=== PATIENT | male | born 1950 | race Caucasian/White ===

== ENCOUNTER 2019-12-03 07:32 | Day surgery (SDC) | payer MEDICARE ==
[2019-09-25 10:51] LABS: Absolute Lymphocytes (CBC) 1.4 K/uL (0.7-4.9); Hematocrit 42.4 % (39.6-49.0); Lymphocytes % 34.1 % (15.3-44.8); MPV 8.4 fL (7.6-11.3); RBC Red Blood Cell Count 4.54 M/uL (4.33-5.43)
--- NOTE | 2019-11-29 06:19 | EKG ---
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
--- OUTSIDE RECORDS SUMMARY | 2019-12-03 07:41 | XMS REPORT | Continuity of Care Document ---
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 [place] (disorder) Sleep apnea Active Problem 03/07/2017 [facility] (finding) [place] Medications No Data Provided for This Section Allergies, Adverse Reactions, Alerts No Known Medication Allergies Immunizations No Data Provided for This Section Results No Data Provided for This Section Pathology Reports No Data Provided for This Section Diagnostic Reports Report Value Date Source Brain wo contrast EXAM: MRI BRAIN WITHOUT CONTRAST 03/04/2017 [facility] [place] MRI DATE: 03/04/2017 12:41 PM CDT INDICATION: 66 years old Mal e patient with history of - F03.90 Unspecified dementia without behavioral disturbance. COMPARISON: None. TECHNIQUE: Multiplanar, multisequence MRI of the brain without contrast. FINDINGS: No focal brain parenchymal d iffusion restriction is identified. No evidence of intracranial hemorrhage. The hippocampal/amygdala complexes are normal in size and symmetric. No abnormal FLAIR hyperintens ity of the temporal lobes. M ild global brain volume loss with corresponding dilatation of the ventricles. No parenchymal mass, mass effect or midline shift is present. No pathologic extra axial fluid is identified. Major intracran ial vascular flow voids are preserved. No pathologic extra axial fluid is identified. The paranasal sinuses are clear. No mastoid effusion is identified. Orbits are unremarkable bilaterally. IMPRESSION: 1. No acute intracranial abnormality. Chest 2 views Chest 2 views: 04/26/2014 [facility] COMPARISON: No priors FINDINGS: The lungs are belgica r and well inflated. There are no effusions or other pleural abnormalities. The cardiomediastinal silhouette and the pulmonary vasculature are within normal limits. No significant bony abnormality is noted. IMPRESSION: Normal two-view chest. SL:13 Consultation Notes No Data Provided for This Section Discharge Summaries No Data Provided for This Section History and Physicals No Data Provided for This Section Vital Signs No Data Provided for This Section Encounters Location Location Encounter Encounter Reason Attending ADM MO Stat us Source Details Type Number For Provider Date Date Visit [facility] Outpt Diag [id number] [facility] 04/26 04/27 [facility] Outpatient Services Roque /2013 [facility] [place] [facility] [id number] VANITA 09/[address] [facility] Joe Outpatient [id number] KHADRA NELSON 10/21 [facility] Joe [facility] Outpt Diag [id number] [facility] 03/04 03/05 [facility] [place] [id number] KHADRA NELSON 04/22 Acti [facility] [place] Procedures Procedure Code Date Perfomer Comments Source Appendectomy [id number] [facility] [place] Carpal tunnel release [id number] [facility] Cholecystectomy [id number] [facility] Fusion of [id number] [facility] cervicothoracic joint Her clement by anterior approach Fusion of lumbar [id number] OP[facility] spine Joe Hernia repair [id number] [facility] [place] Vasectomy [id number] [facility] Assessment and Plan No Data Provided for This Section Plan of Care No Data Provided for This Section Social History Social History Date Source Social History TypeResponse 10/21/2016 [facility] Alcohol Past Smoking Status Former smoker; Ready to change: No; Conc erns about tobacco use in household: No; Exposure to Tobacco Smoke Smoke occasionally during HS; Cigarette Smoking Last 365 Days No; Reg Smoking Cessation Counseling No Family History No Data Provided for This Section Advance Directives No Data Provided for This Section Functional Status No Data Provided for This Section
--- OUTSIDE RECORDS SUMMARY | 2019-12-03 07:41 | XMS REPORT | Clinical Summary ---
:1950 Author Organization [facility] Address [address] [place] [address] Care Team Providers Name Role Phone MD Trina Primary Care Provider Allergies Active Allergy Reactions Severity Noted Date Comments Adhesive Tape-Silicones Rash Medium 01/09/2018 "BLI STER ASTUDILLO', paper tape and tegaderm ok as per pt Medications Medication Sig Dispensed Refills Start End Date Status Date DULoxetine Take 60 mg by 0 Activ e (CYMBALTA) 60 MG mouth nightly. capsule SUMAtriptan Take 50 mg by 0 Acti ve (IMITREX) 50 MG mouth once as tablet needed for migraine. May repeat in 2 hours if unresolved. Do not exceed 200 mg in 24 hours. HYDROcodone-acetami Take 1 tablet 0 Active nophen (NORCO) by mouth 3 10-325 mg per (three) times a tablet day as needed (pain). pantoprazole Take 40 mg by 0 Act ilana (PROTONIX) 40 MG EC mouth daily. tablet atorvastatin Take 20 mg by 0 Act ilana (LIPITOR) 20 MG mouth nightly. tablet Default OP ins sodium Apply 1 0 Active fluoride/potassium application to nit (PREVIDENT 5000 teeth 2 (two) SENSITIVE DENT) times a day. leflunomide (ARAVA) Take 20 mg by 0 Active 20 MG tablet mouth nightly. testosterone by implant 0 Active (TESTOPEL IMPL) route every 4 (four) months. lidocaine HCl 4 % Apply 1 0 Ac tive lotion application topically 2 (two) times a day as needed (pain). Apply small amount affected area of pain sildenafil, Take 20 mg by 0 Acti ve antihypertensive, mouth daily. (REVATIO) 20 mg tablet celecoxib Take 200 mg by 0 Activ e (CeleBREX) 200 MG mouth daily. capsule cycloSPORINE Administer 1 0 Acti ve (RESTASIS drop to both MULTIDOSE) 0.05 % eyes 2 (two) drops times a day. pilocarpine Take 5 mg by 0 Activ e (SALAGEN) 5 MG mouth 3 (three) tablet times a day. calcium Take 1 tablet 0 Active carbonate-vitamin by mouth daily. D3 (CALCIUM 500 WITH D) 500 mg(1,250mg) -400 unit tablet potassium 99 mg Take 1 tablet 0 Active tablet by mouth daily. cholecalciferol, Take 1 tablet 0 Active vitamin D3, by mouth daily. (VITAMIN D3) 5,000 unit tablet ascorbic acid, Take 500 mg by 0 Active vitamin C, (VITAMIN mouth daily. C) 500 MG tablet glucosamine/msm/cho Take 1 tablet 0 Active ndroit sulf by mouth 2 (GLUCOSAMINE (two) times a [id number] day. ORAL) saw palmetto fruit Take 1 tablet 0 Active 450 mg capsule by mouth 2 (two) times a day. CINNAMON BARK ORAL Take 100 mg by 0 Active mouth daily. vitamin E 400 UNIT Take 400 Units 0 Active capsule by mouth daily. MAGNESIUM ORAL Take 400 mg by 0 Active mouth daily. SIMETHICONE ORAL Take 1 tablet 0 Active by mouth daily. Gas X folic acid/vit B Take 1 tablet 0 Active complex and C (B by mouth daily. COMPLEX-VITAMIN C-FOLIC ACID ORAL) UNABLE TO FIND Take 4 capsules 0 Active by mouth daily. Sulfurzyme Supplement oil capsule metoprolol tartrate Take 25 mg by 0 Active (LOPRESSOR) 25 mg mouth 2 (two) 8 tablet times a day. losartan (COZAAR) Take 100 mg by 0 Active 100 MG tablet mouth daily. 8 predniSONE Take 5 mg by 0 Active (DELTASONE) 5 mg mouth every 8 tablet morning. docosahexanoic Take 1 tablet 0 A ctive acid/epa (FISH OIL by mouth 3 ORAL) (three) times a day. nortriptyline Take 50 mg by 0 Ac tive (PAMELOR) 25 MG mouth nightly. capsule Takes 25 mg 2 cap. (50 mg) choline fenofibrate Take 45 mg by 0 Active (TRILIPIX) 45 mg mouth daily. capsule oxyCODone-acetamino Take 1 tablet 0 Active phen (PERCOCET) by mouth every 5-325 mg per 8 (eight) hours tabletIndications: .Acute Pain. acute pain methocarbamol Take 750 mg by 0 A ctive (ROBAXIN) 750 MG mouth 4 (four) tablet times a day as needed for muscle spasms. metFORMIN XR Take 1,000 mg 0 Act ilana (GLUCOPHAGE-XR) 500 by mouth daily. mg 24 hr tablet Takes 500 mg 2 tab. (1,000 mg) at supper exenatide Inject 2 mg 0 Active microspheres under the skin (BYDUREON SUBQ) once a week. 2 mg/0.85 ml injects on Tuesday cyanocobalamin, Take 1 tablet 0 Active vitamin B-12, 5,000 by mouth daily. mcg capsule UNABLE TO FIND Take 1 capsule 0 Active by mouth daily. Med Name: Dirurex Max TURMERIC ORAL Take 1 tablet 0 Ac tive by mouth daily. zinc 50 mg tablet Take 1 tablet 0 Active by mouth daily. naloxone 4 1 spray into 0 Active mg/actuation each nostril as spray,non-aerosol needed (overdose). Magnolia in left nostril as needed traMADol (ULTRAM) Take 100 mg by 0 0 Discontinued 50 mg tablet mouth 3 (three) 19 ( Stop Taking at times a day as Disch arge) needed (pain). Takes 50 mg 2 tab. (100 mg) tiZANidine Take 4 mg by 0 04/20/20 Discon tinued (ZANAFLEX) 4 MG mouth 3 (three) 19 tablet times a day. nortriptyline Take 50 mg by 0 04/20/20 Di scontinued (PAMELOR) 10 MG mouth daily. 19 capsule multivit-min/FA/lyc Take 1 tablet 0 Discontinued open/lutein by mouth daily. 19 (CENTRUM SILVER MEN ORAL) semaglutide Inject 1 mg 0 04/20/20 Discon tinued (OZEMPIC) 1 mg/0.75 under the skin 19 mL (2 mg/1.5 mL) once a week. pen injector ergocalciferol Take 50,000 0 04/29/20 Dis continued (VITAMIN D2) 50,000 Units by mouth 19 (Med List unit capsule once a week. Edwige nup) Tuesday ondansetron Take 8 mg by 0 05/02/20 Disco ntinued (ZOFRAN) 8 MG mouth every 8 19 (S top Taking at tablet (eight) hours Discha rge) as needed for nausea or vomiting. cholecalciferol, Take 50,000 0 05/02/20 D iscontinued vitamin D3, Units by mouth. 19 (S top Taking at (VITAMIN D3 ORAL) Every Tuesday Discharge) Active Problems Problem Noted Date Lumbosacral spondylosis with radiculopathy 04/27/2019 Degenerative disc disease, lumbar 04/26/2018 Degenerative disc disease, cervical 01/16/2018 Encounters Date Type Specialty Care Team Description 07/02/2019 Hospital Encounter Radiology Yo Meraz Lumbosa cral MD radiculopathy d ue to degenerative valentin int disease of spin e 06/06/2019 Transcribe Orders Access Yo Meraz Lumbosac marylin HEATH radiculopathy d ue to degenerative valentin int disease of spin e (Primary Dx) 05/25/2019 Hospital Encounter Radiology Yo Meraz, Spinal stenosis, MD lumbar region, with neurogenic claudication 05/22/2019 Hospital Encounter Radiology Yo Meraz Lumbosa cral MD spondylosis wit h radiculopathy 05/22/2019 Transcribe Orders Radiology Yo Meraz Lumbosac ral spondylosis with radiculopathy (Primary Dx); Spinal stenosis , lumbar region, with neurogenic claudication 04/27/2019 Anesthesia Event General Surgery Sara Champion MD 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, 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, 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 04/27/2019 Surgery General Surgery Yo Meraz, POSTERIOR LUMBAR MD RE-EXPLORATION, REMOVAL OF L4-L 5 NAGI, L5-S1 LAMINECOT MY AND TRANSFORAMINAL LUMBAR INTERBODY FUSIO N, EXTENSION OF FU RADHA TO S1 WITH MEDT RONIC & [facility] 04/27/2019 - Hospital Encounter General Internal Yo Meraz, Lum bosacral 05/02/2019 Medicine MD spondylosis with Spencer Veras radiculopath cami Wen MD 04/20/2019 Pre-Admit Testing Pre-Admission Yo Meraz, Preop t esting Appointment Testing (Primary Dx) 04/12/2019 Hospital Encounter Radiology Yo Meraz Lumbosa cral MD spondylolysis 04/12/2019 Transcribe Orders Radiology Yo Meraz, Lumbosac ral spondylolysis (Primary Dx) 01/16/2019 Hospital Encounter Yo Shea, Lumbar stenosis with MD neurogenic claudication 01/11/2019 Transcribe Orders Access Yo Meraz, Lumbar s tenosis with MD neurogenic claudication (P rimary Dx) 12/26/2018 Hospital Encounter Yo Shea, Spinal stenosis in cervical region; Spinal stenosis , lumbar region, without neurogenic claudication 12/26/2018 Hospital Encounter Yo Shea, Spinal stenosis in cervical region; Spinal stenosis , lumbar region, without neurogenic claudication 12/26/2018 Transcribe Orders Yo Shea, Spinal s tenosis in cervical region (Primary Dx); Spinal stenosis , lumbar region, without neurogenic claudication after 12/02/2018 Immunizations Name Administration Dates Next Due FLUCELVAX QUAD PF 05/02/2019, 05/01/2018 Influenza, Unspecified 05/04/2017 Family History Medical History Relation Name Comments Autoimmune disease Brother Heart disease Brother Parkinsonism Brother Cancer Father colon Heart disease Mother Heart failure Mother Hypertension Mother Relation Name Status Comments Brother Father Mother Social History Tobacco Use Types Packs/Day Years Used Date Former Smoker Cigarettes 0.5 1 Quit: 1969 Smokeless Tobacco: Never Used Alcohol Use Drinks/Week oz/Week Comments No NOT SINCE 2013. Sex Assigned at Date Recorded Not on file Job Start Date Occupation Industry Not on file Not on file Not on file Travel History Travel Start Travel End No recent travel history available. Last Filed Vital Signs Vital Sign Reading Time Taken Comments Blood Pressure 139/82 05/02/2019 11:23 AM CDT Pulse 101 05/02/2019 11:23 AM CDT Temperature 36.9 C (98.4 F) 05/02/2019 11:23 AM CDT Respiratory Rate 17 05/02/2019 11:23 AM CDT Oxygen Saturation 95% 05/02/2019 11:23 AM CDT Inhaled Oxygen Concentration - - Weight 122 kg (270 lb) 04/20/2019 9:52 AM CDT Height 175.3 cm (5' 9") 04/20/2019 9:52 AM CDT Body Mass Index 39.87 04/20/2019 9:52 AM CDT Plan of Treatment Health Maintenance Due Date Last Done Comments COLONOSCOPY SCREENING 09/21/2001 SHINGLES VACCINES (#1) 09/21/2001 65+ PNEUMOCOCCAL VACCINE (1 of 2 - 09/21/2016 PCV13) INFLUENZA VACCINE 02/02/2020 05/02/2019, 05/01/2018, 06/13/2017, Additional history exists Implants Implanted Type Area Casework Supervisor Device Shelf Model / Serial Identifier Expiration / Lot Date Spacer Spinal Acf Lordtc [id number] - [id number] - [id number] Human Tissue Anterior: MUSCULOSKELETAL 10/07/2020 [id number] / Implanted: Qty: 1 on 01/16/2018 by Yo Meraz MD at [facility] Implants Spine TRANSPLANT [id number] / Cervical FOUNDATION [id number] Spacer Spinal Acf Lordtc [id number] - [id number] - [id number] Human Tissue Anterior: MUSCULOSKELETAL 10/15/2020 [id number] / Implanted: Qty: 1 on 01/16/2018 by Yo Meraz MD at [facility] Implants Spine TRANSPLANT [id number] / Cervical FOUNDATION [id number] Chip Canc Allograft Leader Crs 15cc 0.1-4mm - [id number] H uman Tissue Anterior: MUSCULOSKELETAL 03/14/2021 [id number] / Implanted: Qty: 1 on 04/26/2018 by Yo Meraz MD at [facility] Implants Spine TRANSPLANT / Lumbar FOUNDATION [id number] Kit Bone Grft Lmbr Tprd 8ml Xxl Infuse - [id number] Human Tissue Anterior: MEDTRONIC SPINAL 11/01/2019 [id number] / Implanted: Qty: 1 on 04/26/2018 by Yo Meraz MD at [facility] Implants Spine AND BIOLOGICS / Lumbar Kit Bone Grft Lmbr Tprd 2.8ml Sm Infuse - [id number] Human Tissu e Left: MEDTRONIC SPINAL 05/03/2020 [id number] / Implanted: Qty: 1 on 04/28/2018 by Yo Meraz MD at [facility] Implants Spine AND BIOLOGICS / Lumbar Chip Canc Allograft Leader Crshd 15cc 0.1-4mm - [id number] Human Tissue Left: MUSCULOSKELETAL 03/13/2021 [id number] / Implanted: Qty: 1 on 04/28/2018 by Yo Meraz MD at [facility] Implants Spine TRANSPLANT / Lumbar FOUNDATION [id number] Kit Bone Graft Lumbar Tapered 2.8mm Small Infuse - [id number] Human Tissue Posterior MEDTRONIC SPINAL 03/03/2021 [id number] / Implanted: Qty: 1 on 04/27/2019 by Yo Meraz MD at [facility] Implants : Spine AND BIOLOGICS / Lumbar [id number] Tissue Pericrdm Std Algrft Ldr - [id number] Human Tissue Post erior MUSCULOSKELETAL 09/20/2021 [id number] / Implanted: Qty: 1 on 04/27/2019 by Yo Meraz MD at [facility] Implants : Spine, TRANSPLANT / Multi-Lev FOUNDATION [id number] el Interbody [id number] Large - 18 Deg 16mm - [id number] - [id number] I PM IMPLANT Anterior: MEDTRONIC 11/20/2022 [id number] / Implanted: Qty: 1 on 04/26/2018 by Yo Meraz MD at [facility] DEVICES Spine SOFAMOR DANEK 08AC / Lumbar 08AC Cdh Legacy 5.5 Nilesh Mas 5.5x30 - [id number] IPM IMPLANT Anterior: MEDT RONIC [id number] / Implanted: Qty: 1 on 04/26/2018 by Yo Meraz MD at [facility] DEVICES Spine SOFAMOR DANEK / Lumbar VENDOR LOT NA Set Screw [id number] 5.5 Ti Ns Brk Off - [id number] IPM IMPLANT N/A: N/A MEDTRONIC [id number] / Implanted: 04/28/2018 at [facility] (Quantity not on file) DE VICES SOFAMOR DANEK / Screw [id number] 5.5 Mas 6.5x50 Cc - [id number] IPM IMPLANT Posterior MEDTRONIC [id number] / Implanted: 04/28/2018 at [facility] (Quantity not on file) DE VICES : Spine SOFAMOR DANEK / Lumbar VENDOR LOT NA Screw [id number] 5.5 Mas 6.5x55 Cc - [id number] IPM IMPLANT N/A: N/A MEDTRONIC [id number] / Implanted: 04/28/2018 at [facility] (Quantity not on file) DE VICES SOFAMOR DANEK / Screw [id number] 5.5 Mas 6.5x60 Cc - [id number] IPM IMPLANT Posterior MEDTRONIC [id number] / Implanted: 04/28/2018 at [facility] (Quantity not on file) DE VICES : Spine SOFAMOR DANEK 03/9999 / Lumbar VENDOR LOT NA Nagi [id number] 5.5 Ccm Ns Curv 30mm - [id number] IPM IMPLANT Posterior MEDTRONIC [id number] / Implanted: 04/28/2018 at [facility] (Quantity not on file) DE VICES : Spine SOFAMOR DANEK / Lumbar VENDOR LOT NA Nagi [id number] 5.5 Ccm Ns Curv 35mm - [id number] IPM IMPLANT Posterior MEDTRONIC [id number] / Implanted: 04/28/2018 at [facility] (Quantity not on file) DE VICES : Spine SOFAMOR DANEK / Lumbar VENDOR LOT NA Nagi [id number] 5.5 Ccm Ns Curv 50mm - [id number] IPM IMPLANT Posterior MEDTRONIC [id number] / Implanted: 04/28/2018 at [facility] (Quantity not on file) DE VICES : Spine SOFAMOR DANEK 03/9999 / Lumbar VENDOR LOT NA Screw [id number] 5.5 Mas 6.5x50 Cc - [id number] IPM IMPLANT Posterior MEDTRONIC [id number] / Implanted: Qty: 2 on 04/27/2019 by Yo Meraz MD at [facility] DEVICES : Spine, SOFAMOR DANEK / Sacral VENDOR LOT NA Set Screw [id number] 5.5 Ti Ns Brk Off - [id number] IPM IMPLANT N/A: N/A MEDTRONIC [id number] / Implanted: Qty: 6 on 04/27/2019 by Yo Meraz MD at [facility] DEVICES SOFAMOR DANEK / Nagi [id number] 5.5 Ccm Ns Curv 50mm - [id number] IPM IMPLANT Posterior MEDTRONIC [id number] / Implanted: Qty: 1 on 04/27/2019 by Yo Meraz MD at [facility] DEVICES : Spine, SOFAMOR DANEK / Multi-Lev VENDOR LOT NA el Nagi [id number] 5.5 Ccm Ns Curv 55mm - [id number] IPM IMPLANT Posterior MEDTRONIC [id number] / Implanted: Qty: 1 on 04/27/2019 by Yo Meraz MD at [facility] DEVICES : Spine, SOFAMOR DANEK / Multi-Lev VENDOR LOT NA el Graft Dural Regnrtn Mtrx Duragen Plus 1x1in - [id number] Neurosu rgica Posterior INTEGRA 10/01/2021 [id number] / Implanted: Qty: 1 on 04/27/2019 by Yo Meraz MD a t [facility] l Implants : Spine, LIFESCIENCE / Multi-Lev NEURO [id number] el Washer Bone Grft Ti 17mm - [id number] Orthopedic Anterior: MEDTRONIC S JUAN [id number] / Implanted: Qty: 1 on 04/26/2018 by Yo Meraz MD at [facility] Trauma Spine AND BIOLOGICS / Implants Lumbar VENDOR LOT NA Screw Cerv Fxdangld Slf-Retng Slf-Tap Ti 4x16mm - [id number] Spi nal Anterior: SYNTHES SPINE [id number] / Implanted: 01/16/2018 at [facility] (Quantity not on file) Implants Spine / Cervical VENDOR LOT NA Plate Spinal 2lvl Ti Vectra 40mm - [id number] Spinal Anterior: SYNT HES SPINE [id number] / Implanted: 01/16/2018 at [facility] (Quantity not on file) Implants Spine / Cervical VENDOR LOT NA Cage Intrbdy [place] Imp Peek 6deg [id number] - [id number] Spina l Left: MEDTRONIC SPINAL 02/15/2026 [id number] / Implanted: Qty: 1 on 04/28/2018 by Yo Meraz MD at [facility] Implants Spine AND BIOLOGICS / Lumbar [id number] Kit Selnt Fibrin [facility] Surgy 5ml Evicel - [id number] Surgic al Posterior ETHICON US- 11/01/2020 [id number] / Implanted: Qty: 1 on 04/27/2019 by Yo Meraz MD at [facility] Implants; : Spine / Expanders; Lumbar [id number] Extenders; Surgical Wires Kit Selnt Fibrin [facility] Surgy 5ml Evicel - [id number] Surgic al Posterior ETHICON US-EH [id number] / Implanted: Qty: 1 on 04/27/2019 by Yo Meraz MD at [facility] Implants; : Spine, / Expanders; Multi-Lev Extenders; el Surgical Wires Kit Selnt Fibrin [facility] Surgy 5ml Evicel - [id number] Surgic al Posterior ETHICON US-EH [id number] / Implanted: 04/27/2019 at 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 CT LUMBAR SPINE WO Routine 05/25/2019 2:00 Spinal stenosis, R esults for this CONTRAST PM ELECTRIC MOTOR CONTROL ASSEMBLER lumbar region, with procedur e are in neurogenic the results claudication section. XR LUMBAR SPINE AP Routine 05/22/2019 12:40 Lumbosacral Resul ts for this LATERAL FLEXION AND PM ELECTRIC MOTOR CONTROL ASSEMBLER spondylosis with pro cedure are in EXTENSION radiculopathy the results section. POC GLUCOSE Routine 05/02/2019 11:25 Results for this AM CDT procedure are i n the results section. POC GLUCOSE Routine 05/02/2019 6:20 Results for this AM CDT procedure are i n the results section. POC GLUCOSE Routine 05/01/2019 9:51 Results for this PM CDT procedure are i n the results section. POC GLUCOSE Routine 05/01/2019 5:34 Results for this PM CDT procedure are i n the results section. CT LUMBAR SPINE WO Routine 05/01/2019 12:16 Resul ts for this CONTRAST PM CDT procedure are i n the results section. POC GLUCOSE Routine 05/01/2019 12:11 Results for this PM CDT procedure are i n the results section. POC GLUCOSE Routine 05/01/2019 6:08 Results for this AM CDT procedure are i n the results section. ESTIMATED GFR Routine 05/01/2019 5:50 Results fo r this AM CDT procedure are i n the results section. BASIC METABOLIC PANEL Routine 05/01/2019 5:50 Re sults for this AM CDT procedure are i n the results section. HC COMPLETE BLD COUNT Routine 05/01/2019 5:50 Re sults for this W/AUTO DIFF AM CDT procedure are i n the results section. POC GLUCOSE Routine 04/30/2019 10:01 Results for this PM CDT procedure are i n the results section. POC GLUCOSE Routine 04/30/2019 5:51 Results for this PM CDT procedure are i n the results section. POC GLUCOSE Routine 04/30/2019 11:45 Results for this AM CDT procedure are i n the results section. XR LUMBAR SPINE 2 OR 3 Routine 04/30/2019 10:11 R esults for this VW AM CDT procedure are i n the results section. ESTIMATED GFR Routine 04/30/2019 6:15 Results fo r this AM CDT procedure are i n the results section. BASIC METABOLIC PANEL Routine 04/30/2019 6:15 Re sults for this AM CDT procedure are i n the results section. HC COMPLETE BLD COUNT Routine 04/30/2019 6:15 Re sults for this W/AUTO DIFF AM CDT procedure are i n the results section. POC GLUCOSE Routine 04/30/2019 5:25 Results for this AM CDT procedure are i n the results section. POC GLUCOSE Routine 04/29/2019 8:42 Results for this PM CDT procedure are i n the results section. POC GLUCOSE Routine 04/29/2019 5:04 Results for this PM CDT procedure are i n the results section. POC GLUCOSE Routine 04/29/2019 11:45 Results for this AM CDT procedure are i n the results section. US DUPLEX VENOUS LOWER Routine 04/29/2019 11:21 R esults for this EXTREMITY BILATERAL AM CDT procedur e are in the results section. POC GLUCOSE Routine 04/29/2019 5:51 Results for this AM CDT procedure are i n the results section. ESTIMATED GFR Routine 04/29/2019 4:40 Results fo r this AM CDT procedure are i n the results section. BASIC METABOLIC PANEL Routine 04/29/2019 4:40 Re sults for this AM CDT procedure are i n the results section. HC COMPLETE BLD COUNT Routine 04/29/2019 4:40 Re sults for this W/AUTO DIFF AM CDT procedure are i n the results section. POC GLUCOSE Routine 04/28/2019 9:18 Results for this PM CDT procedure are i n the results section. POC GLUCOSE Routine 04/28/2019 6:25 Results for this PM CDT procedure are i n the results section. POC GLUCOSE Routine 04/28/2019 6:33 Results for this AM CDT procedure are i n the results section. ESTIMATED GFR Routine 04/28/2019 5:30 Results fo r this AM CDT procedure are i n the results section. BASIC METABOLIC PANEL Routine 04/28/2019 5:30 Re sults for this AM CDT procedure are i n the results section. HC COMPLETE BLD COUNT Routine 04/28/2019 5:30 Re sults for this W/AUTO DIFF AM CDT procedure are i n the results section. POC GLUCOSE Routine 04/27/2019 11:02 Results for this PM CDT procedure are i n the results section. POC GLUCOSE Routine 04/27/2019 4:27 Results for this PM CDT procedure are i n the results section. OR FL < 1 HOUR Routine 04/27/2019 3:43 Results f or this PM CDT procedure are i n the results section. ARTERIAL LINE Routine 04/27/2019 10:10 Results fo r this AM CDT procedure are i n the results section. AL AN ELECTIVE Routine 04/27/2019 9:33 Results f or this ENDOTRACHEAL AIRWAY AM CDT procedur e are in the results section. URINE CULTURE Timed 04/27/2019 8:49 Results fo r this AM CDT procedure are i n the results section. URINALYSIS SCREEN AND Timed 04/27/2019 8:44 Lumbosacral Re sults for this MICROSCOPY, WITH AM CDT spondylosis with procedu re are in REFLEX TO CULTURE radiculopathy the resul ts section. POC GLUCOSE Routine 04/27/2019 7:31 Results for this AM CDT procedure are i n the results section. ESTIMATED GFR Routine 04/20/2019 10:50 Results fo r this AM CDT procedure are i n the results section. PROTHROMBIN TIME WITH Routine 04/20/2019 10:50 Preop testing R esults for this INR AM CDT procedure are i n the results section. PARTIAL THROMBOPLASTIN Routine 04/20/2019 10:50 Preop testing Results for this TIME (PTT) AM CDT procedure are i n the results section. HEMOGLOBIN A1C Routine 04/20/2019 10:50 Preop testing Results for this AM CDT procedure are i n the results section. TYPE AND SCREEN Routine 04/20/2019 10:50 Preop testing Results for this AM CDT procedure are i n the results section. BASIC METABOLIC PANEL Routine 04/20/2019 10:50 Preop testing R esults for this AM CDT procedure are i n the results section. HC COMPLETE BLD COUNT Routine 04/20/2019 10:50 Preop testing R esults for this W/AUTO DIFF AM CDT procedure are i n the results section. XR LUMBAR SPINE AP Routine 04/12/2019 10:46 Lumbosacral Resul ts for this LATERAL FLEXION AND AM CDT spondylolysis proced ure are in EXTENSION the results section. MRI LUMBAR SPINE W WO Routine 01/16/2019 2:34 Lumbar stenosis with Results for this CONTRAST PM CDT neurogenic procedure are i n claudication the results section. ESTIMATED GFR STAT 01/16/2019 1:16 Results fo r this PM CDT procedure are i n the results section. CREATININE, WHOLE STAT 01/16/2019 1:16 Result s for this BLOOD PM CDT procedure are i n the results section. XR CERVICAL SPINE Routine 12/26/2018 9:53 Spinal stenosis in Results for this COMPLETE W FLEX EXT AM CDT cervical reg ion procedure are in Spinal stenosis, the results lumbar region, section. without neurogenic claudication XR LUMBAR SPINE AP Routine 12/26/2018 9:53 Spinal stenosis in Results for this LATERAL FLEXION AND AM CDT cervical re gion procedure are in EXTENSION Spinal stenosis, the results lumbar region, section. without neurogenic claudication after 12/02/[address] Lumbar Spine Wo Contrast (07/02/2019 1:32 PM ELECTRIC MOTOR CONTROL ASSEMBLER)Only the most recent of3 resultswithin the time period is included. Specimen Narrative Performed At EXAMINATION: CT LUMBAR SPINE WO CONTRAST RADIANT CLINICAL HISTORY: M47.27 Other spondylosis with radicu lopathy lumbosacral region, M47.27 COMPARISON: The 2018 TECHNIQUE: Axial noncontrast enhanced images of lumbar spine was performed with coronal sagittal [place] [facility] [place] was performed with iterative reconstruction technique and/or automated exposure control to reduce radiation dos e. FINDINGS: L1-L2 and L4-S1 posterior spinal fusion is seen. Inter body prosthesis present from L1-L2 to L5-S1. Anterior fusion screw is seen at L4-L5 level. There is evidence of lucency surrounding the ri ght-sided S1 screw, measuring 7.5 mm and less than 4 mm lucency is also seen associated with the left S1 screw . No other perihardware lucency. Spinal laminectomy seen at L1-L2, partial laminectomy at L2-L3 and L3-L4. Total laminectomy at L4-L5 and L5 -S1. There is a T11 vertebral body hemangioma. Vertebral mei dy heights are maintained. Alignment is maintained. Soft tissue fullness, low-attenuation and air along th e left aspect at L4-L5 is again noted, has progressed since the prior s tudy. But is similar to the study performed on r 2018. At L1-L2, postoperative changes. No recurrent narrowin g of the bony spinal canal or neural foramina. At L2-L3, postoperative changes, no recurrent narrowin g of the bony spinal canal or neural foramina. At L3-L4, postoperative changes beam hardening degradi ng evaluation, no recurrent high-grade spinal canal or neural foraminal narrowing is appreciated. At L4-L5 postoperative changes no high-grade bony spin al canal or neural foraminal narrowing. At L5-S1, postoperative changes. No high-grade bony sp inal canal or neural foraminal narrowing. Please note soft tissue detail is limited on CT and po stoperative fibrosis or granulation tissue related neural foramina l or spinal canal narrowing at L4-L5 and L5-S1 cannot be e xcluded. IMPRESSION: Postoperative changes with lucency surroun ding right S1 screw, cannot exclude screw loosening at this level. P ersistent fluid, fibrosis and air in the laminectomy bed. No recurrent high-grade bony spinal canal or neural foraminal narrowi ng. 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 CT imaging was performed with iterative reconstruction technique and/or automated exposure control to reduce radiation dose. FINDINGS: L1-L2 and L4-S1 posterior spinal fusion is seen. Interbody prosthesis present from L1-L2 to L5-S1. Anterior fusion screw is seen at L4-L5 level. There is evidence of lucency surrounding the right-sided S1 screw, measuring 7.5 mm and less than 4 mm lucency is also seen associated with the left S1 screw. No other perihardware lucency. Spinal laminectomy seen at L1-L2, partia l laminectomy at L2-L3 and L3-L4. Total laminectomy at L4-L5 and L5-S1. There is a T11 vertebral body hemangioma . Vertebral body heights are maintained. Alignment is maintained. Soft tissue fullness, low-attenuation an d air along the left aspect at L4-L5 is again noted, has progressed since the prior study. But is similar to the study performed on May 01, 2019. At L1-L2, postoperative changes. No recu rrent narrowing of the bony spinal canal or neural foramina. At L2-L3, postoperative changes, no recu rrent narrowing of the bony spinal canal or neural foramina. At L3-L4, postoperative changes beam wendy dening degrading evaluation, no recurrent high-grade spinal canal or neural foraminal narrowing is appreciated. At L4-L5 postoperative changes no high-g rade bony spinal canal or neural foraminal narrowing. At L5-S1, postoperative changes. No high -grade bony spinal canal or neural foraminal narrowing. Please note soft tissue detail is limite d on CT and postoperative fibrosis or granulation tissue related neural foraminal or spinal canal narrowing at L4-L5 and L5-S1 cannot be excluded. IMPRESSION: Postoperative changes with l ucency surrounding right S1 screw, cannot exclude screw loosening at this level. Persistent fluid, fibrosis and air in the laminectomy bed. No recurrent high-grade bony spinal canal or neural foraminal narrowing. [id number] Performing Organization Address City/State/Zipcode Phone Number [facility] [address] [place] [address] XR Lumbar Spine Ap Lateral Flexion And Extension (05/22/2019 12:40 PM [employer])Only the most recent of3 resultswithin the time period is included. Specimen Narrative Performed At EXAMINATION: XR LUMBAR SPINE AP LATERAL FLEXION AND EXTENSION [facility] CLINICAL HISTORY: M47.27 Other spondylosis with radicu lopathy lumbosacral region, lumbosacral spondy with radiculopathy COMPARISON: 04/30/2019. IMPRESSION: 6 views of lumbar spine are interpreted. Dynamic later al grafts are included. Mild convex right curvature of the thora columbar region is again noted. Vertebral heights are preserved. No fracture or aggres sive bone lesion is seen. Again noted is posterior fusion of L1-2. Bilateral ped icle screws are connected with vertical rods. No hardware failure or l oosening is seen. Facetectomy and L1 partial laminectomy a re again noted. Again noted is posterior fusion of L4-S1. Bilateral pe dicle screws are present at L4 and S1 are connected with vertical rods. No hardware failure loosening is seen. Facetectomies of L4-5 and L 5-S1 are again noted. Again noted are interbody fusions of L1- 2 through L5-S1. Mild grade 1 anterolisthesis of L5 relat ilana S1 is again seen. There is no significant change in alignment on dynamic lateral radiographs. There is limited range of m otion. No significant interval change is apprec iated. 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 IMPRESSION: 6 views of lumbar spine are interpreted. Dynamic lateral grafts are included. Mild convex right curvature of the thora columbar region is again noted. Vertebral heights are preserved. No frac ture or aggressive bone lesion is seen. Again noted is posterior fusion of L1-2. Bilateral pedicle screws are connected with vertical rods. No hardware failure or loosening is seen. Facetectomy and L1 partial laminectomy are again noted. Again noted is posterior fusion of L4-S1 . Bilateral pedicle screws are present at L4 and S1 are connected with vertical rods. No hardware failure loosening is seen. Facetectomies of L4-5 and L5-S1 are again noted. Again noted are interbody fusions of L1- 2 through L5-S1. Mild grade 1 anterolisthesis of L5 relat ilana S1 is again seen. There is no significant change in alignm ent on dynamic lateral radiographs. There is limited range of motion. No significant interval change is apprec iated. [id number] Performing Organization Address City/State/Zipcode Phone Number [facility] [address] [place] [address] POC glucose (05/02/2019 11:25 AM CDT)Only the most recent of20 resultswithin the time period is included. POC glucose 201 (H) 65 - 99 mg/dL [facility] Comment: AFUA GRAY RN Notified HOSPITAL Meter ID: [id number] Collection Manager: Halley Jennifer Specimen Performing Organization Address City/[facility]/Zipcode Phone Number [facility] DEPARTMENT OF PATHOLOGY [address] [place] [phone] [facility] [id number] [place] [id number] [place] [address] Estimated GFR (05/01/2019 5:50 AM CDT)Only the most recent of6 resultswithin the time period is included. Estimated GFR 80 mL/min/1.73 [facility] Comment: m2 [facility] Catergory Units Interpretation HOS PITAL G1 >=90 Normal or high G2 60-89 Mildly decreased G3a 45-59 Mildly to moderately decreas ed G3b 30-44 Moderately to severely decre ased G4 15-29 Severely decreased G5 <15 Kidney failure The eGFR was calculated using the Chronic Kidney Disea se Epidemiology Collaboration (CKD-EPI) equation. Interpretation is based on recommendations of the National Kidney Foundation-Kidney Disease Outcomes Eran lity Initiative (NKF-KDOQI) published in 2014. Specimen Plasma specimen Performing Organization Address City/[facility]/Zipcode Phone Number [facility] DEPARTMENT OF PATHOLOGY [address] [place] [address] CBC with platelet and differential (05/01/2019 5:50 AM CDT)Only the most recent of5 resultswithin the time period is included. WBC 6.4 4.5 - 11.0 k/uL [facility] RBC 3.84 (L) 4.40 - 6.00 [facility] m/uL [facility] HGB 11.6 (L) 14.0 - 18.0 [facility] g/dL [facility] HCT 36.3 (L) 41.0 - 51.0 % [facility] MCV 94.5 82.0 - 100.0 fL [facility] MCH 30.2 27.0 - 34.0 pg [facility] MCHC 32.0 31.0 - 37.0 [facility] g/dL [facility] RDW - SD 45.0 37.0 - 55.0 fL [facility] MPV 10.6 6.9 - 11.0 fL [facility] Platelet count 197 150 - 400 K/uL [facility] Nucleated RBC 0.00 /100 WBC [facility] Neutrophils 56.3 39.0 - 69.0 % [facility] Lymphocytes 20.6 (L) 25.0 - 45.0 % [facility] Monocytes 16.7 (H) 0.0 - 10.0 % [facility] Eosinophils 2.8 0.0 - 5.0 % [facility] Basophils 1.7 (H) 0.0 - 1.0 % [facility] Immature granulocytes 1.9 (H) 0.0 - 1.0 % [facility] Specimen Blood Performing Organization Address City/[facility] Phone Number [facility] DEPARTMENT OF PATHOLOGY [address] [place] [address] AND [facility] [address] Basic metabolic panel (05/01/2019 5:50 AM CDT)Only the most recent of5 results within the time period is included. Pathologist Sig nature Sodium 138 135 - 148 mEq/L [facility] Potassium 3.4 (L) 3.5 - 5.0 mEq/L [facility] Chloride 99 98 - 112 mEq/L [facility] CO2 29 24 - 31 mEq/L [facility] Anion gap 10@ANIO 7 - 15 mEq/L [facility] BUN 17 8 - 23 mg/dL [facility] Creatinine 0.97 0.70 - 1.20 mg/dL [facility] Glucose 168 (H) 65 - 99 mg/dL [facility] Calcium 9.7 8.8 - 10.2 mg/dL [facility] Specimen Plasma specimen Performing Organization Address City/[facility]/Zipcode Phone Number [facility] DEPARTMENT OF PATHOLOGY [address] [place] [address] [facility] [address] XR Lumbar Spine 2 Or 3 Vw (04/30/2019 10:11 AM CDT) Specimen Narrative Performed At EXAMINATION: XR LUMBAR SPINE 2 OR 3 VW [facility] CLINICAL HISTORY: L S-spine fusion fol low up COMPARISON: Lumbar x-ray dated April 12, 2019 IMPRESSION: Frontal lateral views of the lumbar spine were obtaine d. There is anterior interbody grafts noted from L1 through S1. Posterior fusion hardware is noted at L1-2 as well as pedicle screws at L4 and S1. L5 screws on prior exam were removed and ne w screws with new rods were placed at S1 with new interbody graft at L5- S1 compared with prior exam. No acute fracture identified. No evidence of hardware malalignment. Ther e are still some broad-based leftward curvature at L4. No acute osseous abnormality identified. [id number] Procedure Note Interface, Radiology Results Incoming - 04/30/2019 10:25 AM CDT EXAMINATION: XR LUMBAR SPINE 2 OR 3 VW CLINICAL HISTORY: L S-spine fusion foll ow up COMPARISON: Lumbar x-ray dated April 12, 2019 IMPRESSION: Frontal lateral views of the lumbar spin e were obtained. There is anterior interbody grafts noted from L1 through S1. Posterior fusion hardware is noted at L1 -2 as well as pedicle screws at L4 and S1. L5 screws on prior exam were removed and new screws with new rods were placed at S1 with new interbody graft at L5-S1 compared with prior exam. No acute fracture identified. No evidence of hardware jammie lignment. There are still some broad- based leftward curvature at L4. No acute osseous abnormality identified. [id number] Performing Organization Address City/State/Zipcode Phone Number [facility] [address] [place] [address] Us duplex venous lower extremity (04/29/2019 11:21 AM CDT) Specimen Narrative Performed At EXAMINATION: US DUPLEX VENOUS LOWER EX TREMITY BILATERAL [facility] CLINICAL HISTORY: Leg swelling or pain DVT suspected COMPARISON: None. TECHNIQUE: Grayscale, color Doppler, and spectral wa veform analysis of the bilateral lower extremity deep venous systems was performed. The bilateral common femoral, superficial femoral, proxima l deep femoral, greater saphenous, and popliteal veins w ere evaluated. The calf vessels were also e valuated. FINDINGS: The bilateral common femoral, superficial femoral, and popliteal veins are compressible. They demonstrate normal venous wavef orms and response to augmentation. There is flow in the vi sualized calf veins. There is no evidence of a popliteal or B selma's cyst. IMPRESSION: No evidence of DVT within the bilateral lower extremit y named vessels as described above. [facility]-[id number] Procedure Note Interface, Radiology Results Incoming - 04/29/2019 11:49 AM CDT EXAMINATION: US DUPLEX VENOUS LOWER EXTREMITY BILATERAL CLINICAL HISTORY: Leg swelling or pain DVT suspected COMPARISON: None. TECHNIQUE: Grayscale, color Doppler, an d spectral waveform analysis of the bilateral lower extremity deep venous systems was performed. The bilateral common femoral, superficial femoral, proximal deep femoral, greater saphenous, and popliteal veins w ere evaluated. The calf vessels were also e valuated. FINDINGS: The bilateral common femoral, superficia l femoral, and popliteal veins are compressible. They demonstrate normal venous waveforms and response to augmentation. There is flow in the visualized calf veins. There is no evidence of a popliteal or B selma's cyst. IMPRESSION: No evidence of DVT within the bilateral lower extremity named vessels as described above. [facility]-[id number] Performing Organization Address [facility]c Phone Number [facility] [address] [place] [address] [place] < 1 Hour (04/27/2019 3:43 PM CDT) Specimen Narrative Performed At EXAMINATION: [place] 1 HOUR HM [facility] CLINICAL HISTORY: Fluoroscopic guidance. IMPRESSION: Fluoroscopy was provided. No radiologist present. Pl ease see procedure report for discussion of procedure, find ings. [facility]-[id number] Procedure Note Interface, Radiology Results Incoming - 04/27/2019 3:47 PM CDT EXAMINATION: [place] 1 HOUR CLINICAL HISTORY: Fluoroscopic guidance. IMPRESSION: Fluoroscopy was provided. No radiologist present. Please see procedure report for discussion of procedure, findings. [facility]-[id number] Performing Organization Address [facility] Phone Number [email or web address] [phone] [place] [address] Arterial line (04/27/2019 10:10 AM CDT) Narrative Performed At Sara Champion MD 04/27/2019 10:11 AM Arterial line Performed by: Sara Champion MD Authorized by: Sara Champion MD Start Time: 04/27/2019 8:28 AM End Time: 04/27/2019 8:40 AM Staff: Anesthesiologist: Sara Champion MD Performed by: Anesthesiologist Pre-procedure: patient identified, IV ch ecked, site and side verified, risks and benefits discussed, procedure verified, surgical consent complete, patient position confirmed, monitors and equ ipment checked and pre-op evaluation complete MSBT: antiseptic used, all elements of maximal sterile barrier technique followed, hand hygiene performed and radha utions labeled Indications: Indications: multiple ABGs and hemody namic monitoring Anesthesia: Anesthesia: General Procedure Details: Arterial Line placement: Placed pos t induction Line placement site: Radial Line placement side: Left Arterial line gauge: 20 G Number of attempts: 2 Ultrasound guidance used: Yes Post-procedure: Post-procedure: Sterile dressing ap plied Post procedure circulation, sensation , movement: Normal Patient tolerance: Patient tolerate d the procedure well with no immediate complications Airway (04/27/2019 9:33 AM CDT) Narrative Performed At Duran Peña Jr., CRNA 9:35 AM Airway Date/Time: 04/27/2019 8:30 AM Performed by: Duran Peña Jr., CRNA Authorized by: Sara Champion MD Location: [place] Urgency: Elective Difficult Airway: No Anesthesiologist: Sara Champion MD Resident/MERRILL/AA: Duran Peña Jr., CRNA Performed by: resident/MERRILL/AA Preoxygenated with 100% O2: Yes C-spine Precautions Maintained Throughou t: Yes Mask Ventilation: Easy mask Final Airway Type: Endotracheal airway Final Endotracheal Airway: ETT Cuffed: Yes Technique Used: Direct laryngoscopy Devices/Methods Used in Placement: Int ubating stylet Insertion Site: Oral Blade Type: Manning Laryngoscope Blade/Videolaryngoscope Flako de Size: 2 ETT Size (mm): 8.0 Cuff at minimum occlusion pressure: Yes Measured from: Lips ETT to Lips (cm): 24 Placement Verified by: CO2 detection, di rect visualization and equal breath sounds Laryngoscopic view: Grade I - full vie w of glottis Rapid Sequence Induction (RSI): No Modified RSI: No Number of Attempts at Approach: 1 Smooth IV induction; DL X1; Suctioned; +ETCO2 Urine culture (04/27/2019 8:49 AM CDT) Pathologist Sig nature Urine culture SEE COMMENTComment: [facility] Bacteriuria screen [facility] negative. Specimen Performing Organization Address City/[facility]ode Phone Number [facility] DEPARTMENT OF PATHOLOGY [id number] [place] [address] [phone] Urinalysis screen and microscopy, with reflex to culture (04/27/2019 8:44 AM CDT) Specimen site Catheterized [facility] Color, UA Yellow [facility] Appearance, UA Clear [facility] Specific gravity, 1.025 1.001 - 1.030 [facility] pH, UA 5.0 5.0 - 9.0 [facility] Protein, UA Negative Negative [facility] Glucose, UA 2+ (A) Negative [facility] Ketones, UA Negative Negative [facility] Bilirubin, UA Negative Negative [facility] Blood, UA Negative Negative [facility] Nitrite, UA Negative Negative [facility] Urobilinogen, UA 2.0 (A) <2.0 E.U./dL [facility] Leukocyte esterase, Negative Negative [facility] WBC, UA 1 0 - 1 /HPF [facility] RBC, UA 1 0 - 5 /HPF [facility] Bacteria, UA None seen None seen [facility] Yeast, UA None seen [facility] Yeast with None seen [facility] pseudohyphae, UA [facility] Specimen Urine - Urine, catheter Performing Organization Address City/[facility]/Zipcode Phone Number [facility] DEPARTMENT OF PATHOLOGY [id number] [place] [address] [phone] Partial thromboplastin time, activated (04/20/2019 10:50 AM CDT) PTT 22.6 (L) 23.0 - 36.0 MAR[facility] FROST Comment: sec [facility] PTT therapeutic range for unfractionated heparin is HOSPITAL 61.0-112.0 seconds which corresponds to Anti-Xa 0.3-0.7 U/ml. Specimen Blood Performing Organization Address City/[facility]/Zipcode Phone Number [facility] DEPARTMENT OF PATHOLOGY [address] [place] [address] X [phone] [place] [phone] [facility] Prothrombin time with INR (04/20/2019 10:50 AM CDT) Prothrombin time 12.2 11.5 - 14.5 [facility] INR 0.9 [place] Comment: [facility] International Normalized Ratio (INR) is a [facility] monitoring tool for patients who are stable on oral anticoagulant therapy. An INR of 2.0-3.0 is suggested for deep vein thrombosis/pulmonary embolism. Specimen Blood Performing Organization Address [facility] Cent[facility]ode Phone Number [facility] DEPARTMENT OF PATHOLOGY [address] [place] [address] X [phone] [place] [phone] HOSPITAL Type and screen (04/20/2019 10:50 AM CDT) Pathologist Sig nature ABO grouping B [facility] Rh type NEG [facility] Antibody screen (gel) NEG [facility] Specimen Blood Performing Organization Address [facility]ode Phone Number [facility] DEPARTMENT OF PATHOLOGY [address] [place] [address] [phone] [place] [address] [facility] Hemoglobin A1c (04/20/2019 10:50 AM CDT) Hemoglobin A1C 6.7 (H) 4.0 - 5.6 % [facility] Comment: [facility] HbA1c cutoffs for diagnosing diabetes: [facility]ITAL 4.0% - 5.6% = normal 5.7% - 6.4% = increased risk for diabetes (prediabetes )9 >=6.5% = diabetes9 Goals for glycemic control (ADA 2016) < 7.0% Target for non adults with diabetes. More or less stringent targets may be appropriate for individual patients. <7.5% Target for Children and adolescents with type 1 diabetes. Specimen Blood Performing Organization Address City/[facility]/Zipcode Phone Number [facility] DEPARTMENT OF PATHOLOGY [address] [facility] [place] [phone] [facility] AFUA GRAY [address] [facility] [place] [address] [facility] MRI Lumbar Spine W Wo Contrast (01/16/2019 2:34 PM CDT) Specimen Narrative Performed At This result has an attachment that is no t available. 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 FINDINGS: Vertebral body heights are maintained w ithout acute fracture. No focal significant marrow signal abnormality is appreciated. No significant enhancing abnormality is noted on the postcontrast images. So ft tissues shows no mass, adenopathy or aneurysm. The partially visualized spinal cord and the conus are unremarkable. There is solid anterior interbody fusion from L1 to L5. This is similar to prior x-ray new from prior CT. Posterior pedicle screws are noted at L1-2 and L4-5. There is some fat stranding around the kidneys. This is nonspecific. Axial images through the disc spaces demonstrate the f ollowing: L1-L2: Laminectomy changes are noted. Th ere is no significant thecal sac narrowing. The foramina are patent. There is posterior and anterior fusion at this level. L2-L3: No significant posterior disc dis ease, spinal canal or neural foraminal stenosis. Laminectomy changes are noted with solid fusion. L3-L4: No significant posterior disc dis ease, spinal canal or neural foraminal stenosis. Laminectomy changes are noted with solid fusion L4-L5: No significant posterior disc dis ease, spinal canal or neural foraminal stenosis. Laminectomy changes are noted with no canal narrowing. There is some metallic artifact slightly obscuring the rig ht foramen which appears to be mildly stenotic from this osteophyte changes. Left foramen is widely patent . L5-S1: There is some prominent epidural fat at this level with no significant osseous canal narrowing. There is mild bilateral foraminal narrowing from facet spurring and disc osteophyte changes, left greater than right. Visualized upper sacrum is intact. IMPRESSION: There are some postop changes noted with solid appearing fusion from L1 to L5. There is mild bilateral foraminal narrowing at L5-S1. There is also suggestion of mild foraminal narrowing on the right at L4-5. No moderate or severe stenosis identified. 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 FINDINGS: Vertebral body heights are maintained w ithout acute fracture. No focal significant marrow signal abnormality is appreciated. No significant enhancing abnormality is noted on the postcontrast images. Soft tissues shows no mass, adenopathy or aneurysm. The partially visualized spinal cord and the conus are unremarkable. There is solid anterior interbody fusion from L1 to L5. This is similar to prior x-ray new from prior CT. Posterior pedicle screws are noted at L1-2 and L4-5. There is some fat stranding around the kidneys. This is nonspecific. Axial images through the disc spaces dem onstrate the following: L1-L2: Laminectomy changes are noted. Th ere is no significant thecal sac narrowing. The foramina are patent. There is posterior and anterior fusion at this level. L2-L3: No significant posterior disc dis ease, spinal canal or neural foraminal stenosis. Laminectomy changes are noted with solid fusion. L3-L4: No significant posterior disc dis ease, spinal canal or neural foraminal stenosis. Laminectomy changes are noted with solid fusion L4-L5: No significant posterior disc dis ease, spinal canal or neural foraminal stenosis. Laminectomy changes are noted with no canal narrowing. There is some metallic artifact slightly obscuring the right foramen which appears to be mildly stenotic from this osteophyte changes. Left foramen is widely patent. L5-S1: There is some prominent epidural fat at this level with no significant osseous canal narrowing. There is mild bilateral foraminal narrowing from facet spurring and disc osteophyte changes, left greater than right. Visualized upper sacrum is intact. IMPRESSION: There are some postop changes noted with solid appearing fusion from L1 to L5. There is mild bilateral foraminal narrowing at L5-S1. There is also suggestion of mild foraminal narrowing on the right at L4-5. No moderate or severe stenosis identified. [facility]-[id number] Performing Organization Address City/State/Zipcode Phone Number [facility] [address] [place] [address] Creatinine, whole blood (01/16/2019 1:16 PM CDT) Pathologist Sig nature Creatinine, whole 1.09 0.70 - 1.20 [facility] blood mg/dL [facility] Specimen Plasma specimen Performing Organization Address City/[facility]/Zipcode Phone Number 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 IMPRESSION: 4 views of the cervical spine including dynamic latera l grafts are interpreted. Again noted is ACDF of C3-C5 with anterior plate and s crews. Again noted is solid bony fusion of C5-6 and C6-7. Minimal lucency involving the anterior aspect of the C5 screws is unchanged. Cerclag e wires are again noted at C6-7. Multilevel facet hypertrophy is again no rodger. Alignment is unchanged. There is mild grade 1 anteroli sthesis of C4 relative to C5. There is no change in alignment on [facility] lateral radiographs. 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 IMPRESSION: 4 views of the cervical spine including dynamic lateral grafts are interpreted. Again noted is ACDF of C3-C5 with anteri or plate and screws. Again noted is solid bony fusion of C5-6 and C6-7. Minimal lucency involving the anterior aspect of the C5 screws is unchanged. Cerclage wires are again noted at C6-7. Multilevel facet hypertrophy is again no rodgre. Alignment is unchanged. There is mild gr jan 1 anterolisthesis of C4 relative to C5. There is no change in alignment on dynamic lateral radiographs. 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
--- OUTSIDE RECORDS SUMMARY | 2019-12-03 07:46 | XMS REPORT ---
:1950 Author Organization [facility] t Address [address] [place] [address] Care Team Providers Name Role Phone Trina HEATH Primary Care Physician RAMÓN Attending Clinician Unavailable Guanako Meraz MD Attending Clinician Behzad Veras MD Attending Clinician Katarina Champion MD Attending Clinician Gavino MARTINEZ Attending Clinician MARCELA Attending Clinician Unavailable Marcela Attending Clinician Maureen Melgar Attending Clinician Payers Payer Name Policy Type Policy Number Effective Date Expiration Date S cha [employer] xxxxxxxxx 2017 [place] MEDICARE COMPLETE 00:00:[address] [id number] Problems Condition Condition Condition Status Onset Resolution Last Treating Co mments Source Name Details Category Date Date Treatment Clinician Date Lumbosacra Lumbosacra Disease Active 2018-07 [place] l 0-25 Methodi spondylosi spondylosi 00:00: st s with s with 00 radiculopa radiculopa thy thy Degenerati Degenerati Disease Active 2017-07 [place] ve disc ve disc 0-24 Methodi disease, disease, 00:00: st lumbar lumbar 00 Degenerati Degenerati Disease Active [place] ve disc ve disc 7-16 Methodi disease, disease, 00:00: st cervical cervical 00 F03.90 - Diagnosis Active 2017-03-04 M H OPID UNSPECIFIE 02-24 12:28:00 Herm anders D DEMENTIA F03.90 - 00:01: WITHOUT B UNSPECIFIE 00 D DEMENTIA WITHOUT B Active 02/24/2017 OPID Joe Myalgia Myalgia Problem Active Univers and and ity of myositis myositis [place] Physici ans Shortness Shortness Problem Active Uni vers of breath of breath ity of [place] [facility] ans Spinal Spinal Problem Active Univers stenosis, stenosis, [place] of multilevel [place]ilevel [place] [facility] Osteoarthr Osteoarthr Problem Active U nivers itis itis ity of [place] [facility]ici ans Dementia Dementia Problem Active Unive rs ity of [place] Physici ans Trochanter Trochanter Problem Active U nivers ic ic ity of bursitis bursitis [place] of both of both Physici hips hips ans Sjogrens Sjogrens Problem Active Unive rs syndrome syndrome ity of [place] Physici ans Fibromyalg Problem Active 2017-03-07 M H OPID ia 00:59:12 Joe (disorder) Fibromyalg ia (disorder) Active Problem 03/07/2017 OPID Joe Morbid Problem Active 2017-03-07 OP ID obesity 00:59:12 Joe (disorder) Morbid obesity (disorder) Active Problem 03/07/2017 OPID Joe Osteoarthr Problem Active 2017-03-07 M H OPID itis 00:59:12 Joe (disorder) Osteoarthr itis (disorder) Active Problem 03/07/2017 OPID [place] Sj Problem Active 2017-03-07 OP ID gren's 00:59:12 [place] 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 03/07/2017 OPID [place] Sleep Problem Active 2017-03-07 OP ID apnea 00:59:12 Joe (finding) Sleep apnea (finding) Active Problem 03/07/2017 OPID Joe Allergies, Adverse Reactions, Alerts Allergy Allergy Status Severity Reaction(s) Onset Inactive Treating Comm ents Source Name Type Date Date Clinician Adhesive Propensi Active Rash 2017- "BLISTER [place] Tape-Mary ty to 01-09 ASTUDILLO', Methodi icones adverse 00:00: paper st reaction 00 tape and s to tegaderm drug ok as per pt Floxin Allergy Active Univers TABS to drug ity of (finding [place] ) Physici ans Tape Allergy Active Univers 1"X5YD to drug ity of TAPE (finding [place] Physici ans Family History Family Member Diagnosis Comments Start Date Stop Date Source Natural brother Autoimmune disease H ouriaz Renae Natural brother Heart disease [place] n [facility] Natural brother Parkinsonism Marcial Renae Natural father Cancer [facility] thodist Natural mother Heart disease Marcial Renae Natural mother Heart failure Marcial Renae Natural mother Hypertension Ceja Evangelical Social History Social Habit Start Date Stop Date Quantity Comments Source History of tobacco Current smoker Ho arik Renae use Sex Assigned At [facility] ethodist Cigarettes smoked 2019-04-30 2019-04-30 Marcial Omerist current (pack per 00:00:00 00:00:00 day) - Reported Cigarette 2019-04-30 2019-04-30 Marcial Omer ist pack-years 00:00:00 00:00:00 Alcohol intake 2019-04-30 2019-04-30 Current [facility] thodist 00:00:00 00:00:00 non-drinker of alcohol (finding) Alcohol Comment 2018-01-09 2018-01-09 NOT SINCE 2013. Cinthia Omerist 00:00:00 00:00:00 Social History 2016-10-21 2016-10-21 [facility] hobbs 14:30:16 14:30:16 [facility] Smoking Status Start Date Stop Date Source Former smoker 2019-04-30 00:00:00 2019-04-30 00:00:00 Marcial Renae Medications Ordered Filled Start Stop Current Ordering Indication Dosage Frequency Signature Comments Components Source Medication Medication Date Date Medication? Clinician (SIG) Name Name traMADol 2018-07- No 100mg Q.[id number] Take 100 Ceja (ULTRAM) 50 0-30 10-30 [id number] mg by Methodi mg tablet 15:32: 00:[address] 07 :00 (three) times a day as needed (pain). Takes 50 mg 2 tab. (100 mg) ondansetron 2018-07- No 8mg Q8H Take 8 mg Ceja (ZOFRAN) 8 0-30 10-30 by mouth Meth alfonzo MG tablet 15:32: 00:[address] 07 :00 (eight) hours as needed for nausea or vomiting. cholecalcif 2018-07- No [id number] Take [place] precious, 0-30 10-30 50,000 Methodi vitamin D3, 15:32: 00:00 Units by s t (VITAMIN D3 07 :00 mouth. ORAL) Every Tuesday DULoxetine 2018-07 Yes 60mg QD Take 60 mg [place] (CYMBALTA) 0-30 by mouth Metho di 60 MG 15:32: nightly. st capsule 03 SUMAtriptan 2018-07 Yes 50mg Take 50 mg Ceja (IMITREX) 0-30 by mouth Method i 50 MG 15:32: once as st tablet 03 needed for migraine. May repeat in 2 hours if unresolved . Do not exceed 200 mg in 24 hours. HYDROcodone 2018-07 Yes 1{tbl} Q.[id number] Take 1 Ceja -acetaminop 0-30 [id number] tablet by Methodi hen (NORCO) 15:32: 3D mouth 3 st 10-325 mg 03 (three) per tablet times a day as needed (pain). pantoprazol 2018-07 Yes 40mg QD Take 40 mg Ceja e 0-30 by mouth Methodi (PROTONIX) 15:32: daily. st 40 MG EC 03 tablet atorvastati 2018-07 Yes 20mg QD Take 20 mg Ceja n (LIPITOR) 0-30 by mouth Meth alfonzo 20 MG 15:32: nightly. st tablet 03 Default OP ins sodium 2018-07 Yes 1{appli Q.5D Apply 1 [place] fluoride/po 0-30 cation} applicatio Methodi tassium nit 15:32: n to teeth st (PREVIDENT 03 2 (two) 5000 times a SENSITIVE day. DENT) leflunomide 2018-07 Yes 20mg QD Take 20 mg [place] (ARAVA) 20 0-30 by mouth Metho di MG tablet 15:32: nightly. st 03 testosteron 2018-07 Yes Q120D by implant Ceja e (TESTOPEL 0-30 route Methodi IMPL) 15:32: every 4 st 03 (four) months. lidocaine 2018-07 Yes 1{appli Q.5D Apply 1 [place] HCl 4 % 0-30 cation} applicatio Met hodi lotion 15:32: n st 03 topically 2 (two) times a day as needed (pain). Apply small amount affected area of pain sildenafil, 2018-07 Yes 20mg QD Take 20 mg Ceja antihyperte 0-30 by mouth Meth alfonzo nsive, 15:32: daily. st (REVATIO) 03 20 mg tablet celecoxib 2018-07 Yes 200mg QD Take [address] (CeleBREX) 0-30 mg by Methodi 200 MG 15:32: mouth st capsule 03 daily. cycloSPORIN 2018-07 Yes 1[drp] Q.5D Administer Ceja E (RESTASIS 0-30 1 drop to Met hodi MULTIDOSE) 15:32: both eyes st 0.05 % 03 2 (two) drops times a day. pilocarpine 2018-07 Yes 5mg Q.[id number] Take 5 mg [place]ja (SALAGEN) 5 0-30 [id number] by mouth 3 Methodi MG tablet 15:32: 3D (three) st 03 times a day. calcium 2018-07 Yes 1{tbl} QD Take 1 [place] carbonate-v 0-30 tablet [facility] D[facility]: mouth st (CALCIUM 03 daily. 500 WITH D) 500 mg(1,250mg) -400 unit tablet potassium 2018-07 Yes 1{tbl} QD Take 1 [place] 99 mg 0-30 tablet by Methodi tablet 15:32: mouth st 03 daily. cholecalcif 2018-07 Yes 1{tbl} QD Take 1 [place] precious, 0-30 tablet by Methodi vitamin D3, 15:32: mouth st (VITAMIN 03 daily. D3) 5,000 unit tablet ascorbic 2018-07 Yes 500mg QD Take 500 [place] acid, 0-30 mg by Methodi vitamin C, 15:32: mouth st (VITAMIN C) 03 daily. 500 MG tablet glucosamine 2018-07 Yes 1{tbl} Q.5D Take 1 [place] /msm/chondr 0-30 tablet by Met [facility] oit sulf 15:32: mouth 2 st (GLUCOSAMIN 03 (two) E times a 2KCL-MSM-CH day. ONDROIT ORAL) saw 2018-07 Yes 1{tbl} Q.5D Take 1 [place] palmetto 0-30 tablet by Method i fruit 450 15:32: mouth 2 st mg capsule 03 (two) times a day. CINNAMON 2018-07 Yes 100mg QD Take 100 [place] BARK ORAL 0-30 mg by Methodi 15:32: mouth st 03 daily. vitamin E 2018-07 Yes 400U QD Take 400 [place] 400 UNIT 0-30 Units by Methodi capsule 15:32: mouth st 03 daily. MAGNESIUM 2018-07 Yes 400mg QD Take [address] ORAL 0-30 mg by Methodi 15:32: mouth st 03 daily. SIMETHICONE 2018-07 Yes 1{tbl} QD Take 1 [place] ORAL 0-30 tablet by Methodi 15:32: mouth st 03 daily. Gas X folic 2018-07 Yes 1{tbl} QD Take 1 Ceja acid/vit B 0-30 tablet by Meth alfonzo complex and 15:32: mouth st C (B 03 daily. COMPLEX-VIT RAMÍREZ C-FOLIC ACID ORAL) UNABLE TO 2018-07 Yes 4{capsu QD Take 4 [place] [address] FIND 0-30 le} capsules Methodi 15:32: by mouth st 03 daily. Sulfurzyme Supplement oil capsule docosahexan 2018-07 Yes 1{tbl} Q.[id number] Take 1 Ceja oic 0-30 [id number] tablet by Meth alfonzo acid/epa 15:32: 3D mouth 3 st (FISH OIL 03 (three) ORAL) times a day. nortriptyli 2018-07 Yes 50mg QD Take 50 mg Ceja ne 0-30 by mouth Methodi (PAMELOR) 15:32: nightly. st 25 MG 03 Takes 25 capsule mg 2 cap. (50 mg) choline 2018-07 Yes 45mg QD Take 45 mg [place] fenofibrate 0-30 by mouth Meth alfonzo (TRILIPIX) 15:32: daily. st 45 mg 03 capsule oxyCODone-a 2018-07 Yes acute pain 1{tbl} Q8H Take 1 [place] cetaminophe 0-30 tablet by Met hodi n 15:32: mouth st (PERCOCET) 03 every 8 5-325 mg (eight) per tablet hours .Acute Pain. methocarbam 2018-07 Yes 750mg Q.25D Take 750 [place] ol 0-30 mg by Methodi (ROBAXIN) 15:32: mouth 4 st 750 MG 03 (four) tablet times a day as needed for muscle spasms. metFORMIN 2018-07 Yes 1000mg QD Take 1,000 [place]ja XR 0-30 mg by Methodi (GLUCOPHAGE 15:32: mouth st -XR) 500 mg 03 daily. 24 hr Takes 500 tablet mg 2 tab. (1,000 mg) at supper exenatide 2018-07 Yes 2mg Q7D Inject 2 [place] microsphere 0-30 mg under Meth alfonzo s (BYDUREON 15:32: the skin st SUBQ) 03 once a week. 2 mg/0.85 ml injects on Tuesday cyanocobala 2018-07 Yes 1{tbl} QD Take 1 [place] min, 0-30 tablet by Methodi vitamin 15:32: mouth st B-12, 5,000 03 daily. mcg capsule UNABLE TO 2018-07 Yes 1{capsu QD Take 1 [place] FIND 0-30 le} capsule by Methodi 15:32: mouth st 03 daily. Med Name: Dirurex Max TURMERIC 2018-07 Yes 1{tbl} QD Take 1 [place] ORAL 0-30 tablet by Methodi 15:32: mouth st 03 daily. zinc 50 mg 2018-07 Yes 1{tbl} QD Take 1 [place] [address] tablet 0-30 tablet by Methodi 15:32: mouth st 03 daily. naloxone 4 2018-07 Yes 1{spray 1 spray [place] mg/actuatio 0-30 } into each Met hodi n 15:32: nostril as st spray,non-a 03 needed erosol (overdose) . [place] in left nostril as needed ergocalcife 2018-07 2019- No [id number] Q7D Take [place] rol 0-27 10-27 50,000 Methodi (VITAMIN 07:38: 00:[address] D2) 50,000 53 :00 mouth once unit a week. capsule Tuesday nortriptyli 2018-07 2019- No 50mg QD Take 50 mg [place]ja ne 0-18 10-18 by mouth Methodi (PAMELOR) 10:24: 00:[address] 10 MG 32 :00 capsule tiZANidine 2018-07 2019- No 4mg Q.[id number] Take 4 mg [place] (ZANAFLEX) 0-18 10-18 [id number] by mouth 3 Methodi 4 MG tablet 10:14: 00:00 3D (three) st 33 :00 times a day. semaglutide 2018-07 2019- No 1mg Q7D Inject 1 [place] (OZEMPIC) 1 0-18 10-18 mg under Met hodi mg/0.75 mL 10:11: 00:[address] (2 mg/1.5 34 :00 once a mL) pen week. injector multivit-mi 2018- 2019- No 1{tbl} QD Take 1 [place] n/FA/lycope 0-18 10-18 tablet by Me thodi n/lutein 10:07: 00:[address] (CENTRUM 02 :00 daily. SILVER MEN ORAL) metoprolol 2018-0 Yes 25mg Q.5D Take 25 mg [place] tartrate 9-17 by mouth 2 Metho di (LOPRESSOR) 00:00: (two) st 25 mg 00 times a tablet day. Celecoxib Celecoxib 2017-0 Yes Q0.5D TAKE 1 Univers 200 MG Oral 200 MG Oral 8-13 CAPSULE ity of Capsule Capsule 00:00: TWICE [place] 00 DAILY WITH Physici FOOD. ans Diovan 80 Diovan 80 2017-0 Yes QD TAKE 1 U nivers MG Oral MG Oral 8-13 TABLET ity of Tablet Tablet 00:00: [place]ILY [place] 00 BLOOD Physici PRESSURE. ans Meloxicam Meloxicam 2017-0 Yes ARLEN 1 QD TAKE 1 U nivers 15 MG Oral 15 MG Oral 8-13 MELGAR TABLET ity of Tablet Tablet 00:00: M.D. DAILY [place] 00 AFTER Physici MEALS ans Leflunomide Leflunomide 2017-0 Yes ARLEN 1 QD TAKE 1 Univers 20 MG Oral 20 MG Oral 8-13 MELGAR TABLET BY ity of Tablet Tablet 00:00: M.D. MOUTH [place] 00 EVERY DAY Physici ans predniSONE 2018-0 Yes 5mg QD Take 5 mg [place] (DELTASONE) 8-05 by mouth Meth alfonzo 5 mg tablet 00:00: every st 00 morning. losartan 2018-0 Yes 100mg QD Take 100 [place] (COZAAR) 8-02 mg by Methodi 100 MG 00:00: mouth st tablet 00 daily. Pilocarpine Pilocarpine 2017-0 Yes ARLEN Q0.3333D TAKE ONE Univers HCl - 5 MG HCl - 5 MG 4-09 MELGAR TABLET BY ity of Oral Tablet Oral Tablet 00:00: M.D. MOUTH [place] 00 THREE Physici TIMES A ans DAY Lidocaine 5 Lidocaine 5 2014-0 Yes ARLEN Q12H APPLY 1 Univers % External % External 6-09 MELGAR INCH EVERY ity of Patch Patch 00:00: M.D. 12 HOURS [place] 00 12 hours Physici off ans Cymbalta 20 Cymbalta 20 Yes Univers MG Oral MG Oral 2-09 ity of Capsule Capsule 00:00: [place] Delayed Delayed 00 Physici Release Release ans Particles Particles Handicap Handicap 2013-07 Yes ARLEN HANDICAP U nivers Parking Parking 0-24 MELGAR PLACARDDX: i ty of 00:00: M.D. Osteoarthr [place] 00 itis Physici ans tiZANidine tiZANidine 2012-07 Yes ARLEN Q0.3333D TAKE 1 Univers HCl - 4 MG HCl - 4 MG 1-08 MELGAR TABLET 3 ity of Oral Tablet Oral Tablet 00:00: M.D. TIMES [place] 00 DAILY. Physici ans predniSONE predniSONE Yes ARLEN Take 1 Univers 5 MG Oral 5 MG Oral 6-07 MELGAR tablet by ity of Tablet Tablet 00:00: M.D. mouth [place] 00 every day Physici ans traMADol traMADol Yes ARLEN Q8H TAKE 1 Unive rs HCl - 50 MG HCl - 50 MG MELGAR TABLET ity of Oral Tablet Oral Tablet M.D. EVERY 8 [place] HOURS PRN Physici pain ans BEFORE MEALS HYDROcodone HYDROcodone Yes 1 QD TAKE 1 Univers -Acetaminop -Acetaminop TABLET ity of hen 5-325 hen 5-325 Daily PRN [place] MG Oral MG Oral Every Physici Tablet Tablet 12HRS ans Fish Oil Fish Oil Yes 1 QD TAKE 1 Unive rs 1000 MG 1000 MG CAPSULE ity of Oral Oral DAILY. [place] Capsule Capsule Physici ans Butalbital- Butalbital- Yes 1 QD TAKE 1 Univers APAP-Caffei APAP-Caffei TABLET ity of ne ne DAILY PRN [place] 50-325-40 50-325-40 Physi ci MG Oral MG Oral ans Tablet Tablet Diovan 320 Diovan 320 Yes QD TAKE 1 U nivers MG Oral MG Oral TABLET ity of Tablet Tablet ONCE [place] DAILY. Physici ans Imitrex 50 Imitrex 50 Yes TAKE 1 U nivers MG Oral MG Oral TABLET FOR ity of Tablet Tablet MIGRAINE [place] RELIEF. Physici MAY REPEAT ans EVERY 2 HOURS. MAX 200MG/DAY. Meloxicam Meloxicam Yes ARLEN 1 Q0.5D TAKE 1 Un racquel 7.5 MG Oral 7.5 MG Oral MELGAR TABLET ity of Tablet Tablet M.D. TWICE [place] DAILY Physici AFTER ans MEALS Gas Free Gas Free Yes 1 QD TAKE 1 Unive rs Extra Extra CAPSULE ity of Strength Strength DAILY [place] 125 MG CAPS 125 MG CAPS P hysici ans Vitamin D3 Vitamin D3 Yes 1 QD TAKE 1 U nivers 50 MCG 50 MCG CAPSULE ity of (1999 [place]) (1999) DAILY [place] Oral Oral Physici Capsule Capsule ans Melatonin 3 Melatonin 3 Yes 1 TAKE 1 Univers MG Oral MG Oral TABLET ity of Tablet Tablet BEDTIME [place] Physici ans Vitamin C Vitamin C Yes 1 QD TAKE 1 Uni vers 1000 MG 1000 MG TABLET ity of Oral Tablet Oral Tablet DAILY. [place] Physici ans Vitamin E Vitamin E Yes 1 QD TAKE 1 Uni vers 400 UNIT 400 UNIT TABLET ity o f Oral Oral DAILY. [place] Capsule Capsule Physici ans Nortriptyli Nortriptyli Yes U nivers ne HCl - 10 ne HCl - 10 i ty of MG Oral MG Oral [place] Capsule Capsule Physici ans Symbicort Symbicort Yes Q0.5D INHALE 2 Univers 80-4.5 80-4.5 PUFFS ity of MCG/ACT MCG/ACT TWICE [place] Inhalation Inhalation DAILY. P hysici Aerosol Aerosol RINSE ans MOUTH AFTER USE. Magnesium Magnesium Yes WITH ZINC Univers CAPS CAPS / 1 TAB ity of DAILY [place] Physici ans Pennsaid Pennsaid Yes Univers SOLN SOLN ity of [place] Physici ans DULoxetine DULoxetine Yes Uni vers HCl - 60 MG HCl - 60 MG i ty of Oral Oral [place] Capsule Capsule Physici Delayed Delayed ans Release Release Particles Particles Pantoprazol Pantoprazol Yes U nivers e Sodium 40 e Sodium 40 i ty of MG Oral MG Oral [place] Tablet Tablet Physici Delayed Delayed ans Release Release Atorvastati Atorvastati Yes U nivers n Calcium n Calcium ity o f 20 MG Oral 20 MG Oral Simón as Tablet Tablet Physici ans Sildenafil Sildenafil Yes Uni vers Citrate 20 Citrate 20 ity of MG Oral MG Oral [place] Tablet Tablet Physici ans Pilocarpine Pilocarpine Yes U nivers HCl - 5 MG HCl - 5 MG ity of Oral Tablet Oral Tablet [place] Physici ans Simethicone Simethicone Yes U nivers CAPS CAPS ity of [place] Physici ans Glucosamine Glucosamine Yes U nivers Chondr 1500 Chondr 1500 i ty of Complx CAPS Complx CAPS [place] Physici ans Centrum Centrum Yes Univers Silver Silver ity of 50+Men Oral 50+Men Oral [place] Tablet Tablet Physici ans B B Yes Univers Complex-C-F Complex-C-F i ty of olic Acid olic Acid [place] Oral Tablet Oral Tablet P hysici ans Calcium & Calcium & Yes Unive rs Vit D3 Bone Vit D3 Bone i ty of Health Oral Health Oral [place] Liquid Liquid Physici ans Calcium & Calcium & Yes Unive rs Vit D3 Bone Vit D3 Bone i ty of Health LIQD Health LIQD [place] Physici ans Calcium 500 Calcium 500 Yes U nivers 500 MG TABS 500 MG TABS i ty of [place] Physici ans Saw Saw Yes 1 QD TAKE 1 Univers [place] CAPSULE ity of 450 MG Oral 450 MG Oral DAILY [place] Capsule Capsule Physici ans Cinnamon Cinnamon Yes 1 Q0.25D TAKE 1 Uni vers 500 MG Oral 500 MG Oral TABLET 4 ity of Tablet Tablet TIMES [place] DAILY Physici ans Restasis Restasis Yes Univers MultiDose MultiDose ity o f 0.05 % 0.05 % [place] Ophthalmic Ophthalmic Phy sici Emulsion Emulsion ans Potassium Potassium Yes Unive rs 99 MG Oral 99 MG Oral ity of Tablet Tablet [place] Physici ans Immunizations Ordered Immunization Filled Immunization Date Status Commen ts Source Name Name FLUCELVAX QUAD PF 2019-05-02 Completed [place] 00:00:00 [facility] FLUCELVAX QUAD PF 2018-05-01 [facility] 00:00:00 Evangelical Fluzone High-Dose 2017-06-13 Completed Univers ity of 0.5 ML Intramuscular 15:04:00 [place] Suspension Prefilled Syringe Influenza, 2017-05-04 Completed [place] Unspecified 00:00:00 [facility] Vital Signs Vital Name Observation Time Observation Value Comments Source Systolic blood 2019-09-25 148 mm[Hg] Location: [facility] of pressure 12:05:00 Position: [place] Physician s Sitting Diastolic blood 2019-09-25 93 mm[Hg] [facility] 12:05:00 Position: [place] Physician s Sitting Body height 2019-09-25 70 [in_us] University 12:05:00 [place] Physician s Weight 2019-09-25 273.5 [lb_av] [facility] 12:05:00 [place] Physician s Body mass index 2019-09-25 39.24 kg/m2 University o f (BMI) [Ratio] 12:05:00 [place] Physicia ns Body temperature 2019-09-25 98.1 [degF] Method: Oral University 12:05:00 [place] Physician s Heart Rate 2019-09-25 91 /min Location: L [facility] 12:05:00 Brachial [place] Physician s Artery; Respiratory rate 2019-09-25 22 /min [facility] 12:05:00 [place] Physician s BP Systolic 2019-05-21 123 mm[Hg] Location: [facility]; [facility] 13:04:00 Position: [place] Physician s Sitting BP Diastolic 2019-05-21 80 mm[Hg] Location: [facility]; [facility] 13:04:00 Position: [place] Physician s Sitting BP Systolic 2019-05-21 147 mm[Hg] Location: [facility]; [facility] 10:03:00 Position: [place] Physician s Sitting BP Diastolic 2019-05-21 97 mm[Hg] Location: [facility] 10:03:00 Position: [place] Physician s Sitting Height 2019-05-21 70 [in_us] [facility] 10:03:00 [place] Physician s Weight 2019-05-21 270 [lb_av] [facility] 10:03:00 [place] Physician s Body Mass Index 2019-05-21 38.74 kg/m2 University o f Calculated 10:03:00 [place] Physician s Temperature 2019-05-21 98.3 [degF] Method: [facility] 10:03:00 Tympanic [place] Physician s Heart Rate 2019-05-21 94 /min [facility] 10:03:00 [place] Physician s Systolic blood 2019-05-02 139 mm[Hg] [place] pressure 11:23:32 Evangelical Diastolic blood 2019-05-02 82 mm[Hg] [place] pressure 11:23:32 [facility] Heart rate 2019-05-02 101 /min [place] 11:23:32 [facility] Body temperature 2019-05-02 36.89 Veronica [place] 11:23:32 [facility] Respiratory rate 2019-05-02 17 /min [place] 11:23:32 [facility] Oxygen saturation 2019-05-02 95 /min [place] in Arterial blood 11:23:32 [facility] by Pulse oximetry Body height 2019-04-20 175.3 cm [place] 09:52:00 Evangel[facility] Body weight 2019-04-20 122.471 kg [place] 09:52:00 Evangelical BMI 2019-04-20 39.87 kg/m2 [place] 09:52:00 Evangel[facility] BP Systolic 2019-01-22 132 mm[Hg] [facility] 10:01:[facility] Position: [place] Physician s Sitting BP Diastolic 2019-01-22 79 mm[Hg] Location: [facility]; [facility] 10:01:00 Position: [place] Physician s Sitting Height 2019-01-22 70 [in_us] [facility] 10:01:00 [place] Physician s Weight 2019-01-22 268.25 [lb_av] [facility] 10:01:00 [place] Physician s Body Mass Index 2019-01-22 38.49 kg/m2 University o f Calculated 10:01:00 [place] Physician s Heart Rate 2019-01-22 71 /min Location: [facility] 10:01:00 Brachial [place] Physician s Artery; BP Systolic 2018-09-18 114 mm[Hg] [facility] 09:49:00 Position: [place] Physician s Sitting BP Diastolic 2018-09-18 74 mm[Hg] [facility] 09:49:00 Position: [place] Physician s Sitting Height 2018-09-18 70 [in_us] [facility] 09:49:00 [place] Physician s Weight 2018-09-18 271 [lb_av] [facility] 09:49:00 [place] Physician s Body Mass Index 2018-09-18 38.88 kg/m2 University o f Calculated 09:49:00 [place] Physician s Temperature 2018-09-18 98.3 [degF] Method: Oral University of 09:49:00 [place] Physician s Heart Rate 2018-09-18 67 /min Location: [facility] 09:49:00 Brachial [place] Physician s Artery; BP Systolic 2018-05-22 126 mm[Hg] [facility] 13:04:00 Position: [place] Physician s Sitting BP Diastolic 2018-05-22 79 mm[Hg] Location: [facility] 13:04:00 Position: [place] Physician s Sitting Height 2018-05-22 70 [in_us] [place] of 13:04:00 [place] Physician s Weight 2018-05-22 257.375 [lb_av] University o f 13:04:00 [place] Physician s Body Mass Index 2018-05-22 36.93 kg/m2 University o f Calculated 13:04:00 [place] Physician s Temperature 2018-05-22 98.1 [degF] Method: Oral University of 13:04:00 [place] Physician s Heart Rate 2018-05-22 68 /min Location: L [place] of 13:04:00 Brachial [place] Physician s Artery; BP Systolic 2018-02-13 144 mm[Hg] Location: [facility]; [place] of 13:53:00 Position: [place] Physician s Sitting BP Diastolic 2018-02-13 83 mm[Hg] Location: [facility]; [place] of 13:53:00 Position: [place] Physician s Sitting Height 2018-02-13 70 [in_us] University of 13:53:00 [place] Physician s Weight 2018-02-13 272.5 [lb_av] University of 13:53:00 [place] Physician s Body Mass Index 2018-02-13 39.1 kg/m2 University o f Calculated 13:53:00 [place] Physician s Temperature 2018-02-13 98.2 [degF] Method: Oral [place] of 13:53:00 [place] Physician s Heart Rate 2018-02-13 93 /min Location: [facility] 13:53:00 Brachial [place] Physician s Artery; BP Systolic 2017-10-10 130 mm[Hg] University of 13:48:00 [place] Physician s BP Diastolic 2017-10-10 84 mm[Hg] University of 13:48:00 [place] Physician s Height 2017-10-10 70 [in_us] University of 13:48:00 [place] Physician s Weight 2017-10-10 265.5 [lb_av] University of 13:48:00 [place] Physician s Body Mass Index 2017-10-10 38.1 kg/m2 University o f Calculated 13:48:00 [place] Physician s Temperature 2017-10-10 98 [degF] Method: Oral University of 13:48:00 [place] Physician s Heart Rate 2017-10-10 81 /min University of 13:48:00 [place] Physician s BP Systolic 2017-06-13 145 mm[Hg] Location: [place]; [facility] 14:31:00 Position: [place] [facility] BP Diastolic 2017-06-13 82 mm[Hg] Location: [facility]; [facility] 14:31:00 Position: [place] [facility] Height 2017-06-13 69 [in_us] [facility] 14:31:00 [place] [facility] Weight 2017-06-13 257.375 [lb_av] [facility] 14:31:00 [place] [facility] Body Mass Index 2017-06-13 38.01 kg/m2 [place] [facility] Calculated 14:31:00 [place] [facility] Heart Rate 2017-06-13 89 /min [facility] 14:31:00 [place] [facility] Procedures Procedure Date / Time Performing Clinician Source Performed [QL] COMPLEMENT COMP C3 + 2019-09-25 00:00:00 Un [facility] C4 Physicians [QLH] CBC (INCLUDES 2019-09-25 00:00:00 [facility] DIFF/PLT) Physicians [QLH] CMP W/EGFR 2019-09-25 00:00:00 [facility] Physicians [QLH] URINALYSIS, COMPLETE 2019-09-25 00:00:00 [facility] [QH] PROTEIN, TOTAL 2019-09-25 00:00:00 [facility] W/CREAT, RANDOM URINE Physicians [QL] CBC (INCLUDES 2019-09-25 00:00:00 [facility] DIFF/PLT) Physicians [QL] CMP W/EGFR 2019-09-25 00:00:00 [facility] Physicians [QL] URINALYSIS, COMPLETE 2019-09-25 00:00:00 Un [facility] Physicians [Q] PROTEIN, TOTAL 2019-09-25 00:00:00 [facility] W/CREAT, RANDOM URINE Physicians CT LUMBAR SPINE WO 2019-07-02 13:32:01 Yo Meraz ethodist CONTRAST CT LUMBAR SPINE WO 2019-05-25 14:00:32 Yo Meraz ethodist CONTRAST XR LUMBAR SPINE AP LATERAL 2019-05-22 12:40:46 Yo Meraz [facility] FLEXION AND EXTENSION [QL] COMPLEMENT COMP C3 + 2019-05-21 00:00:00 Un [facility] C4 Physicians POC GLUCOSE 2019-05-02 11:25:00 Spencer Veras ethodist POC GLUCOSE 2019-05-02 06:20:00 Spencer Veras ethodist POC GLUCOSE 2019-05-01 21:51:00 Spencer Veras ethodist POC GLUCOSE 2019-05-01 17:34:[address] LUMBAR SPINE WO 2019-05-01 12:16:13 Jose Francisco Crockett ethodist CONTRAST POC GLUCOSE 2019-05-01 12:11:00 Spencer Veras ethodist POC GLUCOSE 2019-05-01 06:08:00 Spencer Veras ethodist HC COMPLETE BLD COUNT 2019-05-01 05:50:00 GinaEsdras barragan [facility] W/AUTO DIFF BASIC METABOLIC PANEL 2019-05-01 05:50:00 GinaEsdras barragan [facility] ESTIMATED GFR 2019-05-01 05:50:00 GinaHubertarben Ceja Meth odist POC GLUCOSE 2019-04-30 22:01:00 Spencer Veras ethodist POC GLUCOSE 2019-04-30 17:51:00 Spencer Veras ethodist POC GLUCOSE 2019-04-30 11:45:00 Spencer Veras ethodist XR LUMBAR SPINE 2 OR 3 VW 2019-04-30 10:11:33 Jose Francisco Crockett [facility] HC COMPLETE BLD COUNT 2019-04-30 06:15:00 GinaEsdras barragan [facility] W/AUTO DIFF BASIC METABOLIC PANEL 2019-04-30 06:15:00 Esdras Fuentesist ESTIMATED GFR 2019-04-30 06:15:00 Gina Esdras Ceja Meth odist POC GLUCOSE 2019-04-30 05:25:00 Spencer Veras ethodist POC GLUCOSE 2019-04-29 20:42:00 Spencer Veras ethodist POC GLUCOSE 2019-04-29 17:04:00 Spencer Veras ethodist POC GLUCOSE 2019-04-29 11:45:00 Spencer Veras ethodist US DUPLEX VENOUS LOWER 2019-04-29 11:21:00 Jose Francisco Crockett on [facility] EXTREMITY BILATERAL POC GLUCOSE 2019-04-29 05:51:00 Spencer Veras ethodist HC COMPLETE BLD COUNT 2019-04-29 04:40:00 GinaEsdras barragan [facility] W/AUTO DIFF BASIC METABOLIC PANEL 2019-04-29 04:40:00 Esdras Fuentes [facility] ESTIMATED GFR 2019-04-29 04:40:00 Esdras Fuentes Marcial Meth odist POC GLUCOSE 2019-04-28 21:18:00 Spencer Veras ethodist POC GLUCOSE 2019-04-28 18:25:00 Spencer Veras ethodist POC GLUCOSE 2019-04-28 06:33:00 Spencer Veras ethodist HC COMPLETE BLD COUNT 2019-04-28 05:30:00 Esdras Fuentes [facility] W/AUTO DIFF BASIC METABOLIC PANEL 2019-04-28 05:30:00 Esdras Fuentes n [facility] ESTIMATED GFR 2019-04-28 05:30:00 GinaHubertarben Ceja Meth odist POC GLUCOSE 2019-04-27 23:02:00 Spencer Veras ethodist POC GLUCOSE 2019-04-27 16:27:00 Yo Meraz odist OR [place] < 1 HOUR 2019-04-27 15:43:35 Yo Meraz odist ARTERIAL LINE 2019-04-27 10:10:01 Sara Champion ethodist LA AN ELECTIVE 2019-04-27 09:33:59 Duran Peña ENDOTRACHEAL AIRWAY URINE CULTURE 2019-04-27 08:49:00 Yo Meraz odluz URINALYSIS SCREEN AND 2019-04-27 08:44:00 Yo Meraz [employer] MICROSCOPY, WITH REFLEX TO CULTURE POC GLUCOSE 2019-04-27 07:31:00 Yo Meraz odist HC COMPLETE BLD COUNT 2019-04-20 10:50:00 Radha Nuñez on [facility] W/AUTO DIFF BASIC METABOLIC PANEL 2019-04-20 10:50:00 SavannahRadha dias on [facility] TYPE AND SCREEN 2019-04-20 10:50:00 Radha Nuñez hodluz HEMOGLOBIN A1C 2019-04-20 10:50:00 Radha Nuñez Met hodist PARTIAL THROMBOPLASTIN 2019-04-20 10:50:00 Radha Nuñez [facility] TIME (PTT) PROTHROMBIN TIME WITH INR 2019-04-20 10:50:00 Radha Nuñez ESTIMATED GFR 2019-04-20 10:50:00 Radha Nuñez hodist XR LUMBAR SPINE AP LATERAL 2019-04-12 10:46:36 Yo Meraz FLEXION AND EXTENSION [QLH] CBC (INCLUDES 2019-01-26 00:00:00 [facility] DIFF/PLT) Physicians MRI LUMBAR SPINE W WO 2019-01-16 14:34:47 Yo Meraz CONTRAST CREATININE, WHOLE BLOOD 2019-01-16 13:16:00 Yo Meraz ESTIMATED GFR 2019-01-16 13:16:00 Yo Meraz Meth odist XR CERVICAL SPINE COMPLETE 2018-12-26 09:53:58 Yo Meraz W FLEX EXT XR LUMBAR SPINE AP LATERAL 2018-12-26 09:53:40 Yo Meraz FLEXION AND EXTENSION [QLH] SED RATE BY MODIFIED 2018-09-18 [facility]:00[facility] SED RATE BY MODIFIED 2018-05-22 00:00:00 [facility] Phys[facility] [QLH] CBC (INCLUDES 2018-05-22 00:00:00 [facility] DIFF/PLT) Physicians [QLH] CMP W/EGFR 2018-05-22 00:00:00 [facility] Physicians [QL] C-REACTIVE PROTEIN 2018-05-22 00:00:00 Uni [facility] Physicians [QLH] CBC (INCLUDES 2017-06-13 00:00:00 [facility] DIFF/PLT) Physicians [QLH] CMP W/EGFR 2017-06-13 00:00:00 [facility] Physicians [QL] C-REACTIVE PROTEIN 2017-06-13 00:00:00 Uni [facility] Physicians Appendectomy MH OPID Joe Carpal tunnel release MH OPID He rmann Cholecystectomy MH OPID Rueter Fusion of cervicothoracic MH OPI D Joe joint by anterior approach Fusion of lumbar spine MH OPID H ermann Hernia repair MH OPID Joe Vasectomy MH OPID Rueter Plan of Care Planned Activity Planned Date Details Comments Source Future Scheduled 2020-02-02 INFLUENZA VACCINE [place] [facility] Test 00:00:00 [code = INFLUENZA VACCINE] Diagnostic Test 2019-02-23 [[facility]] CBC (INCLUDES [facility] Pending 00:00:00 DIFF/PLT) [code = Physicians [[facility]] CBC (INCLUDES DIFF/PLT)] Future Scheduled 2016-09-21 65+ PNEUMOCOCCAL Ceja [facility] Test 00:00:00 VACCINE (1 of 2 - PCV13) [code = 65+ PNEUMOCOCCAL VACCINE (1 of 2 - PCV13)] Future Scheduled 2001-09-21 COLONOSCOPY SCREENING [facility] Evangel[facility] Test 00:00:00 [code = COLONOSCOPY SCREENING] Future Scheduled 2001-09-21 SHINGLES VACCINES [place] [facility] Test 00:00:00 (#1) [code = SHINGLES VACCINES (#1)] Future App[facility]ment 2020-01-[facility] Physicians Encounters Start End Encounter Admission Attending Care Care Encounter Source Date/Time Date/Time Type Type Clinicians Facility Department ID 2019-09-25 2019-09-25 MARIUM Millard Multispecia [id number] Univers 15:30:00 15:30:00 t; ARLEN MELGAR M.D. lty - Tete M.D. [facility] ans 2019-05-21 2019-05-21 AppointMARIUM Mao Multispecia [id number] Univers 10:00:00 10:00:00 t; ARLEN MELGAR M.D. lty - Tete M.D. [facility] ans 2019-01-22 2019-01-22 AppointMARIUM Mao Multispecia [id number] Univers 10:00:00 10:00:00 t; ARLEN MELGAR M.D. lty - neily ellen MCKINLEY M.D. [facility] ans 2018-09-18 2018-09-18 MARIUM Millard [facility] [id number] Univers 10:00:00 10:00:00 t; ARLEN MELGAR M.D. [facility] ity ellen MCKINLEY M.D. [facility] ans 2018-05-22 2018-05-22 Appointmen MARIUM MELGARa [id number] Univers 15:00:00 15:00:00 t; ARLEN MELGAR M.D. [place] M.[place]. [place] [facility] ans 2018-02-13 2018-02-13 Appointmen MELGARMARIUM [id number] Univers 14:00:00 14:00:00 t; ARLEN MELGAR M.D. [place], M.[facility]. [place] [facility] ans 2017-10-10 2017-10-10 AppointMARIUM Mao Rosalina [id number] Univers 14:00:00 14:00:00 t; ARLEN MELGAR M.D. [place], M.D. [place] [facility] ans 2017-06-21 2017-06-21 AppointMARIUM Gray UTP [id number] Univers 13:00:00 13:00:00 t; [facility] M[facility]ORY M.[facility]. [facility] ans 2017-06-13 2017-06-13 AppointMARIUM Mao Rosalina [id number] Univers 14:30:00 14:30:00 t; ARLEN MELGAR M.D. [place], M.D. [facility] ans 2017-04-22 2017-04-22 Outpatient MHIEALT IEAL [id number] Memoria 10:15:00 10:15:00 02 amber Diaz 2017-03-04 2017-03-05 Outpt Diag MHIEALT [facility] [id number] MH OPID 17:19:00 04:59:00 Services Outpatient 02 He ann Imaging Rueter 2017-03-04 2017-03-04 [id number] 12:19:00 23:59:00 Komal 02 2017-02-14 2017-02-14 AppointMARIUM Mao UTP [id number] Univers 15:00:00 15:00:00 t; ARLEN MELGAR M.D. ity of [place], M.D. [facility] 2016-12-14 2016-12-14 [facility] [id number] Univers 13:00:00 13:00:00 t; Josefina MALLORY [place], M.D. [facility] ans 2016-10-21 2016-10-21 Outpatient MHIEALT MHIEALT [id number] Memoria 09:30:00 09:30:00 01 l Rueter 2016-09-07 2016-09-07 Outpatient MHIEALT MHIEALT [id number] Memoria 10:20:00 10:20:00 00 l Rueter 2016-08-16 2016-08-16 Appointmen MELGAR [facility] UTP [id number] Univers 11:30:00 11:30:00 t; ARLEN MELGAR M.D. ity [place], M.D. [place] [facility] 2014-04-26 2014-04-27 Outpt Diag MHIEALT [facility] [id number] MH OPID 17:52:00 04:59:00 Services Outpatient 01 Pe mike [facility] d [place] 2014-04-26 2014-04-26 Outpatient Melgar, IEALT MHIEALT [id number] 12:52:00 23:59:00 Arlen Yen 01 Results Test Description Test Time Test Comments Results Result Sour e Comments CT Lumbar Spine 2019-06-05 Hattie Ramirez Wo Contrast 0 Radiology Results Method ist 17:08:43 - 07/02/2019 5:11 PM CSTEXAMINATION: CT LUMBAR SPINE WO CONTRASTCLINICAL HISTORY: M47.27 Other spondylosis with radiculopathy lumbosacral region, M47.27COMPARISON: The 2018TECHNIQUE: Axial noncontrast enhanced images of lumbar spine was performed with coronal sagittal reconstruction algorithms. CT imaging was performed with iterative reconstruction technique and/or automated exposure control to reduce radiation dose.FINDINGS:L1-L2 and L4-S1 posterior spinal fusion is seen. [...] and L3-L4. Total laminectomy at L4-L5 and L5-S1.There is a T11 vertebral body hemangioma. Vertebral body heights are maintained. Alignment is maintained.Soft tissue fullness, low-attenuation and air along the left aspect at L4-L5 is again noted, has progressed since the prior study. But is similar to the study performed on May 01, 2019.At L1-L2, postoperative changes. No recurrent narrowing of the bony spinal canal or neural foramina.At L2-L3, postoperative changes, no recurrent narrowing of the bony spinal canal or neural foramina.At L3-L4, postoperative changes beam hardening degrading evaluation, no recurrent high-grade spinal canal or neural foraminal narrowing is appreciated. At L4-L5 postoperative changes no high-grade bony spinal canal or neural foraminal narrowing.At L5-S1, postoperative changes. No high-grade bony spinal canal or neural foraminal narrowing.Please note soft tissue detail is limited on CT and postoperative fibrosis or granulation tissue related neural foraminal or spinal canal narrowing at L4-L5 and L5-S1 cannot be excluded.IMPRESSION: Postoperative changes with lucency surrounding right S1 screw, cannot exclude screw loosening at this level. Persistent fluid, fibrosis and air in the laminectomy bed. No recurrent high-grade bony spinal canal or neural foraminal narrowing. [id number] XR Lumbar Spine 2019-05- Hm Interface, Hattie n Ap Lateral [address] Flexion And 12:56:12 Incoming - 05/22/2019 Extension 12:59 PM CSTEXAMINATION: XR LUMBAR SPINE AP LATERAL FLEXION AND EXTENSIONCLINICAL HISTORY: M47.27 Other spondylosis with radiculopathy lumbosacral region, lumbosacral spondy with radiculopathyCOMPARISO N: 04/30/2019.IMPRESSION: 6 views of lumbar spine are interpreted. Dynamic lateral grafts are included.Mild convex right curvature of the thoracolumbar region is again noted.Vertebral heights are preserved. No fracture or aggressive bone lesion is seen.Again noted is posterior fusion of L1-2. Bilateral pedicle screws are connected with vertical rods. No hardware failure or loosening is seen. Facetectomy and L1 partial laminectomy are again noted.Again noted is posterior fusion of L4-S1. Bilateral pedicle screws are present at L4 and S1 are connected with vertical rods. No hardware failure loosening is seen. Facetectomies of L4-5 and L5-S1 are again noted.Again noted are interbody fusions of L1-2 through L5-S1.Mild grade 1 anterolisthesis of L5 relative S1 is again seen.There is no significant change in alignment on dynamic lateral radiographs. There is limited range of motion.No significant interval change is appreciated.[id number] [QL] CBC (INCLUDES DIFF/PLT) 2019-05-21 11:08:01 Test Item Value Reference Range Interpretation Comme nts WBC (test code = 6690-2) 5.5 {K/CMM} 3.7-10.4 RBC; Below Low Threshold (test code = 789-8) 4.42 {M/CMM} 4.70-6.10 Hgb; Below Low Threshold (test code = 718-7) 13.7 g/dl 14.0-18.0 Hct; Below Low Threshold (test code = 07735-0) 41.8 % 42.0-54 .0 MCV; Above High Threshold (test code = 787-2) 94.5 fL 80.0-94. 0 MCH (test code = 785-6) 30.9 pg 27.0-31.0 MCHC (test code = 786-4) 32.7 g/dl 32.0-36.0 RDW; Above High Threshold (test code = 788-0) 14.9 % 11.5-14. 5 Platelet (test code = 31779-2) 270 {K/CMM} 133-450 Mean Platelet Volume (test code = 22149-5) 8.3 fL 7.4-10.4 [facility]] [id number] 11:08:01 Test Item Value Reference Range Interpretation Comments Segmented Neutrophils (test code 58.8 % 45.0-75.0 = 07729-2) Monocytes; Above High Threshold 16.9 % 2.0-12.0 (test code = 91763-2) Lymphocytes (test code = 00940-7) 21.7 % 20.0-40.0 Eosinophils (test code = 20964-8) 1.4 % 0.0-4.0 Basophils; Above High Threshold 1.2 % 0.0-1.0 (test code = 706-2) Segs-Bands # (test code = 3.2 {K/CMM} 1.5-8.1 51474-8) Lymphocytes # (test code = 1.2 {K/CMM} 1.0-5.5 22143-1) Monocytes #; Above High Threshold 0.9 {K/CMM} 0.0-0.8 (test code = 68236-4) Eosinophils # (test code = 0.1 {K/CMM} 0.0-0.5 81173-4) Basophils # (test code = 44348-4) 0.1 {K/CMM} 0.0-0.2 [facility]] COMPLEMENT COMPONENT [id number] 11:08:01 Test Item Value Reference Range Interpretation Comments C3 Complement (test code = 4485-9) 181 mg/dl 88-201 [facility]] COMPLEMENT COMPONENT [id number] 11:08:01 Test Item Value Reference Range Interpretation Comments C4 Complement (test code = 4498-2) 31 mg/dl 16-47 [facility]] CMP [id number] 11:08:01 Test Item Value Reference Range Interpretation Comments Sodium Level 141 {mEq/l} 135-145 (test code = 2951-2) Potassium Level 4.3 {mEq/l} 3.5-5.1 (test code = 2823-3) Chloride Level 108 {mEq/l} 95-109 (test code = 5-0) Carbon Dioxide 25 {mEq/l} 24-32 (test code = 8-9) AGAP (test code = 12.3 {mEq/l} 10.0-20.0 68275-5) Glucose Lvl; 108 mg/dl 70-99 Adult reference range Above High values reflect the Threshold (test clinical ernestine delinesof the code = 2345-7) [place] [employer]. Creatinine Lvl 1.10 mg/dl 0.50-1.40 (test code = 2160-0) Blood Urea 22 mg/dl 7-22 Nitrogen (test code = 3094-0) BUN/Creatinine 20 6-25 Ratio (test code = 3097-3) Total Protein 6.7 g/dl 6.4-8.4 (test code = 2885-2) Albumin Lvl (test 3.8 g/dl 3.5-5.0 code = 1751-7) Globulin (test 2.9 g/dl 2.7-4.2 code = 65311-9) A/G Ratio (test 1.3 0.7-1.6 code = 1759-0) Calcium Level 8.8 mg/dl 8.5-10.5 Total (test code = 03050-6) ALT (test code = 23 u/l 0-65 1743-4) AST (test code = 30 u/l 0-37 20303-7) Bili Total (test 0.5 mg/dl 0.2-1.3 code = 1975-2) Alk Phos (test 116 u/l 39-136 The pediatric reference code = 1783-0) ranges for th is test represent a CLSI-basedtrans ference of the CALIPER erik abase of pediatric refer ence intervals to eSiemens Felt analyzer (Clinical Biochemistry 46 (2013): 1487-7287). [facility] has not internally validated these reference ranges and therefore they should be used only in th e context of a thoroughcl inical assessment. eGFR (test code = 69 The eGFR i s calculated 47805-1) {ML/MIN/1.7} using the CKD-E PI formula. In mos t young, healthyindividu als the eGFR will be >9 0 mL/min/1.73m2. The eGFR declines with a ge. AneGFR of 60-89 may be normal in some population s, particularly th e elderly, forwhom the CKD -EPI formula has not been extensively kait idated. Use of the eGFR isnot recommended in the following populations:Ind ividuals with unstable c reatinine concentrations, including patient s and those with seri ous co-morbid conditions.Jennifer ents with extremes in mus chaparrita mass or diet.The erik a above are obtained fr om the National Kidney Disease Education Progr am(NKDEP) which alicia carcamo recommends that when the eGFR is used in patientswith ex tremes of body mass index for purposes of abi g dosing, the eGFR should be multiplied by t he estimated BMI. [facility]] URINALYSIS, [id number] 11:08:01 Test Item Value Reference Range Interpretation Comments UA Turbidity; Abnormal (test code = Slight Clear A 35247-5) UA Spec Grav (test code = 5810-7) 1.025 <=1.030 UA pH (test code = 5803-2) 6.0 5.0-8.0 UA Protein; Abnormal (test code = 30 mg/dl Negative A 90134-4) UA Glucose (test code = 09128-6) Negative Negative UA Ketones (test code = 07332-1) Negative Negative UA Bili (test code = 5770-3) Negative Negative UA Blood (test code = 5794-3) Negative Negative UA Nitrite (test code = 5802-4) Negative Negative UA Leuk Est (test code = 5799-2) Negative Negative UA WBC (test code = 75216-6) 3 {/HPF} 0-5 UA Mucus (test code = 8247-9) Few None Seen Urine Calcium Oxalate Crystal (test Few None Seen code = 5774-5) UA Sq Epi (test code = 13723-7) None Seen UA Color (test code = 5778-6) Yellow UROBILINOGEN (test code = 18289-8) <=1.0 0.1-1.0 [facility] [id number] 11:32:10 Test Item Value Reference Range Interpretation Comments POC glucose (test code 201 mg/dL 65-99 H RN No tifiedMeter ID: = [id number]) [id number] tor: Halley Garcia mine Lab Interpretation Abnormal (test code = 36945-5) [facility] metabolic [id number] 07:51:24 Test Item Value Reference Range Interpretation Comments Sodium (test code = 2951-2) 138 135- 148 mEq/L Potassium (test code = 2823-3) 3.4 3.5- 5.0 mEq/L L Chloride (test code = 2075-0) 99 98- 112 mEq/L CO2 (test code = 2027-9) 29 24- 31 mEq/L Anion gap (test code = 51214-5) 10@ANIO 7- 15 mEq/L BUN (test code = 3094-0) 17 mg/dL 8-23 Creatinine (test code = 2160-0) 0.97 mg/dL 0.7-1.2 Glucose (test code = 2345-7) 168 mg/dL 65-99 H Calcium (test code = 19686-7) 9.7 mg/dL 8.8-10.2 Lab Interpretation (test code = Abnormal 10364-7) Marcial MethodistEstimated [id number] 07:51:24 Test Item Value Reference Range Interpretation Comments Estimated GFR (test 80 mL/min/1.73 m2 [facility] = 5488) InterpretationG 1 >=90 Normal or highG2 60-89 Mildly bumoucvlcD6y 45-59 Mildly to mode rately rrijvlfwpU7p 30-44 Moderately to severely decreasedG4 15-29 Severely decre asedG5 <15 Kidn ey failureThe eGFR was calculated mohsen adhikari the Chronic Kidney Disease Epidemiology Co llaboration (CKD-EPI) equat ion. Interpretation is based on recommendations of the National Kidney Foundation-Kidn ey Disease Outcomes Qualit y Initiative (NKF-KDOQI) pub lished in 2014. Ceja MethodistCBC with platelet and [id number] 07:11:33 Test Item Value Reference Range Interpretation Comments WBC (test code = 42993-1) 6.4 4.5- 11.0 k/uL RBC (test code = 58657-3) 3.84 m/uL 4.4-6 L HGB (test code = 718-7) 11.6 g/dL 14-18 L HCT (test code = 4544-3) 36.3 % 41-51 L MCV (test code = 787-2) 94.5 fL 82-100 MCH (test code = 785-6) 30.2 pg 27-34 MCHC (test code = 786-4) 32.0 g/dL 31-37 RDW - SD (test code = 20730-0) 45.0 fL 37-55 MPV (test code = 47585-0) 10.6 fL 6.9-11 Platelet count (test code = 197 K/uL 150-400 80960-8) Nucleated RBC (test code = 74802-8) 0.00 /100 WBC Neutrophils (test code = 37912-1) 56.3 % 39-69 Lymphocytes (test code = 87976-5) 20.6 % 25-45 L Monocytes (test code = 61113-2) 16.7 % 0-10 H Eosinophils (test code = 08878-1) 2.8 % 0-5 Basophils (test code = 57152-6) 1.7 % 0-1 H Immature granulocytes (test code = 1.9 % 0-1 H 66942-1) Lab Interpretation (test code = Abnormal 52059-9) [place] EvangelicalXR Lumbar Spine 2 Or 3 [id number] 10:21:51Hm Interface, Radiology Results Incoming 04/30/2019 10:25 AM CDTEXAMINATION: XR LUMBAR SPINE 2 OR 3 VWCLINICAL HISTORY: L S-spine fusion follow upCOMPARISON: Lumbar x-ray dated April 12, 2019IMPRESSION:Frontal lateral views of the lumbar spine were obtained. There is anterior interbody grafts noted from L1 through S1.Posterior fusion hardware is noted at L1-2 as well as pedicle screws at L4 andS1. L5 screws on prior exam were removed and new screws with new rods were placed at S1 with new interbody graft at L5-S1 compared with prior exam. No acute fracture identified. No evidence of hardwaremalalignment. There are still some broad- based leftward curvature at L4. No acute osseous abnormality identified.[id number] EvangelicalUs duplex venous lower extremity 2019-04-29 11:46:29Hm Interface, Radiology Results 04/29/2019 11:49 AM CDTEXAMINATION: US DUPLEX VENOUS LOWER EXTREMITY BILATERALCLINICAL HISTORY: Leg swelling or pain DVT suspectedCOMPARISON: None.TECHNIQUE: Grayscale, color Doppler, and spectral waveform analysis of the bilateral lower extremity deep venous systems was performed. The bilateral common femoral, superficial femoral, proximal deep femoral, greater saphenous, and popliteal veins were evaluated. The calf vessels were also evaluated.FINDINGS:The bilateral common femoral, superficial femoral, and popliteal veins are compressible. They demons trate normal venous waveforms and response to augmentation. There is flow in the visualized calf veins.There is no evidence of a popliteal or Ramos's cyst.IMPRESSION:No evidence of DVT within the bilateral lower extremity named vessels as described above.[facility]-[id number] MethodistOR [place] < 1 Hour 2019-04-27 15:44:15Hm Interface, Radiology Results 04/27/2019 3:47 PM CDTEXAMINATION: [place] 1 HOURCLINICAL HISTORY: Fluoroscopic guidance.IMPRESSION:Fluoroscopy was provided. No radiologist present. Please see procedure report for discussion of procedure, findings.[id number] Marcial MethodistUrine [id number] 10:28:53 Test Item Value Reference Range Interpretation Comments Urine culture (test SEE COMMENT Bacteriu michael screen code = 9561754) negative. Ceja MethodistUrinalysis screen and microscopy, with reflex to culture 2019-04-27 10:28:52 Test Item Value Reference Range Interpretation Comments Specimen site (test code = Catheterized 0119669) Color, UA (test code = 5778-6) Yellow Appearance, UA (test code = Clear 5767-9) Specific gravity, UA (test code 1.025 1.001-1.030 = 5811-5) pH, UA (test code = 5803-2) 5.0 5.0-9.0 Protein, UA (test code = Negative Negative 55148-1) Glucose, UA (test code = 2+ Negative A 33576-6) Ketones, UA (test code = 2514-8) Negative Negative Bilirubin, UA (test code = Negative Negative 5770-3) Blood, UA (test code = 5794-3) Negative Negative Nitrite, UA (test code = 5802-4) Negative Negative Urobilinogen, UA (test code = 2.0 <2.0 E.U./dL A 93259-5) Leukocyte esterase, UA (test Negative Negative code = 5799-2) WBC, UA (test code = 5821-4) 1 0- 1 /HPF RBC, UA (test code = 12689-5) 1 0- 5 /HPF Bacteria, UA (test code = None seen None seen 32922-8) Yeast, UA (test code = 07670-3) None seen Yeast with pseudohyphae, UA None seen (test code = 57664-3) Lab Interpretation (test code = Abnormal 30339-5) Marcial MethodistArterial [id number] 10:10:01Sara Champion MD 04/27/2019 10:11 AMArterial linePerformed by: Sara Champion MDAuthorized by: Sara Champion MD Start Time: 04/27/2019 8:28 AMEnd Time: 04/27/2019 8:40 AMStaff: Anesthesiologist: Sara Champion MD Performed by: AnesthesiologistPre-procedure: patient identified, IV checked, site and side verified, risks and benefits discussed, procedure verified, surgical consent complete, patient position confirmed, monitors and equipment checked and pre-op evaluation complete MSBT: antiseptic used, all elements of maximal sterile barrier technique followed, hand hygiene performed and solutions labeled Indications: Indications: multiple ABGs and hemodynamic monitoring Anesthesia: Anesthesia: GeneralProcedure Details: Arterial Line placement: Placed postinduction Line placement site: RadialLine placement side: Left Arterial line gauge: 20 GNumber of attempts: 2 Ultrasound guidance used: Yes Post-procedure: Post-procedure: Sterile dressing applied Post procedure circulation, sensation, movement: Normal Patient tolerance: Patient tolerated the procedure well with no immediate complicationsB[facility] 2019-[facility]-27 09:33:59Duran Peña Jr., CRNA 04/27/2019 9:35 AMAirwayDate/Time: 04/27/2019 8:30 AMPerformed by: Duran Peña Jr. CRNAAuthorized by: Sara Champion MD Location: ORUrgency: ElectiveDifficult Airway: No Anesthesiologist: Sara Champion MDResident/INVESTMENT FUND MANAGER/AA: Duran Peña Jr. CRNAPerformed by: resident/INVESTMENT FUND MANAGER/AAPreoxygenated with 100% O2: Yes C-spine Precautions Maintained Throughout: Yes Mask Ventilation: Easy maskFinal Airway Type: Endotracheal airwayFinal Endotracheal Airway: ETTCuffed: Yes Technique Used: Direct laryngoscopyDevices/Methods Used in Placement: Intubating styletInsertion Site: OralBlade Type: MillerLaryngoscope Blade/Videolaryngoscope Blade Size:2ETT Size (mm): 8.0Cuff at minimum occlusion pressure: Yes Measured from: LipsETT to Lips (cm): 24Placement Verified by: CO2 detection, direct visualization and equal breath sounds Laryngoscopic view: Grade I - full view of glottisRapid Sequence Induction (RSI): No Modified RSI: No Number of Attempts at Approach: 1 Smooth IV induction; DL X1; Suctioned; +VDLG1Msunrba MethodistHemoglobin A1c 2019-04-20 13:34:33 Test Item Value Reference Range Interpretation Comments Hemoglobin A1C (test 6.7 % 4-5.6 H HbA1c c utoffs for code = 54589-4) diagnosing diabetes:4.0% - 5.6% = normal5.7% - 6.4% = increased risk for diabetes (prediabetes)9> =6.5% = ymjyxwrg8Hzvj s for glycemic contro l (ADA 2016)< 7.0% Ta rget for non adults with randy betes. More or less stringent targe ts may be appropriate for individual jennifer ents. <7.5% Target for Children and adolescents wit h type 1 diabetes. Lab Interpretation (test Abnormal code = 32229-2) Marcial OmeristType and zzidgl1189-83-48 11:49:00 Test Item Value Reference Range Interpretation Comments ABO grouping (test code = 883-9) B Rh type (test code = 15209-3) NEG Antibody screen (gel) (test code = NEG 890-4) Marcial RenaePartial thromboplastin time, sdoqpqfim0409-78-28 11:47:57 Test Item Value Reference Range Interpretation Comments PTT (test code = 22.6 23.0- 36.0 sec L PTT thera peutic range 3173-2) for unfractiona rodger heparin is61.0- 112.0 seconds which corresponds to Anti-Xa0.3-0.7 U/ml. Lab Interpretation Abnormal (test code = 48766-1) Marcial RenaeProthrombin time with [id number] 11:07:16 Test Item Value Reference Range Interpretation Comments Prothrombin time (test 12.2 11.5- 14.5 sec code = 5902-2) INR (test code = 0.9 The Interna tional 76808-1) Normalized Rati o (INR) is a therapeutic m onitoring tool for patien ts who are stable on oral anticoagulant t herapy. An INR of 2.0-3.0 is suggested for d eep vein thrombosis/pulm onary embolism. Marcial Renae[[facility]] CBC (INCLUDES DIFF/PLT)2019-01-22 10:40:01 Test Item Value Reference Range Interpretation Comments WBC; Below Low Threshold (test 3.4 {K/CMM} 3.7-10.4 code = 6690-2) RBC; Below Low Threshold (test 4.41 {M/CMM} 4.70-6.10 code = 789-8) Hgb; Below Low Threshold (test 13.1 g/dl 14.0-18.0 code = 718-7) Hct; Below Low Threshold (test 40.0 % 42.0-54.0 code = 86574-7) MCV (test code = 787-2) 90.8 fL 80.0-94.0 MCH (test code = 785-6) 29.8 pg 27.0-31.0 MCHC (test code = 786-4) 32.8 g/dl 32.0-36.0 RDW; Above High Threshold (test 14.6 % 11.5-14.5 code = 788-0) Platelet (test code = 08217-4) 181 {K/CMM} 133-450 Mean Platelet Volume (test code 8.9 fL 7.4-10.4 = 39928-6) [facility]] Kiqjuctbhumo0811-72-02 10:40:01 Test Item Value Reference Range Interpretation Comments Segmented Neutrophils (test code 49.3 % 45.0-75.0 = 78508-2) Monocytes; Above High Threshold 18.3 % 2.0-12.0 (test code = 16596-6) Lymphocytes (test code = 87286-3) 27.4 % 20.0-40.0 Eosinophils (test code = 76700-3) 2.6 % 0.0-4.0 Basophils; Above High Threshold 2.4 % 0.0-1.0 (test code = 706-2) Segs-Bands # (test code = 1.7 {K/CMM} 1.5-8.1 50718-7) Lymphocytes #; Below Low 0.9 {K/CMM} 1.0-5.5 Threshold (test code = 75779-8) Monocytes # (test code = 24091-0) 0.6 {K/CMM} 0.0-0.8 Eosinophils # (test code = 0.1 {K/CMM} 0.0-0.5 04544-2) Basophils # (test code = 29127-6) 0.1 {K/CMM} 0.0-0.2 [facility]] CMP [id number] 10:40:01 Test Item Value Reference Range Interpretation Comments Sodium Level 142 {mEq/l} 135-145 (test code = 2951-2) Potassium Level 5.1 {mEq/l} 3.5-5.1 (test code = 2823-3) Chloride Level 107 {mEq/l} 95-109 (test code = 5-0) Carbon Dioxide; 33 {mEq/l} 24-32 Above High Threshold (test code = 2027-9) AGAP; Below Low 7.1 {mEq/l} 10.0-20.0 Threshold (test code = 47983-9) Glucose Lvl; 153 mg/dl 70-99 Adult reference range Above High values reflect the Threshold (test clinical ernestine delinesof the code = 2345-7) [place] [employer]. Creatinine Lvl 1.10 mg/dl 0.50-1.40 (test code = 2160-0) Blood Urea 23 mg/dl 7-22 Nitrogen; Above High Threshold (test code = 3094-0) BUN/Creatinine 21 6-25 Ratio (test code = 3097-3) Total Protein; 6.3 g/dl 6.4-8.4 Below Low Threshold (test code = 2885-2) Albumin Lvl (test 3.7 g/dl 3.5-5.0 code = 1751-7) Globulin; Below 2.6 g/dl 2.7-4.2 Low Threshold (test code = 71327-8) A/G Ratio (test 1.4 0.7-1.6 code = 1759-0) Calcium Level 9.3 mg/dl 8.5-10.5 Total (test code = 49170-5) ALT (test code = 25 u/l 0-65 1742-4) AST (test code = 28 u/l 0-37 59825-0) Bili Total (test 0.6 mg/dl 0.2-1.3 code = 1974-2) Alk Phos (test 64 u/l 39-136 code = 1783-0) eGFR (test code = 69 The eGFR i s calculated 48001-2) {ML/MIN/1.7} using the CKD-E PI formula. In mos t young, healthyindividu als the eGFR will be >9 0 mL/min/1.73m2. The eGFR declines with a ge. AneGFR of 60-89 may be normal in some population s, particularly th e elderly, forwhom the CKD -EPI formula has not been extensively kait idated. Use of the eGFR isnot recommended in the following populations:Ind ividuals with unstable c reatinine concentrations, including patient s and those with seri ous co-morbid conditions.Jennifer ents with extremes in mus chaparrita mass or diet.The erik a above are obtained fr om the National Kidney Disease Education Progr am(NKDEP) which alicia carcamo recommends that when the eGFR is used in patientswith ex tremes of body mass index for purposes of abi g dosing, the eGFR should be multiplied by t he estimated BMI. [facility][QL] C-REACTIVE [id number] 10:40:01 Test Item Value Reference Range Interpretation Comments CRP (test code = CRP) <2.9 <=2.9 [facility][QL] SED RATE BY MODIFIED [id number] 10:40:01 Test Item Value Reference Range Interpretation Comments Sedimentation Rate (test code = 4 {mm/hr} 0-15 01273-6) [facility][H] Protein Cnchndtqqmcktpf5835-08-22 10:40:01 Test Item Value Reference Range Interpretation Comments Albumin % (test 66.7 {REL %} 55.8-66.1 code = Albumin %) Alpha 1 % (test 4.1 {REL %} 2.8-4.9 code = Alpha 1 %) Alpha 2 % (test 10.6 {REL %} 7.0-11.9 code = Alpha 2 %) Beta % (test code 11.2 {REL %} 7.8-13.7 = Beta %) Gamma % (test code 7.4 {REL %} 11.1-18.7 = Gamma %) Albumin (SPE) 4.20 g/dl 3.57-5.55 (test code = Albumin (SPE)) Alpha 1 Glob (test 0.26 g/dl 0.18-0.41 code = Alpha 1 Glob) Alpha 2 Glob (test 0.67 g/dl 0.45-1.00 code = 44336-6) Beta Glob (test 0.71 g/dl 0.50-1.15 code = Beta Glob) Gamma Glob (test 0.47 g/dl 0.71-1.57 code = Gamma Glob) Tot Prot (SPE); 6.3 g/dl 6.4-8.4 Below Low Threshold (test code = 2885-2) SPE Interp (test SEE NOTES Total prote in is code = SPE Interp) decreased . Serum albumin is with in reference range . Allglobulin fra ctions are present in a normal distribution wi th a decrease inpoly clonal gamma globulins . No monoclonal prot eins are identified. Serumcapillary electrophoresis is without signifi cant abnormalities.I nterpret ationperformed at [facility].Electr onic Signature Osvaldo Lake MD 17:19 PM [facility][H] Immunofixation Bglrekhchiupbh6947-33-16 10:40:01 Test Item Value Reference Interpretation Comments Range Immunofixation SEE NOTES Diffusely imm unoreactive Electrophoresis bands are no rodger in the IgG, Pattern (test code = IgA, Ig M, kappa and Immunofixation lambdalanes. No monoclonal Electrophoresis bands are id entified. Pattern) [facility]. Immunofixation SEE NOTES Serum immunof ixation Electrophoresis electrophore sis reveals a Interpretation (test polyclo nal pattern code = ofimmunoglobuli ns. No Immunofixation monoclonal pr oteins are Electrophoresis identified. Interpretation) Interpretati onperformed at [facility].Electr onic Signature Osvaldo Lake MD 17:37 PM [facility]iciansMRI Lumbar Spine W Wo Yetjswwr7324-44-97 15:57:44 Interface, Radiology Results 01/16/2019 4:00 PM CDTEXAMINATION: MRI LUMBAR SPINE W WOCONTRASTCLINICAL HISTORY: M48.062 Spinal stenosis lumbar region with neurogenic claudication, M48.062COMPARISON: CT lumbar spine dated March 05, 2014 and lumbar x-ray dated December 26, 2018TECHNIQUE:Multiplanar multisequence pre and post contrast enhanced examination was performed of the Lumbar spine.FINDINGS: Vertebral body heights are maintained without acute fracture. No focal significant marrow signal abnormality is appreciated. No significant enhancing abnormality is noted on the postcontrast images. Soft tissues shows no mass, adenopathy or aneurysm. The partially visualized spinal cord and the conus are unremarkable.There is solid anterior interbody fusion from L1 to L5. This is similar to prior x-ray new from prior CT. Posterior pedicle screws are noted at L1-2 and L4-5. There is some fat stranding around the kidneys. This is nonspecific.Axial images through the disc spaces demonstrate the following:L1-L2: Laminectomy changes are noted. There is no significant thecal sac narrowing. The foramina are patent. There is posterior and anterior fusion at this level.L2-L3: No significant posterior disc disease, spinal canal or neural foraminal stenosis. Laminectomy changes are noted with so lid fusion.L3-L4: No significant posterior disc disease, spinal canal or neural foraminal stenosis. Laminectomy changes are noted with solid fusionL4-L5: No significant posterior disc disease, spinal canal or neural foraminal stenosis. Laminectomy changes are noted with no canal narrowing. There is some metallic artifact slightly obscuring the right foramen which appears to be mildly stenotic from this osteophyte changes. Left foramen is widely patent.L5-S1: There is some prominent epidural fat at this level with no significant osseous canal narrowing. There is mild bilateral foraminal narrowing from facet spurring and disc osteophyte changes, left greater than right.Visualized upper sacrum is intact.IMPRESSION: There are some postop changes noted with solid appearing fusion from L1 to L5. There is mild bilateral foraminal narrowing at L5-S1. There is also suggestion of mild foraminal narrowing on the right at L4-5. No moderate or severe stenosis identified.[facility]-[id number] Evangelical Creatinine, whole bxxwh4564-20-20 13:36:56 Test Item Value Reference Range Interpretation Comments Creatinine, whole blood (test code 1.09 mg/dL 0.7-1.2 = 269) Ceja EvangelicalXR Cervical Spine Complete w flex/tnj0318-07-16 10:02:47 Interface, Radiology Results 12/26/2018 10:05 AM CDTEXAMINATION: XR CERVICAL SPINE COMPLETE W FLEX EXTCLINICAL HISTORY: M48.02 Spinal stenosis cervical region, M48.061 Spinal stenosis lumbar region without neurogenic claudication, M48.061 M48.02COMPARISON: 07/25/2018.IMPRESSION:4 viewsof the cervical spine including dynamic lateral grafts are interpreted.Again noted is ACDF of C3-C5 with anterior plate and screws. Again noted is solid bony fusion of C5-6 and C6-7. Minimal lucency involving the anterior aspect of the C5 screws is unchanged. Cerclage wires are again noted at C6-7.Multilevel facet hypertrophy is again noted.Alignment is unchanged. There is mild grade 1 anterolisthesis of C4 relative to C5. There is no change in alignment on dynamic lateral radiographs.[facility]-[id number] Evangelical[[facility]] SED RATE BY MODIFIED [id number] 10:54:01 Test Item Value Reference Range Interpretation Comments Sedimentation Rate (test code = 3 {mm/hr} 0-15 86228-3) [facility]] CBC (INCLUDES DIFF/PLT)2018-09-18 10:54:01 Test Item Value Reference Range Interpretation Comments WBC (test code = 6690-2) 4.9 {K/CMM} 3.7-10.4 RBC (test code = 789-8) 5.17 {M/CMM} 4.70-6.10 Hgb (test code = 718-7) 14.3 g/dl 14.0-18.0 Hct (test code = 05142-1) 43.9 % 42.0-54.0 MCV (test code = 787-2) 84.9 fL 80.0-94.0 MCH (test code = 785-6) 27.7 pg 27.0-31.0 MCHC (test code = 786-4) 32.6 g/dl 32.0-36.0 RDW; Above High Threshold (test 16.7 % 11.5-14.5 code = 788-0) Platelet (test code = 58179-5) 194 {K/CMM} 133-450 Mean Platelet Volume (test code 9.1 fL 7.4-10.4 = 39066-6) [facility]] Zyecozczsnlv7079-30-05 10:54:01 Test Item Value Reference Range Interpretation Comments Segmented Neutrophils (test code 52.8 % 45.0-75.0 = 06238-0) Monocytes; Above High Threshold 17.3 % 2.0-12.0 (test code = 59267-4) Lymphocytes (test code = 09532-6) 25.6 % 20.0-40.0 Eosinophils (test code = 90996-2) 2.8 % 0.0-4.0 Basophils; Above High Threshold 1.5 % 0.0-1.0 (test code = 706-2) Segs-Bands # (test code = 2.6 {K/CMM} 1.5-8.1 79177-8) Lymphocytes # (test code = 1.2 {K/CMM} 1.0-5.5 14717-5) Monocytes # (test code = 54267-8) 0.8 {K/CMM} 0.0-0.8 Eosinophils # (test code = 0.1 {K/CMM} 0.0-0.5 08598-2) Basophils # (test code = 63104-2) 0.1 {K/CMM} 0.0-0.2 [facility]] CMP [id number] 10:54:01 Test Item Value Reference Range Interpretation Comments Sodium Level 143 {mEq/l} 135-145 (test code = 2951-2) Potassium Level 4.6 {mEq/l} 3.5-5.1 (test code = 2823-3) Chloride Level 107 {mEq/l} 95-109 (test code = 5-0) Carbon Dioxide 29 {mEq/l} 24-32 (test code = 2027-9) AGAP (test code = 11.6 {mEq/l} 10.0-20.0 76247-5) Glucose Lvl; 123 mg/dl 70-99 Adult reference range Above High values reflect the Threshold (test clinical ernestine delinesof the code = 2345-7) [place] [employer] et[employer]. Creatinine Lvl 0.90 mg/dl 0.50-1.40 (test code = 2160-0) Blood Urea 22 mg/dl 7-22 Nitrogen (test code = 3094-0) BUN/Creatinine 24 6-25 Ratio (test code = 3097-3) Total Protein 6.4 g/dl 6.4-8.4 (test code = 2885-2) Albumin Lvl (test 3.9 g/dl 3.5-5.0 code = 1751-7) Globulin; Below 2.5 g/dl 2.7-4.2 Low Threshold (test code = 88286-3) A/G Ratio (test 1.6 0.7-1.6 code = 1759-0) Calcium Level 8.7 mg/dl 8.5-10.5 Total (test code = 59123-2) ALT (test code = 24 u/l 0-65 1743-4) AST (test code = 33 u/l 0-37 24802-0) Alk Phos (test 97 u/l 39-136 code = 1783-0) Bili Total (test 0.8 mg/dl 0.2-1.3 code = 1974-) eGFR (test code = 89 The eGFR i s calculated 91252-6) {ML/MIN/1.7} using the CKD-E PI formula. In mos t young, healthyindividu als the eGFR will be >9 0 mL/min/1.73m2. The eGFR declines with a ge. AneGFR of 60-89 may be normal in some population s, particularly th e elderly, forwhom the CKD -EPI formula has not been extensively kait idated. Use of the eGFR isnot recommended in the following populations:Ind ividuals with unstable c reatinine concentrations, including patient s and those with seri ous co-morbid conditions.Jennifer ents with extremes in mus chaparrita mass or diet.The erik a above are obtained fr om the National Kidney Disease Education Progr am(NKDEP) which additiona lly recommends that when the eGFR is used in patientswith ex tremes of body mass index for purposes of abi g dosing, the eGFR should be multiplied by t he estimated BMI. [facility]] C-REACTIVE [id number] 10:54:01 Test Item Value Reference Range Interpretation Comments CRP (test code = CRP) <2.9 <=2.9 [facility]] SED RATE BY MODIFIED [id number] 13:44:01 Test Item Value Reference Range Interpretation Comments Sedimentation Rate; Above High 31 {mm/hr} 0-15 Threshold (test code = 72220-4) [facility]] CMP W/[id number] 13:44:01 Test Item Value Reference Range Interpretation Comments Sodium Level 141 {mEq/l} 135-145 (test code = 2951-2) Potassium Level 4.7 {mEq/l} 3.5-5.1 (test code = 2823-3) Chloride Level 105 {mEq/l} 95-109 (test code = 2075-0) Carbon Dioxide; 34 {mEq/l} 24-32 Above High Threshold (test code = 2027-9) AGAP; Below Low 6.7 {mEq/l} 10.0-20.0 Threshold (test code = 59435-2) Glucose Lvl (test 91 mg/dl 70-99 Adult refe rence range code = 2345-7) values reflec t the clinical guidel inesof the [place] [employer]et es Association. Creatinine Lvl 0.90 mg/dl 0.50-1.40 (test code = 2160-0) Blood Urea 13 mg/dl 7-22 Nitrogen (test code = 3094-0) BUN/Creatinine 14 6-25 Ratio (test code = 3097-3) Total Protein; 6.1 g/dl 6.4-8.4 Below Low Threshold (test code = 2885-2) Albumin Lvl; 3.4 g/dl 3.5-5.0 Below Low Threshold (test code = 1751-7) Globulin (test 2.7 g/dl 2.7-4.2 code = 12931-2) A/G Ratio (test 1.3 0.7-1.6 code = 1759-0) Calcium Level 8.7 mg/dl 8.5-10.5 Total (test code = 66454-7) ALT (test code = 16 u/l 0-65 3-4) AST (test code = 21 u/l 0-37 73425-0) Alk Phos; Above 179 u/l 39-136 High Threshold (test code = 1783-0) Bili Total (test 0.7 mg/dl 0.2-1.3 code = 1974-2) eGFR (test code = 89 The eGFR i s calculated 74496-9) {ML/MIN/1.7} using the CKD-E PI formula. In mos t young, healthyindividu als the eGFR will be >9 0 mL/min/1.73m2. The eGFR declines with a ge. AneGFR of 60-89 may be normal in some population s, particularly th e elderly, forwhom the CKD -EPI formula has not been extensively kait idated. Use of the eGFR isnot recommended in the following populations:Ind ividuals with unstable c reatinine concentrations, including patient s and those with seri ous co-morbid conditions.Jennifer ents with extremes in mus chaparrita mass or diet.The erik a above are obtained fr om the National Kidney Disease Education Progr am(NKDEP) which alicia carcamo recommends that when the eGFR is used in patientswith ex tremes of body mass index for purposes of abi g dosing, the eGFR should be multiplied by t he estimated BMI. [facility]] C-REACTIVE [id number] 13:44:01 Test Item Value Reference Range Interpretation Comments CRP (test code = CRP) 7.0 mg/L <=2.9 [facility]] CBC (INCLUDES DIFF/PLT)2018-05-22 13:44:01 Test Item Value Reference Range Interpretation Comments WBC (test code = 6690-2) 4.5 {K/CMM} 3.7-10.4 RBC (test code = 789-8) 4.82 {M/CMM} 4.70-6.10 Hgb; Below Low Threshold (test 13.6 g/dl 14.0-18.0 code = 718-7) Hct; Below Low Threshold (test 41.6 % 42.0-54.0 code = 44344-5) MCV (test code = 787-2) 86.3 fL 80.0-94.0 MCH (test code = 785-6) 28.1 pg 27.0-31.0 MCHC (test code = 786-4) 32.6 g/dl 32.0-36.0 RDW; Above High Threshold (test 16.4 % 11.5-14.5 code = 788-0) Platelet (test code = 35692-4) 217 {K/CMM} 133-450 Mean Platelet Volume (test code 8.4 fL 7.4-10.4 = 47491-3) [facility]] [id number] 13:44:01 Test Item Value Reference Range Interpretation Comments Segmented Neutrophils (test code 46.0 % 45.0-75.0 = 01288-6) Monocytes; Above High Threshold 18.0 % 2.0-12.0 (test code = 66782-7) Lymphocytes (test code = 66051-0) 31.2 % 20.0-40.0 Eosinophils (test code = 20430-6) 3.4 % 0.0-4.0 Basophils; Above High Threshold 1.4 % 0.0-1.0 (test code = 706-2) Segs-Bands # (test code = 2.1 {K/CMM} 1.5-8.1 25440-0) Lymphocytes # (test code = 1.4 {K/CMM} 1.0-5.5 50114-4) Monocytes # (test code = 93376-9) 0.8 {K/CMM} 0.0-0.8 Eosinophils # (test code = 0.2 {K/CMM} 0.0-0.5 66430-5) Basophils # (test code = 60691-1) 0.1 {K/CMM} 0.0-0.2 [facility]] CBC (INCLUDES DIFF/PLT)2018-02-13 14:44:01 Test Item Value Reference Range Interpretation Comments WBC (test code = 6690-2) 6.2 {K/CMM} 3.7-10.4 RBC (test code = 789-8) 5.64 {M/CMM} 4.70-6.10 Hgb (test code = 718-7) 16.2 g/dl 14.0-18.0 Hct (test code = 79116-5) 48.9 % 42.0-54.0 MCV (test code = 787-2) 86.6 fL 80.0-94.0 MCH (test code = 785-6) 28.7 pg 27.0-31.0 MCHC (test code = 786-4) 33.1 g/dl 32.0-36.0 RDW; Above High Threshold (test 15.3 % 11.5-14.5 code = 788-0) Platelet (test code = 97807-6) 205 {K/CMM} 133-450 Mean Platelet Volume (test code 9.3 fL 7.4-10.4 = 08357-5) [facility]] [id number] 14:44:01 Test Item Value Reference Range Interpretation Comments Segmented Neutrophils (test code 67.2 % 45.0-75.0 = 76152-8) Monocytes; Above High Threshold 12.2 % 2.0-12.0 (test code = 64749-6) Lymphocytes; Below Low Threshold 18.2 % 20.0-40.0 (test code = 30947-8) Eosinophils (test code = 31683-6) 1.2 % 0.0-4.0 Basophils; Above High Threshold 1.2 % 0.0-1.0 (test code = 706-2) Segs-Bands # (test code = 4.2 {K/CMM} 1.5-8.1 80295-9) Lymphocytes # (test code = 1.1 {K/CMM} 1.0-5.5 72532-8) Monocytes # (test code = 47564-9) 0.8 {K/CMM} 0.0-0.8 Eosinophils # (test code = 0.1 {K/CMM} 0.0-0.5 54065-5) Basophils # (test code = 86303-2) 0.1 {K/CMM} 0.0-0.2 [facility]] CMP [id number] 14:44:01 Test Item Value Reference Range Interpretation Comments Sodium Level 140 {mEq/l} 135-145 (test code = 2951-2) Potassium Level 4.7 {mEq/l} 3.5-5.1 (test code = 2823-3) Chloride Level 100 {mEq/l} 95-109 (test code = 2075-0) Carbon Dioxide; 34 {mEq/l} 24-32 Above High Threshold (test code = 8-9) AGAP (test code = 10.7 {mEq/l} 10.0-20.0 37609-7) Glucose Lvl; 128 mg/dl 70-99 Adult reference range Above High values reflect the Threshold (test clinical ernestine delinesof the code = 2345-7) [place] [employer] et[employer]. Creatinine Lvl 1.00 mg/dl 0.50-1.40 (test code = 2160-0) Blood Urea 19 mg/dl 7-22 Nitrogen (test code = 3094-0) BUN/Creatinine 19 6-25 Ratio (test code = 3097-3) Total Protein 7.1 g/dl 6.4-8.4 (test code = 2885-2) Albumin Lvl (test 4.3 g/dl 3.5-5.0 code = 1751-7) Globulin (test 2.8 g/dl 2.7-4.2 code = 20170-1) A/G Ratio (test 1.5 0.7-1.6 code = 1759-0) Calcium Level 9.7 mg/dl 8.5-10.5 Total (test code = 33306-1) ALT (test code = 26 u/l 0-65 1743-4) AST (test code = 31 u/l 0-37 96951-6) Bili Total (test 1.2 mg/dl 0.2-1.3 code = 1974-2) Alk Phos (test 94 u/l 39-136 code = 1783-0) eGFR (test code = 78 The eGFR i s calculated 20181-8) {ML/MIN/1.7} using the CKD-E PI formula. In mos t young, healthyindividu als the eGFR will be >9 0 mL/min/1.73m2. The eGFR declines with a ge. AneGFR of 60-89 may be normal in some population s, particularly th e elderly, forwhom the CKD -EPI formula has not been extensively kait idated. Use of the eGFR isnot recommended in the following populations:Ind ividuals with unstable c reatinine concentrations, including patient s and those with seri ous co-morbid conditions.Jennifer ents with extremes in mus chaparrita mass or diet.The erik a above are obtained fr om the National Kidney Disease Education Progr am(NKDEP) which alicia carcamo recommends that when the eGFR is used in patientswith ex tremes of body mass index for purposes of abi g dosing, the eGFR should be multiplied by t he estimated BMI. [facility]] C-REACTIVE [id number] 14:44:01 Test Item Value Reference Range Interpretation Comments CRP (test code = CRP) <2.9 <=2.9 [facility]] SED RATE BY MODIFIED [id number] 14:44:01 Test Item Value Reference Range Interpretation Comments Sedimentation Rate (test code = 1 {mm/hr} 0-15 60830-9) [facility]] CBC (INCLUDES DIFF/PLT)2017-10-10 14:43:01 Test Item Value Reference Range Interpretation Comments WBC (test code = 6690-2) 4.9 {K/CMM} 3.7-10.4 RBC (test code = 789-8) 5.55 {M/CMM} 4.70-6.10 Hgb (test code = 718-7) 16.1 g/dl 14.0-18.0 Hct (test code = 23630-6) 48.5 % 42.0-54.0 MCV (test code = 787-2) 87.4 fL 80.0-94.0 MCH (test code = 785-6) 29.0 pg 27.0-31.0 MCHC (test code = 786-4) 33.2 g/dl 32.0-36.0 RDW; Above High Threshold (test 15.5 % 11.5-14.5 code = 788-0) Platelet (test code = 24292-8) 190 {K/CMM} 133-450 Mean Platelet Volume (test code 9.2 fL 7.4-10.4 = 48901-2) [facility]] [id number] 14:43:01 Test Item Value Reference Range Interpretation Comments Segmented Neutrophils (test code 63.1 % 45.0-75.0 = 02488-9) Monocytes; Above High Threshold 12.2 % 2.0-12.0 (test code = 94373-1) Lymphocytes (test code = 15677-7) 22.9 % 20.0-40.0 Eosinophils (test code = 65324-3) 1.1 % 0.0-4.0 Basophils (test code = 706-2) 0.7 % 0.0-1.0 Segs-Bands # (test code = 3.1 {K/CMM} 1.5-8.1 52534-8) Lymphocytes # (test code = 1.1 {K/CMM} 1.0-5.5 71247-0) Monocytes # (test code = 13454-5) 0.6 {K/CMM} 0.0-0.8 Eosinophils # (test code = 0.1 {K/CMM} 0.0-0.5 32538-8) [facility]] CMP [id number] 14:43:01 Test Item Value Reference Range Interpretation Comments Sodium Level 140 {mEq/l} 135-145 (test code = 2951-2) Potassium Level 4.3 {mEq/l} 3.5-5.1 (test code = 2823-3) Chloride Level 105 {mEq/l} 95-109 (test code = 2075-0) Carbon Dioxide 25 {mEq/l} 24-32 (test code = 8-9) AGAP (test code = 14.3 {mEq/l} 10.0-20.0 19776-7) Glucose Lvl; 105 mg/dl 70-99 Adult reference range Above High values reflect the Threshold (test clinical ernestine delinesof the code = 2345-7) [place] [employer]. Creatinine Lvl 1.00 mg/dl 0.50-1.40 (test code = 2160-0) Blood Urea 17 mg/dl 7-22 Nitrogen (test code = 3094-0) BUN/Creatinine 17 6-25 Ratio (test code = 3097-3) Total Protein 7.0 g/dl 6.4-8.4 (test code = 2885-2) Albumin Lvl (test 4.3 g/dl 3.5-5.0 code = 1751-7) Globulin (test 2.7 g/dl 2.7-4.2 code = 68161-3) A/G Ratio (test 1.6 0.7-1.6 code = 1759-0) Calcium Level 9.4 mg/dl 8.5-10.5 Total (test code = 17706-1) ALT (test code = 21 u/l 0-65 5083-4) AST (test code = 30 u/l 0-37 60482-7) Bili Total (test 1.3 mg/dl 0.2-1.3 code = 1975-2) Alk Phos (test 71 u/l 39-136 code = 1783-0) eGFR (test code = 78 The eGFR i s calculated 90441-1) {ML/MIN/1.7} using the CKD-E PI formula. In mos t young, healthyindividu als the eGFR will be >9 0 mL/min/1.73m2. The eGFR declines with a ge. AneGFR of 60-89 may be normal in some population s, particularly th e elderly, forwhom the CKD -EPI formula has not been extensively kait idated. Use of the eGFR isnot recommended in the following populations:Ind ividuals with unstable c reatinine concentrations, including patient s and those with seri ous co-morbid conditions.Jennifer ents with extremes in mus chaparrita mass or diet.The erik a above are obtained fr om the National Kidney Disease Education Progr am(NKDEP) which alicia carcamo recommends that when the eGFR is used in patientswith ex tremes of body mass index for purposes of abi g dosing, the eGFR should be multiplied by t he estimated BMI. [facility]] URINALYSIS, [id number] 14:43:01 Test Item Value Reference Range Interpretation Comments UA Turbidity; Abnormal (test code = Slight Clear A 73601-4) UA Spec Grav (test code = 5810-7) 1.019 <=1.030 UA pH (test code = 5803-2) 8.0 5.0-8.0 UA Protein (test code = 76648-5) Negative Negative UA Glucose (test code = 58431-2) Negative Negative UA Ketones (test code = 72724-0) Negative Negative UA Bili (test code = 5770-3) Negative Negative UA Blood (test code = 5794-3) Negative Negative UA Nitrite (test code = 5802-4) Negative Negative UA Leuk Est (test code = 5799-2) Negative Negative UA WBC (test code = 91465-3) <1 0-5 UA Mucus (test code = 8247-9) Few None Seen UA Sq Epi (test code = 15521-5) None Seen UA Color (test code = 5778-6) Yellow UROBILINOGEN (test code = 33589-7) <=1.0 0.1-1.0 [facility]] C-REACTIVE [id number] 14:43:01 Test Item Value Reference Range Interpretation Comments CRP (test code = CRP) <2.9 <=2.9 [facility][H] Immunofixation [id number] 14:43:01 Test Item Value Reference Interpretation Comments Range Immunofixation See Electrophoresis interpreta Pattern (test code = tion. Immunofixation Electrophoresis Pattern) Immunofixation SEE NOTES Serum immunof ixation Electrophoresis electrophore sis reveals a Interpretation (test polyclo nal pattern code = ofimmunoglobuli ns. No Immunofixation monoclonal pr oteins are Electrophoresis identified. Interpretation) [facility].Electr onic Signature Antonio Dobbs MD 10/12/17 7:5 8 AM [facility][H] Protein [id number] 14:43:01 Test Item Value Reference Interpretation Comments Range Albumin Percent 64.8 {REL 55.8-66.1 (test code = Albumin %} Percent) Alpha 1 Percent 4.1 {REL %} 2.8-4.9 (test code = Alpha 1 Percent) Alpha 2 Percent 11.3 {REL 7.0-11.9 (test code = Alpha 2 %} Percent) Beta Percent (test 11.1 {REL 7.8-13.7 code = Beta Percent) %} Gamma % (test code = 8.7 {REL %} 11.1-18.7 Gamma %) Albumin (SPE) (test 4.54 g/dl 3.57-5.55 code = Albumin (SPE)) Alpha 1 Globulin 0.29 g/dl 0.18-0.41 (test code = Alpha 1 Globulin) Alpha 2 Globulin 0.79 g/dl 0.45-1.00 (test code = 24236-4) Beta Globulin (test 0.78 g/dl 0.50-1.15 code = Beta Globulin) Gamma Globulin (test 0.61 g/dl 0.71-1.57 code = Gamma Globulin) Total Protein (SPE) 7.0 g/dl 6.4-8.4 (test code = 2885-2) SPE Interpretation SEE NOTES Total pro tein is within (test code = SPE normal limi ts.. All Interpretation) globulin fra ctions are present in anor mal distribution, w ith a mild decrease in rodrick ma globulins. No diagnosticmonoc lonal proteins are id entified. Interpretation performed at [facility].Electr onic Signature Antonio Dobbs MD 10/12/17 4:3 2 PM [facility]] CBC (INCLUDES DIFF/PLT)2017-06-13 15:05:01 Test Item Value Reference Range Interpretation Comments WBC (test code = WBC) 4.6 {K/CMM} 3.7-10.4 RBC (test code = RBC) 5.45 {M/CMM} 4.70-6.10 Hgb (test code = 34555-2) 15.6 g/dl 14.0-18.0 Hct (test code = 4544-3) 48.2 % 42.0-54.0 MCV (test code = MCV) 88.4 fL 80.0-94.0 MCH (test code = MCH) 28.5 pg 27.0-31.0 MCHC (test code = MCHC) 32.3 g/dl 32.0-36.0 RDW (test code = RDW) 13.9 % 11.5-14.5 Platelet (test code = 777-3) 222 {K/CMM} 133-450 Mean Platelet Volume (test code 8.6 fL 7.4-10.4 = Mean Platelet Volume) [facility]] [id number] 15:05:01 Test Item Value Reference Range Interpretation Comments Segmented Neutrophils (test code 65.3 % 45.0-75.0 = 60260-0) Monocytes # (test code = 59374-6) 0.6 {K/CMM} 0.0-0.8 Lymphocytes (test code = 19.5 % 20.0-40.0 Lymphocytes) Eosinophils (test code = 65483-6) 0.9 % 0.0-4.0 Basophils (test code = 96037-1) 0.9 % 0.0-1.0 Segs-Bands # (test code = 3.0 {K/CMM} 1.5-8.1 03843-7) Lymphocytes #; Below Low 0.9 {K/CMM} 1.0-5.5 Threshold (test code = 38430-9) [facility]] CMP [id number] 15:05:01 Test Item Value Reference Range Interpretation Comments Sodium Level 138 {mEq/l} 135-145 (test code = Sodium Level) Potassium Level 4.3 {mEq/l} 3.5-5.1 (test code = Potassium Level) Chloride Level 102 {mEq/l} 95-109 (test code = Chloride Level) Carbon Dioxide 30 {mEq/l} 24-32 (test code = Carbon Dioxide) AGAP (test code = 10.3 {mEq/l} 10.0-20.0 AGAP) Glucose Lvl (test 131 mg/dl 70-99 Adult refe rence range code = Glucose values reflec t the Lvl) clinical guidel inesof the [place] [employer]abet es Association. Creatinine Lvl 1.00 mg/dl 0.50-1.40 (test code = Creatinine Lvl) Blood Urea 15 mg/dl 7-22 Nitrogen (test code = Blood Urea Nitrogen) BUN/Creatinine 15 6-25 Ratio (test code = BUN/Creatinine Ratio) Total Protein 7.3 g/dl 6.4-8.4 (test code = 89024-4) Albumin Lvl (test 3.8 g/dl 3.5-5.0 code = 1751-7) Globulin (test 3.5 g/dl 2.7-4.2 code = Globulin) A/G Ratio (test 1.1 0.7-1.6 code = A/G Ratio) Calcium Level 9.3 mg/dl 8.5-10.5 Total (test code = Calcium Level Total) ALT (test code = 24 u/l 0-65 1742-6) AST (test code = 36 u/l 0-37 1916-6) Bili Total (test 0.9 mg/dl 0.2-1.3 code = 42526-7) Alk Phos (test 77 u/l 39-136 code = 1783-0) eGFR (test code = 79 The eGFR i s calculated eGFR) {ML/MIN/1.7} using the CKD-E PI formula. In mos t young, healthyindividu als the eGFR will be >9 0 mL/min/1.73m2. The eGFR declines with a ge. AneGFR of 60-89 may be normal in some population s, particularly th e elderly, forwhom the CKD -EPI formula has not been extensively kait idated. Use of the eGFR isnot recommended in the following populations:Ind ividuals with unstable c reatinine concentrations, including patient s and those with seri ous co-morbid conditions.Jennifer ents with extremes in mus chaparrita mass or diet.The erik a above are obtained fr om the National Kidney Disease Education Progr am(NKDEP) which alicia carcamo recommends that when the eGFR is used in patientswith ex tremes of body mass index for purposes of abi g dosing, the eGFR should be multiplied by t he estimated BMI. [facility]] C-REACTIVE [id number] 15:05:01 Test Item Value Reference Range Interpretation Comments CRP (test code = CRP) 4.9 mg/L <=2.9 [facility]
[2019-12-03] MEDS ORDERED: NA CHLORIDE 0.9% 1,000 ML ONE (08:00)
[2019-12-03] MEDS ORDERED: CEFAZOLIN/SWI 1gm 1 GM/10 ML SYR ONE (08:00)
[2019-12-03] MEDS ORDERED: propofoL 200 MG/20 ML VIAL IV ONE ×2 (08:21→09:06)
[2019-12-03] MEDS ORDERED: LIDOCAINE 2% MPF 5 ML VIAL ONE (08:22)
[2019-12-03] MEDS ORDERED: FENTANYL CITR 100 MCG/2 ML ONE (08:22)
[2019-12-03] MEDS ORDERED: MIDAZOLAM HCL 2 MG/2 ML INJ ONE (08:22)
[2019-12-03] MEDS ORDERED: INSULIN -REGULAR HUMAN 50 UNIT/0.5 ML ML ONE (08:47)
[2019-12-03] MEDS ORDERED: HYDROCORTISONE SUC 100 MG INJ ONE (08:54)
--- NOTE | 2019-12-03 09:32 | P.BOP ---
Preoperative diagnosis: bilateral palpable tender breast masses, diabetes, morbid obesity Postoperative diagnosis: same Primary procedure: 1. Excisional biopsy of left lateral tender breast mass 3.5 x 4 cm Secondary procedure: 2. Excisional biopsy of left medialtender breast mass 3x3c m Other procedure(s): 3. Excisional biopsy of right tender breast mass 5x5 cm Accelerator Technician: Shira Charles) Estimated blood loss: <10cc Specimen: palpable masses Findings: palpable masses Anesthesia: General Complications: None Transferred to: Recovery Room Condition: Good
[2019-12-03 11:38] VITALS: BP 108/65; TEMP 97.5; O2SAT 96
--- NOTE | 2019-12-06 07:59 | OP ---
Date of Procedure: 12/03/2019 Surgeon: Jagjit Herring MD Programmer Developer: Shira Kevin. Preoperative Diagnoses: Bilateral palpable tender breast masses, diabetes, morbid obesity. Postoperative Diagnoses: Bilateral palpable tender breast masses, diabetes, morbid obesity. Procedures: 1.Excisional biopsy of left lateral tender breast mass, 3.5 x 4 cm. 2.Excisional biopsy of left medial tender breast mass, 3 x 3 cm. 3.Excisional biopsy of right tender breast mass, 5 x 5 cm. Anesthesia: General plus local. Indications For Procedure: This is the case of a female who comes to us with above diagnosis. Fully explained the benefits, alternatives, risks of excisional biopsy of the breast masses, which include , but not limited to, infection, bleeding, damage to adjacent structures, anesthesia complication, CA , even . She also understands this may not relieve the symptoms. She might need more than one surgical intervention. She understood, signed a consent. The area of concern was marked by me and t he patient in the holding room. Description Of Procedure: Patient was brought to the operating room, placed in supine position. Ane sthesia was done without complication. Bilateral breast area were prepped and draped in the usual st erile fashion. Marcaine 0.5% was injected for local anesthetic, followed by sharp incision of the sk in on the areas of concern. Each mass was done individually with different incisions but all of them using the same technique, which consisted of sharp incision of the skin. Incision was carried down to breast tissue. Mass was identified since previously palpable. Mass in breast tissue was removed, and then the specimen sent to the pathologist. Then, the area was irrigated. Hemostasis was obtain ed and closed with 3-0 chromic and Steri-Strip. Once again, each mass was done individually. All fo llowed the same technique. Patient tolerated the procedure well. Patient was sent to Recovery in st able condition. Diagnosis: Three tender breast masses, right and left. Disposition: Home. Activity: As tolerated. No heavy lifting. Discharge Instructions: Followup in my office in 1 week. Call for appointment [phone]. Keep area dry for 48 hours, then may shower. Medications: See orders. HM/MODL Voice ID: [id number] Report ID: [id number]
== END 2019-12-03 11:15 | disposition home or self-care (01) ==
LOC: OR 07:32
PROVIDERS: ATTEND Surgery
PROC: 0HBV0ZX Excision of Bilateral Breast, Open Approach, Diagnostic (ICD-10-PCS; principal; 2019-12-03 08:30)
DX: N60.22 Fibroadenosis of left breast (principal); N60.21 Fibroadenosis of right breast; E11.9 Type 2 diabetes mellitus without complications; E66.01 Morbid (severe) obesity due to excess calories; Z11.59 Encounter for screening for other viral diseases; M35.00 Sjogren syndrome, unspecified; M79.7 Fibromyalgia; G47.30 Sleep apnea, unspecified; M19.90 Unspecified osteoarthritis, unspecified site
CPT/HCPCS: 93005; 85025; 36415; 82947 ×2; 88305; 19120 ×2; J2704 ×2; J2250; J3010; J0690; J7030; J1720

== ENCOUNTER 2021-06-14 18:02 | Emergency (ER) | payer MEDICARE, OTHER ==
--- OUTSIDE RECORDS SUMMARY | 2021-06-14 18:18 | XMS REPORT | Continuity of Care Document ---
:1950 Author Organization [facility] t Address [address] [place] [address] Care Team Providers Name Role Phone Trina Trent MD Primary Care Physician SARA MANCIA Attending Clinician Unavailable RAMÓN Attending Clinician Unavailable Alex STEWART Attending Clinician Unavailable Polina Plummer MD Attending Clinician Sara Mancia MD Attending Clinician RAMÓN Attending Clinician Unavailable Sara Mancia MD Attending Clinician Yadira Babcock MD Attending Clinician German Arrington MD Attending Clinician Angel Johnson CRNA Attending Clinician SHELTON Attending Clinician Unavailable Ngozi Jordan MD Attending Clinician TASHI Attending Clinician Unavailable SARA MANCIA Admitting Clinician Unavailable YADIRA BABCOCK Admitting Clinician Unavailable SHELTON Admitting Clinician Unavailable Payers Payer Name Policy Type Policy Number Effective Date Expiration Date S sandra AARP/MEDICARE [id number] 2019 COMPLETE 00:00:00 CDC REVIEW [id number] 2020 2020 00:00:00 00:00:00 [facility] [id number] 2020 00:00:00 Problems Condition Condition Condition Status Onset Resolution Last Treating Co mments Source Name Details Category Date Date Treatment Clinician Date Lumbar Lumbar Disease Active 2021-[address] [facility] stenosis stenosis 2-10 [facility] Osteoarthr Osteoarthr Disease Active 2019-07 U T itis itis 1-06 Health 00:00: 00 Trochanter Trochanter Disease Active 2019-07 U T ic ic 07-09 [facility] bursitis bursitis 00:00: of both of both 00 hips hips Sjogrens Sjogrens Disease Active 2019-07 [facility] syndrome syndrome 1-02 Health 00:00: 00 Cervical Cervical Disease Active [facility] stenosis stenosis 8-19 [facility] - of spine of spine 00:00: Medica l 00 Center Lumbosacra Lumbosacra Disease Active 2018-07 M ethodi l l 0-25 st spondylosi spondylosi 00:00: Ho spita s with s with 00 l radiculopa radiculopa thy thy Degenerati Degenerati Disease Active 2017-07 M ethodi ve disc ve disc 0-24 st disease, disease, 00:00: Hospit a lumbar lumbar 00 l Degenerati Degenerati Disease Active M ethodi ve disc ve disc 7-16 st disease, disease, 00:00: Hospit a cervical cervical 00 l Dementia Dementia Disease Active [facility] 8-23 Health 00:00: 00 Spinal Spinal Disease Active UT stenosis, stenosis, 2-13 Heal th multilevel multilevel 00:00: 00 Myositis, Myositis, Disease Active 2013-07 UT unspecifie unspecifie 0-24 He alth d d 00:00: 00 Hypertensi Hypertensi Disease Active C [facility] on on [facility] Sleep Sleep Disease Active Overview: [facility] apnea apnea uses CPAP [facility] - with O2 @ Medical HS. 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 Diabetes Diabetes Disease Active [facility] t mellitus mellitus [facility] Disease Active [facility] trochanter trochanter Alessandra kes - ic Medical bursitis bursitis Center of left of left hip hip Morbid Morbid Disease Active [facility] obesity obesity [facility] - with body with body Medi corine mass index mass index Ce nter of of 40.0-49.9 40.0-49.9 Myalgia Myalgia Problem Active Univers and and ity of myositis myositis [place] [facility] Shortness Shortness Problem Active Uni vers of breath of breath ity of [place] [facility] Spinal Spinal Problem Active Univers stenosis, stenosis, ity of multilevel [place]ilevel [place] [facility] Osteoarthr Osteoarthr Problem Active U nivers itis itis ity of [place] [facility] Dementia Dementia Problem Active Unive rs ity of [place] [facility] Trochanter Trochanter Problem Active U nivers ic ic ity of bursitis bursitis [place] of both of both Physici hips hips ans Sjogrens Sjogrens Problem Active Unive rs syndrome syndrome ity of [place] [facility] Chronic Chronic Problem Active Univers pain of pain of ity of right right [place] ankle ankle Physici ans Allergies, Adverse Reactions, Alerts Allergy Allergy Status Severity Reaction(s) Onset Inactive Treating Comm ents Source Name Type Date Date Clinician Ofloxaci Allergy Active UT n to 02-16 Health substanc 00:00: e 00 Tapentad Allergy Active UT ol to 02-16 Health substanc 00:00: e 00 ADHESIVE Allergy Active Med [facility] BANDAGE 02-14 [facility] Center Adhesive Propensi Active Moderate [facility] Bandage ty to 02-14 [facility] - adverse 00:00: Medical reaction 00 Center s Methotre Propensi Active UT xate ty to 03-01 Health Derivati adverse 00:00: ves reaction 00 s Adhesive Drug Active Rash "BLISTER UT Tape Allergy 01-09', Health 00:00: paper 00 tape and tegaderm ok as per pt"BLISTE R ASTUDILLO', paper tape and tegaderm ok as per pt"BLISTE R ASTUDILLO', paper tape and tegaderm ok as per pt"BLISTE R ASTUDILLO', paper tape and tegaderm ok as per pt"BLISTE R ASTUDILLO', paper tape and tegaderm ok as per pt"BLISTE R ASTUDILLO', paper tape and tegaderm ok as per pt Adhesive Propensi Active Rash "BLISTER Meth alfonzo Tape-Mary ty to 01-09 ASTUDILLO', st icones adverse 00:00: paper Hospita reaction 00 tape and l s to tegaderm drug ok as per pt ADHESIVE Allergy Active Med Rash [facility] TAPE-MARY 01-09 [facility] - ICONES 00:00: Medical 00 Center Adhesive Propensi Active Rash 0 "BLISTER [facility] Tape-Mary ty to 01-09 ASTUDILLO', [facility] - icones adverse 00:00: paper Medical reaction 00 tape and Center s tegaderm ok as per pt OFLOXACI Allergy Active High Sob [facility] N 01-03 [facility] Medical 00 Center Floxin Allergy Active Univers TABS to drug ity of (finding [place] ) Physici ans Tape Allergy Active Univers 1"X5YD to drug ity of TAPE (finding [place] ) Physici ans NO KNOWN Allergy Active [facility] Family History Family Member Diagnosis Comments Start Date Stop Date Source Natural brother Autoimmune disease [facility] Natural brother Heart disease [facility] Natural brother Parkinsonism [facility] father Cancer [facility] mother Heart disease [facility] mother Heart failure [facility] mother Hypertension [facility] Social History Social Habit Start Date Stop Date Quantity Comments Source Exposure to Not sure [facility] SARS-CoV-2 (event) History SDOH [facility] - Alcohol Std Drinks Medica Center History SDOH [facility] - Alcohol Binge Medical [facility] History of tobacco Cigarette Smoker [facility] use Hospital History SDOH 2020-02-13 2020-02-[address] [facility] - Alcohol Frequency 00:00:00 00:00:00 Medical Center Cigarettes smoked 2019-04-30 2019-04-[address] current (pack per 00:00:00 00:00:00 Hospita l day) - Reported Cigarette 2019-04-30 2019-04-30 [facility] pack-years 00:00:00 00:00:00 Hospital Tobacco use and 2019-04-30 2019-04-30 Never used [facility] exposure 00:00:00 00:00:00 Hospital Alcohol intake 2019-04-30 2019-04-30 Current [facility] 00:00:00 00:00:00 non-drinker of Hospital alcohol (finding) Alcohol Comment 2018-01-09 2018-01-09 NOT SINCE 2013. Meth odist 00:00:00 00:00:00 Hospital Sex Ass[birth year] At [birth year] [facility] 00:00:00 00:00:00 Smoking Status Start Date Stop Date Source Tobacco smoking [facility] consumption unknown Former smoker 2021-03-04 00:00:00 2021-03-04 [facility] 00:00:[address] [facility] Medications Ordered Filled Start Stop Current Ordering Indication Dosage Frequency Signature Comments Components Source Medication Medication Date Date Medication? Clinician (SIG) Name Name methylPREDN 2020- No 20mg UT ISolone 03-04 Health acetate 18:29: 18:30 (DEPO-Medro 00 :00 l) injection 20 mg methylPREDN 2020- No 20mg 20 mg, UT ISolone 03-04 Intra-donna Healt h acetate 18:29: 18:30 cular, (DEPO-Medro 00 :00 Once, On l) Tue03/04/21 injection at 1330, 20 mg For 1 dose
In dications: ankle pain methylPREDN 2020- No 20mg UT ISolone 03-04 Health acetate 18:29: 18:30 (DEPO-Medro 00 :00 l) injection 20 mg methylPREDN 2020- No 20mg 20 mg, UT ISolone 03-04 [facility]-d[facility] Healt h acetate 18:29: 18:30 cular, (DEPO-Medro 00 :00 Once, On l) Tue03/04/21 injection at 1330, 20 mg For 1 dose
In dications: ankle pain predniSONE Yes [id number] 4mg QD Take 4 UT (Deltasone) 8-18 tablets (4 He alth 1 MG tablet 00:00: mg total) 00 by mouth 1 (one) time each day. predniSONE Yes [id number] 4mg QD Take 4 UT (Deltasone) 8-18 tablets (4 He alth 1 MG tablet 00:00: mg total) 00 by mouth 1 (one) time each day. predniSONE Yes [id number] 4mg QD Take 4 UT (Deltasone) 8-18 tablets (4 He alth 1 MG tablet 00:00: mg total) 00 by mouth 1 (one) time each day. predniSONE Yes [id number] 4mg QD Take 4 UT (Deltasone) 8-18 tablets (4 He alth 1 MG tablet 00:00: mg total) 00 by mouth 1 (one) time each day. predniSONE Yes [id number] 4mg QD Take 4 UT (Deltasone) 8-18 tablets (4 He alth 1 MG tablet 00:00: mg total) 00 by mouth 1 (one) time each day. predniSONE Yes [id number] 4mg QD Take 4 UT (Deltasone) 8-18 tablets (4 He alth 1 MG tablet 00:00: mg total) 00 by mouth 1 (one) time each day. Ascorbic Yes 1000mg 1,000 mg. UT Acid 816 Health (vitamin C) 14:02: 1000 MG 51 tablet atorvastati Yes 20mg 20 mg. UT n (Lipitor) 816 Health 20 MG 14:02: tablet 51 B Yes UT Complex-C-F 02-16 Health olic Acid 14:02: tablet 51 budesonide- Yes INHALE 2 UT formoterol 8-16 PUFFS Health (Symbicort) 14:02: TWICE 80-4.5 51 DAILY. MCG/ACT RINSE inhaler MOUTH AFTER USE. butalbital- Yes TAKE 1 UT acetaminoph 8-16 TABLET Health en-caffeine 14:02: DAILY PRN 50-325-40 51 MG tablet cholecalcif Yes TAKE 1 UT precious 8-16 CAPSULE Health (Vitamin 14:02: DAILY D-3) 50 MCG 51 (1999 UT) capsule Cinnamon Yes 500mg 500 mg. UT 500 MG 8-16 Health tablet 14:02: 51 cycloSPORIN Yes .05% 0.05 %. UT E (Restasis 8-16 Health MultiDose) 14:02: 0.05 % 51 ophthalmic emulsion Diclofenac Yes UT Sodium 8-16 Health (Pennsaid) 14:02: 2 % 51 solution DULoxetine Yes 60mg 60 mg. UT (Cymbalta) 8-[address] 14:02: capsule 51 glipiZIDE Yes 5mg 5 mg. UT (Glucotrol) 8-16 Health 5 MG tablet 14:02: 51 Glucosamine Yes UT -[place]ondroit- 02-16 Health Vit C-Mn 14:02: (Glucosamin 51 e Chondr 1500 Complx) capsule HYDROcodone Yes UT -acetaminop 02-16 Health hen ([place]) 14:02: 10-325 MG 51 tablet Magnesium Yes WITH ZINC UT 300 MG 02-16 TAB Health capsule 14:02: DAILY 51 melatonin 3 Yes 3mg 3 mg. UT MG tablet 02-16 Health 14:02: 51 meloxicam Yes 7.5mg 7.5 mg. UT (Mobic) 7.5 02-16 Health MG tablet 14:02: 51 methocarbam Yes 750mg 750 mg. UT ol 02-16 Health (Robaxin) 14:02: 750 MG 51 tablet Multiple Yes UT Minerals-Vi 02-16 Health tamins 14:02: (Calcium & 51 Vit D3 Bone Health) liquid nortriptyli Yes 10mg 10 mg. UT ne 02-16 Health (Pamelor) 14:02: 10 MG 51 capsule omega-3 Yes 1000mg 1,000 mg. UT (Fish Oil) 02-16 Health 1000 MG 14:02: capsule 51 pantoprazol Yes 40mg 40 mg. UT e 02-16 Health (ProtoNix) 14:02: 40 MG EC 51 tablet alpha Yes 400U 400 Units. UT tocopherol 02-16 Health (Vitamin E) 14:02: 400 units 51 capsule valsartan Yes 320mg 320 mg. UT (Diovan) 02-16 Health 320 MG 14:02: tablet 51 SUMAtriptan Yes 50mg 50 mg. UT (Imitrex) 02-16 Health 50 MG 14:02: tablet 51 simethicone Yes UT (Mylicon,[place] 02-16 Health s-X) 180 MG 14:02: capsule 51 sildenafil Yes 20mg 20 mg. UT (Revatio) 02-16 Health 20 MG 14:02: tablet 51 Saw Yes 450mg 450 mg. UT Immaculata 02-16 Health 450 MG 14:02: capsule 51 Potassium Yes 99mg 99 mg. UT 99 MG 02-16 Health tablet 14:02: 51 Multiple Yes UT Vitamins-Mi 02-16 Health nerals 14:02: (Centrum 51 Silver 50+Men) tablet Ascorbic Yes 1000mg 1,000 mg. UT Acid 02-16 Health (vitamin C) 14:02: 1000 MG 51 tablet atorvastati Yes 20mg 20 mg. UT n (Lipitor) 02-16 Health 20 MG 14:02: tablet 51 B Yes UT Complex-C-F 02-16 Health olic Acid 14:02: tablet 51 budesonide- Yes INHALE 2 UT formoterol 02-16 PUFFS Health (Symbicort) 14:02: TWICE 80-4.5 51 DAILY. MCG/ACT RINSE inhaler MOUTH AFTER USE. butalbital- Yes TAKE 1 UT acetaminoph - TABLET Health en-caffeine 14:02: DAILY PRN 50-325-40 51 MG tablet cholecalcif Yes TAKE 1 UT precious 02-16 CAPSULE Health (Vitamin 14:02: DAILY D-3) 50 MCG 51 (1999 UT) capsule Cinnamon Yes 500mg 500 mg. UT 500 MG 02-16 Health tablet 14:02: 51 cycloSPORIN Yes .05% 0.05 %. UT E (Restasis 02-16 Health MultiDose) 14:02: 0.05 % 51 ophthalmic emulsion Diclofenac Yes UT Sodium 02-16 Health (Pennsaid) 14:02: 2 % 51 solution DULoxetine Yes 60mg 60 mg. UT (Cymbalta) 02-[address] 14:02: capsule 51 glipiZIDE Yes 5mg 5 mg. UT (Glucotrol) 02-16 Health 5 MG tablet 14:02: 51 Glucosamine Yes UT -[place]ondroit- 02-16 Health Vit C-Mn 14:02: (Glucosamin 51 e Chondr 1500 Complx) capsule HYDROcodone Yes UT -acetaminop 02-16 Health hen ([place]) 14:02: 10-325 MG 51 tablet Ascorbic Yes 1000mg 1,000 mg. UT Acid 02-16 Health (vitamin C) 14:02: 1000 MG 51 tablet Magnesium Yes WITH ZINC UT 300 MG 02-16 TAB Health capsule 14:02: DAILY 51 melatonin 3 Yes 3mg 3 mg. UT MG tablet 02-16 Health 14:02: 51 meloxicam Yes 7.5mg 7.5 mg. UT (Mobic) 7.5 02-16 Health MG tablet 14:02: 51 methocarbam Yes 750mg 750 mg. UT ol 02-16 Health (Robaxin) 14:02: 750 MG 51 tablet atorvastati Yes 20mg 20 mg. UT n (Lipitor) 02-16 Health 20 MG 14:02: tablet 51 Multiple Yes UT Minerals-Vi 02-16 Health tamins 14:02: (Calcium & 51 Vit D3 Bone Health) liquid nortriptyli Yes 10mg 10 mg. UT ne 02-16 Health (Pamelor) 14:02: 10 MG 51 capsule omega-3 Yes 1000mg 1,000 mg. UT (Fish Oil) 02-16 Health 1000 MG 14:02: capsule 51 pantoprazol Yes 40mg 40 mg. UT e 02-16 Health (ProtoNix) 14:02: 40 MG EC 51 tablet alpha Yes 400U 400 Units. UT tocopherol 02-16 Health (Vitamin E) 14:02: 400 units 51 capsule valsartan Yes 320mg 320 mg. UT (Diovan) 02-16 Health 320 MG 14:02: tablet 51 SUMAtriptan Yes 50mg 50 mg. UT (Imitrex) 02-16 Health 50 MG 14:02: tablet 51 simethicone Yes UT (Mylicon,[place] 02-16 Health s-X) 180 MG 14:02: capsule 51 sildenafil Yes 20mg 20 mg. UT (Revatio) 02-16 Health 20 MG 14:02: tablet 51 Saw Yes 450mg 450 mg. UT Immaculata 02-16 Health 450 MG 14:02: capsule 51 Potassium Yes 99mg 99 mg. UT 99 MG 02-16 Health tablet 14:02: 51 B Yes UT Complex-C-F 02-16 Health olic Acid 14:02: tablet 51 Multiple Yes UT Vitamins-Mi 8- Health nerals 14:02: (Centrum 51 Silver 50+Men) tablet budesonide- Yes INHALE 2 UT formoterol 8-16 PUFFS Health (Symbicort) 14:02: TWICE 80-4.5 51 DAILY. MCG/ACT RINSE inhaler MOUTH AFTER USE. Ascorbic Yes 1000mg 1,000 mg. UT Acid 02-16 Health (vitamin C) 14:02: 1000 MG 51 tablet atorvastati Yes 20mg 20 mg. UT n (Lipitor) 8 Health 20 MG 14:02: tablet 51 B Yes UT Complex-C-F 02-16 Health olic Acid 14:02: tablet 51 budesonide- Yes INHALE 2 UT formoterol 8-16 PUFFS Health (Symbicort) 14:02: TWICE 80-4.5 51 DAILY. MCG/ACT RINSE inhaler MOUTH AFTER USE. butalbital- Yes TAKE 1 UT acetaminoph 8-16 TABLET Health en-caffeine 14:02: DAILY PRN 50-325-40 51 MG tablet cholecalcif Yes TAKE 1 UT precious 8-16 CAPSULE Health (Vitamin 14:02: DAILY D-3) 50 MCG 51 (1999 UT) capsule butalbital- Yes TAKE 1 UT acetaminoph 8-16 TABLET Health en-caffeine 14:02: DAILY PRN 50-325-40 51 MG tablet Cinnamon Yes 500mg 500 mg. UT 500 MG 8 Health tablet 14:02: 51 cycloSPORIN Yes .05% 0.05 %. UT E (Restasis - Health MultiDose) 14:02: 0.05 % 51 ophthalmic emulsion Diclofenac Yes UT Sodium 8-16 Health (Pennsaid) 14:02: 2 % 51 solution DULoxetine Yes 60mg 60 mg. UT (Cymbalta) [address] 14:02: capsule 51 glipiZIDE Yes 5mg 5 mg. UT (Glucotrol) 02-16 Health 5 MG tablet 14:02: 51 Glucosamine 2021-0 Yes UT -Chondroit- 8-16 Health Vit C-Mn 14:02: (Glucosamin 51 e Chondr 1500 Complx) capsule HYDROcodone Yes UT -acetaminop 02-16 Health hen ([place]) 14:02: 10-325 MG 51 tablet cholecalcif Yes TAKE 1 UT precious 02-16 CAPSULE Health (Vitamin 14:02: DAILY D-3) 50 MCG 51 (1999) capsule Magnesium Yes WITH ZINC UT 300 MG 02-16 TAB Health capsule 14:02: DAILY 51 melatonin 3 Yes 3mg 3 mg. UT MG tablet 02-16 Health 14:02: 51 meloxicam Yes 7.5mg 7.5 mg. UT (Mobic) 7.5 02-16 Health MG tablet 14:02: 51 methocarbam Yes 750mg 750 mg. UT ol 02-16 Health (Robaxin) 14:02: 750 MG 51 tablet Multiple Yes UT Minerals-Vi 02-16 Health tamins 14:02: (Calcium & 51 Vit D3 Bone Health) liquid nortriptyli Yes 10mg 10 mg. UT ne 02-16 Health (Pamelor) 14:02: 10 MG 51 capsule omega-3 Yes 1000mg 1,000 mg. UT (Fish Oil) 02-16 Health 1000 MG 14:02: capsule 51 pantoprazol Yes 40mg 40 mg. UT e 02-16 Health (ProtoNix) 14:02: 40 MG EC 51 tablet alpha Yes 400U 400 Units. UT tocopherol 02-16 Health (Vitamin E) 14:02: 400 units 51 capsule valsartan Yes 320mg 320 mg. UT (Diovan) 02-16 Health 320 MG 14:02: tablet 51 Cinnamon Yes 500mg 500 mg. UT 500 MG 02-16 Health tablet 14:02: 51 SUMAtriptan Yes 50mg 50 mg. UT (Imitrex) 02-16 Health 50 MG 14:02: tablet 51 simethicone Yes UT (Mylicon,[place] 02-16 Health s-X) 180 MG 14:02: capsule 51 sildenafil Yes 20mg 20 mg. UT (Revatio) 8-16 Health 20 MG 14:02: tablet 51 Saw 0 Yes 450mg 450 mg. UT Immaculata 8-16 Health 450 MG 14:02: capsule 51 Potassium Yes 99mg 99 mg. UT 99 MG 8-16 Health tablet 14:02: 51 cycloSPORIN Yes .05% 0.05 %. UT E (Restasis 02-16 Health MultiDose) 14:02: 0.05 % 51 ophthalmic emulsion Multiple Yes UT Vitamins-Mi 02-16 Health nerals 14:02: (Centrum 51 Silver 50+Men) tablet Diclofenac Yes UT Sodium -16 Health (Pennsaid) 14:02: 2 % 51 solution Ascorbic Yes 1000mg 1,000 mg. UT Acid 02-16 Health (vitamin C) 14:02: 1000 MG 51 tablet atorvastati Yes 20mg 20 mg. UT n (Lipitor) 02-16 Health 20 MG 14:02: tablet 51 B Yes UT Complex-C-F 02-16 Health olic Acid 14:02: tablet 51 budesonide- Yes INHALE 2 UT formoterol 8-16 PUFFS Health (Symbicort) 14:02: TWICE 80-4.5 51 DAILY. MCG/ACT RINSE inhaler MOUTH AFTER USE. butalbital- Yes TAKE 1 UT acetaminoph 8-16 TABLET Health en-caffeine 14:02: DAILY PRN 50-325-40 51 MG tablet cholecalcif Yes TAKE 1 UT precious 8-16 CAPSULE Health (Vitamin 14:02: DAILY D-3) 50 MCG 51 (1999 UT) capsule Cinnamon 0 Yes 500mg 500 mg. UT 500 MG 8-16 Health tablet 14:02: 51 cycloSPORIN Yes .05% 0.05 %. UT E (Restasis 02-16 Health MultiDose) 14:02: 0.05 % 51 ophthalmic emulsion DULoxetine Yes 60mg 60 mg. UT (Cymbalta) 8-[address] 14:02: capsule 51 Diclofenac Yes UT Sodium -16 Health (Pennsaid) 14:02: 2 % 51 solution DULoxetine Yes 60mg 60 mg. UT (Cymbalta) 02-[address] 14:02: capsule 51 glipiZIDE Yes 5mg 5 mg. UT (Glucotrol) 02-16 Health 5 MG tablet 14:02: 51 Glucosamine Yes UT -[place]ondroit- 02-16 Health Vit C-Mn 14:02: (Glucosamin 51 e Chondr 1500 Complx) capsule HYDROcodone Yes UT -acetaminop 02-16 Health hen ([place]) 14:02: 10-325 MG 51 tablet Magnesium Yes WITH ZINC UT 300 MG 02-16 TAB Health capsule 14:02: DAILY 51 melatonin 3 Yes 3mg 3 mg. UT MG tablet 02-16 Health 14:02: 51 meloxicam Yes 7.5mg 7.5 mg. UT (Mobic) 7.5 02-16 Health MG tablet 14:02: 51 methocarbam Yes 750mg 750 mg. UT ol 02-16 Health (Robaxin) 14:02: 750 MG 51 tablet Multiple Yes UT Minerals-Vi 02-16 Health tamins 14:02: (Calcium & 51 Vit D3 Bone Health) liquid glipiZIDE Yes 5mg 5 mg. UT (Glucotrol) 02-16 Health 5 MG tablet 14:02: 51 nortriptyli Yes 10mg 10 mg. UT ne 02-16 Health (Pamelor) 14:02: 10 MG 51 capsule omega-3 Yes 1000mg 1,000 mg. UT (Fish Oil) 02-16 Health 1000 MG 14:02: capsule 51 pantoprazol Yes 40mg 40 mg. UT e 02-16 Health (ProtoNix) 14:02: 40 MG EC 51 tablet alpha Yes 400U 400 Units. UT tocopherol 02-16 Health (Vitamin E) 14:02: 400 units 51 capsule valsartan Yes 320mg 320 mg. UT (Diovan) 02-16 Health 320 MG 14:02: tablet 51 SUMAtriptan Yes 50mg 50 mg. UT (Imitrex) 02-16 Health 50 MG 14:02: tablet 51 simethicone Yes UT (Mylicon,Ga 02-16 Health s-X) 180 MG 14:02: capsule 51 sildenafil Yes 20mg 20 mg. UT (Revatio) 02-16 Health 20 MG 14:02: tablet 51 Saw Yes 450mg 450 mg. UT Immaculata 02-16 Health 450 MG 14:02: capsule 51 Potassium Yes 99mg 99 mg. UT 99 MG 02-16 Health tablet 14:02: 51 Multiple Yes UT Vitamins-Mi 02-16 Health nerals 14:02: (Centrum 51 Silver 50+Men) tablet Glucosamine Yes UT -[place]ondroit- 02-16 Health Vit C-Mn 14:02: (Glucosamin 51 e Chondr 1500 Complx) capsule HYDROcodone Yes UT -acetaminop 02-16 Health hen ([place]) 14:02: 10-325 MG 51 tablet Magnesium Yes WITH ZINC UT 300 MG 02-16 TAB Health capsule 14:02: DAILY 51 melatonin 3 Yes 3mg 3 mg. UT MG tablet 02-16 Health 14:02: 51 meloxicam Yes 7.5mg 7.5 mg. UT (Mobic) 7.5 02-16 Health MG tablet 14:02: 51 methocarbam Yes 750mg 750 mg. UT ol 02-16 Health (Robaxin) 14:02: 750 MG 51 tablet Multiple Yes UT Minerals-Vi 02-16 Health tamins 14:02: (Calcium & 51 Vit D3 Bone Health) liquid nortriptyli Yes 10mg 10 mg. UT ne 02-16 Health (Pamelor) 14:02: 10 MG 51 capsule omega-3 Yes 1000mg 1,000 mg. UT (Fish Oil) 02-16 Health 1000 MG 14:02: capsule 51 pantoprazol Yes 40mg 40 mg. UT e 02-16 Health (ProtoNix) 14:02: 40 MG EC 51 tablet alpha Yes 400U 400 Units. UT tocopherol 02-16 Health (Vitamin E) 14:02: 400 units 51 capsule valsartan Yes 320mg 320 mg. UT (Diovan) 02-16 Health 320 MG 14:02: tablet 51 SUMAtriptan Yes 50mg 50 mg. UT (Imitrex) 02-16 Health 50 MG 14:02: tablet 51 simethicone Yes UT (Mylicon,[place] 02-16 Health s-X) 180 MG 14:02: capsule 51 sildenafil Yes 20mg 20 mg. UT (Revatio) 02-16 Health 20 MG 14:02: tablet 51 Saw Yes 450mg 450 mg. UT Immaculata 02-16 Health 450 MG 14:02: capsule 51 Potassium Yes 99mg 99 mg. UT 99 MG 02-16 Health tablet 14:02: 51 Multiple Yes UT Vitamins-Mi 02-16 Health nerals 14:02: (Centrum 51 Silver 50+Men) tablet Cinnamon Yes 500mg 500 mg. UT 500 MG 02-16 Health tablet 09:02: 51 cycloSPORIN Yes .05% 0.05 %. UT E (Restasis 02-16 Health MultiDose) 09:02: 0.05 % 51 ophthalmic emulsion Diclofenac Yes UT Sodium 02-16 Health (Pennsaid) 09:02: 2 % 51 solution DULoxetine Yes 60mg 60 mg. UT (Cymbalta) 02-[address] 09:02: capsule 51 glipiZIDE Yes 5mg 5 mg. UT (Glucotrol) 02-16 Health 5 MG tablet 09:02: 51 Glucosamine Yes UT -[place]ondroit- 02-16 Health Vit C-Mn 09:02: (Glucosamin 51 e Chondr 1500 Complx) capsule HYDROcodone Yes UT -acetaminop 02-16 Health hen ([place]) 09:02: 10-325 MG 51 tablet Magnesium Yes WITH ZINC UT 300 MG 02-16 TAB Health capsule 09:02: DAILY 51 melatonin 3 Yes 3mg 3 mg. UT MG tablet 02-16 Health 09:02: 51 meloxicam Yes 7.5mg 7.5 mg. UT (Mobic) 7.5 02-16 Health MG tablet 09:02: 51 methocarbam Yes 750mg 750 mg. UT ol 02-16 Health (Robaxin) 09:02: 750 MG 51 tablet Multiple Yes UT Minerals-Vi 02-16 [facility] tamins 09:02: (Calcium & 51 Vit D3 Bone Health) liquid nortriptyli Yes 10mg 10 mg. UT ne 02-16 [facility] (Pamelor) 09:02: 10 MG 51 capsule omega-3 Yes 1000mg 1,000 mg. UT (Fish Oil) 02-16 [facility] 1000 MG 09:02: capsule 51 pantoprazol Yes 40mg 40 mg. UT e 02-16 [facility] (ProtoNix) 09:02: 40 MG EC 51 tablet alpha Yes 400U 400 Units. UT tocopherol 02-16 [facility] (Vitamin E) 09:02: 400 units 51 capsule valsartan Yes 320mg 320 mg. UT (Diovan) 02-16 [facility] 320 MG 09:02: tablet 51 SUMAtriptan Yes 50mg 50 mg. UT (Imitrex) 02-16 [facility] 50 MG 09:02: tablet 51 simethicone Yes UT (Mylicon,[place] 02-16 [facility] s-X) 180 MG 09:02: capsule 51 sildenafil Yes 20mg 20 mg. UT (Revatio) 02-16 [facility] 20 MG 09:02: tablet 51 Saw Yes 450mg 450 mg. UT Immaculata 02-16 [facility] 450 MG 09:02: capsule 51 Potassium Yes 99mg 99 mg. UT 99 MG 02-16 [facility] tablet 09:02: 51 Multiple Yes UT Vitamins-Mi 02-16 [facility] nerals 09:02: (Centrum 51 Silver 50+Men) tablet Ascorbic Yes 1000mg 1,000 mg. UT Acid 02-16 [facility] (vitamin C) 09:02: 1000 MG 51 tablet atorvastati Yes 20mg 20 mg. UT n (Lipitor) 02-16 [facility] 20 MG 09:02: tablet 51 B Yes UT Complex-C-F 02-16 [facility] olic Acid 09:02: tablet 51 budesonide- Yes INHALE 2 UT formoterol 02-16 PUFFS [facility] (Symbicort) 09:02: TWICE 80-4.5 51 DAILY. MCG/ACT RINSE inhaler MOUTH AFTER USE. butalbital- Yes TAKE 1 UT acetaminoph 02-16 TABLET Health en-caffeine 09:02: DAILY PRN 50-325-40 51 MG tablet cholecalcif Yes TAKE 1 UT precious 02-16 CAPSULE Health (Vitamin 09:02: DAILY D-3) 50 MCG 51 (1999 UT) capsule Cinnamon Yes 500mg 500 mg. UT 500 MG 02-16 Health tablet 09:02: 51 cycloSPORIN 0 Yes .05% 0.05 %. UT E (Restasis 02-16 [facility] MultiDose) 09:02: 0.05 % 51 ophthalmic emulsion Diclofenac Yes UT Sodium 02-16 Health (Pennsaid) 09:02: 2 % 51 solution DULoxetine Yes 60mg 60 mg. UT (Cymbalta) 02-16 [facility] [address] 09:02: capsule 51 glipiZIDE Yes 5mg 5 mg. UT (Glucotrol) 02-16 [facility] 5 MG tablet 09:02: 51 Glucosamine 2020-0 Yes UT -Chondroit- 02-16 [facility] Vit C-Mn 09:02: (Glucosamin 51 e Chondr 1500 Complx) capsule HYDROcodone Yes UT -acetaminop 02-16 Health hen ([place]) 09:02: 10-325 MG 51 tablet Magnesium Yes WITH ZINC UT 300 MG 02-16 TAB Health capsule 09:02: DAILY 51 melatonin 3 0 Yes 3mg 3 mg. UT MG tablet 02-16 Health 09:02: 51 meloxicam 0 Yes 7.5mg 7.5 mg. UT (Mobic) 7.5 02-16 Health MG tablet 09:02: 51 methocarbam Yes 750mg 750 mg. UT ol 02-16 Health (Robaxin) 09:02: 750 MG 51 tablet Multiple 0 Yes UT Minerals-Vi 02-16 [facility] tamins 09:02: (Calcium & 51 Vit D3 [facility] Health) liquid nortriptyli Yes 10mg 10 mg. UT ne 02-16 Health (Pamelor) 09:02: 10 MG 51 capsule omega-3 Yes 1000mg 1,000 mg. UT (Fish Oil) 02-16 Health 1000 MG 09:02: capsule 51 pantoprazol Yes 40mg 40 mg. UT e 02-16 Health (ProtoNix) 09:02: 40 MG EC 51 tablet alpha Yes 400U 400 Units. UT tocopherol 02-16 [facility] (Vitamin E) 09:02: 400 units 51 capsule valsartan Yes 320mg 320 mg. UT (Diovan) 02-16 [facility] 320 MG 09:02: tablet 51 SUMAtriptan Yes 50mg 50 mg. UT (Imitrex) 02-16 [facility] 50 MG 09:02: tablet 51 simethicone Yes UT (Mylicon,Ga 02-16 [facility] s-X) 180 MG 09:02: capsule 51 sildenafil Yes 20mg 20 mg. UT (Revatio) 02-16 [facility] 20 MG 09:02: tablet 51 Saw Yes 450mg 450 mg. UT Immaculata 02-16 [facility] 450 MG 09:02: capsule 51 Potassium Yes 99mg 99 mg. UT 99 MG 02-16 Health tablet 09:02: 51 Multiple 0 Yes UT Vitamins-Mi 02-16 [facility] nerals 09:02: (Centrum 51 Silver 50+Men) tablet Ascorbic Yes 1000mg 1,000 mg. UT Acid 02-16 [facility] (vitamin C) 09:02: 1000 MG 51 tablet atorvastati Yes 20mg 20 mg. UT n (Lipitor) 02-16 [facility] 20 MG 09:02: tablet 51 B Yes UT Complex-C-F 02-16 [facility] olic Acid 09:02: tablet 51 budesonide- Yes INHALE 2 UT formoterol 02-16 PUFFS [facility] (Symbicort) 09:02: TWICE 80-4.5 51 DAILY. MCG/ACT RINSE inhaler MOUTH AFTER USE. butalbital- Yes TAKE 1 UT acetaminoph 02-16 TABLET [facility] en-caffeine 09:02: DAILY PRN 50-325-40 51 MG tablet cholecalcif Yes TAKE 1 UT precious 02-16 CAPSULE [facility] (Vitamin 09:02: DAILY D-3) 50 MCG 51 (1999 UT) capsule leflunomide Yes [id number] 20mg QD Take 1 UT (Arava) 20 8-16 tablet (20 Hea lth MG tablet 00:00: mg total) 00 by mouth 1 (one) time each day. leflunomide Yes [id number] 20mg QD Take 1 UT (Arava) 20 8-16 tablet (20 Hea lth MG tablet 00:00: mg total) 00 by mouth 1 (one) time each day. predniSONE Yes [id number] 4mg QD Take 4 UT (Deltasone) 8-16 tablets (4 He alth 1 MG tablet 00:00: mg total) 00 by mouth 1 (one) time each day. leflunomide Yes [id number] 20mg QD Take 1 UT (Arava) 20 8-16 tablet (20 Hea lth MG tablet 00:00: mg total) 00 by mouth 1 (one) time each day. leflunomide Yes [id number] 20mg QD Take 1 UT (Arava) 20 8-16 tablet (20 Hea lth MG tablet 00:00: mg total) 00 by mouth 1 (one) time each day. leflunomide Yes [id number] 20mg QD Take 1 UT (Arava) 20 8-16 tablet (20 Hea lth MG tablet 00:00: mg total) 00 by mouth 1 (one) time each day. leflunomide Yes [id number] 20mg QD Take 1 UT (Arava) 20 8-16 tablet (20 Hea lth MG tablet 00:00: mg total) 00 by mouth 1 (one) time each day. leflunomide Yes [id number] 20mg QD Take 1 UT (Arava) 20 8-16 tablet (20 Hea lth MG tablet 00:00: mg total) 00 by mouth 1 (one) time each day. predniSONE 2020- No [id number] 4mg QD Take 4 UT (Deltasone) 8-16 08-17 tablets (4 H ealth 1 MG tablet 00:00: 00:00 mg total) 00 :00 by mouth 1 (one) time each day. pilocarpine Yes [id number] TAKE ONE UT ([place]) 5 7-28 TABLET BY Hea lth MG tablet 00:00: MOUTH 00 THREE TIMES A DAY pilocarpine 2020-0 Yes [id number] TAKE ONE UT ([place]) 5 7-28 TABLET BY Hea lth MG tablet 00:00: MOUTH 00 THREE TIMES A DAY pilocarpine 2020-0 Yes [id number] TAKE ONE UT ([place]) 5 7-28 TABLET BY Hea lth MG tablet 00:00: MOUTH 00 THREE TIMES A DAY pilocarpine 2020-0 Yes [id number] TAKE ONE UT ([place]) 5 7-28 TABLET BY Hea lth MG tablet 00:00: MOUTH 00 THREE TIMES A DAY pilocarpine 2020-0 Yes [id number] TAKE ONE UT ([place]) 5 7-28 TABLET BY Hea lth MG tablet 00:00: MOUTH 00 THREE TIMES A DAY pilocarpine 2020-0 Yes [id number] TAKE ONE UT ([place]) 5 7-28 TABLET BY Hea lth MG tablet 00:00: MOUTH 00 THREE TIMES A DAY pilocarpine 2020-0 Yes [id number] TAKE ONE UT ([place]) 5 7-28 TABLET BY Hea lth MG tablet 00:00: MOUTH 00 THREE TIMES A DAY Lancets 2020-0 Yes UT (OneTouch 7-11 Health Delica Plus 00:00: [id number]) 00 [facility] [place] Lancets 2020-0 Yes UT (OneTouch 7-11 Health Delica Plus 00:00: [id number]) 00 [facility] [place] Lancets 2020-0 Yes UT (OneTouch 7-11 Health Delica Plus 00:00: [id number]) 00 [facility] [place] Lancets 2020-0 Yes UT (OneTouch 7-11 Health Delica Plus 00:00: [id number]) 00 [facility] [place] Lancets 2020-0 Yes UT (OneTouch 7-11 Health Delica Plus 00:00: [id number]) 00 [facility] [place] Lancets 2020-0 Yes UT (OneTouch 7-11 Health Delica Plus 00:00: [email or web address]) 00 [facility] [place] Lancets 2020-0 Yes UT (OneTouch 7-11 Health Delica Plus 00:00: [id number]) 00 [facility] [place] metoprolol 2020-0 Yes UT tartrate 01-09 Health (Lopressor) 00:00: 50 MG 00 tablet metoprolol 2020-0 Yes UT tartrate 01-09 Health (Lopressor) 00:00: 50 MG 00 tablet metoprolol 2020-0 Yes UT tartrate 01-09 Health (Lopressor) 00:00: 50 MG 00 tablet metoprolol 2020-0 Yes UT tartrate 01-09 Health (Lopressor) 00:00: 50 MG 00 tablet metoprolol 2020-0 Yes UT tartrate 01-09 Health (Lopressor) 00:00: 50 MG 00 tablet metoprolol 2020-0 Yes UT tartrate 01-09 Health (Lopressor) 00:00: 50 MG 00 tablet metoprolol 2020-0 Yes UT tartrate 01-09 Health (Lopressor) 00:00: 50 MG 00 tablet oxyCODONE-a 2020-0 Yes UT cetaminophe 01-06 Health n 00:00: (Percocet) 00 10-325 MG tablet Choline 2020-0 Yes UT Fenofibrate 01-06 Health (Fenofibric 00:00: Acid) 45 MG 00 capsule delayed-rel ease oxyCODONE-a 2020-0 Yes UT cetaminophe 01-06 Health n 00:00: (Percocet) 00 10-325 MG tablet Choline 2020-0 Yes UT Fenofibrate 01-06 Health (Fenofibric 00:00: Acid) 45 MG 00 capsule delayed-rel ease oxyCODONE-a 2020-0 Yes UT cetaminophe 01-06 Health n 00:00: (Percocet) 00 10-325 MG tablet Choline 2020-0 Yes UT Fenofibrate 01-06 Health (Fenofibric 00:00: Acid) 45 MG 00 capsule delayed-rel ease Choline 2020-0 Yes UT Fenofibrate 01-06 Health (Fenofibric 00:00: Acid) 45 MG 00 capsule delayed-rel ease oxyCODONE-a 2020-0 Yes UT cetaminophe 01-06 Health n 00:00: (Percocet) 00 10-325 MG tablet Choline 2020-0 Yes UT Fenofibrate 01-06 Health (Fenofibric 00:00: Acid) 45 MG 00 capsule delayed-rel ease oxyCODONE-a 2020-0 Yes UT cetaminophe 01-06 Health n 00:00: (Percocet) 00 10-325 MG tablet Choline 0 Yes UT Fenofibrate 01-06 Health (Fenofibric 00:00: Acid) 45 MG 00 capsule delayed-rel ease oxyCODONE-a 0 Yes UT cetaminophe 01-06 Health n 00:00: (Percocet) 00 10-325 MG tablet oxyCODONE-a 0 Yes UT cetaminophe 01-06 Health n 00:00: (Percocet) 00 10-325 MG tablet Choline 0 Yes UT Fenofibrate 01-06 Health (Fenofibric 00:00: Acid) 45 MG 00 capsule delayed-rel ease OneTouch 0 Yes UT Verio test 6-11 Health strip 00:00: 00 OneTouch 2020-0 Yes UT Verio test 6-11 Health strip 00:00: 00 OneTouch 2020-0 Yes UT Verio test 6-11 Health strip 00:00: 00 OneTouch 2020-0 Yes UT Verio test 6-11 Health strip 00:00: 00 OneTouch 2020-0 Yes UT Verio test 6-11 Health strip 00:00: 00 OneTouch 2020-0 Yes UT Verio test 6-11 Health strip 00:00: 00 OneTouch 2020-0 Yes UT Verio test 6-11 Health strip 00:00: 00 testosteron 2020-0 Yes INJECT 1 UT e cypionate 6-10 ML IN THE [facility] lt (Depo-Testo 00:00: MUSCLE sterone) 00 EVERY 10 200 MG/ML DAYS injection B-D 0 Yes USE TO UT SYRINGE/NEE 6-10 INJECT Health DLE 00:00: TESTOSTERO 3CC/23GX1" 00 NE EVERY 23G X 1" 3 10 DAYS ML misc testosteron 0 Yes INJECT 1 UT e cypionate 6-10 ML IN THE [facility] lth (Depo-Testo 00:00: MUSCLE sterone) 00 EVERY 10 200 MG/ML DAYS injection B-D 0 Yes USE TO UT SYRINGE/NEE 6-10 INJECT Health DLE 00:00: TESTOSTERO 3CC/23GX1" 00 NE EVERY 23G X 1" 3 10 DAYS ML misc testosteron 0 Yes INJECT 1 UT e cypionate 6-10 ML IN THE [facility] lth (Depo-Testo 00:00: MUSCLE sterone) 00 EVERY 10 200 MG/ML DAYS injection B-D 0 Yes USE TO UT SYRINGE/NEE 6-10 INJECT Health DLE 00:00: TESTOSTERO 3CC/23GX1" 00 NE EVERY 23G X 1" 3 10 DAYS ML misc testosteron 2020-0 Yes INJECT 1 UT e cypionate 6-10 ML IN THE [facility] lth (Depo-Testo 00:00: MUSCLE sterone) 00 EVERY 10 200 MG/ML DAYS injection B-D 0 Yes USE TO UT SYRINGE/NEE 6-10 INJECT Health DLE 00:00: TESTOSTERO 3CC/23GX1" 00 NE EVERY 23G X 1" 3 10 DAYS ML misc testosteron 2020-0 Yes INJECT 1 UT e cypionate 6-10 ML IN THE [facility] lth (Depo-Testo 00:00: MUSCLE sterone) 00 EVERY 10 200 MG/ML DAYS injection B-D 0 Yes USE TO UT SYRINGE/NEE 6-10 INJECT Health DLE 00:00: TESTOSTERO 3CC/23GX1" 00 NE EVERY 23G X 1" 3 10 DAYS ML misc testosteron 2020-0 Yes INJECT 1 UT e cypionate 6-10 ML IN THE [facility] lth (Depo-Testo 00:00: MUSCLE sterone) 00 EVERY 10 200 MG/ML DAYS injection B-D 0 Yes USE TO UT SYRINGE/NEE 6-10 INJECT Health DLE 00:00: TESTOSTERO 3CC/23GX1" 00 NE EVERY 23G X 1" 3 10 DAYS ML misc testosteron 2020-0 Yes INJECT 1 UT e cypionate 6-10 ML IN THE [facility] lth (Depo-Testo 00:00: MUSCLE sterone) 00 EVERY 10 200 MG/ML DAYS injection B-D 0 Yes USE TO UT SYRINGE/NEE 6-10 INJECT Health DLE 00:00: TESTOSTERO 3CC/23GX1" 00 NE EVERY 23G X 1" 3 10 DAYS ML misc Xtampza ER 2020-0 Yes UT 9 MG 6-01 Health capsule 00:00: extended-re lease 12 hour Xtampza ER 2020-0 Yes UT 9 MG 6-01 Health capsule 00:00: extended-re lease 12 hour Xtampza ER 2020-0 Yes UT 9 MG 6-01 Health capsule 00:00: extended-re lease 12 hour Xtampza ER 2020-0 Yes UT 9 MG 6-01 Health capsule 00:00: extended-re lease 12 hour Xtampza ER 2020-0 Yes UT 9 MG 6-01 Health capsule 00:00: extended-re lease 12 hour Xtampza ER 2020-0 Yes UT 9 MG 6-01 Health capsule 00:00: extended-re lease 12 hour Xtampza ER 2020-0 Yes UT 9 MG 6-01 Health capsule 00:00: extended-re lease 12 hour pioglitazon 2020-0 Yes UT e (Actos) 5-30 Health 15 MG 00:00: tablet 00 pioglitazon 2020-0 Yes UT e (Actos) 5-30 Health 15 MG 00:00: tablet 00 pioglitazon 2020-0 Yes UT e (Actos) 5-30 Health 15 MG 00:00: tablet 00 pioglitazon 2020-0 Yes UT e (Actos) 5-30 Health 15 MG 00:00: tablet 00 pioglitazon 2020-0 Yes UT e (Actos) 5-30 Health 15 MG 00:00: tablet 00 pioglitazon 2020-0 Yes UT e (Actos) 5-30 Health 15 MG 00:00: tablet 00 pioglitazon 2020-0 Yes UT e (Actos) 5-30 Health 15 MG 00:00: tablet 00 Victoza 18 2020-0 Yes UT MG/3ML 5-24 Health injection 00:00: 00 Victoza 18 2020-0 Yes UT MG/3ML 5-24 Health injection 00:00: 00 Victoza 18 2020-0 Yes UT MG/3ML 5-24 Health injection 00:00: 00 Victoza 18 1-0 Yes UT MG/3ML 5-24 Health injection 00:00: 00 Victoza 18 2020-0 Yes UT MG/3ML 5-24 Health injection 00:00: 00 Victoza 18 2020-0 Yes UT MG/3ML 5-24 Health injection 00:00: 00 Victoza 18 2020-0 Yes UT MG/3ML 5-24 Health injection 00:00: 00 metFORMIN 2020-0 Yes UT XR 5-19 Health (Glucophage 00:00: -XR) 500 MG 00 24 hr tablet metFORMIN 2020-0 Yes UT XR 5-19 Health (Glucophage 00:00: -XR) 500 MG 00 24 hr tablet metFORMIN 0 Yes UT XR 5-19 Health (Glucophage 00:00: -XR) 500 MG 00 24 hr tablet metFORMIN 0 Yes UT XR 5-19 Health (Glucophage 00:00: -XR) 500 MG 00 24 hr tablet metFORMIN 0 Yes UT XR 5-19 Health (Glucophage 00:00: -XR) 500 MG 00 24 hr tablet metFORMIN 0 Yes UT XR 5-19 Health (Glucophage 00:00: -XR) 500 MG 00 24 hr tablet metFORMIN 0 Yes UT XR 5-19 Health (Glucophage 00:00: -XR) 500 MG 00 24 hr tablet leflunomide 2020- No [id number] 20mg QD Take 1 UT (Arava) 20 5-17 08-16 tablet (20 He alth MG tablet 00:00: 00:00 mg total) 00 :00 by mouth 1 (one) time each day. losartan Yes UT (Cozaar) 5-14 Health 100 MG 00:00: tablet 00 losartan 0 Yes UT (Cozaar) 5-14 Health 100 MG 00:00: tablet 00 losartan 0 Yes UT (Cozaar) 5-14 Health 100 MG 00:00: tablet 00 losartan 2020-0 Yes UT (Cozaar) 5-14 Health 100 MG 00:00: tablet 00 losartan 2020-0 Yes UT (Cozaar) 5-14 Health 100 MG 00:00: tablet 00 losartan 2020-0 Yes UT (Cozaar) 5-14 Health 100 MG 00:00: tablet 00 losartan 2020-0 Yes UT (Cozaar) 5-14 Health 100 MG 00:00: tablet 00 SUMAtriptan 2020-0 Yes UT (Imitrex) 5-04 Health 50 MG 00:00: tablet 00 SUMAtriptan 2020-0 Yes UT (Imitrex) 5-04 Health 50 MG 00:00: tablet 00 SUMAtriptan 2020-0 Yes UT (Imitrex) 5-04 Health 50 MG 00:00: tablet 00 SUMAtriptan 2020-0 Yes UT (Imitrex) 5-04 Health 50 MG 00:00: tablet 00 SUMAtriptan 2020-0 Yes UT (Imitrex) 5-04 Health 50 MG 00:00: tablet 00 SUMAtriptan 2020-0 Yes UT (Imitrex) 5-04 Health 50 MG 00:00: tablet 00 SUMAtriptan 2020-0 Yes UT (Imitrex) 5-04 Health 50 MG 00:00: tablet 00 nortriptyli 2020-0 Yes UT ne 4-26 Health (Pamelor) 00:00: 50 MG 00 capsule nortriptyli 2020-0 Yes [facility] 00 capsule nortriptyli 2020-0 Yes [facility] ne 4-26 [facility] 50 MG 00 capsule nortriptyli 2020-0 Yes UT ne 4-26 [facility] 50 MG 00 capsule nortriptyli 2020-0 Yes UT ne 4-26 [facility]: 50 MG 00 capsule nortriptyli 2020-0 Yes UT ne 4-26 [facility] 50 MG 00 capsule nortriptyli 2020-0 Yes UT ne 4-26 [facility] MG 00 capsule furosemide 2020-0 Yes UT (Lasix) 20 4-19 Health MG tablet 00:00: 00 furosemide 1-0 Yes UT (Lasix) 20 4-19 Health MG tablet 00:00: 00 furosemide 1-0 Yes UT (Lasix) 20 4-19 Health MG tablet 00:00: 00 furosemide 1-0 Yes UT (Lasix) 20 4-19 Health MG tablet 00:00: 00 furosemide 1-0 Yes UT (Lasix) 20 4-19 Health MG tablet 00:00: 00 furosemide 1-0 Yes UT (Lasix) 20 4-19 Health MG tablet 00:00: 00 furosemide 2020-0 Yes UT (Lasix) 20 4-19 Health MG tablet 00:00: 00 rosuvastati 2020-0 Yes UT n (Crestor) 4-18 Health 40 MG 00:00: tablet 00 rosuvastati 2020-0 Yes UT n (Crestor) 4-18 Health 40 MG 00:00: tablet 00 rosuvastati 2020-0 Yes UT n (Crestor) 4-18 Health 40 MG 00:00: tablet 00 rosuvastati 2020-0 Yes UT n (Crestor) 4-18 Health 40 MG 00:00: tablet 00 rosuvastati 2020-0 Yes UT n (Crestor) 4-18 Health 40 MG 00:00: tablet 00 rosuvastati 2020-0 Yes UT n (Crestor) 4-18 Health 40 MG 00:00: tablet 00 rosuvastati 2020-0 Yes UT n (Crestor) 4-18 Health 40 MG 00:00: tablet 00 metoprolol 2020-0 Yes UT tartrate 4-16 Health (Lopressor) 00:00: 25 MG 00 tablet metoprolol 2020-0 Yes UT tartrate 4-16 Health (Lopressor) 00:00: 25 MG 00 tablet metoprolol 2020-0 Yes UT tartrate 4-16 Health (Lopressor) 00:00: 25 MG 00 tablet metoprolol 2020-0 Yes UT tartrate 4-16 Health (Lopressor) 00:00: 25 MG 00 tablet metoprolol 2020-0 Yes UT tartrate 4-16 Health (Lopressor) 00:00: 25 MG 00 tablet metoprolol 2020-0 Yes UT tartrate 4-16 Health (Lopressor) 00:00: 25 MG 00 tablet metoprolol 2020-0 Yes UT tartrate 4-16 Health (Lopressor) 00:00: 25 MG 00 tablet lidocaine 0 2020- No 1{patch Q24H Place [address] (LIDODERM) 2-19 03-21 } patch onto Alessandra kes - 5 % patch 00:00: 23:59 the skin Med ical 00 :00 daily for Center 30 days Remove & Discard patch within 12 hours or as directed by . lidocaine 2020- No 1{patch Q24H Place [address] (LIDODERM) 2-19 03-21 } patch onto kes - 5 % patch 00:00: 23:59 the skin Med ical 00 :00 daily for Center 30 days Remove & Discard patch within 12 hours or as directed by . leflunomide Yes 20mg QD Take [address] [facility] (ARAVA) 20 2-18 by mouth [facility] MG tablet 17:13: daily. Medica l [address] [place] [address] cyanocobala Yes 5000ug QD Take 5,[address] [facility] min, 2-18 mcg by [facility] - vitamin 17:13: mouth Medical B-12, 05 daily. [place] (VITAMIN B-12) 1000 MCG tablet ascorbic Yes 500mg QD Take [address] [facility] acid, 2-18 mg by [facility] - vitamin C, 17:13: mouth Medica l (VITAMIN C) 05 daily. [place] 500 MG tablet calcium Yes Take by [facility] carbonate/v 2-18 mouth. [facility] - itamin D3 17:13: Medical (CALCIUM [address] [place] [address] 500 + D ORAL) cinnamon Yes 2000mg Take 2,[address] bark 2-18 mg by [facility] - (CINNAMON 17:13: mouth. Medica l ORAL) [address] [place] [address] pamabrom Yes QD Take by [facility] (DIUREX MAX 2-18 mouth [facility] - ORAL) 17:13: daily . Medical [address] [place] [address] DULoxetine Yes 60mg QD Take [address] (CYMBALTA) 2-18 by mouth [facility] - 60 MG 17:13: daily. Medical capsule [address] [place] [address] vitamin E Yes 400U QD Take [address] 400 UNIT 2-18 Units by [facility] - capsule 17:13: mouth Medical 05 daily. [place] FENOFIBRIC Yes QD Take by [facility] ACID ORAL 2-18 mouth [facility] - 17:13: daily . Medical [address] [place] [address] gluc Yes Take by [facility] judd/chondro 2-18 mouth. [facility] - judd A/vit 17:13: Medical C/Mn [address] [place] [address] (GLUCOSAMIN E 1500 COMPLEX ORAL) ferrous Yes 325mg Take 325 [facility] sulfate 325 2-18 mg by [facility] - (65 FE) MG 17:13: mouth Medica l tablet 05 daily with Center breakfast. magnesium 0 Yes 400mg QD Take [address] oxide 2-18 mg by [facility] - (MAG-OX) 17:13: mouth Medical 400 mg 05 daily. Center (241.3 mg magnesium) tablet metFORMIN 0 Yes 1000mg Take 1,[address] [facility] (GLUCOPHAGE 2-18 mg by [facility] - ) 500 MG 17:13: mouth 2 Medica l tablet 05 (two) Center times daily with breakfast and dinner . methocarbam 0 Yes 750mg Q.[id number] Take [address] oL 2-18 [id number] mg by [facility] - (ROBAXIN) 17:13: 3D mouth 3 Medic al 750 MG 05 (three) Center tablet times daily. metoprolol 0 Yes 50mg Q.5D Take [address] succinate 2-18 by mouth 2 [facility] - (TOPROL-XL) 17:13: (two) Medic al 25 MG 24 hr 05 times Center tablet daily . nortriptyli Yes 50mg QD Take [address] [facility] ne 2-18 by mouth [facility] - (PAMELOR) 17:13: nightly . Med ical 25 MG 05 Center capsule omega-3 Yes Take by [facility] fatty 2-18 mouth. [facility] - acids/fish 17:13: Medical oil (FISH 05 Center OIL OMEGA 3-6-9 ORAL) pantoprazol 0 Yes 40mg QD Take [address] [facility] e 2-18 by mouth [facility] - (PROTONIX) 17:13: daily. Medic al 40 MG 05 Center tablet pilocarpine 0 Yes 5mg Q.[id number] Take [address] [facility] (SALAGEN) 5 2-18 [id number] by mouth 3 [facility] - MG tablet 17:13: 3D (three) Medic al 05 times Center daily. pioglitazon 2020-0 Yes 15mg QD Take [address] [facility] e (ACTOS) 2-18 by mouth [facility] - 15 MG 17:13: daily. Medical tablet 05 Center potassium 2020-0 Yes QD Take by [facility] 99 mg Tab 2-18 mouth [facility] - 17:13: daily . Medical 05 Center predniSONE 2020-0 Yes 5mg QD Take [address] (DELTASONE) 2-18 by mouth [facility] - 5 MG tablet 17:13: daily. Medi corine 05 [place] cycloSPORIN Yes 1[drp] Q.5D [address] [facility] E 2-18 (two) [facility] - (RESTASIS) 17:13: times Medica l 0.05 % 05 daily. [place] ophthalmic emulsion rosuvastati Yes 40mg QD Take [address] [facility] n (CRESTOR) 2-18 by mouth [facility] - 40 MG 17:13: daily. Medical tablet 05 [place] SAW Yes Take by [facility] PALMETTO 2-18 mouth. [facility] - ORAL 17:13: Medical 05 [place] SIMETHICONE Yes Take by [facility] ORAL 2-18 mouth. [facility] - 17:13: Medical [address] [place] [address] sildenafiL, Yes 20mg QD Take [address] [facility] [facility] pulm.hypert 2-18 by mouth [facility] - ension, 17:13: daily . Medical (REVATIO, 05 [place] AGRA) 20 mg tablet SUMAtriptan Yes 50mg Take [address] [facility] [facility] (IMITREX) 2-18 by mouth [facility] - 50 MG 17:13: once as Medical tablet 05 needed for [place] Headaches. testosteron Yes Inject as [facility] e 2-18 directed [facility] - (TESTOPEL) 17:13: Every 10 Med ical 75 mg Pllt 05 days. [place] TURMERIC Yes Take by [facility] ORAL 2-18 mouth. [facility] - 17:13: Medical [address] [place] [address] liraglutide Yes QD Inject [facility] 0.6 mg/0.1 2-18 subcutaneo Ezequiel es - mL (18 mg/3 17:13: usly daily Medical mL) PnIj 05 . [place] zinc Yes 50mg QD Take [address] [facility] gluconate 2-18 by mouth [facility] - 50 mg 17:13: daily. Medical tablet 05 [place] losartan Yes 100mg QD Take [address] [facility] (COZAAR) 2-18 mg by [facility] - 100 MG 17:13: mouth Medical tablet 05 daily. [place] testosteron Yes 200mg Q14D Inject [address] [facility] [facility] e cypionate 2-18 mg [facility] - (DEPOTESTOT 17:13: intramuscu Medical ERONE 05 larly [place] CYPIONATE) every 14 200 mg/mL (fourteen) injection days. leflunomide Yes 20mg QD Take [address] [facility] (ARAVA) 20 2-18 by mouth [facility] - MG tablet 17:13: daily. Medica l 05 [place] cyanocobala Yes 5000ug QD Take 5,[address] [facility] [facility] min, 2-18 mcg by [facility] - vitamin 17:13: mouth Medical B-12, 05 daily. [place] (VITAMIN B-12) 1000 MCG tablet ascorbic Yes 500mg QD Take [address] acid, 2-18 mg by [facility] - vitamin C, 17:13: mouth Medica l (VITAMIN C) 05 daily. [place] 500 MG tablet calcium Yes Take by [facility] carbonate/v 2-18 mouth. [facility] - itamin D3 17:13: Medical (CALCIUM 05 [place] 500 + D ORAL) cinnamon Yes 2000mg Take 2,[address] bark 2-18 mg by [facility] - (CINNAMON 17:13: mouth. Medica l ORAL) [address] [place] [address] pamabrom Yes QD Take by [facility] (DIUREX MAX 2-18 mouth [facility] - ORAL) 17:13: daily . [address] DULoxetine Yes 60mg QD Take [address] (CYMBALTA) 2-18 by mouth [facility] - 60 MG 17:13: daily. Medical capsule 05 [place] vitamin E Yes 400U QD Take [address] 400 UNIT 2-18 Units by [facility] - capsule 17:13: mouth Medical 05 daily. [place] FENOFIBRIC Yes QD Take by [facility] ACID ORAL 2-18 mouth [facility] - 17:13: daily . [address] gluc Yes Take by [facility] judd/chondro 2-18 mouth. [facility] - judd A/vit 17:13: Medical C/Mn 05 [place] (GLUCOSAMIN E 1500 COMPLEX ORAL) ferrous Yes 325mg Take [facility] sulfate 325 2-18 mg by [facility] - (65 FE) MG 17:13: mouth Medica l tablet 05 daily with Center breakfast. magnesium Yes 400mg QD Take [address] oxide 2-18 mg by [facility] - (MAG-OX) 17:13: mouth Medical 400 mg 05 daily. Center (241.3 mg magnesium) tablet metFORMIN Yes 1000mg Take 1,[address] (GLUCOPHAGE 2-18 mg by [facility] - ) 500 MG 17:13: mouth 2 Medica l tablet 05 (two) Center times daily with breakfast and dinner . methocarbam Yes 750mg Q.[id number] Take [address] oL 2-18 [id number] mg by [facility] - (ROBAXIN) 17:13: 3D mouth 3 Medic al 750 MG 05 (three) Center tablet times daily. metoprolol Yes 50mg Q.5D Take [address] succinate 2-18 by mouth 2 [facility] - (TOPROL-XL) 17:13: (two) Medic al 25 MG 24 hr 05 times Center tablet daily . nortriptyli Yes 50mg QD Take [address] [facility] ne 2-18 by mouth [facility] - (PAMELOR) 17:13: nightly . Med ical 25 MG 05 Center capsule omega-3 Yes Take by [facility] fatty 2-18 mouth. [facility] - acids/fish 17:13: Medical oil (FISH 05 Center OIL OMEGA 3-6-9 ORAL) pantoprazol Yes 40mg QD Take [address] [facility] 2-18 by mouth [facility] - (PROTONIX) 17:13: daily. Medic al 40 MG 05 Center tablet pilocarpine Yes 5mg [id number] Take [address] [facility] (SALAGEN) 5 2-18 [id number] by mouth 3 [facility] - MG tablet 17:13: 3D (three) Medic al 05 times Center daily. pioglitazon 0 Yes 15mg QD Take [address] [facility] (ACTOS) 2-18 by [facility] - 15 MG 17:13: daily. Medical tablet 05 [facility] potassium 0 Yes QD Take by [facility] Tab [facility]18 [facility] - 17:13: daily . Medical 05 Center predniSONE 2020-0 Yes 5mg QD Take [address] [facility] [address] (DELTASONE) 2-18 by mouth [facility] - 5 MG tablet 17:13: daily. Medi corine 05 Center cycloSPORIN 2021-0 Yes 1[drp] Q.5D [address] [facility] 2-18 (two) [facility] - (RESTASIS) 17:13: times Medica l 0.05 % 05 daily. [place] ophthalmic emulsion rosuvastati Yes 40mg QD Take [address] [facility] (CRESTOR) 2-18 by mouth [facility] - 40 MG 17:13: daily. Medical tablet 05 [place] SAW Yes Take by [facility] 2-18 [facility] ORAL 17:13: Medical 05 [place] SIMETHICONE Yes Take by [facility] ORAL 2-18 [facility]. [facility] - 17:13: Medical [address] [place] [address] sildenafiL, Yes 20mg QD Take [address] [facility] pulm.hypert 2-18 by mouth Luke s - ension, 17:13: daily . Medical (REVATIO, 05 [place] AGRA) 20 mg tablet SUMAtriptan Yes 50mg Take [address] [facility] (IMITREX) 2-18 by mouth [facility] - 50 MG 17:13: once as Medical tablet 05 needed for [place] Headaches. testosteron Yes Inject as [facility] e 2-18 directed [facility] - (TESTOPEL) 17:13: Every 10 Med ical 75 mg Pllt 05 days. [place] TURMERIC Yes Take by [facility] ORAL 2-18 mouth. [facility] - 17:13: Medical [address] [place] [address] liraglutide Yes QD Inject [facility] 0.6 mg/0.1 2-18 subcutaneo Ezequiel es - mL (18 mg/3 17:13: usly daily Medical mL) PnIj 05 . [place] zinc Yes 50mg QD Take [address] [facility] gluconate 2-18 by mouth [facility] - 50 mg 17:13: daily. Medical tablet 05 [place] losartan Yes 100mg QD Take [address] (COZAAR) 2-18 mg by [facility] - 100 MG 17:13: mouth Medical tablet 05 daily. [place] testosteron Yes 200mg Q14D Inject [address] e cypionate 2-18 mg [facility] - (DEPOTESTOT 17:13: intramuscu Medical ERONE 05 larly [place] CYPIONATE) every 14 200 mg/mL (fourteen) injection days. oxyCODONE-a 2020-0 2020- No 1{tbl} Take [address] cetaminophe 2-18 02-18 tablet by Alessandra galvans - n 16:45: 00:00 mouth Medical (PERCOCET) 50 :00 every 4 Center 10-325 mg (four) per tablet hours as needed for Pain. oxyCODONE-a 2020-0 2020- No 1{tbl} Take [address] cetaminophe 2-18 02-18 tablet by Alessandra kes - n 16:45: 00:00 mouth Medical (PERCOCET) 50 :00 every 4 Center 10-325 mg (four) per tablet hours as needed for Pain. magnesium 2021-0 Yes 400mg QD Take 400 [facility] oxide 2-18 mg by Health (Mag-Ox) 00:00: mouth 1 400 MG 00 (one) time tablet each day. zinc 2021-0 Yes 50mg QD Take 50 mg [facility] gluconate 2-18 by mouth 1 Heal th 50 MG 00:00: (one) time tablet 00 each day. magnesium 2021-0 Yes 400mg QD Take 400 UT oxide 2-18 mg by Health (Mag-Ox) 00:00: mouth 1 400 MG 00 (one) time tablet each day. zinc 2021-0 Yes 50mg QD Take 50 mg [facility] gluconate 2-18 by mouth 1 Heal th 50 MG 00:00: (one) time tablet 00 each day. magnesium 2021-0 Yes 400mg QD Take 400 UT oxide 2-18 mg by Health (Mag-Ox) 00:00: mouth 1 400 MG 00 (one) time tablet each day. zinc 2021-0 Yes 50mg QD Take 50 mg UT gluconate 2-18 by mouth 1 Heal th 50 MG 00:00: (one) time tablet 00 each day. magnesium 2021-0 Yes 400mg QD Take 400 UT oxide 2-18 mg by Health (Mag-Ox) 00:00: mouth 1 400 MG 00 (one) time tablet each day. zinc 2021-0 Yes 50mg QD Take 50 mg UT gluconate 2-18 by mouth 1 Heal th 50 MG 00:00: (one) time tablet 00 each day. magnesium 2021-0 Yes 400mg QD Take 400 UT oxide 2-18 mg by Health (Mag-Ox) 00:00: mouth 1 400 MG 00 (one) time tablet each day. zinc 1-0 Yes 50mg QD Take 50 mg UT gluconate 2-18 by mouth 1 Heal th 50 MG 00:00: (one) time tablet 00 each day. magnesium 1-0 Yes 400mg QD Take 400 UT oxide 2-18 mg by Health (Mag-Ox) 00:00: mouth 1 400 MG 00 (one) time tablet each day. zinc 2020-0 Yes 50mg QD Take 50 mg UT gluconate 2-18 by mouth 1 Heal th 50 MG 00:00: (one) time tablet 00 each day. magnesium 2020-0 Yes 400mg QD Take 400 UT oxide 2-18 mg by Health (Mag-Ox) 00:00: mouth 1 400 MG 00 (one) time tablet each day. zinc 2020-0 Yes 50mg QD Take 50 mg [facility] gluconate 2-18 by mouth 1 Heal th 50 MG 00:00: (one) time tablet 00 each day. oxyCODONE-a 2020-2020- No 1{tbl} Take [address] cetaminophe 2-18 02-23 tablet by Alessandra galvans - n 00:00: 23:59 mouth Medical (PERCOCET) 00 :00 every 4 Center 10-325 mg (four) per tablet hours as needed for Pain for up to 5 days. Max Daily Amount: 6 tablets oxyCODONE-a 2020- No 1{tbl} Take [address] cetaminophe 2-18 02-23 tablet by Alessandra galvans - n 00:00: 23:59 mouth Medical (PERCOCET) 00 :00 every 4 Center 10-325 mg (four) per tablet hours as needed for Pain for up to 5 days. Max Daily Amount: 6 tablets predniSONE 2020- No 5mg QD Take 5 mg U T (Deltasone) 212 08-16 by mouth 1 H ealth 5 MG tablet 00:00: 00:00 (one) time 00 :00 each day. cholecalcif 2020- No 5000U QD Take 5,[address] [facility] precious, 2-03 02-03 Units by June - vitamin D3, 11:10: 00:00 mouth Medi corine 125 mcg 51 :00 daily. Center (5,000 unit) Tab cholecalcif 2020- No 5000U QD Take 5,[address] precious, 2-03 02-03 Units by [facility] - vitamin D3, 11:10: 00:00 mouth Medi corine 125 mcg 51 :00 daily. Center (5,000 unit) Tab atorvastati 2019-07 Yes [facility] n (Lipitor) 129 Health 20 MG 00:00: tablet 00 atorvastati 2019-07 Yes UT n (Lipitor) 08-01 Health 20 MG 00:00: tablet 00 atorvastati 2019-07 Yes [facility] n (Lipitor) 08-01 Health 20 MG 00:00: tablet 00 atorvastati 2019-07 Yes [facility] n (Lipitor) 08-01 Health 20 MG 00:00: tablet 00 atorvastati 2019-07 Yes [facility] n (Lipitor) 08-01 Health 20 MG 00:00: tablet 00 atorvastati 2019-07 Yes [facility] n (Lipitor) 08-01 Health 20 MG 00:00: tablet 00 atorvastati 2019-07 Yes UT n (Lipitor) 08-01 Health 20 MG 00:00: tablet 00 glipiZIDE 2019-07 Yes [facility] XL 1-05 Health (Glucotrol 00:00: XL) 2.5 MG 00 24 hr tablet glipiZIDE 2019-07 Yes [facility] XL 1-05 Health (Glucotrol 00:00: XL) 2.5 MG 00 24 hr tablet glipiZIDE 2019-07 Yes UT XL 1-05 Health (Glucotrol 00:00: XL) 2.5 MG 00 24 hr tablet glipiZIDE 2019-07 Yes [facility] XL 1-05 Health (Glucotrol 00:00: XL) 2.5 MG 00 24 hr tablet glipiZIDE 2019-07 Yes UT XL 1-05 Health (Glucotrol 00:00: XL) 2.5 MG 00 24 hr tablet glipiZIDE 2019-07 Yes UT XL 1-05 Health (Glucotrol 00:00: XL) 2.5 MG 00 24 hr tablet glipiZIDE 2019-07 Yes UT XL 1-05 Health (Glucotrol 00:00: XL) 2.5 MG 00 24 hr tablet predniSONE 2019-07- No UT (Deltasone) 0-21 08-16 Health 1 MG tablet 00:00: 00:00 00 :00 traMADol 2020-0 Yes UT (Ultram) 50 9-29 Health MG tablet 00:00: 00 traMADol 2020-0 Yes UT (Ultram) 50 9-29 Health MG tablet 00:00: 00 traMADol 2020-0 Yes UT (Ultram) 50 9-29 Health MG tablet 00:00: 00 traMADol 2020-0 Yes UT (Ultram) 50 9-29 Health MG tablet 00:00: 00 traMADol 2020-0 Yes UT (Ultram) 50 9-29 Health MG tablet 00:00: 00 traMADol 2020-0 Yes UT (Ultram) 50 9-29 Health MG tablet 00:00: 00 traMADol 2020-0 Yes UT (Ultram) 50 9-29 Health MG tablet 00:00: 00 lidocaine 2020-0 Yes UT (Lidoderm) 9-05 Health 5 % patch 00:00: 00 lidocaine 2020-0 Yes UT (Lidoderm) 9-05 Health 5 % patch 00:00: 00 lidocaine 2020-0 Yes UT (Lidoderm) 9-05 Health 5 % patch 00:00: 00 lidocaine 2020-0 Yes UT (Lidoderm) 9-05 Health 5 % patch 00:00: 00 lidocaine 2020-0 Yes UT (Lidoderm) 9-05 Health 5 % patch 00:00: 00 lidocaine 2020-0 Yes UT (Lidoderm) 9-05 Health 5 % patch 00:00: 00 lidocaine 2020-0 Yes UT (Lidoderm) 9-05 Health 5 % patch 00:00: 00 glipiZIDE 2020-0 2020- No 2.5mg Take [address] [facility] (GLUCOTROL 8- 09-25 tablet [facility] - XL) 2.5 MG 00:00: 23:59 (2.5 mg Med ical 24 hr 00 :00 total) by Center tablet mouth daily with breakfast for 30 days. losartan 2019-0 2020- No 25mg QD Take [address] [facility] (COZAAR) 25 8-26 09-25 tablet (25 L ukes - MG tablet 00:00: 23:59 mg total) Me dical 00 :00 by mouth Center daily for 30 days. glipiZIDE 2019-0 2020- No 2.5mg Take [address] [facility] (GLUCOTROL 8-26 09-25 tablet [facility] - XL) 2.5 MG 00:00: 23:59 (2.5 mg Med ical 24 hr 00 :00 total) by Center tablet mouth daily with breakfast for 30 days. losartan 2020- No 25mg QD Take [address] [facility] (COZAAR) 25 02-26 tablet (25 L ukes - MG tablet 00:00: 23:59 mg total) Me dical 00 :00 by mouth Center daily for 30 days. glipiZIDE 2019- No 5mg QD Take [address] (GLUCOTROL 02-25-25 by mouth Luke [facility] - XL) 5 MG 24 13:47: 00:00 daily. Med ical hr tablet 09 :00 Center losartan 2020- No 100mg QD Take [address] [facility] (COZAAR) 02-25 08-25 mg by [facility] - 100 MG 13:47: 00:00 mouth Medical tablet 09 :00 daily. Center gabapentin 2020- No 300mg Q.[id number] Take [address] [facility] (NEURONTIN) 02-25 [id number] capsule [facility] - 300 MG 00:00: 23:59 3D (300 mg Medical capsule 00 :00 total) by Center mouth 3 (three) times daily for 30 days. polyvinyl 2020- 2020- No 1[drp] Q.[id number] Place 1-[address] alcohol-pov 02-25 [id number] drops into [facility] - idone, PF, 00:00: 23:59 3D both eyes M edical (REFRESH 00 :00 3 (three) Center CLASSIC) times 1.4-0.6 % daily for Dpet 30 days. gabapentin 2019- 2020- No 300mg Q.85263223 Take [address] [facility] (NEURONTIN) 02-25 [id number] capsule [facility] - 300 MG 00:00: 23:59 3D (300 mg Medical capsule 00 :00 total) by Center mouth 3 (three) times daily for 30 days. polyvinyl 2020-0 2020- No 1[drp] Q.[id number] Place 1-[address] alcohol-pov 02-25 [id number] drops into [facility] - idone, PF, 00:00: 23:59 3D both eyes M edical (REFRESH 00 :00 3 (three) Center CLASSIC) times 1.4-0.6 % daily for Dpet 30 days. traMADoL 2019- No 50mg Take [address] [facility] (ULTRAM) 50 - 09-04 tablet (50 L ukes - mg tablet 00:00: 23:59 mg total) Me dical 00 :00 by mouth Center every 6 (six) hours as needed for Pain for up to 10 days. Max Daily Amount: 200 mg traMADoL 2020- No 50mg Take [address] [facility] (ULTRAM) 50 02-25-04 tablet (50 L ukes - mg tablet 00:00: 23:59 mg total) Me dical 00 :00 by mouth Center every 6 (six) hours as needed for Pain for up to 10 days. Max Daily Amount: 200 mg predniSONE predniSONE Yes ARLEN 4 QD TAKE 4 [facility] 1 MG Oral 1 MG Oral 7-21 MELGAR TABLET i ty of Tablet Tablet 00:00: M.D. DAILY [place] 00 [facility]ici ans DULoxetine 2018-07 Yes 60mg QD Take 60 mg M ethodi (CYMBALTA) 0-[address] 60 MG 20:32: nightly. Hospita capsule 03 l SUMAtriptan 2018-07 Yes 50mg Take 50 mg [facility] (IMITREX) 0-[address] 50 MG 20:32: once as Hospita tablet 03 needed for l migraine. May repeat in 2 hours if unresolved . Do not exceed 200 mg in 24 hours. HYDROcodone 2018-07 Yes 1{tbl} Q.[id number] Take 1 [facility] -acetaminop 0-[id number] hen (NORCO) 20:32: 3D mouth 3 Hos britt 10-325 mg 03 (three) l per tablet times a day as needed (pain). pantoprazol 2018-07 Yes 40mg QD Take 40 mg [facility]i e 0-[address] (PROTONIX) 20:32: daily. Hospi ta 40 MG EC 03 l tablet atorvastati 2018-07 Yes 20mg QD Take 20 mg Methodi n (LIPITOR) 0-[address] 20 MG 20:32: nightly. Hospita tablet 03 Default OP l ins sodium 2018-07 Yes 1{appli Q.5D Apply 1 Metho di fluoride/po 0-30 cation} applicatio st tassium nit 20:32: n to teeth Hospita (PREVIDENT 03 2 (two) l 5000 times a SENSITIVE day. DENT) leflunomide 2018-07 Yes 20mg QD Take 20 mg [facility] (ARAVA) 20 0-[address] MG tablet 20:32: nightly. Hosp emanuel 03 l testosteron 2018-07 Yes Q120D by implant Methodi e (TESTOPEL 0-[address] IMPL) 20:32: every 4 Hospita 03 (four) l months. lidocaine 2018-07 Yes 1{appli Q.5D Apply 1 Me thodi HCl 4 % 0-30 cation} applicatio st lotion 20:32: n Hospita 03 topically l 2 (two) times a day as needed (pain). Apply small amount affected area of pain sildenafil, 2018-07 Yes 20mg QD Take 20 mg [facility]i antihyperte 0-[address] nsive, 20:32: daily. Hospita (REVATIO) 03 l 20 mg tablet celecoxib 2018-07 Yes 200mg QD Take 200 Met hodi (CeleBREX) 0-[address] 200 MG 20:32: mouth Hospita capsule 03 daily. l cycloSPORIN 2018-07 Yes 1[drp] Q.5D Administer Methodi E (RESTASIS 0-[address] MULTIDOSE) 20:32: both eyes Ho spita 0.05 % 03 2 (two) l drops times a day. pilocarpine 2018-07 Yes 5mg Q.[id number] Take 5 mg [facility] (SALAGEN) 5 0-30 [id number] mouth 3 [address] MG tablet 20:32: 3D (three) Hospi ta 03 times a l day. calcium 2018-07 Yes 1{tbl} QD Take 1 Method i carbonate-v 0-[address] itamin D3 20:32: mouth Hospita (CALCIUM 03 daily. l 500 WITH D) 500 mg(1,250mg) -400 unit tablet potassium 2018-07 Yes 1{tbl} QD Take 1 Meth alfonzo 99 mg 0-[address] tablet 20:32: mouth Hospita 03 daily. l cholecalcif 2018-07 Yes 1{tbl} QD Take 1 Me thodi precious, 0-[address] vitamin D3, 20:32: mouth Hospi ta (VITAMIN 03 daily. l D3) 5,000 unit tablet ascorbic 2018-07 Yes 500mg QD Take 500 Meth alfonzo acid, 0-[address] vitamin C, 20:32: mouth Hospit a (VITAMIN C) 03 daily. l 500 MG tablet glucosamine 2018-07 Yes 1{tbl} Q.5D Take 1 Me thodi /msm/chondr 0-[address] oit sulf 20:32: mouth 2 Hospit a (GLUCOSAMIN 03 (two) l E times a 2KCL-MSM-CH day. ONDROIT ORAL) saw 2018-07 Yes 1{tbl} Q.5D Take 1 Methodi palmetto 0-[address] fruit 450 20:32: mouth 2 Hospi ta mg capsule 03 (two) l times a day. CINNAMON 2018-07 Yes 100mg QD Take 100 Meth alfonzo BARK ORAL 0-[address] 20:32: mouth Hospita 03 daily. l vitamin E 2018-07 Yes 400U QD Take 400 Meth alfonzo 400 UNIT 0-[address] capsule 20:32: mouth Hospita 03 daily. l MAGNESIUM 2018-07 Yes 400mg QD Take 400 Met hodi ORAL 0-[address] 20:32: mouth Hospita 03 daily. l SIMETHICONE 2018-07 Yes 1{tbl} QD Take 1 Me thodi ORAL 0-[address] 20:32: mouth Hospita 03 daily. Gas l X folic 2018-07 Yes 1{tbl} QD Take 1 Methodi acid/vit B 0-[address] complex and 20:32: mouth Hospi ta C (B 03 daily. l COMPLEX-VIT RAMÍREZ C-FOLIC ACID ORAL) UNABLE TO 2018-07 Yes 4{capsu QD Take 4 Met hodi FIND 0-30 le} capsules st 20:32: by mouth Hospita 03 daily. l Sulfurzyme Supplement oil capsule docosahexan 2018-07 Yes 1{tbl} Q.[id number] Take 1 Methodi oic 0-30 [id number] tablet by acid/epa 20:32: 3D mouth 3 Hospit a (FISH OIL 03 (three) l ORAL) times a day. nortriptyli 2018-07 Yes 50mg QD Take 50 mg Methodi ne 0-[address] (PAMELOR) 20:32: nightly. [facility]osp emanuel 25 MG 03 Takes 25 l capsule mg 2 cap. (50 mg) choline 2018-07 Yes 45mg QD Take 45 mg Meth alfonzo fenofibrate 0-[address] (TRILIPIX) 20:32: daily. Hospi ta 45 mg 03 l capsule oxyCODone-a 2018-07 Yes [id number] 1{tbl} Q8H Take 1 M ethodi cetaminophe 0-[address] n 20:32: mouth Hospita (PERCOCET) 03 every 8 l 5-325 mg (eight) per tablet hours .Acute Pain. methocarbam 2018-07 Yes 750mg Q.25D Take 750 Methodi ol 0-[address] (ROBAXIN) 20:32: mouth 4 Hospi ta 750 MG 03 (four) l tablet times a day as needed for muscle spasms. metFORMIN 2018-07 Yes 1000mg QD Take 1,000 Methodi XR 0-[address] (GLUCOPHAGE 20:32: mouth Hospi ta -XR) 500 mg 03 daily. l 24 hr Takes 500 tablet mg 2 tab. (1,000 mg) at supper exenatide 2018-07 Yes 2mg Q7D Inject 2 Meth alfonzo microsphere 0-[address] (BYDUREON 20:32: the skin Ho spita SUBQ) 03 once a l week. 2 mg/0.85 ml injects on Tuesday cyanocobala 2018-07 Yes 1{tbl} QD Take 1 Me thodi min, 0-[address] vitamin 20:32: mouth Hospita B-12, 5,000 03 daily. l mcg capsule UNABLE TO 2018-07 Yes 1{capsu QD Take 1 Met hodi FIND 0-30 le} capsule by st 20:32: mouth Hospita 03 daily. Med l Name: Dirurex Max TURMERIC 2018-07 Yes 1{tbl} QD Take 1 Metho di ORAL 0-[address] 20:32: mouth Hospita 03 daily. l zinc 50 mg 2018-07 Yes 1{tbl} QD Take 1 Met hodi tablet 0-[address] 20:32: mouth Hospita 03 daily. l naloxone 4 2018-07 Yes 1{spray 1 spray M ethodi mg/actuatio 0-30 } into each st n 20:32: nostril as Hospita spray,non-a 03 needed l erosol (overdose) . Placedo in left nostril as needed Calcium 2018-07 Yes 1{tbl} QD Take 1 UT Carb-Cholec 0-30 tablet by [facility] alciferol 00:00: mouth 1 (Oyster 00 (one) time Shell each day. Calcium) 500-400 MG-UNIT tablet Potassium 2018-07 Yes QD Take by UT Gluconate 0-30 mouth 1 Health 2.5 MEQ 00:00: (one) time tablet 00 each day. Calcium 2018-07 Yes 1{tbl} QD Take 1 UT Carb-Cholec 0-30 tablet by [facility] alciferol 00:00: mouth 1 (Oyster 00 (one) time Shell each day. Calcium) 500-400 MG-UNIT tablet Potassium 2018-07 Yes QD Take by UT Gluconate 0-30 mouth 1 Health 2.5 MEQ 00:00: (one) time tablet 00 each day. Calcium 2018-07 Yes 1{tbl} QD Take 1 UT Carb-Cholec 0-30 tablet by [facility] alciferol 00:00: mouth 1 (Oyster 00 (one) time Shell each day. Calcium) 500-400 MG-UNIT tablet Potassium 2018-07 Yes QD Take by UT Gluconate 0-30 mouth 1 Health 2.5 MEQ 00:00: (one) time tablet 00 each day. Calcium 2018-07 Yes 1{tbl} QD Take 1 UT Carb-Cholec 0-30 tablet by [facility] alciferol 00:00: mouth 1 (Oyster 00 (one) time Shell each day. Calcium) 500-400 MG-UNIT tablet Potassium 2018-07 Yes QD Take by UT Gluconate 0-30 mouth 1 Health 2.5 MEQ 00:00: (one) time tablet 00 each day. Calcium 2018-07 Yes 1{tbl} QD Take 1 UT Carb-Cholec 0-30 tablet by [facility] alciferol 00:00: mouth 1 (Oyster 00 (one) time Shell each day. Calcium) 500-400 MG-UNIT tablet Potassium 2018-07 Yes QD Take by UT Gluconate 0-30 mouth 1 Health 2.5 MEQ 00:00: (one) time tablet 00 each day. Calcium 2018-07 Yes 1{tbl} QD Take 1 UT Carb-Cholec 0-30 tablet by [facility] alciferol 00:00: mouth 1 (Oyster 00 (one) time Shell each day. Calcium) 500-400 MG-UNIT tablet Potassium 2018-07 Yes QD Take by UT Gluconate 0-30 mouth 1 Health 2.5 MEQ 00:00: (one) time tablet 00 each day. Calcium 2018-07 Yes 1{tbl} QD Take 1 UT Carb-Cholec 0-30 tablet by [facility] alciferol 00:00: mouth 1 (Oyster 00 (one) time Shell each day. Calcium) 500-400 MG-UNIT tablet Potassium 2018-07 Yes QD Take by UT Gluconate 0-30 mouth 1 Health 2.5 MEQ 00:00: (one) time tablet 00 each day. metoprolol Yes 25mg Q.5D Take 25 mg M ethodi tartrate 9-[address] (LOPRESSOR) 00:00: (two) Hospi ta 25 mg 00 times a l tablet day. Celecoxib Celecoxib Yes Q0.5D TAKE 1 [facility] 200 MG Oral 200 MG Oral 8-13 CAPSULE ity of Capsule Capsule 00:00: TWICE [place] 00 DAILY WITH Physici FOOD. ans Diovan 80 Diovan 80 Yes QD TAKE 1 U nivers MG Oral MG Oral 8-13 TABLET ity of Tablet Tablet 00:00: [place] 00 BLOOD [facility] PRESSURE. ans Meloxicam Meloxicam 2017- Yes ARLEN QD TAKE 1 U nivers 15 MG Oral 15 MG Oral 8-13 MELGAR TABLET ity of Tablet Tablet 00:00: M.D. DAILY [place] 00 AFTER Physici MEALS ans Leflunomide Leflunomide Yes ARLEN TAKE 1 [facility] 20 MG Oral 20 MG Oral 8-13 MELGAR TABLET BY ity of Tablet Tablet 00:00: M.D. MOUTH [place] 00 EVERY DAY Physici ans predniSONE 2017- Yes 5mg QD Take 5 mg Me thodi (DELTASONE) 8-[address] 5 mg tablet 00:00: every Hospi ta 00 morning. l losartan 2018-0 Yes 100mg QD Take 100 Meth alfonzo (COZAAR) 8-[address] 100 MG 00:00: mouth Hospita tablet 00 daily. l Pilocarpine Pilocarpine Yes ARLEN TAKE ONE Univers HCl - 5 MG HCl - 5 MG 4-09 MELGAR TABLET BY ity of Oral Tablet Oral Tablet 00:00: M.D. MOUTH [place] 00 THREE Physici TIMES A ans DAY Lidocaine 5 Lidocaine 5 Yes ARLEN Q12H APPLY 1 Univers % [...] mouth [place] 00 every day Physici ans Butalbital- Butalbital- Yes 1 QD [...] HOURS. MAX 200MG/DAY. Meloxicam Meloxicam Yes ARLEN Q0.5D TAKE 1 Un racquel 7.5 MG Oral 7.5 MG Oral MELGAR TABLET ity of Tablet Tablet M.D. TWICE [place] DAILY Physici AFTER ans MEALS Gas Free Gas Free Yes 1 QD TAKE 1 Unive rs Extra Extra CAPSULE ity of Strength Strength DAILY [place] 125 MG CAPS 125 MG CAPS P hysici ans Vitamin D3 Vitamin D3 Yes 1 QD TAKE 1 U nivers 50 MCG 50 MCG CAPSULE ity of (1999 [place]) (2000 [place]ILY [place] Oral Oral [facility]ici Capsule [...] 80-4.5 PUFFS ity of MCG/ACT MCG/ACT TWICE [place] Inhalation Inhalation DAILY. P hysici Aerosol Aerosol RINSE ans MOUTH AFTER USE. Magnesium Magnesium Yes WITH ZINC Univers CAPS CAPS / 1 TAB ity of DAILY [place] Physici ans Pennsaid Pennsaid Yes Univers SOLN SOLN ity of [place] Physici ans DULoxetine DULoxetine Yes Uni vers [...] Yes U nivers CAPS CAPS ity of [place] Physici ans Glucosamine Glucosamine Yes U nivers Chondr 1500 Chondr 1500 i ty of Complx CAPS Complx CAPS [place] [facility] ans B B Yes Univers Complex-C-F [...] LIQD Health LIQD [place] [facility] ans Saw Saw Yes 1 QD TAKE 1 Univers Immaculata Immaculata CAPSULE ity of 450 MG Oral 450 MG Oral DAILY [place] Capsule Capsule Physici ans Cinnamon Cinnamon Yes 1 Q0.25D TAKE 1 Uni vers 500 MG Oral 500 MG Oral TABLET 4 ity of Tablet Tablet TIMES [place] DAILY Physici ans Restasis Restasis Yes Univers MultiDose MultiDose ity o f 0.05 % 0.05 % [place] Ophthalmic Ophthalmic Phy sici Emulsion Emulsion ans Potassium Potassium Yes Unive rs 99 MG Oral 99 MG Oral ity of Tablet Tablet [place] Physici ans Fish Oil Fish Oil Yes 1 QD TAKE 1 Unive rs 1000 MG 1000 MG CAPSULE ity of Oral Oral DAILY. [place] Capsule Capsule Physici ans HYDROcodone HYDROcodone Yes U nivers -Acetaminop -Acetaminop i ty of hen 10-325 hen 10-325 Simón as MG Oral MG Oral Physici Tablet Tablet ans Methocarbam Methocarbam Yes U nivers ol 750 MG ol 750 MG ity o f Oral Tablet Oral Tablet [place] Physici ans glipiZIDE 5 glipiZIDE 5 Yes U nivers MG Oral MG Oral ity of Tablet Tablet [place] Physici ans metFORMIN metFORMIN Yes Unive rs HCl - 500 HCl - 500 ity o f MG Oral MG Oral [place] Tablet Tablet Physici ans Pioglitazon Pioglitazon Yes U nivers e HCl - 15 e HCl - 15 ity of MG Oral MG Oral [place] Tablet Tablet Physici ans Victoza Victoza Yes QD INJECT Univers SOLN SOLN 0.6MG ity of SUBCUTANEO [place] USLY DAILY Physici ans Rosuvastati Rosuvastati Yes U nivers n Calcium n Calcium ity o f 40 MG Oral 40 MG Oral Simón as Tablet Tablet Physici ans Centrum Centrum Yes Univers Silver Silver ity of 50+Men Oral 50+Men Oral [place] Tablet Tablet Physici ans Calcium 500 Calcium 500 Yes U nivers 500 MG TABS 500 MG TABS i ty of [place] Physici ans Immunizations Ordered Immunization Filled Immunization Date Status Commen ts Source Name Name FLUCELVAX QUAD PF 2019-05-[address] 00:[facility]00 Hospital FLUCELVAX QUAD PF 2018-05-[address] 00:[facility]:00 Hospital Fluzone High-Dose 2017-06-13 Completed [facility] ity of 0.5 ML Intramuscular 15:04:00 [facility] Suspension Prefilled Syringe Influenza, 2017-05-04 Completed [facility] Vital Signs Vital Name Observation Time Observation Value Comments Source HEIGHT 2020-08-13 175.3 cm 06:31:00 WEIGHT 2020-08-13 120.657 kg 06:31:00 HEIGHT 2020-08-06 175.3 cm 11:20:00 WEIGHT 2020-08-06 120.657 kg 11:20:00 HEIGHT 2020-02-13 177.8 cm 00:00:00 WEIGHT 2020-02-13 120.203 kg 00:00:00 Systolic blood 2021-03-04 127 mm[Hg] [facility] pressure 18:07:00 Diastolic blood 2021-03-04 76 mm[Hg] [facility] pressure 18:07:00 Heart rate 2021-03-04 85 /min [facility] 18:07:00 Body temperature 2021-03-04 35.94 Veronica [facility] 18:07:00 Body weight 2021-03-04 118.57 kg [facility] 18:07:00 BMI 2021-03-04 37.51 kg/m2 [facility] 18:07:00 Systolic blood 2021-02-16 134 mm[Hg] [facility] pressure 14:02:00 Diastolic blood 2021-02-16 86 mm[Hg] [facility] pressure 14:02:00 Heart rate 2021-02-16 82 /min [facility] 14:02:00 Body temperature 2021-02-16 37.06 Veronica [facility] 14:02:00 Body weight 2021-02-16 117.754 kg [facility] 14:02:00 BMI 2021-02-16 37.25 kg/m2 [facility] 14:02:00 HEIGHT 2020-08-13 175.3 cm 06:31:00 WEIGHT 2020-08-13 120.657 kg 06:31:00 HEIGHT 2020-08-06 175.3 cm 11:20:00 WEIGHT 2020-08-06 120.657 kg 11:20:00 HEIGHT 2020-02-13 177.8 cm 00:00:00 WEIGHT 2020-02-13 120.203 kg 00:00:00 Systolic blood 2020-09-17 118 mm[Hg] Location: [facility] 13:43:00 Position: [place] [facility] s Sitting Diastolic blood 2020-09-17 74 mm[Hg] Location: [facility] 13:43:00 Position: [place] Physician s Sitting Weight 2020-09-17 261.5 [lb_av] [facility] 13:43:00 [place] [facility] s Body mass index 2020-09-17 37.52 kg/m2 University o f (BMI) [Ratio] 13:43:00 [place] [facility] ns Body temperature 2020-09-17 97.4 [degF] [facility] 13:43:00 [place] [facility]ician s Heart Rate 2020-09-17 91 /min [facility] 13:43:00 [place] Physician s Systolic blood 2020-09-01 113 mm[Hg] [facility] 09:58:00 [place] Physician s Diastolic blood 2020-09-01 73 mm[Hg] [place] o pressure 09:58:00 [place] Physician s Body height 2020-09-01 70 [in_us] [facility] 09:58:00 [place] Physician s Weight 2020-09-01 260 [lb_av] [facility] 09:58:00 [place] [facility] Body mass index 2020-09-01 37.31 kg/m2 [facility] (BMI[facility] [Ratio] 09:58:00 [place] [facility] Body temperature 2020-09-01 98.5 [degF] [facility] 09:58:00 [place] [facility] Heart Rate 2020-09-01 88 /min [facility] 09:58:00 [place] [facility] Systolic blood 2020-08-21 134 mm[Hg] [facility] - pressure 12:38:00 [facility] Diastolic blood 2020-08-21 64 mm[Hg] [facility] - pressure 12:38:00 [facility] Heart rate 2020-08-21 81 /min [facility] - 12:38:00 [facility] Body temperature 2020-08-[address] [facility] - 12:38:00 [facility] Respiratory rate 2020-08-21 18 /min [facility] 12:38[facility]00 [facility] Oxygen saturation 2020-08-21 92 /min [facility] - in Arterial blood 12:38:00 Medical nter by Pulse oximetry Body height 2020-08-[address] [facility] - 06:31:00 [facility] Body weight 2020-08-13 120.657 kg [facility] - 06:31:00 [facility] BMI 2020-08-13 39.28 kg/m2 [facility] - 06:31:00 [facility] Systolic blood 2020-05-05 93 mm[Hg] [facility] [place] [facility] Diastolic blood 2020-05-05 61 mm[Hg] [facility] 10:56:[facility] [place] [facility] Body height 2020-05-05 70 [in_us] [facility] 10:56:00 [place] [facility] Weight 2020-05-05 277 [lb_av] [facility] 10:56:00 [place] [facility] Body mass index 2020-05-05 39.75 kg/m2 University o f (BMI) [Ratio] 10:56:00 [place] [facility] Body temperature 2020-05-05 97 [degF] Method: [facility] 10:56:00 Temporal [place] [facility] Heart Rate 2020-05-05 103 /min Quality: Normal [facility] o f 10:56:00 [place] [facility] Respiratory rate 2020-05-05 16 /min Quality: Normal [facility]i [facility] 10:56:00 [place] [facility] O2 SAT 2020-05-05 97 % Source: [place] [facility] 10:56:00 [place] [facility] Systolic blood 2020-01-22 119 mm[Hg] Location: [place] [facility] 10:52:00 Position: [place] [facility] Diastolic blood 2020-01-22 79 mm[Hg] Location: [place] [facility] 10:52:00 Position: [place] [facility] Body height 2020-01-22 70 [in_us] [facility] 10:52:00 [place] [facility] Weight 2020-01-22 261.125 [lb_av] [facility] o f 10:52:00 [place] [facility] Body mass index 2020-01-22 37.47 kg/m2 University o f (BMI) [Ratio] 10:52:00 [place] [facility] Body temperature 2020-01-22 98.1 [degF] Method: Oral [facility] 10:52:00 [place] [facility] Heart Rate 2020-01-22 83 /min Location: [place] [facility] 10:52:00 Brachial [place] [facility] Artery; Systolic blood 2019-09-25 148 mm[Hg] Location: [facility]; [facility] 12:05:00 Position: [place] [facility] Diastolic blood 2019-09-25 93 mm[Hg] Location: [facility]; [facility] 12:05:00 Position: [place] [facility] Body height 2019-09-25 70 [in_us] [facility] 12:05:00 [place] [facility] Weight 2019-09-25 273.5 [lb_av] University 12:05:00 [place] [facility] Body mass index 2019-09-25 39.24 kg/m2 University o f (BMI) [Ratio] 12:05:00 [place] [facility] Body temperature 2019-09-25 98.1 [degF] Method: Oral University 12:05:00 [place] [facility] Heart Rate 2019-09-25 91 /min Location: L [facility] 12:: Brachial [place] [facility] Artery; Respiratory rate 2019-09-25 22 /min [facility] 12::00 [place] [facility] BP Systolic 2019-05-21 123 mm[Hg] Location: K[facility]; [facility] 13:04:00 Position: [place] [facility] BP Diastolic 2019-05-21 80 mm[Hg] Location: [facility]; [facility] 13:04:00 Position: [place] [facility] BP Systolic 2019-05-21 147 mm[Hg] Location: [facility]; [facility] 10::00 Position: [place] [facility] BP Diastolic 2019-05-21 97 mm[Hg] Location: [facility]; [facility] 10::00 Position: [place] [facility] Height 2019-05-21 70 [in_us] [facility] 10:03:00 [place] [facility] Weight 2019-05-21 270 [lb_av] [facility] 10:: [place] [facility] Body Mass Index 2019-05-21 38.74 kg/m2 University o f Calculated 10:03:00 [place] [facility] Temperature 2019-05-21 98.3 [degF] Method: [facility] 10::00 Tympanic [place] [facility] Heart Rate 2019-05-21 94 /min [facility] 10::00 [place] [facility] BP Systolic 2019-01-22 132 mm[Hg] Location: [facility]; [facility] ::00 Position: [place] [facility] BP Diastolic 2019-01-22 79 mm[Hg] Location: [facility]; [facility] 10::00 Position: [place] [facility] Height 2019-01-22 70 [in_us] [place] [facility] 10:01:00 [place] [facility] Weight 2019-01-22 268.25 [lb_av] [facility] 10:01:00 [place] [facility] Body Mass Index 2019-01-22 38.49 kg/m2 University o f Calculated 10:01:00 [place] [facility] Heart Rate 2019-01-22 71 /min Location: [facility] 10:01:00 Brachial [place] [facility] Artery; BP Systolic 2018-09-18 114 mm[Hg] Location: [facility] 09:49:00 Position: [place] [facility] BP Diastolic 2018-09-18 74 mm[Hg] Location: [facility] 09:49:00 Position: [place] [facility] Height 2018-09-18 70 [in_us] [facility] 09:49:00 [place] [facility] Weight 2018-09-18 271 [lb_av] [facility] 09:49:00 [place] [facility] Body Mass Index 2018-09-18 38.88 kg/m2 University o f Calculated 09:49:00 [place] [facility] Temperature 2018-09-18 98.3 [degF] Method: Oral [place] [facility] 09:49:00 [place] [facility] Heart Rate 2018-09-18 67 /min Location: [facility] 09:49:00 Brachial [place] [facility] Artery; BP Systolic 2018-05-22 126 mm[Hg] [facility] 13:04:00 Position: [place] [facility] BP Diastolic 2018-05-22 79 mm[Hg] Location: [facility] 13:04:00 Position: [place] [facility] Height 2018-05-22 70 [in_us] [place] [facility] 13:04:00 [place] [facility] Weight 2018-05-22 257.375 [lb_av] University o f 13:04:00 [place] [facility] Body Mass Index 2018-05-22 36.93 kg/m2 University o f Calculated 13:04:00 [place] [facility] Temperature 2018-05-22 98.1 [degF] Method: Oral [place] [facility] 13:04:00 [place] [facility] Heart Rate 2018-05-22 68 /min Location: [facility] 13:04:00 Brachial [place] [facility] Artery; BP Systolic 2018-02-13 144 mm[Hg] [facility] 13:53:00 Position: [place] [facility] BP Diastolic 2018-02-13 83 mm[Hg] Location: [place]; [facility] 13:53:00 Position: [place] [facility] Height 2018-02-13 70 [in_us] [facility] 13:53:00 [place] [facility] Weight 2018-02-13 272.5 [lb_av] [facility] of 13:53:00 [place] [facility] Body Mass Index 2018-02-13 39.1 kg/m2 University o f Calculated 13:53:00 [place] [facility] Temperature 2018-02-13 98.2 [degF] Method: Oral [facility] of 13:53:00 [place] [facility] Heart Rate 2018-02-13 93 /min Location: R [facility] 13:53:00 Brachial [place] [facility] Artery; BP [...] s BP Systolic 2017-06-13 145 mm[Hg] Location: [facility]; [place] [facility] 14:31:00 Position: [place] [facility] BP Diastolic 2017-06-13 82 mm[Hg] Location: JS; University of 14:31:00 Position: [place] [facility] Height 2017-06-13 69 [in_us] [facility] of 14:31:00 [place] [facility] Weight 2017-06-13 257.375 [lb_av] University o f 14:31:00 [place] [facility] Body Mass Index 2017-06-13 38.01 kg/m2 University o f Calculated 14:31:00 [place] [facility] Heart Rate 2017-06-13 89 /min [facility] 14:31:00 [place] [facility] Procedures Procedure Date / Time Performing Clinician Source Performed XR LUMBAR SPINE 2 OR 3 2020-11-19 17:54:25 [facility] THORACIC SPINE 2 VW 2020-09-30 17:50:45 Shaji Mancia [facility] XR LUMBAR SPINE AP 2020-09-30 17:50:33 Shaji Mancia [facility] LATERAL FLEXION AND EXTENSION XR CERVICAL SPINE AP 2020-09-30 17:50:19 Shaji Mancia [facility] LATERAL FLEXION AND EXTENSION [QL] CBC (INCLUDES 2020-09-01 00:00:00 [facility] DIFF/PLT) Physicians [QL] CMP W/EGFR 2020-09-01 00:00:00 [place] [facility] Physicians [QL] COMPLEMENT COMP C3 + 2020-09-01 00:00:00 [facility] [QL] URINALYSIS, COMPLETE 2020-09-01 00:00:00 [facility] W/REFLEX TO CULTURE Physicians [A] Ultrasound, 2020-09-01 00:00:00 [facility] Extremity, Nonvascular, Physicia ns real-time with Image documentation; Complete [id number] XR LUMBAR SPINE AP 2020-08-28 18:11:51 Shaji Mancia [facility] LATERAL FLEXION AND EXTENSION POCT-GLUCOSE METER 2020-08-21 12:32:00 [facility] POCT-GLUCOSE METER 2020-08-21 08:40:00 Sadiq [facility] POCT-GLUCOSE METER 2020-08-20 21:22:00 [facility]q [facility] POCT-GLUCOSE METER 2020-08-20 15:27:00 Sadiq [facility] POCT-GLUCOSE METER 2020-08-20 11:55:00 Sadiq [facility] POCT-GLUCOSE METER 2020-08-20 08:51:00 Sadiq [facility] CBC W/PLT COUNT & AUTO 2020-08-20 06:25:00 Olimpia Uriostegui [facility] COMPREHENSIVE METABOLIC 2020-08-20 06:25:00 [facility] 2020-08-20 06:25:00 Elevjoshua [facility] (MANUAL DIFFERENTIAL) 2020-08-20 06:25:00 Elevjoshua [facility] POCT-GLUCOSE METER 2020-08-19 21:10:00 Sadiq, [facility] POCT-GLUCOSE METER 2020-08-19 16:21:00 Sadiq [facility] POCT-GLUCOSE METER 2020-08-19 12:04:00 Sadiq [facility] POCT-GLUCOSE METER 2020-08-19 08:39:00 Sadiq [facility] CBC W/PLT COUNT & AUTO 2020-08-19 07:45:00 Moody [facility] COMPREHENSIVE METABOLIC 2020-08-19 07:45:00 Elevjoshua [facility] MAGNESIUM 2020-08-19 07:45:00 Elevjoshua [facility] POCT-GLUCOSE METER 2020-08-18 21:47:00 Sadiq [facility] POCT-GLUCOSE METER 2020-08-18 16:41:00 Sadiq [facility] XR HIP 2 VIEWS RIGHT 2020-08-18 14:53:00 Sadiq [facility] POCT-GLUCOSE METER 2020-08-18 11:27:00 Sadiq [facility] POCT-GLUCOSE METER 2020-08-18 07:45:00 Sadiq [facility] CBC W/PLT COUNT & AUTO 2020-08-18 05:51:00 Elevazo [facility] COMPREHENSIVE METABOLIC 2020-08-18 05:51:00 Elevazo [facility] 2020-08-18 05:51:00 Olimpia Uriostegui [facility] POCT-GLUCOSE METER 2020-08-17 21:21:00 Ronal Babcock [facility] POCT-GLUCOSE METER 2020-08-17 17:06:00 Ronal Babcock [facility] POCT-GLUCOSE METER 2020-08-17 13:13:00 Ronal Babcock [facility] POCT-GLUCOSE METER 2020-08-17 08:06:00 Sadiq [facility] CBC W/PLT COUNT & AUTO 2020-08-17 05:13:00 Ronal Babcock [facility] BASIC METABOLIC PANEL (7) 2020-08-17 05:13:00 Ronal Babcock [facility] POCT-GLUCOSE METER 2020-08-16 21:28:00 Ronal Babcock [facility] POCT-GLUCOSE METER 2020-08-16 15:48:00 [facility]q [facility] POCT-GLUCOSE METER 2020-08-16 11:42:00 Ronal Babcock [facility] POCT-GLUCOSE METER 2020-08-16 07:56:00 Ronal Babcock [facility] CBC W/PLT COUNT & AUTO 2020-08-16 04:54:00 Ronal Babcock [facility] COMPREHENSIVE METABOLIC 2020-08-16 04:54:00 [facility] 2020-08-16 04:54:00 Ronal Babcock [facility] HEMOGLOBIN A1C 2020-08-16 04:54:00 Ronal Babcock [facility] LIPID PANEL 2020-08-16 04:54:00 Ronal Babcock [facility] POCT-GLUCOSE METER 2020-08-15 15:45:00 Ronal Babcock [facility] XR LUMBAR SPINE 2 OR 3 2020-08-15 12:18:00 Shaji Mancia [facility] POCT-GLUCOSE METER 2020-08-15 11:55:00 Ronal Babcock [facility] BASIC METABOLIC PANEL (7) 2020-08-15 04:34:00 Shaji Mancia [facility] CBC W/PLT+MANUAL DIFF 2020-08-15 04:34:00 Mariya [facility] CBC WITH PLATELET COUNT + 2020-08-15 04:34:00 Mariya [facility] MANUAL DIFF [facility] (MANUAL DIFFERENTIAL) 2020-08-15 04:34:00 Mariya [facility] POCT-GLUCOSE METER 2020-08-14 11:49:00 Ronal Babcock [facility] BASIC METABOLIC PANEL (7) 2020-08-14 05:23:00 Shaji Mancia [facility] CBC W/PLT+MANUAL DIFF 2020-08-14 05:23:00 Mariya [facility] CBC WITH PLATELET COUNT + 2020-08-14 05:23:00 Shaji Mancia [facility] MANUAL DIFF [facility] (MANUAL DIFFERENTIAL) 2020-08-14 05:23:00 Shaji Mancia [facility] POCT-GLUCOSE METER 2020-08-13 21:44:00 [facility]onal [facility]cock [facility] POCT-GLUCOSE METER 2020-08-13 18:16:00 [facility]adiq [facility] [place] FLUORO NON-SPECIFIC UP 2020-08-13 15:54:00 Shaji Mancia [facility] 1 HOUR [facility] BLOOD GAS, ARTERIAL 2020-08-13 15:08:21 [facility]aji [facility] URINE CULTURE 2020-08-13 11:31:42 Shaji Mancia [facility] URINALYSIS WITH 2020-08-13 11:31:42 Shaji Mancia [facility] - MICROSCOPIC IF INDICATED [facility] URINALYSIS MICROSCOPIC 2020-08-13 11:31:00 Shaji Mancia I [facility] LAMINECTOMY,LUMBAR 2020-08-13 08:20:00 Shaji Mancia [facility] - W/FUSION [facility] LAMINECTOMY,POSTERIOR 2020-08-13 08:20:00 Shaji Mancia [facility] - CERVICAL PRONE W/FUSION [facility] POCT-GLUCOSE METER 2020-08-13 06:41:00 [facility]aji [facility] SARS-COV2/RT-PCR (HS & 2020-08-08 10:02:00 Shaji Mancia [facility] - REF LABS) [facility] BASIC METABOLIC PANEL (7) 2020-08-08 10:02:[address] [facility] CBC W/PLT COUNT & AUTO 2020-08-08 10:02:00 [facility] TYPE AND SCREEN, 2020-08-08 10:02:[address] [facility] [place] LUMBAR SPINE WO 2020-07-31 13:23:36 Shaji Mancia [facility] CONTRAST XR CERVICAL SPINE 2 OR 3 2020-07-31 13:20:45 Shaji Mancia [facility] VW XR CERVICAL SPINE AP 2020-05-13 16:05:58 Shaji Mancia [facility] LATERAL FLEXION AND EXTENSION XR THORACIC SPINE 3 VW 2020-05-13 16:05:20 Shaji Mancia [facility] [QL] CBC (INCLUDES 2020-05-05 00:00:00 [facility] DIFF/PLT) Physicians [QL] CMP W/EGFR 2020-05-05 00:00:00 [facility] Physicians [QL] URINALYSIS, COMPLETE 2020-05-05 00:00:00 [facility] [QL] IMMUNOFIXATION, 2020-05-05 00:00:00 [facility] Physicians [QL] PROTEIN, TOTAL AND 2020-05-05 00:00:00 [facility] PROTEIN ELECTROPHORESIS Physicia ns XR CERVICAL SPINE AP 2020-03-11 15:36:54 Shaji Mancia [facility] LATERAL FLEXION AND EXTENSION XR THORACIC SPINE 3 VW 2020-03-11 15:36:29 Shaji Mancia [facility] REPORT OF PROCEDURE - 2020-03-04 09:40:48 Provider, [facility] ENDOSCOPY SCAN Scanning [facility] REPORT OF PROCEDURE - 2020-02-29 08:00:52 Provider, [facility] ENDOSCOPY SCAN Scanning [facility] TRANSFUSION SERVICE 2020-02-27 18:05:34 Provider, [facility] PREPARE LEUKO-REDUCED RBC 2020-02-26 23:54:[address] [facility] TRANSFUSION SERVICE 2020-02-26 18:26:25 Provider, [facility] SCAN [facility] POCT-GLUCOSE METER 2020-02-26 11:23:00 Ronal Babcock [facility] POCT-GLUCOSE METER 2020-02-26 07:39:00 [facility]q [facility] CBC W/PLT COUNT & AUTO 2020-02-26 05:41:00 Tres Beal [facility] BASIC METABOLIC PANEL (7) 2020-02-26 05:41:[address] [facility] POCT-GLUCOSE METER 2020-02-25 22:04:00 Sadiq [facility] HEMOGLOBIN AND HEMATOCRIT 2020-02-25 21:09:00 Jose Francisco Crockett CH, I [facility] POCT-GLUCOSE METER 2020-02-25 17:30:00 [facility]q [facility] TRANSFUSE LEUKO-REDUCED 2020-02-25 15:13:24 Shaji Mancia [facility] RED BLOOD CELLS [facility] POCT-GLUCOSE METER 2020-02-25 11:28:00 Sadiq, [facility] TYPE AND SCREEN, 2020-02-25 09:16:00 Shaji Mancia [facility] POCT-GLUCOSE METER 2020-02-25 07:46:00 Sadiq [facility] CBC W/PLT COUNT & AUTO 2020-02-25 06:13:00 Tres Beal [facility] BASIC METABOLIC PANEL (7) 2020-02-25 06:13:[address] [facility] POCT-GLUCOSE METER 2020-02-24 21:27:00 Sadiq [facility] POCT-GLUCOSE METER 2020-02-24 16:34:00 Sadiq [facility] POCT-GLUCOSE METER 2020-02-24 12:41:00 Sadiq [facility] POCT-GLUCOSE METER 2020-02-24 08:16:00 Sadiq [facility] BASIC METABOLIC PANEL (7) 2020-02-24 05:19:00 Jose Francisco Crockett [facility] CBC W/PLT COUNT & AUTO 2020-02-24 05:19:00 Tres Beal [facility] POCT-GLUCOSE METER 2020-02-23 17:15:00 Sadiq [facility] POCT-GLUCOSE METER 2020-02-23 11:54:00 Shaji Mancia [facility] POCT-GLUCOSE METER 2020-02-23 07:23:00 Shaji Mancia [facility] POCT-GLUCOSE METER 2020-02-22 20:52:00 Shaji Mancia [facility] POCT-GLUCOSE METER 2020-02-22 15:45:00 Shaji Mancia [facility] POCT-GLUCOSE METER 2020-02-22 07:53:00 Shaji Mancia [facility] POCT-GLUCOSE METER 2020-02-22 07:26:00 [facility] BASIC MET[facility]OLIC PANEL (7) 2020-02-22 00:30:57 Mariya [facility] CBC WITH PLATELET COUNT + 2020-02-22 00:30:57 Mariya [facility] MANUAL DIFF [facility] CBC W/PLT+MANUAL DIFF 2020-02-22 00:30:00 Mariya [facility] (MANUAL DIFFERENTIAL) 2020-02-22 00:30:00 Mariya [facility] POCT-GLUCOSE METER 2020-02-21 21:27:00 [facility] 2020-02-21 18:05:37 Claribel Hughes [facility] REPORT - SCAN Scanning [facility] POCT-GLUCOSE METER 2020-02-21 16:33:00 [facility] POCT-GLUCOSE METER 2020-02-21 11:50:00 Mariya [facility] XR SPINE CERVICAL 2 OR 3 2020-02-21 11:20:00 Mariya [facility] VIEWS [facility] POCT-GLUCOSE METER 2020-02-21 07:49:00 Mariya [facility] CBC W/PLT COUNT & AUTO 2020-02-21 04:08:00 Ronal Babcock [facility] COMPREHENSIVE METABOLIC 2020-02-21 04:08:00 Ronal Babcock I [facility] MAGNESIUM 2020-02-21 04:08:00 Ronal Babcock [facility] POCT-GLUCOSE METER 2020-02-20 14:04:00 Mariya [facility] BLOOD GAS, ARTERIAL 2020-02-20 13:09:24 Mariya [facility] [place] FLUORO NON-SPECIFIC UP 2020-02-20 12:30:00 Shaji Mancia [facility] TO 1 HOUR [facility] URINE CULTURE 2020-02-20 10:40:18 Mariya [facility] LAMINECTOMY,CERVICAL 2020-02-20 08:07:00 Shaji Mancia [facility] FACETECTOMY/ [facility] FORAMINOTOMY/ DECOMPRESSION POCT-GLUCOSE METER 2020-02-20 08:00:[address] [facility] ABORH, MANUAL 2020-02-20 07:56:[address] [facility] TRANSFUSION SERVICE 2020-02-16 18:05:09 ProviderClaribel [facility] REPORT - SCAN [facility] [Q] PROTEIN, TOTAL 2020-01-22 00:00:00 [facility] [place] W/CREAT, RANDOM URINE Physicians [QL] CBC (INCLUDES 2020-01-22 00:00:00 Universit y [facility] DIFF/PLT) Physicians [QL] CMP W/EGFR 2020-01-22 00:00:00 [facility] [place] [facility] [QL] COMPLEMENT COMP C3 + 2020-01-22 00:00:00 [facility] [place] C4 Physicians [QL] URINALYSIS, COMPLETE 2020-01-22 00:00:00 [facility] [place] Phys[facility] [QL] COMPLEMENT COMP C3 + 2019-09-25 00:00:00 [facility] [place] C4 Physicians [QLH] CBC (INCLUDES 2019-09-25 00:00:00 Universi ty [facility] DIFF/PLT) Physicians [QLH] CMP W/EGFR 2019-09-25 00:00:00 University [facility] Physicians [QLH] URINALYSIS, 2019-09-25 00:00:00 [facility] COMPLETE Physicians [QH] PROTEIN, TOTAL 2019-09-25 00:00:00 Universi ty [facility] W/CREAT, RANDOM URINE Physicians [QL] CBC (INCLUDES 2019-09-25 00:00:00 Universit y [facility] DIFF/PLT) Physicians [QL] CMP W/EGFR 2019-09-25 00:00:00 [facility] [place] [facility] [QL] URINALYSIS, COMPLETE 2019-09-25 00:00:00 [facility] [place] [facility] [Q] PROTEIN, TOTAL 2019-09-25 00:00:00 Universit y [facility] W/CREAT, RANDOM URINE Physicians [QL] COMPLEMENT COMP C3 + 2019-05-21 00:00:00 [facility] [place] C4 Physicians [QLH] CBC (INCLUDES 2019-01-26 00:00:00 [facility] DIFF/PLT) Physicians [QLH] SED RATE BY 2018-09-18 00:00:00 [facility] MODIFIED ARELYERGSHASHI Physicians [QLH] SED RATE BY 2018-05-22 00:00:00 [facility] MODIFIED [facility] [QLH] CBC (INCLUDES 2018-05-22 00:00[facility]00 [facility] [QLH] CMP W/EGFR 2018-05-22 00:00:00 [facility] Physicians [QLH] C-REACTIVE PROTEIN 2018-05-22 00:00:00 [facility] Physicians [QLH] CBC (INCLUDES 2017-06-13 00:00:00 [facility] Physicians [QLH] CMP W/EGFR 2017-06-13 00:00:00 [facility] Physicians [QLH] C-REACTIVE PROTEIN 2017-06-13 00:00:00 [facility] Physicians Plan of Care Planned Activity Planned Date Details Comments Source Future Scheduled 2021-03-[address] [facility] - Test 00:00:00 (#1) [code = [facility] INFLUENZA VACCINE (#1)] Future Scheduled 2021-03-[address] [facility] - Test 00:00:00 (#1) [code = [facility] INFLUENZA VACCINE (#1)] Future Scheduled 2021-02-[address] [facility] - Test 00:00:00 [facility] (procedure) [code = [id number]] Future Scheduled 2021-02-[address] [facility] - Test 00:00:00 [facility] (procedure) [code = [id number]] Diagnostic Test 2020-09-01 [A] Ultrasound, [facility] Pending 00:00:00 Extremity, Physicians Nonvascular, real-time with Image documentation; Complete [id number] [code = [A] Ultrasound, Extremity, Nonvascular, real-time with Image documentation; Complete 04854] Diagnostic Test 2020-09-01 [A] Ultrasound, [facility] Pending 00:00:00 Extremity, Physicians Nonvascular, real-time with Image documentation; Complete [id number] [code = [A] Ultrasound, Extremity, Nonvascular, real-time with Image documentation; Complete 05642] Future Scheduled 2020-07-[address] [facility] - Test 00:00:00 WELLNESS (YEAR 2 or Medical Center FIRST YEAR if no IPPE) [code = MEDICARE ANNUAL WELLNESS (YEAR 2 or FIRST YEAR if no IPPE)] Future Scheduled 2020-07-[address] [facility] 00:00:00 WELLNESS (YEAR 2 or Medical Center FIRST YEAR if no IPPE) [code = MEDICARE ANNUAL WELLNESS (YEAR 2 or FIRST YEAR if no IPPE)] Future Scheduled 2020-07-[address] [facility] - Test 00:00:00 (12+) [code = Medical Center DEPRESSION SCREENING (12+)] Future Scheduled 2020-07-04 FALLS RISK SCREENING [facility] - Test 00:00:00 [code = FALLS RISK Medical C enter SCREENING] Future Scheduled 2020-07-[address] [facility] - Test 00:00:00 (12+) [code = Medical Center DEPRESSION SCREENING (12+)] Future Scheduled 2020-07-04 FALLS RISK SCREENING [facility] - Test 00:00:00 [code = FALLS RISK Medical C enter SCREENING] Diagnostic Test 2019-02-23 [[facility]] CBC (INCLUDES [facility] Pending 00:00:00 DIFF/PLT) [code = Physicians [[facility]] CBC (INCLUDES DIFF/PLT)] Future Scheduled 2016-09-21 PNEUMOCOCCAL 65+ YRS [facility] - Test 00:00:00 (1 of 1 - Medical Center [id number] PCV13) [code = PNEUMOCOCCAL 65+ YRS (1 of 1 - [id number] PCV13)] Future Scheduled 2016-09-21 PNEUMOCOCCAL 65+ YRS [facility] - Test 00:00:00 (1 of 1 - Medical Center [id number] PCV13) [code = PNEUMOCOCCAL 65+ YRS (1 of 1 - [id number]_Ihroyoy PCV13)] Future Scheduled 2001-09-21 SHINGLES VACCINES ([address] [facility] - Test 00:00:00 of 2) [code = Medical Center SHINGLES VACCINES (1 of 2)] Future Scheduled 2001-09-21 SHINGLES VACCINES ([address] [facility] - Test 00:00:00 of 2) [code = Medical Center SHINGLES VACCINES (1 of 2)] Future Scheduled 1970-09-21 DTAP/TDAP/TD [facility]ACCINES [facility] 00:00:00 (1 - Tdap) [code = Medical C enter DTAP/TDAP/TD VACCINES (1 - Tdap)] Future Scheduled 1970-09-21 DTAP/TDAP/TD [facility]ACCINES [facility] 00:00:00 (1 - Tdap) [code = Medical C enter DTAP/TDAP/TD VACCINES (1 - Tdap)] Future Scheduled 1969-09-21 HEPATITIS C [facility]CREENING [facility] 00:00:00 [code = HEPATITIS C Medical Center SCREENING] Future Scheduled 1969-09-21 HEPATITIS C [facility]CRE[facility]ING [facility] 00:00:00 [code = HEPATITIS C Medical Center SCREENING] Future Scheduled 1963 COVID-19 VACCINE (1) [facility] Test 00:00:00 [code = COVID-[address] VACCINE (1)] Future Scheduled 1963 COVID-19 VACCINE (1) [facility] Test 00:00:00 [code = COVID-[address] VACCINE (1)] Future Scheduled 1961-09-[address] E[address] EXAM [facility] - Test 00:00:00 [code = DIABETIC EYE Medical Center EXAM] Future Scheduled 1961-09-[address] [facility]:00 examination Medical Center (regime/therapy) [code = 035050584] Future Scheduled 1961-09-21 Urine screening for [facility] Test 00:00:00 protein (procedure) Medical Center [code = 643804354] Future Scheduled 1961-09-[address] EYE EXAM [facility] - Test 00:00:00 [code = DIABETIC EYE Medical Center EXAM] Future Scheduled 1961-09-[address] [facility] 00:00:00 examination Medical Center (regime/therapy) [code = 641842244] Future Scheduled 1961-09-21 Urine screening for [facility] Test 00:00:00 protein (procedure) Medical Center [code = 674422531] Future Scheduled [address] [facility] Test 00:00:00 malignant neoplasm of Medica l Center colon (procedure) [code = 452485941] Future Scheduled [address] [facility] 00:00:00 malignant neoplasm of [facility]ica [facility] Center colon (procedure) [code = 332513406] Future Scheduled 65+ [facility]OCOCCAL [facility] Test VACCINE (1 of 2 - PPSV23) [code = 65+ PNEUMOCOCCAL VACCINE (1 of 2 - PPSV23)] Future Scheduled DIABETES: RETINAL [facility]YE [facility] EXAM [code = DIABETES: RETINAL EYE EXAM] Future Scheduled DIABETIC FOOT EXAM [facility] [code = DIABETIC FOOT EXAM] Future Scheduled URINE MICROALBUMIN [facility] Test [code = URINE MICROALBUMIN] Future Scheduled COVID-19 VACCINE (1) [facility] Test [code = COVID-19 VACCINE (1)] Future Scheduled Hepatitis C screening [facility] Test (procedure) [code = 765677818] Future Scheduled COLONOSCOPY SCREENING [facility] Test [code = COLONOSCOPY SCREENING] Future Scheduled [facility]INES [facility] (#1) [code = SHINGLES VACCINES (#1)] Future Scheduled INFLUENZA [facility]ACCINE [facility] [code = INFLUENZA VACCINE] Encounters Start End Encounter Admission Attending Care Care Encounter Source Date/Time Date/Time Type Type Clinicians Facility Department ID 2021-04-11 Inpatient SHAJI MANCIA [facility] Surgery [id number] SLS 01:47:03 2021-04-08 Inpatient SHAJI MANCIA [facility] [id number] 2021-02-16 [facility] [id number] [place] 09:43:43 [facility] 2021-03-04 2021-03-04 Office MARIUM Melgar 6410 1.2.840.114 [id number] [place] 13:02:02 13:55:[address] 350.1.13.58 Health 9.2.7.2.686 [id number] 2021-02-25 2021-02-25 Orders Desirae Johnson 6410 1.2.840. 114 [id number] [place] 00:00:00 00:00:[address] 350.1.13.58 Health 9.2.7.2.686 [id number] 2021-02-24 2021-02-24 Telephone MARIUM Melgar 1.2.060.622 [id number] [place] 00:00:00 00:00:00 Arlen PERALTA 350.1.13.58 Gallo RAMOS 9.2.7.2.686 MULTI [id number] SPECIALTY 7 2021-02-17 2021-02-17 Refill Ramón UTP 1.2.840.114 [id number] [place] 00:00:00 00:00:00 Arlen PERALTA 350.1.13.58 Gallo RAMOS 9.2.7.2.686 MULTI [id number] SPECIALTY 7 2021-02-16 2021-02-16 Office Ramón UTP 1.2.840.114 [id number] [place] 08:55:53 09:43:06 Visit Arlen PERALTA 350.1.13.58 Gallo RAMOS 9.2.7.2.686 MULTI [id number] SPECIALTY 7 2020-11-19 2020-11-19 Hospital [facility], 1.2.840.1 [id number] Methodi 12:34:25 23:59:00 Encounter Zack Fish 44765.1.[address] 3.430.2.7 Hospit a .3.997993 l .8 2020-11-19 2020-11-19 Travel 1.2.840.1 1.2.563.993 [id number] Methodi 00:00:00 00:00:[address] 3.430.2.7 0.2.7.3.698 spita .3.858544 084.8 l .8 2020-11-19 2020-11-19 Transcribe [facility], 1.2.840.1 [id number] Methodi 00:00:00 00:00:00 Orders Zack Fish 70601.1.[address] 3.430.2.7 Hospit a .3.327959 l .8 2020-09-30 2020-09-30 Hospital Shaji Mancia 1.2.840.1 [id number] Methodi 12:18:50 23:59:00 Encounter [place]ungsik 16730.1.[address] 3.430.2.7 Hospit a .3.681608 l .8 2020-09-30 2020-09-30 [facility] 1.2.840.1 [id number] Methodi 12:18:41 23:59:00 Encounter [place]ungsik 31981.1.[address] 3.430.2.7 Hospit a .3.887569 l .8 2020-09-30 2020-09-30 [facility] 1.2.840.1 [id number] Methodi 12:18:24 23:59:00 Encounter [place]ungs[place] 94482.1.[address] 3.430.2.7 Hospit a .3.394708 l .8 2020-09-30 2020-09-30 Travel 1.2.840.1 1.2.728.572 [id number] Methodi 00:00:00 00:00:[address] 3.430.2.7 0.2.7.3.698 Ho spita .3.616805 084.8 l .8 2020-09-30 2020-09-30 [facility] 1.2.840.1 [id number] Methodi 00:00:00 00:00:00 Orders [address]287.1.[address] 3.430.2.7 Hospit a .3.051712 l .8 2020-09-30 2020-09-30 [facility] 1.2.840.1 [id number] Methodi 00:00:00 00:00:00 Orders [address] 49844.1.[address] 3.430.2.7 Hospit a .3.541384 l .8 2020-09-17 2020-09-17 MARIUM Millard Rheumatolog [id number] Univers 14:00:00 14:00:00 t; ARLEN MELGAR M.D. [place] [facility] [place] [facility] [place] [facility] 2020-09-01 2020-09-01 MARIUM Millard [facility] [id number] Univers 10:00:00 10:00:00 t; ARLEN MELGAR M.D. y - it of Josefina MCK[facility] Physici ans 2020-08-28 2020-08-28 [facility] Shaji Mancia 1.2.840.1 [id number] Methodi 11:48:25 23:59:00 Encounter [place] 00830.1.[address] 3.430.2.7 Hospit a .3.786152 l .8 2020-08-28 2020-08-28 Travel 1.2.840.1 1.2.678.248 [id number] Methodi 00:00:00 00:00:[address] 3.430.2.7 0.2.7.3.698 Ho spita .3.854392 084.8 l .8 2020-08-28 2020-08-28 Transcribe Shaji Mancia 1.2.840.1 [id number] Methodi 00:00:00 00:00:00 Orders Tajk [address]88.1.[address] 3.430.2.7 Hospit a .3.069227 l .8 2020-08-13 2020-08-21 [facility] Shaji Mancia [facility] [id number] 06:00:00 17:10:00 Encounter Ronal Babcock [facility] 2020-08-13 2020-08-[address] [facility] [id number] [facility] 08:20:00 16:52:00 Event Micah Johnson [facility] 2020-08-13 2020-08-13 Surgery Mariya [facility] [id number] 08:00[facility]00 15:15:00 [facility] 2020-08-08 2020-08-08 [facility] [id number] 09:56:05 23:59:[address] [facility] 2020-08-08 2020-08-08 Outpatient SLSL [facility] [id number] [facility] 00:00:00 00:00:00 2020-08-06 2020-08-06 Travel [facility] [id number] [facility] 00[facility] 00:00[facility]00 [facility] 2020-07-31 2020-07-31 [facility] 1.2.840.1 [id number] Methodi 07:04:01 23:59:00 Encounter [place]ungs[place] 37871.1.[address] 3.430.2.7 Hospit a .3.898371 l .8 2020-07-31 2020-07-31 [facility] 1.2.840.1 [id number] Methodi 07:02:48 07:03:00 Encounter [place]ungs[place] 62167.1.[address] 3.430.2.7 Hospit a .3.354506 l .8 2020-07-31 2020-07-31 Travel 1.2.840.1 1.2.836.635 [id number] Methodi 00:00:00 00:00:[address] 3.430.2.7 0.2.7.3.698 Ho spita .3.384700 084.8 l .8 2020-07-29 2020-07-29 Travel 1.2.840.1 1.2.124.050 [id number] [id number] Methodi 00:00:00 00:00:[address] 3.430.2.7 0.2.7.3.698 Ho spita .3.204538 084.8 l .8 2020-05-13 2020-05-13 [facility] 1.2.840.1 [id number] Methodi 09:32:14 23:59:00 Encounter [place]ungsik [address]15.1.[address] 3.430.2.7 Hospit a .3.123091 l .8 2020-05-13 2020-05-13 [facility] Shaji Mancia 1.2.840.1 [id number] 21 [id number] Methodi 09:30:00 09:31:00 Encounter Jungsik [address]36.1.[address] 3.430.2.7 Hospit a .3.597025 l .8 2020-05-13 2020-05-13 Travel 1.2.840.1 1.2.665.932 [id number] Methodi 00:00:00 00:00:[address] 3.430.2.7 0.2.7.3.698 Ho spita .3.564519 084.8 l .8 2020-05-13 2020-05-13 Transcribe Shaji Mancia 1.2.840.1 [id number] Methodi 00:00:00 00:00:00 Orders [address]ungsik [address]607.1.[address] 3.430.2.7 Hospit a .3.529088 l .8 2020-05-12 2020-05-12 Appointmen MARIUM MELGAR [facility] [id number] Univers 11:00:00 11:00:00 t; ARLEN MELGAR M.D. ity of [place], M.D. [place] [facility] 2020-05-05 2020-05-05 Appointmen MARIUM MELGAR Rheumatolog [id number] Univers 11:00:00 11:00:00 t; ARLEN MELGAR M.D. T[place] M.D. [place] [facility] ans 2020-03-11 2020-03-11 [facility] Shaji Mancia 1.2.840.1 [id number] Methodi 09:58:39 23:59:00 Encounter [place]ungsik [address]11.1.[address] 3.430.2.7 Hospit a .3.962242 l .8 2020-03-11 2020-03-11 [facility] Shaji Mancia 1.2.840.1 [id number] Methodi 09:53:18 09:57:00 Encounter [place]ungsik 63676.1.[address] 3.430.2.7 Hospit a .3.991628 l .8 2020-03-11 2020-03-11 Travel 1.2.840.1 1.2.275.498 [id number] Methodi 00:00:00 00:00:[address] 3.430.2.7 0.2.7.3.698 Ho spita .3.145574 084.8 l .8 2020-03-11 2020-03-11 TranscriShaji Diaz 1.2.840.1 [id number] Methodi 00:00:00 00:00:00 Orders Sara 40225.1.[address] 3.430.2.7 Hospit a .3.305136 l .8 2020-03-01 2020-03-01 Outpatient C [facility] RAD [id number] [place] 12:51:00 23:59:00 JOSE [facility] 2020-02-15 2020-02-15 Outpatient EL SLSL SL[facility] [id number] [facility] 00:00:00 00:00:00 2020-01-22 2020-01-22 MARIUM Millard Multispecia [id number] Univers 11:00:00 11:00:00 t; ARLEN MELGAR M.D. lty - ity of Josefina M[facility] Physici ans 2019-09-25 2019-09-25 MARIUM Millard Multispecia [id number] Univers 15:30:00 15:30:00 t; ARLEN MELGAR M.D. lty - ity of [place] [facility] Physici ans 2019-05-21 2019-05-21 MARIUM Millard Multispecia [id number] Univers 10:00:00 10:00:00 t; ARLEN MELGAR M.D. lty - ity of [place] [facility] [facility] Physici ans 2019-01-22 2019-01-22 MARIUM Millard Multispecia [id number] Univers 10:00:00 10:00:00 t; ARLEN MELGAR M.D. [facility] ity [place] [facility] 2018-09-18 2018-09-18 AppointMARIUM Maoa [id number] Univers 10:00:00 10:00:00 t; ARLEN MELGAR M.D. [place]. [place] [facility] ans 2018-05-22 2018-05-22 AppointMARIUM Maonna [id number] Univers 15:00:00 15:00:00 t; ARLEN MELGAR M.D. [place] ity of [place], M.D. [place] [facility] ans 2018-02-13 2018-02-13 AppointMARIUM Maoa [id number] Univers 14:00:00 14:00:00 t; ARLEN MELGAR M.D. [place]y [place], M.D. [place] [facility] 2017-10-10 2017-10-10 [facility]UM MELGARa [id number] Univers 14:00:00 14:00:00 t; ARLEN MELGAR M.D. [place] it[place], M.D. [place] [facility] ans 2017-06-21 2017-06-21 MARIUM Nixon [facility] [id number] Univers 13:00:00 13:00:00 t; [facility] Jay MALLORY M.D. [facility] ans 2017-06-13 2017-06-13 AppointMARIUM Maoa [id number] Univers 14:30:00 14:30:00 t; ARLEN MELGAR M.D. [place], M.D. [place] [facility] 2017-02-14 2017-02-14 AppointMARIUM Mao [facility] [id number] Univers 15:00:00 15:00:00 t; ARLEN MELGAR M.D. ity of [place], M.D. [place] [facility] 2016-12-14 2016-12-14 AppointMARIUM Gray [facility] [id number] Univers 13:00:00 13:00:00 t; Josefina MALLORY of [place], [place] Josefina MALLORY Physi ci ans 2016-08-16 2016-08-16 Appointmen MARIUM MELGAR UTP [id number] [facility] 11:30:00 11:30:00 t; ARLEN MELGAR M.D. ity of [place], M.D. [place] [facility] ans Results Test Description Test Time Test Comments Results Result Sour e Comments XR Lumbar Spine 2020-11-01 EXAMINATION: XR LUMBAR [employer] 2 Or 3 Vw 9 SPINE 2 OR 3 [facility] 19:05:52 CLINICAL HISTORY: M48.061 Spinal stenosis lumbar region without neurogenic claudication, LUMBAR STENOSIS COMPARISON: None IMPRESSION: 4 views were obtained. Redemonstration of posterior spinal instrumentation with rods and screws L1-2 and L3 through the iliac bones. Anterior interbody grafts are present at L1-S1, with anterior screw at L4. There is evidence of solid interbody osseous fusion at L1-L4, without definite solid interbody osseous fusion at L4-5 or L5-S1. No significant motion on flexion or extension. No displaced fracture. Mild rightward curvature of the thoracolumbar spine centered at T11. Surgical clips right upper quadrant of abdomen. [facility]-[id number] Interface, Radiology Results 11/19/2020 2:09 PM CDT EXAMINATION: XR LUMBAR SPINE 2 OR 3 VWCLINICAL HISTORY: M48.061 Spinal stenosis lumbar region without neurogenic claudication, LUMBAR STENOSISCOMPARISON: NoneIMPRESSION:4 views were obtained.Redemonstrati on of posterior spinal instrumentation with rods and screws L1-2 and L3 through the iliac bones. Anterior interbody grafts are present at L1-S1, with anterior screw at L4. There is evidence of solid interbody osseous fusion at L1-L4, without definite solid interbody osseous fusion at L4-5 or L5-S1.No significant motion on flexion or extension.No displaced fracture. Mild rightward curvature of the thoracolumbar spine centered at T11.Surgical clips right upper quadrant of abdomen.[facility]-[id number] XR Cervical 2020-09-03 EXAMINATION: Lateral Met hodist Spine Ap Lateral 0 neutral, flexion and Hospital Flexion And 20:21:55 extension views; AP Extension view of the cervical spine in the standing position. CLINICAL HISTORY: M48.02 Spinal stenosis cervical region, cervical thoracic and lumbar stenosis COMPARISON: Cervical spine x-rays from July 31, 2020. FINDINGS: There is relatively stable anterior fusion from C3 to C5 with prevertebral plate and screws and graft material within the disc spaces. There is relatively stable posterior fusion from C4 down to T2 with posterior element screws connected by vertical rods with laminectomy. There is bone density anterior fusion at C5-6 and possibly C6-7 although overlying structures obscure details of the lower cervical spine on the lateral view limiting evaluation. The vertebral body and disc space height and alignment and degenerative changes are relatively stable. IMPRESSION: Relatively stable areas of surgery and degenerative changes given the differences in technique. [facility]-[id number] Interface, Radiology Results 09/30/2020 3:25 PM CDT EXAMINATION: Lateral neutral, flexion and extension views; AP view of the cervical spine in the standing position.CLINICAL HISTORY: M48.02 Spinal stenosis cervical region, cervical thoracic and lumbar stenosisCOMPARISON: Cervical spine x-rays from July 31, 2020.FINDINGS: There is relatively stable anterior fusion from C3 to C5 with prevertebral plate and screws and graft material within the disc spaces. There is relatively stable posterior fusion from C4 down to T2 with posterior element screws connected by vertical rods with laminectomy. There is bone density anterior fusion at C5-6 and possibly C6-7 although overlying structures obscure details of the lower cervical spine on the lateral view limiting evaluation.The vertebral body and disc space height and alignment and degenerative changes are relatively stable.IMPRESSION:Rela tively stable areas of surgery and degenerative changes given the differences in technique.[facility]-[id number] XR Lumbar Spine 2020-09-03 EXAMINATION: XR Met hodist Ap Lateral 0 LUMBAR SPINE AP Hospital Flexion And 20:12:28 LATERAL FLEXION AND Extension EXTENSION CLINICAL HISTORY: M48.061 Spinal stenosis lumbar region without neurogenic claudication, cervical thoracic and lumbar stenosis COMPARISON: 08/28/2020. IMPRESSION: Left convex curvature of the lumbar spine was seen. L1-S1, sacroiliac fusion is present with separate construct for L1-L2 fusion. There is interbody fusion at L1-L2, L2-L3, L3-L4, L4-L5, L5-S1 levels with interbody device well incorporated. L4-L5 and L5-S1 spinal laminectomy. There is no evidence of a dynamic instability. [id number] Interface, Radiology Results 09/30/2020 3:15 PM CDT EXAMINATION: XR LUMBAR SPINE AP LATERAL FLEXION AND EXTENSIONCLINICAL HISTORY: M48.061 Spinal stenosis lumbar region without neurogenic claudication, cervical thoracic and lumbar stenosisCOMPARISON: 08/28/2020.IMPRESSION:L eft convex curvature of the lumbar spine was seen.L1-S1, sacroiliac fusion is present with separate construct for L1-L2 fusion. There is interbody fusion at L1-L2, L2-L3, L3-L4, L4-L5, L5-S1 levels with interbody device well incorporated. L4-L5 and L5-S1 spinal laminectomy.There is no evidence of a dynamic instability.[id number]_PS 01 XR Thoracic 2020-09-03 EXAMINATION: XR Methodi st Spine 2 Vw 0 THORACIC SPINE 2 VW [facility] 19:18:49 CLINICAL HISTORY: M48.04 Spinal stenosis thoracic region, cervical thoracic and lumbar stenosis COMPARISON: None. IMPRESSION: Thoracic spine, 3 views. Partially imaged cervical/cervicothorac ic junction fusion hardware is seen. There is a degenerative change in the thoracic spine most prominently in the mid to upper thoracic spine with loss of disc height and marginal osteophyte formation. The vertebral body heights are maintained. No spondylolisthesis is seen. Thoracic kyphosis is normal. Soft tissues are maintained. [id number] Interface, Radiology Results 09/30/2020 2:21 PM CDT EXAMINATION: XR THORACIC SPINE 2 VWCLINICAL HISTORY: M48.04 Spinal stenosis thoracic region, cervical thoracic and lumbar stenosisCOMPARISON: None.IMPRESSION:Thorac ic spine, 3 views.Partially imaged cervical/cervicothorac ic junction fusion hardware is seen.There is a degenerative change in the thoracic spine most prominently in the mid to upper thoracic spine with loss of disc height and marginal osteophyte formation. The vertebral body heights are maintained. No spondylolisthesis is seen. Thoracic kyphosis is normal.Soft tissues are maintained.[id number] 1 [QL] COMPLEMENT COMP C3 + C4 2020-09-01 12:30:00 Test Item Value Reference Range Interpretation Comme nts COMPLEMENT COMPONENT C3C (test code = COMPLEMENT COMPONENT C 3C) 216 mg/dl 82-185 COMPLEMENT COMPONENT C4C (test code = COMPLEMENT COMPONENT C4C) 40 mg/dl 15-53 N [facility][QL] CMP [id number] 12:30:00 Test Item Value Reference Range Interpretation Comments GLUCOSE; Above 115 mg/dl 65-99 Fasting refer ence High Threshold interval For someone (test code = without known 1547-9) diabetes, a glu cose valuebetween 10 0 and 125 mg/dL is consistent withprediabetes and should be confi rmed with afollow-up test. UREA NITROGEN 22 mg/dl 7-25 N (BUN) (test code = UREA NITROGEN (BUN)) CREATININE (test 1.23 mg/dl 0.70-1.25 N For patient s >49 years code = of age, the ref erence CREATININE) limitfor Creati nine is approximately 1 3% higher for peopleidentifie d as -Radha n. eGFR NON-AFR. 60 {ML/MIN/1.7} See_Comment N [Automated message] DOMINICAN (test The system ich code = eGFR generated this result NON-AFR. transmitted ref erence DOMINICAN) range: > OR = 6 0. The reference range was not used to int erpret this result as normal/abnormal . eGFR 69 {ML/MIN/1.7} See_Comment N [Automated message] DOMINICAN (test The system ich code = eGFR generated this result ) transmitte d reference range: > OR = 6 0. The reference range was not used to int erpret this result as normal/abnormal . BUN/CREATININE NOT APPLICABLE 6-22 RATIO (test code = BUN/CREATININE RATIO) SODIUM (test code 140 mmol/L 135-146 N = SODIUM) POTASSIUM (test 4.8 mmol/L 3.5-5.3 N code = POTASSIUM) CHLORIDE (test 101 mmol/L 98-110 N code = CHLORIDE) CARBON DIOXIDE 29 mmol/L 20-32 N (test code = CARBON DIOXIDE) CALCIUM (test 9.6 mg/dl 8.6-10.3 N code = CALCIUM) PROTEIN, TOTAL 6.4 g/dl 6.1-8.1 N (test code = PROTEIN, TOTAL) ALBUMIN (test 4.2 g/dl 3.6-5.1 N code = ALBUMIN) GLOBULIN (test 2.2 {G/DL CALC} 1.9-3.7 N code = GLOBULIN) ALBUMIN/GLOBULIN 1.9 {CALC} 1.0-2.5 N RATIO (test code = ALBUMIN/GLOBULIN RATIO) BILIRUBIN, TOTAL; 0.6 mg/dl 0.2-1.2 N Normal (test code = 82407-9) ALKALINE 125 u/l 35-144 N PHOSPHATASE (test code = ALKALINE PHOSPHATASE) AST; Normal (test 18 u/l 10-35 N code = 1916-6) ALT; Below Low 8 u/l 9-46 Threshold (test code = 1742-6) [facility] Physicians[QL] URINALYSIS, COMPLETE W/REFLEX TO CULTURE 2020-09-01 12:30:00 Test Item Value Reference Range Interpretation Comments COLOR; Normal (test DARK YELLOW YELLOW N code = 5778-6) APPEARANCE (test code CLOUDY CLEAR A = APPEARANCE) SPECIFIC GRAVITY; 1.031 1.001-1.035 N Normal (test code = 2965-2) PH; Normal (test code 6.0 5.0-8.0 N = 2756-5) GLUCOSE; Normal (test NEGATIVE NEGATIVE N code = 1547-9) BILIRUBIN; Normal NEGATIVE NEGATIVE N (test code = 37512-2) KETONES; Abnormal 1+ NEGATIVE A (test code = 95580-6) OCCULT BLOOD; Normal NEGATIVE NEGATIVE N (test code = 09925-6) PROTEIN; Abnormal 2+ NEGATIVE A (test code = 75809-7) NITRITE (test code = NEGATIVE NEGATIVE N NITRITE) LEUKOCYTE ESTERASE TRACE NEGATIVE A (test code = LEUKOCYTE ESTERASE) WBC; Normal (test 0-5 See_Comment N [Automate d message] code = 6690-2) The system [facility] generated this result transmitted ref erence range: < OR = 5 . The reference range was not used to int erpret this result as normal/abnormal . RBC; Normal (test 0-2 See_Comment N [Automate d message] code = 789-8) The system [facility] generated this result transmitted ref erence range: < OR = 2 . The reference range was not used to int erpret this result as normal/abnormal . SQUAMOUS EPITHELIAL 0-5 See_Comment [Automa rodger message] CELLS (test code = The syste m which 34694-8) generated this result transmitted ref erence range: < OR = 5 . The reference range was not used to int erpret this result as normal/abnormal . BACTERIA; Normal NONE SEEN NONE SEEN N (test code = 630-4) CALCIUM OXALATE MANY NONE OR FEW A CRYSTALS; Abnormal (test code = 42452-8) HYALINE CAST; Normal NONE SEEN NONE SEEN N (test code = 79248-6) [facility][Q] REFLEXIVE URINE [id number] 12:30:00 Test Item Value Reference Range Interpretation Comments REFLEXIVE URINE See Below CULTURE WILLIAM CATED - CULTURE (test code = RESULTS TO FOLLOW REFLEXIVE URINE CULTURE) [facility][QL] CBC (INCLUDES DIFF/PLT)2020-09-01 12:30:00 Test Item Value Reference Range Interpretation Comments WHITE BLOOD CELL COUNT 8.7 {Thousand/u} 3.8-10.8 N (test code = WHITE BLOOD CELL COUNT) RED BLOOD CELL COUNT (test 4.56 {Million/uL} 4.20-5.80 N code = RED BLOOD CELL COUNT) HEMOGLOBIN; Normal (test 13.8 g/dl 13.2-17.1 N code = 06199-1) HEMATOCRIT; Normal (test 42.9 % 38.5-50.0 N code = 4544-3) MCV; Normal (test code = 94.1 fL 80.0-100.0 N 787-2) MCHC; Normal (test code = 32.2 g/dl 32.0-36.0 N 08630-6) RDW; Above High Threshold 15.5 % 11.0-15.0 (test code = 788-0) PLATELET COUNT; Normal 257 {Thousand/u} 140-400 N (test code = 777-3) MPV; Normal (test code = 10.1 fL 7.5-12.5 N 66002-1) ABSOLUTE NEUTROPHILS (test 6299 {cells/uL} 0785-4429 N code = ABSOLUTE NEUTROPHILS) ABSOLUTE LYMPHOCYTES (test 1105 {cells/uL} 850-3900 N code = ABSOLUTE LYMPHOCYTES) ABSOLUTE MONOCYTES (test 1096 {cells/uL} 200-950 code = ABSOLUTE MONOCYTES) ABSOLUTE EOSINOPHILS (test 122 {cells/uL} 15-500 N code = ABSOLUTE EOSINOPHILS) ABSOLUTE BASOPHILS (test 78 {cells/uL} 0-200 N code = ABSOLUTE BASOPHILS) NEUTROPHILS (test code = 72.4 % N NEUTROPHILS) LYMPHOCYTES (test code = 12.7 % N LYMPHOCYTES) MONOCYTES; Normal (test 12.6 % N code = 48516-8) EOSINOPHILS; Normal (test 1.4 % N code = 46425-9) BASOPHILS; Normal (test 0.9 % N code = 08618-0) [facility][QL] CULTURE, URINE, [id number] 12:30:00 Test Item Value Reference Range Interpretation Comments CULTURE (test code See Comment CULTURE, URINE, ROUTINE = CULTURE) Micro Numbe r: [id number] Test Status: Final Spe cimen Source: URINE Specimen Qualit y: Adequate Resul t: Less than 10,000 CFU/mL of singl e Gram positive organism i solated. No further test ing will be performed. If clinically william cated, recollection using a method to minimize contamination, with prompt transfer to Uri ne Culture Transpo rt Tube, is recommended. [facility] [id number] 12:44:00 Test Item Value Reference Range Interpretation Comments POC-Glucose Meter (test 123 mg/dL 70-110 H : TE STED AT [facility] code = 1538) [address] [place] [address]: Negative Retoucher/Techni tessy ID = [id number] for Jodi Laird Lab Interpretation (test Abnormal code = 77075-5) [facility] [id number] 12:44:00 Test Item Value Reference Range Interpretation Comments POC-Glucose Meter (test 123 mg/dL 70-110 H : TE STED AT [facility] code = 1538) [address] [address]: Negative Retoucher/Techni tessy ID = [id number] for Jodi Laird Lab Interpretation (test Abnormal code = 80181-6) [facility] [id number] 12:44:00 Test Item Value Reference Range Interpretation Comments POC-GLUCOSE METER 123 mg/dL 70-110 H : TESTED A T [facility] [address] (BEAKER) (test code [address], = 1538) [place] [address]: Negative Retoucher/Techni tessy ID = [id number] for Daniel h, Jodi POCT-GLUCOSE [id number] 08:51:00 Test Item Value Reference Range Interpretation Comments POC-GLUCOSE METER 206 mg/dL 70-110 H : TESTED A T [facility] [address] (BEAKER) (test code [address], = 15[address]) [place] [address]: Negative Retoucher/Techni tessy ID = [id number] for Daniel h, Jodi POCT-GLUCOSE [id number] 21:34:00 Test Item Value Reference Range Interpretation Comments POC-GLUCOSE METER 193 mg/dL 70-110 H : TESTED A T [facility] [address] (BEAKER) (test code [address], = [address]) [place] [address]: Negative Retoucher/Techni tessy ID = [id number] for Magan De Jesus POCT-GLUCOSE [id number] 15:38:00 Test Item Value Reference Range Interpretation Comments POC-GLUCOSE METER 121 mg/dL 70-110 H : TESTED A T [facility] [address] (BEAKER) (test code [facility] [address], = 1538) [place] [address]: Negative Retoucher/Techni tessy ID = [id number] for Ali, Moi POCT-GLUCOSE [id number] 12:06:00 Test Item Value Reference Range Interpretation Comments POC-GLUCOSE METER 132 mg/dL 70-110 H : TESTED A T [facility] [address] (BEAKER) (test code [address], = 1538) [place] [address]: Negative Retoucher/Techni tessy ID = [id number] for Ali, Moi POCT-GLUCOSE [id number] 09:02:00 Test Item Value Reference Range Interpretation Comments POC-GLUCOSE METER 103 mg/dL 70-110 : TESTED A T [facility] [address] (BEAKER) (test code [address], = 1538) [place] [address]: Negative Retoucher/Techni tessy ID = [id number] for Phuong Randolph CBC with platelet count + automated [id number] 08:30:00 Test Item Value Reference Range Interpretation Comments WBC (test code = 6690-2) 4.7 See_Comment [A utomated message] The system [employer] generated this result transmitted ref erence range: 4.0 - 10 .0 K/L. The refe rence range was not u sed to interpret this result as normal/abnor mal. RBC (test code = 789-8) 3.78 See_Comment L [Au tomated message] The system [employer] generated this result transmitted ref erence range: 4.20 - 5 .80 M/L. The refe rence range was not u sed to interpret this result as normal/abnor mal. MCHC (test code = 786-4) 30.2 See_Comment L [A utomated message] The system [employer] generated this result transmitted ref erence range: 32.0 - 3 6.0 GM/DL. The refe rence range was not u sed to interpret this result as normal/abnor mal. Hematocrit (test code = 36.4 % 36-50 4544-3) MCV (test code = 787-2) 96.3 fL 82-99 MCH (test code = 785-6) 29.1 pg 27-33 RDW (test code = 788-0) 14.9 % 12-15 Platelets (test code = 180 See_Comment [Aut omated message] 777-3) The system [employer] generated this result transmitted ref erence range: 150 - 43 0 K/CU MM. The referen ce range was not u sed to interpret this result as normal/abnor mal. MPV (test code = 10.0 fL 6-11.5 77004-7) nRBC (test code = 413) 0 See_Comment [Aut omated message] The system [employer] generated this result transmitted ref erence range: 0 - 0 /1 00 WBC. The refere nce range was not u sed to interpret this result as normal/abnor mal. Lab Interpretation (test Abnormal code = 40837-6) [facility] [id number] 08:30:00 Test Item Value Reference Range Interpretation Comments % Neutros (manual) (test 52 % code = 1359) % Lymphs (manual) (test 23 % code = 1360) % Monos (manual) (test 20 % code = 1361) % Eos (manual) (test 3 % code = 1362) % Baso (manual) (test 2 % code = 1363) # Neutros (manual) (test 2.44 See_Comment [A utomated message] code = 1365) The system [employer] generated this result transmitted ref erence range: 1.80 - 8 .00 K/L. The refe rence range was not u sed to interpret this result as normal/abnor mal. # Lymphs (manual) (test 1.08 See_Comment L [Au tomated message] code = 1366) The system [employer] generated this result transmitted ref erence range: 1.48 - 4 .50 K/L. The refe rence range was not u sed to interpret this result as normal/abnor mal. # Monos (manual) (test 0.94 See_Comment [Aut omated message] code = 1367) The system [employer] generated this result transmitted ref erence range: 0.00 - 1 .30 K/L. The refe rence range was not u sed to interpret this result as normal/abnor mal. # Eos (manual) (test 0.14 See_Comment [Autom ated message] code = 1368) The system [employer] generated this result transmitted ref erence range: 0.00 - 0 .50 K/L. The refe rence range was not u sed to interpret this result as normal/abnor mal. # Baso (manual) (test 0.09 See_Comment [Auto mated message] code = 1369) The system [employer] generated this result transmitted ref erence range: 0.00 - 0 .20 K/L. The refe rence range was not u sed to interpret this result as normal/abnor mal. Total Counted (test code 100 = 1351) WBC Morphology (test Normal code = 487) Platelet Morphology Normal (test code = 486) RBC Morphology (test Normal code = 762) Lab Interpretation (test Abnormal code = 20194-2) [facility] with platelet count + automated [id number] 08:30:00 Test Item Value Reference Range Interpretation Comments WBC (test code = 6690-2) 4.7 See_Comment [A utomated message] The system [employer] generated this result transmitted ref erence range: 4.0 - 10 .0 K/L. The refe rence range was not u sed to interpret this result as normal/abnor mal. RBC (test code = 789-8) 3.78 See_Comment L [Au tomated message] The system [employer] generated this result transmitted ref erence range: 4.20 - 5 .80 M/L. The refe rence range was not u sed to interpret this result as normal/abnor mal. MCHC (test code = 786-4) 30.2 See_Comment L [A utomated message] The system [employer] generated this result transmitted ref erence range: 32.0 - 3 6.0 GM/DL. The refe rence range was not u sed to interpret this result as normal/abnor mal. Hematocrit (test code = 36.4 % 36-50 4544-3) MCV (test code = 787-2) 96.3 fL 82-99 MCH (test code = 785-6) 29.1 pg 27-33 RDW (test code = 788-0) 14.9 % 12-15 Platelets (test code = 180 See_Comment [Aut omated message] 777-3) The system [employer] generated this result transmitted ref erence range: 150 - 43 0 K/CU MM. The referen ce range was not u sed to interpret this result as normal/abnor mal. MPV (test code = 10.0 fL 6-11.5 59725-6) nRBC (test code = 413) 0 See_Comment [Aut omated message] The system [employer] generated this result transmitted ref erence range: 0 - 0 /1 00 WBC. The refere nce range was not u sed to interpret this result as normal/abnor mal. Lab Interpretation (test Abnormal code = 71999-4) [facility] [id number] 08:30:00 Test Item Value Reference Range Interpretation Comments % Neutros (manual) (test 52 % code = 1359) % Lymphs (manual) (test 23 % code = 1360) % Monos (manual) (test 20 % code = 1361) % Eos (manual) (test 3 % code = 1362) % Baso (manual) (test 2 % code = 1363) # Neutros (manual) (test 2.44 See_Comment [A utomated message] code = 1365) The system [employer] generated this result transmitted ref erence range: 1.80 - 8 .00 K/L. The refe rence range was not u sed to interpret this result as normal/abnor mal. # Lymphs (manual) (test 1.08 See_Comment L [Au tomated message] code = 1366) The system [employer] generated this result transmitted ref erence range: 1.48 - 4 .50 K/L. The refe rence range was not u sed to interpret this result as normal/abnor mal. # Monos (manual) (test 0.94 See_Comment [Aut omated message] code = 1367) The system [employer] generated this result transmitted ref erence range: 0.00 - 1 .30 K/L. The refe rence range was not u sed to interpret this result as normal/abnor mal. # Eos (manual) (test 0.14 See_Comment [Autom ated message] code = 1368) The system [employer] generated this result transmitted ref erence range: 0.00 - 0 .50 K/L. The refe rence range was not u sed to interpret this result as normal/abnor mal. # Baso (manual) (test 0.09 See_Comment [Auto mated message] code = 1369) The system [employer] generated this result transmitted ref erence range: 0.00 - 0 .20 K/L. The refe rence range was not u sed to interpret this result as normal/abnor mal. Total Counted (test code 100 = 1351) WBC Morphology (test Normal code = 487) Platelet Morphology Normal (test code = 486) RBC Morphology (test Normal code = 762) Lab Interpretation (test Abnormal code = 08852-9) [facility] W/PLT COUNT & AUTO [id number] 08:30:00 Test Item Value Reference Range Interpretation Comments WHITE BLOOD CELL COUNT (BEAKER) 4.7 K/ L 4.0-10.0 (test code = 775) RED BLOOD CELL COUNT (BEAKER) 3.78 M/ L 4.20-5.80 L (test code = 761) HEMOGLOBIN (BEAKER) (test code = 11.0 GM/DL 13.0-16.8 L 410) HEMATOCRIT (BEAKER) (test code = 36.4 % 36.0-50.0 411) MEAN CORPUSCULAR VOLUME (BEAKER) 96.3 fL 82.0-99.0 (test code = 753) MEAN CORPUSCULAR HEMOGLOBIN 29.1 pg 27.0-33.0 (BEAKER) (test code = 751) MEAN CORPUSCULAR HEMOGLOBIN CONC 30.2 GM/DL 32.0-36.0 L (BEAKER) (test code = 752) RED CELL DISTRIBUTION WIDTH 14.9 % 12.0-15.0 (BEAKER) (test code = 412) PLATELET COUNT (BEAKER) (test 180 K/CU MM 150-430 code = 756) MEAN PLATELET VOLUME (BEAKER) 10.0 fL 6.0-11.5 (test code = 754) NUCLEATED RED BLOOD CELLS 0 /100 WBC 0-0 (BEAKER) (test code = 413) (MANUAL DIFFERENTIAL)2020-08-20 08:30:00 Test Item Value Reference Range Interpretation Comments NEUTROPHILS - REL (DIFF) (BEAKER) 52 % (test code = 1359) LYMPHOCYTES - REL (DIFF) (BEAKER) 23 % (test code = 1360) MONOCYTES - REL (DIFF) (BEAKER) 20 % (test code = 1361) EOSINOPHILS - REL (DIFF) (BEAKER) 3 % (test code = 1362) BASOPHILS - REL (DIFF) (BEAKER) 2 % (test code = 1363) NEUTROPHILS - ABS (DIFF) (BEAKER) 2.44 K/ L 1.80-8.00 (test code = 1365) LYMPHOCYTES - ABS (DIFF) (BEAKER) 1.08 K/ L 1.48-4.50 L (test code = 1366) MONOCYTES - ABS (DIFF) (BEAKER) 0.94 K/ L 0.00-1.30 (test code = 1367) EOSINOPHILS - ABS (DIFF) (BEAKER) 0.14 K/ L 0.00-0.50 (test code = 1368) BASOPHILS - ABS (DIFF) (BEAKER) 0.09 K/ L 0.00-0.20 (test code = 1369) TOTAL COUNTED (BEAKER) (test code = 100 1351) WBC MORPHOLOGY (BEAKER) (test code Normal = 487) PLT MORPHOLOGY (BEAKER) (test code Normal = 486) RBC MORPHOLOGY (BEAKER) (test code Normal = 762) Comprehensive metabolic [id number] 07:07:00 Test Item Value Reference Range Interpretation Comments Protein, Total (test 5.7 See_Comment L [Autom ated code = 2885-2) message] The system which generated this result transmitted reference range : 6.0 - 8.5 gm/dL . The reference range was not used to interpr et this result as normal/abnormal . Albumin (test code = 3.2 g/dL 3.5-5 L 71536-5) Alkaline Phosphatase 61 U/L 30-115 (test code = 6768-6) Total Bilirubin 0.5 mg/dL 0.1-1.2 (test code = 1975-2) Sodium (test code = 140 meq/L 194-530 7288-2) Potassium (test code 3.9 meq/L 3.6-5.5 = 2823-3) Chloride (test code 103 meq/L 98-106 = 2075-0) CO2 (test code = 28 meq/L 20-29 8-9) BUN (test code = 13 mg/dL 10-26 3094-0) Creatinine (test 0.70 mg/dL 0.5-1.2 code = 2160-0) Glucose (test code = 104 mg/dL 70-110 2345-7) Calcium (test code = 9.0 mg/dL 8.5-10.5 07226-0) AST (test code = 26 U/L 5-40 1920-8) ALT (test code = 10 U/L 5-50 1742-6) EGFR (test code = 112 mL/min/1[place]73 [place] [address]-5) m NOT ACCURATE CREATININE CLEARANCE IN PREDICTING GLOMERULAR FILTRATION RATE . ESTIMATED GFR I S NOT APPLICABLE FOR DIALYSIS PATIENTS. JANES (test code = Negative Retoucher ID - JANES) LITOOperator ID - LITOOperator ID - LITOOperator ID - LITOOperator ID - LITOOperator ID - LITOOperator ID - LITOOperator ID - LITOOperator ID - LITOOperator ID - LITOOperator ID - LITOOperator ID - LITOOperator ID - LITOOperator ID - LITOOperator ID - LITOOperator ID - ASCENCION Lab Interpretation Abnormal (test code = 68852-8) [facility] 07:07:00 Test Item Value Reference Range Interpretation Comments Magnesium (test code = 1.5 mg/dL 1.5-3 53564-0) JANES (test code = JANES) Negative Retoucher ID - LITOOperator ID - LITOOperator ID - LITOOperator ID - ASCENCION Lab Interpretation (test Normal code = 53183-5) [facility] [id number] 07:07:00 Test Item Value Reference Range Interpretation Comments Protein, Total (test 5.7 See_Comment L [Autom ated code = 2885-2) message] The system which generated this result transmitted reference range : 6.0 - 8.5 gm/dL . The reference range was not used to interpr et this result as normal/abnormal . Albumin (test code = 3.2 g/dL 3.5-5 L 37854-3) Alkaline Phosphatase 61 U/L 30-115 (test code = 6768-6) Total Bilirubin 0.5 mg/dL 0.1-1.2 (test code = 1975-2) Sodium (test code = 140 meq/L 137-558 4093-2) Potassium (test code 3.9 meq/L 3.6-5.5 = 2823-3) Chloride (test code 103 meq/L 98-106 = 2075-0) CO2 (test code = 28 meq/L 20-29 2027-9) BUN (test code = 13 mg/dL 10-26 3094-0) Creatinine (test 0.70 mg/dL 0.5-1.2 code = 2160-0) Glucose (test code = 104 mg/dL 70-110 2345-7) Calcium (test code = 9.0 mg/dL 8.5-10.5 44256-0) AST (test code = 26 U/L 5-40 1920-8) ALT (test code = 10 U/L 5-50 1742-6) EGFR (test code = 112 mL/min/1.73 [place] [address]-6) m NOT ACCURATE CREATININE CLEARANCE IN PREDICTING GLOMERULAR FILTRATION RATE . ESTIMATED GFR I S NOT APPLICABLE FOR DIALYSIS PATIENTS. JANES (test code = Negative Retoucher ID - JANES) LITOOperator ID - LITOOperator ID - LITOOperator ID - LITOOperator ID - LITOOperator ID - LITOOperator ID - LITOOperator ID - LITOOperator ID - LITOOperator ID - LITOOperator ID - LITOOperator ID - LITOOperator ID - LITOOperator ID - LITOOperator ID - LITOOperator ID - ASCENCION Lab Interpretation Abnormal (test code = 32791-8) [facility] 07:07:00 Test Item Value Reference Range Interpretation Comments Magnesium (test code = 1.5 mg/dL 1.5-3 59035-5) JANES (test code = JANES) Negative Retoucher ID - LITOOperator ID - LITOOperator ID - LITOOperator ID - ASCENCION Lab Interpretation (test Normal code = 52578-6) [facility] [id number] 07:07:00 Test Item Value Reference Range Interpretation Comments TOTAL PROTEIN 5.7 gm/dL 6.0-8.5 L (BEAKER) (test code = 770) ALBUMIN (BEAKER) 3.2 g/dL 3.5-5.0 L (test code = 1145) ALKALINE PHOSPHATASE 61 U/L 30-115 (BEAKER) (test code = 346) BILIRUBIN TOTAL 0.5 mg/dL 0.1-1.2 (BEAKER) (test code = 377) SODIUM (BEAKER) (test 140 meq/L 135-148 code = 381) POTASSIUM (BEAKER) 3.9 meq/L 3.6-5.5 (test code = 379) CHLORIDE (BEAKER) 103 meq/L 98-106 (test code = 382) CO2 (BEAKER) (test 28 meq/L 20-29 code = 355) BLOOD UREA NITROGEN 13 mg/dL 10-26 (BEAKER) (test code = 354) CREATININE (BEAKER) 0.70 mg/dL 0.50-1.20 (test code = 358) GLUCOSE RANDOM 104 mg/dL 70-110 (BEAKER) (test code = 652) CALCIUM (BEAKER) 9.0 mg/dL 8.5-10.5 (test code = 697) AST (SGOT) (BEAKER) 26 U/L 5-40 (test code = 353) ALT (SGPT) (BEAKER) 10 U/L 5-50 (test code = 347) EGFR (BEAKER) (test 112 ESTIMATE D GFR IS code = 1092) mL/min/1.73 sq NOT ACCURA TE m CREATININE CLEARANCE IN PREDICTING GLOMERULAR FILTRATION RATE . ESTIMATED GFR I S NOT APPLICABLE FOR DIALYSIS PATIEN TS. Negative Retoucher ID - LITOOperator ID - LITOOperator ID - LITOOperator ID - LITOOperator ID - LITOOperator ID - LITOOperator ID - LITOOperator ID - LITOOperator ID - LITOOperator ID - LITOOperator ID - LITOOperator ID - LITOOperator ID - LITOOperator ID - LITOOperator ID - LITOOperator ID - [id number] 07:07:00 Test Item Value Reference Range Interpretation Comments MAGNESIUM (BEAKER) (test code = 1.5 mg/dL 1.5-3.0 627) Negative Retoucher ID - LITOOperator ID - LITOOperator ID - LITOOperator ID - LITOPOCT- GLUCOSE [id number] 21:21:00 Test Item Value Reference Range Interpretation Comments POC-GLUCOSE METER 147 mg/dL 70-110 H : TESTED A T [facility] [address] (BEAKER) (test code [address], = 1538) [place] [address]: Negative Retoucher/Techni tessy ID = [id number] for Davin Maldonado POCT-GLUCOSE [id number] 16:32:00 Test Item Value Reference Range Interpretation Comments POC-GLUCOSE METER 143 mg/dL 70-110 H : TESTED A T [facility] [address] (BEAKER) (test code [address], = 1538) [place] [address]: Negative Retoucher/Techni tessy ID = [id number] for Ali, Moi CBC W/PLT COUNT & AUTO [id number] 15:16:00 Test Item Value Reference Range Interpretation Comments WHITE BLOOD CELL COUNT (BEAKER) 2.9 K/ L 4.0-10.0 L (test code = 775) RED BLOOD CELL COUNT (BEAKER) 3.35 M/ L 4.20-5.80 L (test code = 761) HEMOGLOBIN (BEAKER) (test code = 9.9 GM/DL 13.0-16.8 L 410) HEMATOCRIT (BEAKER) (test code = 32.2 % 36.0-50.0 L 411) MEAN CORPUSCULAR VOLUME (BEAKER) 96.1 fL 82.0-99.0 (test code = 753) MEAN CORPUSCULAR HEMOGLOBIN 29.6 pg 27.0-33.0 (BEAKER) (test code = 751) MEAN CORPUSCULAR HEMOGLOBIN CONC 30.7 GM/DL 32.0-36.0 L (BEAKER) (test code = 752) RED CELL DISTRIBUTION WIDTH 15.3 % 12.0-15.0 H (BEAKER) (test code = 412) PLATELET COUNT (BEAKER) (test 138 K/CU MM 150-430 L code = 756) MEAN PLATELET VOLUME (BEAKER) 11.1 fL 6.0-11.5 (test code = 754) NUCLEATED RED BLOOD CELLS 0 /100 WBC 0-0 (BEAKER) (test code = 413) NEUTROPHILS RELATIVE PERCENT 54 % (BEAKER) (test code = 429) LYMPHOCYTES RELATIVE PERCENT 24 % (BEAKER) (test code = 430) MONOCYTES RELATIVE PERCENT 17 % (BEAKER) (test code = 431) EOSINOPHILS RELATIVE PERCENT 3 % (BEAKER) (test code = 432) BASOPHILS RELATIVE PERCENT 1 % (BEAKER) (test code = 437) NEUTROPHILS ABSOLUTE COUNT 1.54 K/ L 1.80-8.00 L (BEAKER) (test code = 670) LYMPHOCYTES ABSOLUTE COUNT 0.69 K/ L 1.48-4.50 L (BEAKER) (test code = 414) MONOCYTES ABSOLUTE COUNT (BEAKER) 0.49 K/ L 0.00-1.30 (test code = 415) EOSINOPHILS ABSOLUTE COUNT 0.09 K/ L 0.00-0.50 (BEAKER) (test code = 416) BASOPHILS ABSOLUTE COUNT (BEAKER) 0.03 K/ L 0.00-0.20 (test code = 417) IMMATURE GRANULOCYTES-RELATIVE 1 % 0-0 H PERCENT (BEAKER) (test code = 2801) POCT-GLUCOSE [id number] 12:17:00 Test Item Value Reference Range Interpretation Comments POC-GLUCOSE METER 131 mg/dL 70-110 H : TESTED A T [facility] [address] (BEAKER) (test code [address], = 1538) [facility] [address] 478: Negative Retoucher/Techni tessy ID = [id number] for Traci u, Larisa POCT-GLUCOSE [id number] 08:50:00 Test Item Value Reference Range Interpretation Comments POC-GLUCOSE METER 97 mg/dL 70-110 : TESTED A T [facility] [address] (BEAKER) (test code = [address]) [place] [address]: Negative Retoucher/Techni tessy ID = [id number] for Traci uJoaoLarisa [id number] 08:26:00 Test Item Value Reference Range Interpretation Comments MAGNESIUM (BEAKER) (test code = 1.3 mg/dL 1.5-3.0 L 627) Negative Retoucher ID - upah86Ssyzqxmb ID - [id number] ID - [id number] ID - [id number] COMPREHENSIVE METABOLIC [id number] 08:26:00 Test Item Value Reference Range Interpretation Comments TOTAL PROTEIN 5.3 gm/dL 6.0-8.5 L (BEAKER) (test code = 770) ALBUMIN (BEAKER) 3.0 g/dL 3.5-5.0 L (test code = 1145) ALKALINE PHOSPHATASE 53 U/L 30-115 (BEAKER) (test code = 346) BILIRUBIN TOTAL 0.6 mg/dL 0.1-1.2 (BEAKER) (test code = 377) SODIUM (BEAKER) (test 140 meq/L 135-148 code = 381) POTASSIUM (BEAKER) 3.9 meq/L 3.6-5.5 (test code = 379) CHLORIDE (BEAKER) 105 meq/L 98-106 (test code = 382) CO2 (BEAKER) (test 26 meq/L 20-29 code = 355) BLOOD UREA NITROGEN 12 mg/dL 10-26 (BEAKER) (test code = 354) CREATININE (BEAKER) 0.69 mg/dL 0.50-1.20 (test code = 358) GLUCOSE RANDOM 104 mg/dL 70-110 (GreasebookAKER) (test code = 652) CALCIUM (BEAKER) 8.7 mg/dL 8.5-10.5 (test code = 697) AST (SGOT) (BEAKER) 27 U/L 5-40 (test code = 353) ALT (SGPT) (AKER) 9 U/L 5-50 (test code = 347) EGFR (AKER) (test 114 ESTIMATE D GFR IS code = 1092) mL/min/1.73 sq NOT ACCURA TE m CREATININE CLEARANCE IN PREDICTING GLOMERULAR FILTRATION RATE . ESTIMATED GFR I S NOT APPLICABLE FOR DIALYSIS PATIEN TS. Negative Retoucher ID - [id number] ID - [id number] ID - [id number] ID - [id number] ID - [id number] ID - [id number] ID - [id number] ID - [id number] ID - [id number] ID - [id number] ID - [id number] ID - [id number] ID - [id number] ID - [id number] ID - [id number] ID - [id number] 21:59:00 Test Item Value Reference Range Interpretation Comments POC-GLUCOSE METER 133 mg/dL 70-110 H : TESTED A T [facility] [address] ([place]) (test code [address], = 1538) [place] [id number]: Negative Retoucher/Techni tessy ID = [id number] for Antonella May POCT-GLUCOSE [id number] 16:53:00 Test Item Value Reference Range Interpretation Comments POC-GLUCOSE METER 127 mg/dL 70-110 H : TESTED A T [address] ([place]) (test code [address], = 1538) [place] [address]: Negative Retoucher/Techni tessy ID = [id number] for Ali, Moi XR hip 2 views [id number] 14:45:00Interface, External Ris In - 08/18/2020 3:06 PM CSTFINAL REPORT Right hip History provided: Hip pain No bony or joint abnormality is noted at the level of the right hip. Extensive fusion hardware in the lumbar spine and extending across the SI joints. Signed: Ronan Florian Verified Date/Time: 08/18/2020 14:45:09 Reading Location: [facility] Radiology [facility] [place] 2 views [id number] 14:45:00Interface, External Ris In - 08/18/2020 3:06 PM CSTFINAL REPORT Right hip History provided: Hip pain No bony or joint abnormality is noted at the level of the right hip. Extensive fusion hardware in the lumbar spine and extending across the SI joints. Signed: Ronan Florian Verified Date/Time: 08/18/2020 14:45:09 Reading Location: [facility] Radiology [facility] [place], HIP, 2-3 VIEWS, RIGHT, TO INCL PELVIS WHEN [id number] 14:45:00Reason for exam:->pain [facility] : 1950 Sex: MFINAL REPORT Right hip History provided: Hip pain No bony or joint ab normality is noted at the level of the right hip. Extensive fusion hardware in the lumbar spine and extending across the SI joints. Signed: Ronan Florian Verified Date/Time: 08/18/2020 14:45:09 Reading Location: [facility] Radiology Reading Room Electronically signed by: RONAN FLORIAN on 02:45 PMPOCT-GLUCOSE [id number] 11:39:00 Test Item Value Reference Range Interpretation Comments POC-GLUCOSE METER 106 mg/dL 70-110 : Notified RN/MD: TESTED (BEAKER) (test code AT [facility] [address] [address] = 1538) [facility] [address]: Negative Retoucher/Techni tessy ID = [id number] for Ali, Moi POCT-GLUCOSE [id number] 07:57:00 Test Item Value Reference Range Interpretation Comments POC-GLUCOSE METER 127 mg/dL 70-110 H : Notified RN/MD: [facility] (test code AT [facility] [address] [address] = 1538) [facility] [address]: Negative Retoucher/Techni tessy ID = [id number] for Selene Frank [id number] 06:24:00 Test Item Value Reference Range Interpretation Comments MAGNESIUM (BEAKER) (test code = 1.5 mg/dL 1.5-3.0 627) Negative Retoucher ID - JEBERNOperator ID - JEBERNOperator ID - JEBERNOperator ID - JEBERN COMPREHENSIVE METABOLIC [id number] 06:24:00 Test Item Value Reference Range Interpretation Comments TOTAL PROTEIN 5.3 gm/dL 6.0-8.5 L (BEAKER) (test code = 770) ALBUMIN (BEAKER) 3.1 g/dL 3.5-5.0 L (test code = 1145) ALKALINE PHOSPHATASE 49 U/L 30-115 (BEAKER) (test code = 346) BILIRUBIN TOTAL 0.5 mg/dL 0.1-1.2 (BEAKER) (test code = 377) SODIUM (BEAKER) (test 139 meq/L 135-148 code = 381) POTASSIUM (BEAKER) 3.9 meq/L 3.6-5.5 (test code = 379) CHLORIDE (BEAKER) 107 meq/L 98-106 H (test code = 382) CO2 (BEAKER) (test 24 meq/L 20-29 code = 355) BLOOD UREA NITROGEN 13 mg/dL 10-26 (BEAKER) (test code = 354) CREATININE (BEAKER) 0.72 mg/dL 0.50-1.20 (test code = 358) GLUCOSE RANDOM 154 mg/dL 70-110 H (BEAKER) (test code = 652) CALCIUM (BEAKER) 8.6 mg/dL 8.5-10.5 (test code = 697) AST (SGOT) (BEAKER) 35 U/L 5-40 (test code = 353) ALT (SGPT) (BEAKER) 9 U/L 5-50 (test code = 347) EGFR (BEAKER) (test 109 ESTIMATE D GFR IS code = 1092) mL/min/1.73 sq NOT ACCURA TE m CREATININE CLEARANCE IN PREDICTING GLOMERULAR FILTRATION RATE . ESTIMATED GFR I S NOT APPLICABLE FOR DIALYSIS PATIEN TS. Negative Retoucher ID - JEBERNOperator ID - JEBERNOperator ID - JEBERNOperator ID - JEBERNOperator ID - JEBERNOperator ID - JEBERNOperator ID - JEBERNOperator ID - JEBERNOperator ID - JEBERNOperator ID - JEBERNOperator ID - JEBERNOperator ID - JEBERNOperator ID - JEBERNOperator ID - JEBERNOperator ID - JEBERNOperator ID - JEBERNCBC W/PLT COUNT & AUTO [id number] 06:11:00 Test Item Value Reference Range Interpretation Comments WHITE BLOOD CELL COUNT (BEAKER) 5.2 K/ L 4.0-10.0 (test code = 775) RED BLOOD CELL COUNT (BEAKER) 3.74 M/ L 4.20-5.80 L (test code = 761) HEMOGLOBIN (BEAKER) (test code = 10.8 GM/DL 13.0-16.8 L 410) HEMATOCRIT (BEAKER) (test code = 35.8 % 36.0-50.0 L 411) MEAN CORPUSCULAR VOLUME (BEAKER) 95.7 fL 82.0-99.0 (test code = 753) MEAN CORPUSCULAR HEMOGLOBIN 28.9 pg 27.0-33.0 (BEAKER) (test code = 751) MEAN CORPUSCULAR HEMOGLOBIN CONC 30.2 GM/DL 32.0-36.0 L (BEAKER) (test code = 752) RED CELL DISTRIBUTION WIDTH 15.3 % 12.0-15.0 H (BEAKER) (test code = 412) PLATELET COUNT (BEAKER) (test 155 K/CU MM 150-430 code = 756) MEAN PLATELET VOLUME (BEAKER) 10.3 fL 6.0-11.5 (test code = 754) NUCLEATED RED BLOOD CELLS 0 /100 WBC 0-0 (BEAKER) (test code = 413) NEUTROPHILS RELATIVE PERCENT 59 % (BEAKER) (test code = 429) LYMPHOCYTES RELATIVE PERCENT 20 % (BEAKER) (test code = 430) MONOCYTES RELATIVE PERCENT 17 % (BEAKER) (test code = 431) EOSINOPHILS RELATIVE PERCENT 2 % (BEAKER) (test code = 432) BASOPHILS RELATIVE PERCENT 1 % (BEAKER) (test code = 437) NEUTROPHILS ABSOLUTE COUNT 3.09 K/ L 1.80-8.00 (BEAKER) (test code = 670) LYMPHOCYTES ABSOLUTE COUNT 1.02 K/ L 1.48-4.50 L (BEAKER) (test code = 414) MONOCYTES ABSOLUTE COUNT (BEAKER) 0.90 K/ L 0.00-1.30 (test code = 415) EOSINOPHILS ABSOLUTE COUNT 0.12 K/ L 0.00-0.50 (BEAKER) (test code = 416) BASOPHILS ABSOLUTE COUNT (BEAKER) 0.04 K/ L 0.00-0.20 (test code = 417) IMMATURE GRANULOCYTES-RELATIVE 1 % 0-0 H PERCENT (BEAKER) (test code = 2801) POCT-GLUCOSE [id number] 21:52:00 Test Item Value Reference Range Interpretation Comments POC-GLUCOSE METER 153 mg/dL 70-110 H : TESTED A T [facility] [address] (BEAKER) ([facility] [place] [address]: Negative Retoucher/Techni tessy ID = [id number] for Walter macias Antonella POCT-GLUCOSE [id number] 18:27:00 Test Item Value Reference Range Interpretation Comments POC-GLUCOSE METER 132 mg/dL 70-110 H : TESTED A T [address] (BEAKER) (test code [address], = 1538) [place] [address]: Negative Retoucher/Techni tessy ID = [id number] for Danisha r, Antonella POCT-GLUCOSE [id number] 13:25:00 Test Item Value Reference Range Interpretation Comments POC-GLUCOSE METER 143 mg/dL 70-110 H : TESTED A T [address] (BEAKER) (test code [address], = 1538) [facility] 77 478: Negative Retoucher/Techni tessy ID = [id number] for Antonella Camp POCT-GLUCOSE [id number] 08:18:00 Test Item Value Reference Range Interpretation Comments POC-GLUCOSE METER 105 mg/dL 70-110 : TESTED A T [address] (BEAKER) (test code [address], = 1538) [facility] 77 478: Negative Retoucher/Techni tessy ID = [id number] for Larisa Thorpe Basic Metabolic [id number] 06:21:00 Test Item Value Reference Interpretation Comments Range Sodium (test code = 138 meq/L 305-304 0107-2) Potassium (test code 4.1 meq/L 3.6-5.5 = 2823-3) Chloride (test code 106 meq/L 98-106 = 2075-0) CO2 (test code = 24 meq/L 20-29 2028-9) BUN (test code = 12 mg/dL 10-26 3094-0) Creatinine (test 0.70 mg/dL 0.5-1.2 code = 2160-0) Glucose (test code = 116 mg/dL 70-110 H 2345-7) Calcium (test code = 8.1 mg/dL 8.5-10.5 L 86342-0) EGFR (test code = 112 mL/min/1.73 sq ESTIMATE D GFR 49042-3) m IS NOT ACCURATE CREATININE CLEARANCE IN PREDICTING GLOMERULAR FILTRATION RATE. ESTIMATED GFR IS NOT APPLICABLE FOR DIALYSIS PATIENTS. JANES (test code = Negative Retoucher ID - JANES) RESORIANOperator ID - RESORIANOperator ID - RESORIANOperator ID - RESORIANOperator ID - RESORIANOperator ID - RESORIANOperator ID - RESORIANOperator ID - RESORIANOperator ID - RESORIANOperator ID - RESORIANOperator ID - RESORIANOperator ID - RESORIAN Lab Interpretation Abnormal (test code = 24054-9) [facility] [id number] 06:21:00 Test Item Value Reference Interpretation Comments Range Sodium (test code = 138 meq/L 834-443 8464-2) Potassium (test code 4.1 meq/L 3.6-5.5 = 2823-3) Chloride (test code 106 meq/L 98-106 = 2075-0) CO2 (test code = 24 meq/L - 2028-9) BUN (test code = 12 mg/dL - 3094-0) Creatinine (test 0.70 mg/dL 0.5-1.2 code = 2160-0) Glucose (test code = 116 mg/dL 70-110 H 2345-7) Calcium (test code = 8.1 mg/dL 8.5-10.5 L 12378-3) EGFR (test code = 112 mL/min/1.73 sq ESTIMATE D GFR 11778-2) m IS NOT ACCURATE CREATININE CLEARANCE IN PREDICTING GLOMERULAR FILTRATION RATE. ESTIMATED GFR IS NOT APPLICABLE FOR DIALYSIS PATIENTS. JANES (test code = Negative Retoucher ID - JANES) RESORIANOperator ID - RESORIANOperator ID - RESORIANOperator ID - RESORIANOperator ID - RESORIANOperator ID - RESORIANOperator ID - RESORIANOperator ID - RESORIANOperator ID - RESORIANOperator ID - RESORIANOperator ID - RESORIANOperator ID - RESORIAN Lab Interpretation Abnormal (test code = 66338-6) [facility] METABOLIC [id number] 06:21:00 Test Item Value Reference Range Interpretation Comments SODIUM (BEAKER) 138 meq/L 135-148 (test code = 381) POTASSIUM (BEAKER) 4.1 meq/L 3.6-5.5 (test code = 379) CHLORIDE (BEAKER) 106 meq/L 98-106 (test code = 382) CO2 (BEAKER) (test 24 meq/L - code = 355) BLOOD UREA NITROGEN 12 mg/dL - (BEAKER) (test code = 354) CREATININE (BEAKER) 0.70 mg/dL 0.50-1.20 (test code = 358) GLUCOSE RANDOM 116 mg/dL 70-110 H (BEAKER) (test code = 652) CALCIUM (BEAKER) 8.1 mg/dL 8.5-10.5 L (test code = 697) EGFR (BEAKER) (test 112 mL/min/1.73 ESTIM ATED GFR IS code = 1092) sq m NOT ACCURATE CREATININE CLEARANCE IN PREDICTING GLOMERULAR FILTRATION RATE . ESTIMATED GFR I S NOT APPLICABLE FOR DIALYSIS PATIEN TS. Negative Retoucher ID - RESORIANOperator ID - RESORIANOperator ID - RESORIANOperator ID - RESORIANOperator ID - RESORIANOperator ID - RESORIANOperator ID - RESORIANOperator ID - RESORIANOperator ID - RESORIANOperator ID - RESORIANOperator ID - RESORIANOperator ID - RESORIANCBC W/PLT COUNT & AUTO [id number] 05:47:00 Test Item Value Reference Range Interpretation Comments WHITE BLOOD CELL COUNT (BEAKER) 6.0 K/ L 4.0-10.0 (test code = 775) RED BLOOD CELL COUNT (BEAKER) 3.78 M/ L 4.20-5.80 L (test code = 761) HEMOGLOBIN (BEAKER) (test code = 11.1 GM/DL 13.0-16.8 L 410) HEMATOCRIT (BEAKER) (test code = 35.8 % 36.0-50.0 L 411) MEAN CORPUSCULAR VOLUME (BEAKER) 94.7 fL 82.0-99.0 (test code = 753) MEAN CORPUSCULAR HEMOGLOBIN 29.4 pg 27.0-33.0 (BEAKER) (test code = 751) MEAN CORPUSCULAR HEMOGLOBIN CONC 31.0 GM/DL 32.0-36.0 L (BEAKER) (test code = 752) RED CELL DISTRIBUTION WIDTH 15.3 % 12.0-15.0 H (BEAKER) (test code = 412) PLATELET COUNT (BEAKER) (test 147 K/CU MM 150-430 L code = 756) MEAN PLATELET VOLUME (BEAKER) 10.7 fL 6.0-11.5 (test code = 754) NUCLEATED RED BLOOD CELLS 0 /100 WBC 0-0 (BEAKER) (test code = 413) NEUTROPHILS RELATIVE PERCENT 67 % (BEAKER) (test code = 429) LYMPHOCYTES RELATIVE PERCENT 16 % (BEAKER) (test code = 430) MONOCYTES RELATIVE PERCENT 14 % (BEAKER) (test code = 431) EOSINOPHILS RELATIVE PERCENT 2 % (BEAKER) (test code = 432) BASOPHILS RELATIVE PERCENT 1 % (BEAKER) (test code = 437) NEUTROPHILS ABSOLUTE COUNT 3.97 K/ L 1.80-8.00 (BEAKER) (test code = 670) LYMPHOCYTES ABSOLUTE COUNT 0.98 K/ L 1.48-4.50 L (BEAKER) (test code = 414) MONOCYTES ABSOLUTE COUNT (BEAKER) 0.82 K/ L 0.00-1.30 (test code = 415) EOSINOPHILS ABSOLUTE COUNT 0.09 K/ L 0.00-0.50 (BEAKER) (test code = 416) BASOPHILS ABSOLUTE COUNT (BEAKER) 0.05 K/ L 0.00-0.20 (test code = 417) IMMATURE GRANULOCYTES-RELATIVE 1 % 0-0 H PERCENT (BEAKER) (test code = 2801) POCT-GLUCOSE [id number] 21:39:00 Test Item Value Reference Range Interpretation Comments POC-GLUCOSE METER 137 mg/dL 70-110 H : TESTED A T [facility] [address] (BEAKER) (test code [facility] [address], = 1538) [place] [address]: Negative Retoucher/Techni tessy ID = [id number] for Pauline lawrence Elver POCT-GLUCOSE [id number] 15:59:00 Test Item Value Reference Range Interpretation Comments POC-GLUCOSE METER 137 mg/dL 70-110 H : TESTED A T [facility] [address] (BEAKER) ([facility] [place] [address]: Negative Retoucher/Techni tesys ID = [id number] for Phuong Randolph POCT-GLUCOSE [id number] 11:54:00 Test Item Value Reference Range Interpretation Comments POC-GLUCOSE METER 132 mg/dL 70-110 H : TESTED A T [facility] [address] (BEAKER) ([facility] [address] = 15[facility]) [place] [address]: Negative Retoucher/Techni tessy ID = [id number] for Traci borja, Phuong POCT-GLUCOSE [id number] 08:08:00 Test Item Value Reference Range Interpretation Comments POC-GLUCOSE METER 128 mg/dL 70-110 H : TESTED A T [facility] [address] (BEAKER) (test code [facility] [address], = 1538) [facility] 77 [address]: Negative Retoucher/Techni tessy ID = [id number] for Phuong Randolph Lipid [id number] 05:50:00 Test Item Value Reference Range Interpretation Comments Triglycerides (test 323 mg/dL Specimen code = 2571-8) slightly hemolyzed Cholesterol (test 143 mg/dL Specimen code = 2092-3) slightly hemolyzed HDL (test code = 39 mg/dL 2085-03) LDL Calculated 39 mg/dL (test code = 80316-3) JANES (test code = Triglyceride Reference JANES) Range: Low Risk <150 Borderline 150-199 High Risk 200-499 Very High Risk >=500 Cholesterol Reference Range: Low Risk <200 Borderline 200-239 High Risk >240 HDL Cholesterol Reference Range: Low Risk >=60 High Risk <40 LDL Cholesterol Reference Range: Optimal <100 Near Optimal 100-129 Borderline 130-159 High 160-189 Very High >=190 Negative Retoucher ID - RESORIANOperator ID - RESORIANOperator ID - RESORIAN [facility] [id number] 05:50:00 Test Item Value Reference Range Interpretation Comments Triglycerides (test 323 mg/dL Specimen code = 2571-8) slightly hemolyzed Cholesterol (test 143 mg/dL Specimen code = 2092-) slightly hemolyzed HDL (test code = 39 mg/dL 2085-03) LDL Calculated 39 mg/dL (test code = 43474-9) JANES (test code = Triglyceride Reference JANES) Range: Low Risk <150 Borderline 150-199 High Risk 200-499 Very High Risk >=500 Cholesterol Reference Range: Low Risk <200 Borderline 200-239 High Risk >240 HDL Cholesterol Reference Range: Low Risk >=60 High Risk <40 LDL Cholesterol Reference Range: Optimal <100 Near Optimal 100-129 Borderline 130-159 High 160-189 Very High >=190 Negative Retoucher ID - RESORIANOperator ID - RESORIANOperator ID - RESORIAN [facility]IP[facility] [id number] 05:50:00 Test Item Value Reference Range Interpretation Comments TRIGLYCERIDES (BEAKER) 323 mg/dL Speci men slightly (test code = 540) hemolyzed CHOLESTEROL (BEAKER) 143 mg/dL Specime n slightly (test code = 631) hemolyzed HDL CHOLESTEROL (BEAKER) 39 mg/dL (test code = 976) LDL CHOLESTEROL 39 mg/dL CALCULATED (BEAKER) (test code = 633) Triglyceride Reference Range: Low Risk <150 Borderline 150-199 High Risk 200-499 Very High Risk >=500Cholesterol Reference Range: Low Risk <200 Borderline 200-239 High Risk >240HDL Cholesterol Reference Range: Low Risk >=60 High Risk <40LDL Cholesterol Reference Range: Optimal <100 Near Optimal 100-129 Borderline 130-159 High 160-189 Very High >=190 Negative Retoucher ID - RESORIANOperator ID - RESORIANOperator ID - RESORIAN COMPREHENSIVE METABOLIC [id number] 05:49:00 Test Item Value Reference Range Interpretation Comments TOTAL PROTEIN 5.8 gm/dL 6.0-8.5 L Specimen sligh tly (BEAKER) (test code = hemoly zed 770) ALBUMIN (BEAKER) 3.4 g/dL 3.5-5.0 L Specimen sl ightly (test code = 1145) hemolyzed ALKALINE PHOSPHATASE 48 U/L 30-115 (BEAKER) (test code = 346) BILIRUBIN TOTAL 0.7 mg/dL 0.1-1.2 Specimen sli ghtly (BEAKER) (test code = hemoly zed 377) SODIUM (BEAKER) (test 137 meq/L 135-148 code = 381) POTASSIUM (BEAKER) 4.1 meq/L 3.6-5.5 Specimen slightly (test code = 379) hemolyzed CHLORIDE (BEAKER) 106 meq/L 98-106 (test code = 382) CO2 (BEAKER) (test 23 meq/L 20-29 code = 355) BLOOD UREA NITROGEN 15 mg/dL 10-26 (BEAKER) (test code = 354) CREATININE (BEAKER) 0.74 mg/dL 0.50-1.20 Specimen slightly (test code = 358) hemolyzed GLUCOSE RANDOM 106 mg/dL 70-110 (BEAKER) (test code = 652) CALCIUM (BEAKER) 7.9 mg/dL 8.5-10.5 L (test code = 697) AST (SGOT) (BEAKER) 41 U/L 5-40 H Specimen slightly (test code = 353) hemolyzed ALT (SGPT) (BEAKER) 7 U/L 5-50 Specimen slightly (test code = 347) hemolyzed EGFR (BEAKER) (test 105 ESTIMATE D GFR IS code = 1092) mL/min/1.73 sq NOT ACCURA TE m CREATININE CLEARANCE IN PREDICTING GLOMERULAR FILTRATION RATE . ESTIMATED GFR I S NOT APPLICABLE FOR DIALYSIS PATIEN TS. Negative Retoucher ID - RESORIANOperator ID - RESORIANOperator ID - RESORIANOperator ID - RESORIANOperator ID - RESORIANOperator ID - RESORIANOperator ID - RESORIANOperator ID - RESORIANOperator ID - RESORIANOperator ID - RESORIANOperator ID - RESORIANOperator ID - RESORIANOperator ID - RESORIANOperator ID - RESORIANOperator ID - RESORIANOperator ID - RESORIAN Hemoglobin [id number] 05:48:00 Test Item Value Reference Range Interpretation Comments Hemoglobin A1C (test code 5.9 % 4.3-6.1 = 4548-4) JANES (test code = JANES) Negative Retoucher ID - RESORIAN Lab Interpretation (test Normal code = 55699-6) [facility] [id number] 05:48:00 Test Item Value Reference Range Interpretation Comments Hemoglobin A1C (test code 5.9 % 4.3-6.1 = 4548-4) JANES (test code = JANES) Negative Retoucher ID - RESORIAN Lab Interpretation (test Normal code = 52967-3) [facility]MO[facility] [id number] 05:48:00 Test Item Value Reference Range Interpretation Comments HEMOGLOBIN A1C (BEAKER) (test code = 5.9 % 4.3-6.1 368) Negative Retoucher ID - [id number] 05:47:00 Test Item Value Reference Range Interpretation Comments MAGNESIUM (BEAKER) 1.7 mg/dL 1.5-3.0 Specimen slightly (test code = 627) hemolyzed Negative Retoucher ID - RESORIANOperator ID - RESORIANOperator ID - RESORIANOperator ID - RESORIANCBC W/PLT COUNT & AUTO [id number] 05:15:00 Test Item Value Reference Range Interpretation Comments WHITE BLOOD CELL COUNT (BEAKER) 7.5 K/ L 4.0-10.0 (test code = 775) RED BLOOD CELL COUNT (BEAKER) 4.14 M/ L 4.20-5.80 L (test code = 761) HEMOGLOBIN (BEAKER) (test code = 12.2 GM/DL 13.0-16.8 L 410) HEMATOCRIT (BEAKER) (test code = 39.6 % 36.0-50.0 411) MEAN CORPUSCULAR VOLUME (BEAKER) 95.7 fL 82.0-99.0 (test code = 753) MEAN CORPUSCULAR HEMOGLOBIN 29.5 pg 27.0-33.0 (BEAKER) (test code = 751) MEAN CORPUSCULAR HEMOGLOBIN CONC 30.8 GM/DL 32.0-36.0 L (BEAKER) (test code = 752) RED CELL DISTRIBUTION WIDTH 15.4 % 12.0-15.0 H (BEAKER) (test code = 412) PLATELET COUNT (BEAKER) (test 139 K/CU MM 150-430 L code = 756) MEAN PLATELET VOLUME (BEAKER) 10.9 fL 6.0-11.5 (test code = 754) NUCLEATED RED BLOOD CELLS 0 /100 WBC 0-0 (BEAKER) (test code = 413) NEUTROPHILS RELATIVE PERCENT 68 % (BEAKER) (test code = 429) LYMPHOCYTES RELATIVE PERCENT 15 % (BEAKER) (test code = 430) MONOCYTES RELATIVE PERCENT 15 % (BEAKER) (test code = 431) EOSINOPHILS RELATIVE PERCENT 1 % (BEAKER) (test code = 432) BASOPHILS RELATIVE PERCENT 1 % (BEAKER) (test code = 437) NEUTROPHILS ABSOLUTE COUNT 5.08 K/ L 1.80-8.00 (BEAKER) (test code = 670) LYMPHOCYTES ABSOLUTE COUNT 1.13 K/ L 1.48-4.50 L (BEAKER) (test code = 414) MONOCYTES ABSOLUTE COUNT (BEAKER) 1.13 K/ L 0.00-1.30 (test code = 415) EOSINOPHILS ABSOLUTE COUNT 0.07 K/ L 0.00-0.50 (BEAKER) (test code = 416) BASOPHILS ABSOLUTE COUNT (BEAKER) 0.05 K/ L 0.00-0.20 (test code = 417) IMMATURE GRANULOCYTES-RELATIVE 1 % 0-0 H PERCENT (BEAKER) (test code = 2801) POCT-GLUCOSE [id number] 16:48:00 Test Item Value Reference Range Interpretation Comments POC-GLUCOSE METER 143 mg/dL 70-110 H : TESTED A T [facility] 1317 (ELDER) (test code [address], = 1538) [facility] 77 [address]: Negative Retoucher/Techni tessy ID = [id number] for Traci u, Larisa RAD, SPINE, LUMBAR, 2 OR 3 [id number] 12:57:00STANDING, NO FLEX EXReason for exam:->fusion follow upShould this be performed at the bedside?->No [facility] 1950 Sex: MFINAL REPORT TECHNIQUE: Two views of the lumbar spine HISTORY: fusion follow up. COMPARISON: Two days prior IMPRESSION:Status post orthopedic hardware placement. No evidence of failure or loosening. Signed: Lukas Agosto Verified Date/Time: 08/15/2020 12:57:07Reading Location: [facility] Radiology Reading Room XR spine lumbar 2 or 3 [id number] 12:57:00Interface, External Ris In - 08/15/2020 12:59 PM CSTFINAL REPORT TECHNIQUE: Two views of the lumbar spine HISTORY: fusion follow up. COMPARISON: Two days prior IMPRESSION:Status post orthopedic hardware placement. No evidence of failure or loosening. Signed: Sahani, Lukas MDReport Verified Date/Time: 08/15/2020 12:57:07 Reading Location: [facility] Radiology Reading Room Electronic ally signed by: LUKAS AGOSTO DO on 08/15/2020 12:57 [facility] [place] 2 or 3 [id number] 12:57:00Interface, External Ris In - 08/15/2020 12:59 PM CSTFINAL REPORT TECHNIQUE: Two views of the lumbar spine HISTORY: fusion follow up. COMPARISON: Two days prior IMPRESSION:Status post orthopedic hardware placement. No evidence of failure or loosening. Signed: Lukas Agosto MDReport Verified Date/Time: 08/15/2020 12:57:07 Reading Location: [facility] Radiology Reading Room Electronic ally signed by: LUKAS AGOSTO DO on 08/15/2020 12:57 [facility] [place] [id number] 12:45:00 Test Item Value Reference Range Interpretation Comments POC-GLUCOSE METER 208 mg/dL 70-110 H : TESTED A T [facility] [address] (BEAKER) (test code [address], = 1538) [facility] 77 [address]: Negative Retoucher/Techni tessy ID = [id number] for Traci Joao navarreteian Urine [id number] 08:46:00 Test Item Value Reference Range Interpretation Comments Result (test code = 6463-4) [facility] [id number] 08:46:00 Test Item Value Reference Range Interpretation Comments Result (test code = 6463-4) [facility] [id number] 08:46:00 Test Item Value Reference Range Interpretation Comments CULTURE (BEAKER) (test code = 1095) No growth BASIC METABOLIC [id number] 05:37:00 Test Item Value Reference Range Interpretation Comments SODIUM (BEAKER) 135 meq/L 135-148 (test code = 381) POTASSIUM (BEAKER) 4.2 meq/L 3.6-5.5 Specimen moderately (test code = 379) hemolyzed CHLORIDE (BEAKER) 105 meq/L 98-106 (test code = 382) CO2 (BEAKER) (test 21 meq/L 20-29 code = 355) BLOOD UREA NITROGEN 13 mg/dL 10-26 (BEAKER) (test code = 354) CREATININE (BEAKER) 0.76 mg/dL 0.50-1.20 Specimen moderately (test code = 358) hemolyzed GLUCOSE RANDOM 109 mg/dL 70-110 (BEAKER) (test code = 652) CALCIUM (BEAKER) 7.5 mg/dL 8.5-10.5 L (test code = 697) EGFR (BEAKER) (test 102 mL/min/1.73 ESTIM ATED GFR IS code = 1092) sq m NOT ACCURATE CREATININE CLEARANCE IN PREDICTING GLOMERULAR FILTRATION RATE . ESTIMATED GFR I S NOT APPLICABLE FOR DIALYSIS PATIEN TS. Negative Retoucher ID - [id number] ID - [id number] ID - [id number] ID - [id number] ID - [id number] ID - [id number] ID - [id number] ID - [id number] ID - [id number] ID - [id number] ID - [id number] ID - [id number] ID - [id number](MANUAL DIFFERENTIAL)2020-08-15 05:13:00 Test Item Value Reference Range Interpretation Comments NEUTROPHILS - REL (DIFF) (BEAKER) 72 % (test code = 1359) LYMPHOCYTES - REL (DIFF) (BEAKER) 15 % (test code = 1360) MONOCYTES - REL (DIFF) (BEAKER) 12 % (test code = 1361) BASOPHILS - REL (DIFF) (BEAKER) 1 % (test code = 1363) NEUTROPHILS - ABS (DIFF) (BEAKER) 5.69 K/ L 1.80-8.00 (test code = 1365) LYMPHOCYTES - ABS (DIFF) (BEAKER) 1.19 K/ L 1.48-4.50 L (test code = 1366) MONOCYTES - ABS (DIFF) (BEAKER) 0.95 K/ L 0.00-1.30 (test code = 1367) BASOPHILS - ABS (DIFF) (BEAKER) 0.08 K/ L 0.00-0.20 (test code = 1369) TOTAL COUNTED (BEAKER) (test code = 100 1351) WBC MORPHOLOGY (BEAKER) (test code Normal = 487) PLT MORPHOLOGY (BEAKER) (test code Normal = 486) RBC MORPHOLOGY (BEAKER) (test code Normal = 762) CBC with platelet count + manual [id number] 05:02:00 Test Item Value Reference Range Interpretation Comments WBC (test code = 6690-2) 7.9 See_Comment [A utomated message] The system [employer] generated this result transmitted ref erence range: 4.0 - 10 .0 K/L. The refe rence range was not u sed to interpret this result as normal/abnor mal. RBC (test code = 789-8) 4.04 See_Comment L [Au tomated message] The system [employer] generated this result transmitted ref erence range: 4.20 - 5 .80 M/L. The refe rence range was not u sed to interpret this result as normal/abnor mal. MCHC (test code = 786-4) 30.4 See_Comment L [A utomated message] The system [employer] generated this result transmitted ref erence range: 32.0 - 3 6.0 GM/DL. The refe rence range was not u sed to interpret this result as normal/abnor mal. Hematocrit (test code = 38.8 % 36-50 4544-3) MCV (test code = 787-2) 96.0 fL 82-99 MCH (test code = 785-6) 29.2 pg 27-33 RDW (test code = 788-0) 15.5 % 12-15 H Platelets (test code = 140 See_Comment L [Aut omated message] 777-3) The system [employer] generated this result transmitted ref erence range: 150 - 43 0 K/CU MM. The referen ce range was not u sed to interpret this result as normal/abnor mal. MPV (test code = 10.3 fL 6-11.5 57145-5) nRBC (test code = 413) 0 See_Comment [Aut omated message] The system [employer] generated this result transmitted ref erence range: 0 - 0 /1 00 WBC. The refere nce range was not u sed to interpret this result as normal/abnor mal. Lab Interpretation (test Abnormal code = 00256-4) [facility] [id number] 05:02:00 Test Item Value Reference Range Interpretation Comments WBC (test code = 6690-2) 7.9 See_Comment [A utomated message] The system [employer] generated this result transmitted ref erence range: 4.0 - 10 .0 K/L. The refe rence range was not u sed to interpret this result as normal/abnor mal. RBC (test code = 789-8) 4.04 See_Comment L [Au tomated message] The system [employer] generated this result transmitted ref erence range: 4.20 - 5 .80 M/L. The refe rence range was not u sed to interpret this result as normal/abnor mal. MCHC (test code = 786-4) 30.4 See_Comment L [A utomated message] The system [employer] generated this result transmitted ref erence range: 32.0 - 3 6.0 GM/DL. The refe rence range was not u sed to interpret this result as normal/abnor mal. Hematocrit (test code = 38.8 % 36-50 4544-3) MCV (test code = 787-2) 96.0 fL 82-99 MCH (test code = 785-6) 29.2 pg 27-33 RDW (test code = 788-0) 15.5 % 12-15 H Platelets (test code = 140 See_Comment L [Aut omated message] 777-3) The system [employer] generated this result transmitted ref erence range: 150 - 43 0 K/CU MM. The referen ce range was not u sed to interpret this result as normal/abnor mal. MPV (test code = 10.3 fL 6-11.5 35996-9) nRBC (test code = 413) 0 See_Comment [Aut omated message] The system [employer] generated this result transmitted ref erence range: 0 - 0 /1 00 WBC. The refere nce range was not u sed to interpret this result as normal/abnor mal. Lab Interpretation (test Abnormal code = 82669-3) [facility] + MANUAL [id number] 05:02:00 Test Item Value Reference Range Interpretation Comments WHITE BLOOD CELL COUNT (BEAKER) 7.9 K/ L 4.0-10.0 (test code = 775) RED BLOOD CELL COUNT (BEAKER) 4.04 M/ L 4.20-5.80 L (test code = 761) HEMOGLOBIN (BEAKER) (test code = 11.8 GM/DL 13.0-16.8 L 410) HEMATOCRIT (BEAKER) (test code = 38.8 % 36.0-50.0 411) MEAN CORPUSCULAR VOLUME (BEAKER) 96.0 fL 82.0-99.0 (test code = 753) MEAN CORPUSCULAR HEMOGLOBIN 29.2 pg 27.0-33.0 (BEAKER) (test code = 751) MEAN CORPUSCULAR HEMOGLOBIN CONC 30.4 GM/DL 32.0-36.0 L (BEAKER) (test code = 752) RED CELL DISTRIBUTION WIDTH 15.5 % 12.0-15.0 H (BEAKER) (test code = 412) PLATELET COUNT (BEAKER) (test 140 K/CU MM 150-430 L code = 756) MEAN PLATELET VOLUME (BEAKER) 10.3 fL 6.0-11.5 (test code = 754) NUCLEATED RED BLOOD CELLS 0 /100 WBC 0-0 (BEAKER) (test code = 413) POCT-GLUCOSE [id number] 12:01:00 Test Item Value Reference Range Interpretation Comments POC-GLUCOSE METER 155 mg/dL 70-110 H : Notified RN/MD: TESTED (BEAKER) (test code AT [address] = 1538) [facility] [address]: Negative Retoucher/Techni tessy ID = [id number] for Gilma felixJohnnieemanuelmaricarmen BASIC METABOLIC [id number] 06:08:00 Test Item Value Reference Range Interpretation Comments SODIUM (BEAKER) 139 meq/L 135-148 (test code = 381) POTASSIUM (BEAKER) 4.3 meq/L 3.6-5.5 (test code = 379) CHLORIDE (BEAKER) 106 meq/L 98-106 (test code = 382) CO2 (BEAKER) (test 25 meq/L 20-29 code = 355) BLOOD UREA NITROGEN 17 mg/dL 10-26 (BEAKER) (test code = 354) CREATININE (BEAKER) 0.88 mg/dL 0.50-1.20 (test code = 358) GLUCOSE RANDOM 144 mg/dL 70-110 H (BEAKER) (test code = 652) CALCIUM (BEAKER) 7.7 mg/dL 8.5-10.5 L (test code = 697) EGFR (BEAKER) (test 86 mL/min/1.73 ESTIMA RODGER GFR IS code = 1092) sq m NOT ACCURATE CREATININE CLEARANCE IN PREDICTING GLOMERULAR FILTRATION RATE . ESTIMATED GFR I S NOT APPLICABLE FOR DIALYSIS PATIEN TS. Negative Retoucher ID - LITOOperator ID - LITOOperator ID - LITOOperator ID - LITOOperator ID - LITOOperator ID - LITOOperator ID - LITOOperator ID - LITOOperator ID - LITOOperator ID - LITOOperator ID - LITOOperator ID - LITOOperator ID - ASCENCION (MANUAL DIFFERENTIAL)2020-08-14 05:57:00 Test Item Value Reference Range Interpretation Comments WBC MORPHOLOGY (BEAKER) (test code = Normal 487) PLT MORPHOLOGY (BEAKER) (test code = Normal 486) RBC MORPHOLOGY (BEAKER) (test code = Normal 762) CBC WITH PLATELET COUNT + MANUAL [id number] 05:57:00 Test Item Value Reference Range Interpretation Comments WHITE BLOOD CELL COUNT (BEAKER) 10.5 K/ L 4.0-10.0 H (test code = 775) RED BLOOD CELL COUNT (BEAKER) 4.19 M/ L 4.20-5.80 L (test code = 761) HEMOGLOBIN (BEAKER) (test code = 12.4 GM/DL 13.0-16.8 L 410) HEMATOCRIT (BEAKER) (test code = 39.8 % 36.0-50.0 411) MEAN CORPUSCULAR VOLUME (BEAKER) 95.0 fL 82.0-99.0 (test code = 753) MEAN CORPUSCULAR HEMOGLOBIN 29.6 pg 27.0-33.0 (BEAKER) (test code = 751) MEAN CORPUSCULAR HEMOGLOBIN CONC 31.2 GM/DL 32.0-36.0 L (BEAKER) (test code = 752) RED CELL DISTRIBUTION WIDTH 15.4 % 12.0-15.0 H (BEAKER) (test code = 412) PLATELET COUNT (BEAKER) (test 170 K/CU MM 150-430 code = 756) MEAN PLATELET VOLUME (BEAKER) 10.5 fL 6.0-11.5 (test code = 754) NUCLEATED RED BLOOD CELLS 0 /100 WBC 0-0 (BEAKER) (test code = 413) NEUTROPHILS RELATIVE PERCENT 82 % (BEAKER) (test code = 429) LYMPHOCYTES RELATIVE PERCENT 7 % (BEAKER) (test code = 430) MONOCYTES RELATIVE PERCENT 11 % (BEAKER) (test code = 431) EOSINOPHILS RELATIVE PERCENT 0 % (BEAKER) (test code = 432) BASOPHILS RELATIVE PERCENT 0 % (BEAKER) (test code = 437) NEUTROPHILS ABSOLUTE COUNT 8.52 K/ L 1.80-8.00 H (BEAKER) (test code = 670) LYMPHOCYTES ABSOLUTE COUNT 0.70 K/ L 1.48-4.50 L (BEAKER) (test code = 414) MONOCYTES ABSOLUTE COUNT (BEAKER) 1.16 K/ L 0.00-1.30 (test code = 415) EOSINOPHILS ABSOLUTE COUNT 0.00 K/ L 0.00-0.50 (BEAKER) (test code = 416) BASOPHILS ABSOLUTE COUNT (BEAKER) 0.02 K/ L 0.00-0.20 (test code = 417) IMMATURE GRANULOCYTES-RELATIVE 1 % 0-0 H PERCENT (BEAKER) (test code = 2801) POCT-GLUCOSE [id number] 21:58:00 Test Item Value Reference Range Interpretation Comments POC-GLUCOSE METER 135 mg/dL 70-110 H : TESTED A T [facility]17 ([facility] (test code [facility], = 1538) [facility] 77 498: Negative Retoucher/Techni tessy ID = [id number] for Loteofilo Ceci POCT-GLUCOSE [id number] 18:27:00 Test Item Value Reference Range Interpretation Comments POC-GLUCOSE METER 162 mg/dL 70-110 H : Notified RN/MD: TESTED ([facility] (test code AT [facility] [address] = 1538) [facility], [facility] [address]: Negative Retoucher/Techni tessy ID = [id number] for Laws on, Latishia [place], FLUORO, NON-SPECIFIC, UP TO 1 [id number] 15:54:00Reason for exam:->surgeryKA[facility]: EL[facility] B[facility] : 1950 Sex: MFluoroscopic unit utilized for a procedure performed in the OR. No interpretation was reque sted. Refer to the operative report for findings. Refer to PACS for patient radiation dose information.FL fluoro non-specific up to 1 [id number] 15:54:00Interface, External Ris In - 08/13/2020 3:54 PM CSTFluoroscopic unit utilized for a procedure performed in the OR. No interpretation was requested. Refer to the operative report for findings. Referto PACS for patient radiation dose information.[facility] fluoro non-specific up to 1 [id number] 15:54:00Interface, External Ris In - 08/13/2020 3:54 PM CSTFluoroscopic unit utilized for a procedure performed in the OR. No interpretation was requested. Refer to the operative report for findings. Referto PACS for patient radiation dose information.[facility]ake[facility] gas, [id number] 15:19:00 Test Item Value Reference Range Interpretation Comments pH, Arterial (test code 7.37 7.35-7.45 = 2744-1) pCO2, Arterial (test 44 See_Comment [Autom ated code = 2018-) message] The system which generated this result transmitted reference range : 35 - 45 mm Hg. The reference range was not used to interpret this result as normal/abnormal . pO2, Arterial (test 220 See_Comment H [Automa rodger code = 2703-7) message] The system which generated this result transmitted reference range : 80 - 90 mm Hg. The reference range was not used to interpret this result as normal/abnormal . O2 Sat, Arterial (test 99.4 % 96-97 H code = 2708-6) HCO3, Arterial (test 25 mmol/L 21-29 code = 1960-4) Base Excess, Arterial -0.6 mmol/L -2-3 (test code = 1925-7) Patient Temperature 37.6 (test code = 8310-5) FIO2 (test code = 1819) 60 Lab Interpretation Abnormal (test code = 03469-1) [facility], [id number] 15:19:00 Test Item Value Reference Range Interpretation Comments pH, Arterial (test code 7.37 7.35-7.45 = 2744-1) pCO2, Arterial (test 44 See_Comment [Autom ated code = 2019-8) message] The system which generated this result transmitted reference range : 35 - 45 mm Hg. The reference range was not used to interpret this result as normal/abnormal . pO2, Arterial (test 220 See_Comment H [Automa rodger code = 2703-7) message] The system which generated this result transmitted reference range : 80 - 90 mm Hg. The reference range was not used to interpret this result as normal/abnormal . O2 Sat, Arterial (test 99.4 % 96-97 H code = 2708-6) HCO3, Arterial (test 25 mmol/L 21-29 code = 1960-4) Base Excess, Arterial -0.6 mmol/L -2-3 (test code = 1925-7) Patient Temperature 37.6 (test code = 8310-5) FIO2 (test code = 1819) 60 Lab Interpretation Abnormal (test code = 49710-0) [facility]ake[facility]OD [facility], [id number] 15:19:00 Test Item Value Reference Range Interpretation Comments PH ARTERIAL (BEAKER) (test code = 7.37 7.35-7.45 383) PCO2 ARTERIAL (BEAKER) (test code 44 mm Hg 35-45 = 384) PO2 ARTERIAL (BEAKER) (test code 220 mm Hg 80-90 H = 385) O2 SATURATION ARTERIAL (BEAKER) 99.4 % 96.0-97.0 H (test code = 386) HCO3 ARTERIAL (BEAKER) (test code 25 mmol/L 21-29 = 388) BASE EXCESS ARTERIAL (BEAKER) -0.6 mmol/L -2.0-3.0 (test code = 387) PATIENT TEMPERATURE (BEAKER) 37.6 (test code = 1818) FIO2 (BEAKER) (test code = 1819) 60.0 Urinalysis with Microscopic If [id number] 12:04:00 Test Item Value Reference Range Interpretation Comments Color, UA (test code = Yellow 5778-6) Clarity, UA (test code = Slightly Cloudy 5767-9) Specific [place], UA (test 1.025 1.001-1.035 code = 5811-5) pH, UA (test code = 5803-2) 7.0 5.0-8.0 Protein, UA (test code = Negative Negative 57145-2) Glucose, UA (test code = 365) Negative Negative Ketones, UA (test code = Negative Negative 2514-8) Bilirubin, UA (test code = Negative Negative 36358-4) Blood, UA (test code = Negative Negative 73338-4) Nitrite, UA (test code = Negative Negative 5802-4) Leukocytes, UA (test code = Negative Negative 5799-2) Urobilinogen, UA (test code = 0.2 mg/dL 0.2-1 99171-2) Specimen Source (test code = 2795) [facility]ake[facility]inalysis Microscopic [id number] 12:04:00 Test Item Value Reference Range Interpretation Comments RBC, UA (test code = 5-10 See_Comment [Autom ated message] 799-7) The system [employer] generated this result transmitted ref erence range: /HPF. Th e reference range was not used to int erpret this result as normal/abnormal . WBC, UA (test code = 5-10 See_Comment [Autom ated message] 31715-6) The system [employer] generated this result transmitted ref erence range: /HPF. Th e reference range was not used to int erpret this result as normal/abnormal . Bacteria, UA (test Occasional code = 15970-4) SQUAMOUS EPITHELIAL <5 See_Comment [Automa rodger message] (test code = 95234-4) The [employer] stem which generated this result transmitted ref erence range: /HPF. Th e reference range was not used to int erpret this result as normal/abnormal . [facility]ake[facility]inalysis with Microscopic If [id number] 12:04:00 Test Item Value Reference Range Interpretation Comments Color, UA (test code = Yellow 5778-6) Clarity, UA (test code = Slightly Cloudy 5767-9) Specific [place], UA (test 1.025 1.001-1.035 code = 5811-5) pH, UA (test code = 5803-2) 7.0 5.0-8.0 Protein, UA (test code = Negative Negative 02584-7) Glucose, UA (test code = 365) Negative Negative Ketones, UA (test code = Negative Negative 2514-8) Bilirubin, UA (test code = Negative Negative 79451-1) Blood, UA (test code = Negative Negative 60469-9) Nitrite, UA (test code = Negative Negative 5802-4) Leukocytes, UA (test code = Negative Negative 5799-2) Urobilinogen, UA (test code = 0.2 mg/dL 0.2-1 83109-7) Specimen Source (test code = 2795) [facility]inal[facility] Microscopic [id number] 12:04:00 Test Item Value Reference Range Interpretation Comments RBC, UA (test code = 5-10 See_Comment [Autom ated message] 799-7) The system [employer] generated this result transmitted ref erence range: /HPF. Th e reference range was not used to int erpret this result as normal/abnormal . WBC, UA (test code = 5-10 See_Comment [Autom ated message] 39340-2) The system [employer] generated this result transmitted ref erence range: /HPF. Th e reference range was not used to int erpret this result as normal/abnormal . Bacteria, UA (test Occasional code = 07980-4) SQUAMOUS EPITHELIAL <5 See_Comment [Automa rodger message] (test code = 06343-2) The [employer] stem which generated this result transmitted ref erence range: /HPF. Th e reference range was not used to int erpret this result as normal/abnormal . [facility]akeURINALYSIS WITH MICROSCOPIC IF [id number] 12:04:00 Test Item Value Reference Range Interpretation Comments COLOR (BEAKER) (test code = Yellow 470) CLARITY (BEAKER) (test code = Slightly Cloudy 469) SPECIFIC GRAVITY UA (BEAKER) 1.025 1.001-1.035 (test code = 468) PH UA (BEAKER) (test code = 7.0 5.0-8.0 467) PROTEIN UA (BEAKER) (test Negative Negative code = 464) GLUCOSE UA (BEAKER) (test Negative Negative code = 365) KETONES UA (BEAKER) (test Negative Negative code = 371) BILIRUBIN UA (BEAKER) (test Negative Negative code = 462) BLOOD UA (BEAKER) (test code Negative Negative = 461) NITRITE UA (BEAKER) (test Negative Negative code = 465) LEUKOCYTE ESTERASE UA Negative Negative (BEAKER) (test code = 466) UROBILINOGEN UA (BEAKER) 0.2 mg/dL 0.2-1.0 (test code = 463) SOURCE(BEAKER) (test code = 2795) URINALYSIS [id number] 12:04:00 Test Item Value Reference Range Interpretation Comments RBC UA-MANUAL (BEAKER) (test code 5-10 /HPF = 1659) WBC UA-MANUAL (BEAKER) (test code 5-10 /HPF = 1661) BACTERIA (BEAKER) (test code = Occasional 517) SQUAMOUS EPITHELIAL MANUAL <5 /HPF (BEAKER) (test code = 1663) POCT-GLUCOSE [id number] 09:06:00 Test Item Value Reference Range Interpretation Comments POC-GLUCOSE METER 101 mg/dL 70-110 : TESTED A T [facility] 1317 (BEAKER) (test code [facility] [address], = 1538) [facility] 77 478: Negative Retoucher/Techni tessy ID = [id number] for Ade Núñez SARS-CoV2/RT-PCR (Asymptomatic ONLY)2020-08-08 21:54:00 Test Item Value Reference Range Interpretation Comments SARS-COV2/RT-PCR Negative Not Detected, (test code = Negative, See 21158-0) external report for linked test SARS-COV-2 [facility] PERFORM[facility] (test code = 10391-9) JANES (test code = Negative result for this JANES) test determines that SARS-CoV-2 RNA was not present in the specimen above the Limit of Detection (LOD). However, Negative results do not preclude SARS-CoV-2 infection and should not be used as the sole basis for treatment or patient management decisions. Negative results must be combined with clinical observations, patient history, and epidemiological information. A false negative result may occur if a specimen is improperly collected, transported or handled. A false negative result should be considered if patient's recent exposures or clinical presentation indicate that COVID-19 (SARS-CoV-2) is likely and diagnostic tests for other causes of illness are negative. Re-testing should be considered in cases of suspected false negatives. The limit of detection for this assay is 800 copies/mL. This SARS CoV-2 test is a real-time RT-PCR test intended for the qualitative detection of nucleic acid from SARS-CoV-2 in a nasopharyngeal swab specimen collected from individuals suspected of COVID-19 by their healthcare provider. This test has not been Food and Drug Administration (FDA) cleared or approved. This is a modified version of an approved Emergency Use Authorization (EUA) and is in the process of review by the FDA. Once authorized by the FDA, the issued EUA will be effective until the declaration that circumstances exist justifying the authorization of the emergency use of in vitro diagnostic tests for detection and/or diagnosis of COVID-19 is terminated under Section 564(b)(2) of the Act or the EUA is revoked under Section 564(g) of the Act. Fact Sheet for Healthcare Providers:https://www.rumr/sites/default/f everett/product/documents/F act_Sheet_HC_Providers_L hwk_TYWI-MsH-2.pdf Fact Sheet for Healthcare Patients:https://www.Passpack.[employer]/sites/default/fi les/product/documents/Fa ct_Sheet_Patients_Lyra_S ARS-CoV-2.pdf Performing Laboratory:[facility] [place] [address] [facility]As[facility]omatic ONLY)2020-08-08 21:54:00 Test Item Value Reference Range Interpretation Comments SARS-COV2/RT-PCR Negative Not Detected, (test code = Negative, See 24578-9) external report for linked test SARS-COV-2 [facility] (test code = 66759-4) JANES (test code = Negative result for this JANES) test determines that SARS-CoV-2 RNA was not present in the specimen above the Limit of Detection (LOD). However, Negative results do not preclude SARS-CoV-2 infection and should not be used as the sole basis for treatment or patient management decisions. Negative results must be combined with clinical observations, patient history, and epidemiological information. A false negative result may occur if a specimen is improperly collected, transported or handled. A false negative result should be considered if patient's recent exposures or clinical presentation indicate that COVID-19 (SARS-CoV-2) is likely and diagnostic tests for other causes of illness are negative. Re-testing should be considered in cases of suspected false negatives. The limit of detection for this assay is 800 copies/mL. This SARS CoV-2 test is a real-time RT-PCR test intended for the qualitative detection of nucleic acid from SARS-CoV-2 in a nasopharyngeal swab specimen collected from individuals suspected of COVID-19 by their healthcare provider. This test has not been Food and Drug Administration (FDA) cleared or approved. This is a modified version of an approved Emergency Use Authorization (EUA) and is in the process of review by the FDA. Once authorized by the FDA, the issued EUA will be effective until the declaration that circumstances exist justifying the authorization of the emergency use of in vitro diagnostic tests for detection and/or diagnosis of COVID-19 is terminated under Section 564(b)(2) of the Act or the EUA is revoked under Section 564(g) of the Act. Fact Sheet for Healthcare Providers:https://www.117go idel.[employer]/sites/default/f everett/product/documents/F act_Sheet_HC_Providers_L nbe_PUIY-TxF-1.pdf Fact Sheet for Healthcare Patients:https://www.ryan del.[employer]/sites/default/fi les/product/documents/Fa ct_Sheet_Patients_Lyra_S ARS-CoV-2.pdf Performing Laboratory:[facility] [place] [address] [facility] ([facility])2020-08-08 21:54:00 Test Item Value Reference Range Interpretation Comments SARS-COV2/RT-PCR (test Negative Not Detected, Negative, code = 7673937) See external report for linked test SARS-COV-[address] [facility] (test code = 5619945) Negative result for this test determines that SARS-CoV-2 RNA was not present in the specimen above the Limit of Detection (LOD). However, Negative results do not preclude SARS-CoV-2 infection and should not be used as the sole basis for treatment or patient management decisions. Negative results mustbe combined with clinical observations, patient history, and epidemiological information. A false negative result may occur if a specimen is improperly collected, transported or handled. A false negative result should be considered if patient's recent exposures or clinical presentation indicate that COVID-19 (SARS-CoV-2) is likely and diagnostic tests for other causes of illness are negative. Re-testing should be considered in cases of suspected false negatives.The limit of detection for this assay is 800 copies/mL.This SARS CoV-2 test is a real-time RT-PCR test intended for the qualitative detection of nucleic acid from SARS-CoV-2 in a nasopharyngeal swab specimen collected from individuals susp ected of COVID-19 by their healthcare provider.This test has not been Food and Drug Administration (FDA) cleared or approved. This is a modified version of an approved Emergency Use Authorization (EUA) and is in the process of review by the FDA. Once authorized by the FDA, the issued EUA will be effective until the declaration that circumstances exist justifying the authorization of the emergency use of in vitro diagnostic tests for detection and/or diagnosis of COVID-19 is terminated under Section 564(b)(2) of the Act or the EUA is revoked under Section 564(g) of the Act.Fact Sheet for Healthcare Providers:https://www.117goidel.com/sites/default/files/product/documents/Fact_Shee z_EJ_Myqtajbhv_Fsor_ASET-UpU-7.pdfFact Sheet for Healthcare Patients:https://www.WhenU.com.[employer]/sites/default/files/product/ documents/Xtid_Dplsd_Gffffjho_Joke_BWWT-ScW-1.pdfPerforming Laboratory:[address], [place] [address]Gykb and screen, [id number] 11:54:00 Test Item Value Reference Range Interpretation Comments ABO/RH AUTOMATED (BEAKER) (test B NEGATIVE Echo code = 2260) Ab Scrn (test code = 890-4) NE[facility]IVE [facility], [id number] 11:54:00 Test Item Value Reference Range Interpretation Comments ABO/RH AUTOMATED (BEAKER) (test B NEGATIVE Echo code = 2260) Ab Scrn (test code = 890-4) NEGATIVE Echo [facility] HospitalBASIC METABOLIC [id number] 11:01:00 Test Item Value Reference Range Interpretation Comments SODIUM (BEAKER) 140 meq/L 135-148 (test code = 381) POTASSIUM (BEAKER) 4.4 meq/L 3.6-5.5 Specimen slightly (test code = 379) hemolyzed CHLORIDE (BEAKER) 102 meq/L 98-106 (test code = 382) CO2 (BEAKER) (test 28 meq/L 20-29 code = 355) BLOOD UREA NITROGEN 15 mg/dL 10-26 (BEAKER) (test code = 354) CREATININE (BEAKER) 0.98 mg/dL 0.50-1.20 Specimen slightly (test code = 358) hemolyzed GLUCOSE RANDOM 105 mg/dL 70-110 (BEAKER) (test code = 652) CALCIUM (BEAKER) 9.3 mg/dL 8.5-10.5 (test code = 697) EGFR (BEAKER) (test 76 mL/min/1.73 ESTIMA RODGER GFR IS code = 1092) sq m NOT ACCURATE CREATININE CLEARANCE IN PREDICTING GLOMERULAR FILTRATION RATE . ESTIMATED GFR I S NOT APPLICABLE FOR DIALYSIS PATIEN TS. Negative Retoucher ID - LITOOperator ID - LITOOperator ID - LITOOperator ID - LITOOperator ID - LITOOperator ID - LITOOperator ID - LITOOperator ID - LITOOperator ID - LITOOperator ID - LITOOperator ID - LITOOperator ID - LITOCBC W/PLT COUNT & AUTO [id number] 10:37:00 Test Item Value Reference Range Interpretation Comments WHITE BLOOD CELL COUNT (BEAKER) 5.3 K/ L 4.0-10.0 (test code = 775) RED BLOOD CELL COUNT (BEAKER) 4.93 M/ L 4.20-5.80 (test code = 761) HEMOGLOBIN (BEAKER) (test code = 14.4 GM/DL 13.0-16.8 410) HEMATOCRIT (BEAKER) (test code = 46.8 % 36.0-50.0 411) MEAN CORPUSCULAR VOLUME (BEAKER) 94.9 fL 82.0-99.0 (test code = 753) MEAN CORPUSCULAR HEMOGLOBIN 29.2 pg 27.0-33.0 (BEAKER) (test code = 751) MEAN CORPUSCULAR HEMOGLOBIN CONC 30.8 GM/DL 32.0-36.0 L (BEAKER) (test code = 752) RED CELL DISTRIBUTION WIDTH 15.0 % 12.0-15.0 (BEAKER) (test code = 412) PLATELET COUNT (BEAKER) (test 193 K/CU MM 150-430 code = 756) MEAN PLATELET VOLUME (BEAKER) 10.5 fL 6.0-11.5 (test code = 754) NUCLEATED RED BLOOD CELLS 0 /100 WBC 0-0 (BEAKER) (test code = 413) NEUTROPHILS RELATIVE PERCENT 56 % (BEAKER) (test code = 429) LYMPHOCYTES RELATIVE PERCENT 23 % (BEAKER) (test code = 430) MONOCYTES RELATIVE PERCENT 17 % (BEAKER) (test code = 431) EOSINOPHILS RELATIVE PERCENT 2 % (BEAKER) (test code = 432) BASOPHILS RELATIVE PERCENT 2 % (BEAKER) (test code = 437) NEUTROPHILS ABSOLUTE COUNT 2.97 K/ L 1.80-8.00 (BEAKER) (test code = 670) LYMPHOCYTES ABSOLUTE COUNT 1.19 K/ L 1.48-4.50 L (BEAKER) (test code = 414) MONOCYTES ABSOLUTE COUNT (BEAKER) 0.91 K/ L 0.00-1.30 (test code = 415) EOSINOPHILS ABSOLUTE COUNT 0.09 K/ L 0.00-0.50 (BEAKER) (test code = 416) BASOPHILS ABSOLUTE COUNT (BEAKER) 0.08 K/ L 0.00-0.20 (test code = 417) IMMATURE GRANULOCYTES-RELATIVE 1 % 0-0 H PERCENT (BEAKER) (test code = 2801) CT Lumbar Spine Wo [id number] 14:04:50EXAMINATION: CT LUMBAR SPINE WO CONTRAST CLINICAL HISTORY: M47.27 Other spondylosis with radiculopathy lumbosacral region COMPARISON: Multiple prior studies including January 15, 2020 and July 02, 2019. TECHNIQUE: Axial noncontrast enhanced images of lumbar spine was performed with coronal sagittalreconstruction algorithms. CT imaging was performed with iterative reconstruction technique and/or automated exposure control to reduce radiation dose. FINDINGS: Last completely disc space is labeled as L5-S1. There is no spondylolisthesis at any level. Vertebral body heights are maintained. Spinal fusion hardware is seen with bilateral pedicular screws, at L1, L2, L4, S1. There is no significant change in the alignment. There is significant lucency surrounding the L5 screws bilaterally, m easuring up to 6 mm. This is unchanged. There is an anterior screw along the L4 vertebral body also unchanged. No other significant perihardware lucency seen. There is expected tract from a prior screwat L3. There is a L4-L5 spinal laminectomy other levels of partial laminectomies, foraminotomies, facetectomies spanning L1-L2 to L5-S1 level. Interbody device at L1-L2, L2-L3, L3-L4, L4-L5 and L5-S1 is seen. It is well incorporated from L1-L2 to L3-L4 levels where solid osseous fusion has occurred. It is in unchanged position at L4-L5 and L5- S1 with persistent disc space. Changes at individual levels are provided below. At L1-L2, there is soft tissue thickening at the site of partial laminectomy, un changed. Intrathecal detail is limited. There is no recurrent bony spinal canal narrowing. Solid osseous fusion across the disc space with small posterior osteophytic ridge without significant spinal canal or neural foraminal narrowing in the setting of bilateral foraminotomy with partial facetectomy.At L2-L3, solid osseous fusion with bilateral foraminotomy, right more than left with right-sided facet tectum a and partial laminectomy. No recurrent spinal canal or neural foraminal narrowing is seen. At L3-L4, solid osseous fusion partial laminectomy and foraminotomies, without recurrent spinal canal or neural foraminal narrowing. At L4-L5, posterior and anterior/interbody fusion with interbody ofdevice in unchanged location. There is a central disc protrusion. There is bilateral facet ectomy and laminectomy with soft tissue thickening and heterotopic bone around the facet joints and in the dorsal aspect of the spinal canal, unchanged. Soft tissue detail is limited within the spinal canal itself. There is no bony spinal canal narrowing. There is disc bulge, osteophyte and heterotopic bone formation in the bilateral neural foramina a with suggestion of moderate to severe neural foraminal narrowing although the accurate assessment is limited due to beam hardening on the soft tissue reformats.At L5-S1, there is posterior loss of disc height, intervertebral vacuum phenomenon, diffuse disc bulge with central disc protrusion, facet arthrosis, heterotopic bone formation in left neural foramina and surrounding facet joint with severe left neural foraminal narrowing moderate right neural foraminal narrowing. No significant changes compared to prior study. Pre and paraspinal soft tissues are maintained. IMPRESSION: No significant changes compared to January 15, 2020. Stable periscrew lucency surrounding the S1 transpedicular screws. Maintained alignment. Solid osseous fusion between L1-L2 and L3-L4 levels. Heterotopic bone formation, disc bulge, osteophytes at L4-L5 and L5-S1 resulting in moderate to severe degrees of neural foraminal narrowing, not significantly changed since the prior study. No bony spinal canal narrowing although the soft tissue detail is limited within the spinal canal. [id number] Interface, Radiology Results - 07/31/2020 8:08 AM CST EXAMINATION: CT LUMBAR SPINE WO CONTRASTCLINICAL HISTORY: M47.27 Other spondylosis with radiculopathy lumbosacral regionCOMPARISON: Multiple prior studies including January 15, 2020 and July 02, 2019.TECHNIQUE: Axial noncontrast enhanced images of lumbar spine was performed with coronal sagittal reconstruction algorithms. CT imaging was performed with iterative reconstruction technique and/or automated exposure control to reduce radiation dose.FINDINGS:Last completely disc space is labeled as L5-S1. There is no spondylolisthesis at any level.Vertebral body heights are maintained.Spinal fusion hardware is seen with bilateral pedicular screws, at L1, L2, L4, S1. There is no significant change in the alignment. There is significant lucency judd rrounding the L5 screws bilaterally, measuring up to 6 mm. This is unchanged. There is an anterior screw along the L4 vertebral body also unchanged. No other significant perihardware lucency seen. There is expected tract from a prior screw at L3. There is a L4-L5 spinal laminectomy other levels of partial laminectomies, foraminotomies, facetectomies spanning L1-L2 to L5-S1 level.Interbody device at L1-L2, L2-L3, L3-L4, L4-L5 and L5-S1 is seen. It is well incorporated from L1-L2 to L3-L4 levels wheresolid osseous fusion has occurred. It is in unchanged position at L4-L5 and L5-S1 with persistent disc space.Changes at individual levels are provided below.At L1-L2, there is soft tissue thickening atthe site of partial laminectomy, unchanged. Intrathecal detail is limited. There is no recurrent bony spinal canal narrowing. Solid osseous fusion across the disc space with small posterior osteophyticridge without significant spinal canal or neural foraminal narrowing in the setting of bilateral foraminotomy with partial facetectomy.At L2-L3, solid osseous fusion with bilateral foraminotomy, right more than left with right-sided facet tectum a and partial laminectomy. No recurrent spinal canal or neural foraminal narrowing is seen.At L3-L4, solid osseous fusion partial laminectomy and foraminotomies, without recurrent spinal canal or neural foraminal narrowing.At L4-L5, posterior and anterior/interbody fusion with interbody of device in unchanged location. There is a central disc protrusion. There is bilateral facet ectomy and laminectomy with soft tissue thickening and heterotopic bone around the facet joints and in the dorsal aspect of the spinal canal, unchanged. Soft tissue detail is limited within the spinal canal itself. There is no bony spinal canal narrowing. There is disc bulge, osteophyte and heterotopic bone formation in the bilateral neural foramina a with suggestion of moderateto severe neural foraminal narrowing although the accurate assessment is limited due to beam hardening on the soft tissue reformats.At L5-S1, there is posterior loss of disc height, intervertebral vacuum phenomenon, diffuse disc bulge with central disc protrusion, facet arthrosis, heterotopic bone formation in left neural foramina and surrounding facet joint with severe left neural foraminal narrowing moderate right neural foraminal narrowing. No significant changes compared to prior study.Pre and paraspinal soft tissues are maintained.IMPRESSION: No significant changes compared to January 15, 2020. Stable periscrew lucency surrounding the S1 transpedicular screws. Maintained alignment. Solid osseousfusion between L1-L2 and L3-L4 levels. Heterotopic bone formation, disc bulge, osteophytes at L4-L5 a nd L5-S1 resulting in moderate to severe degrees of neural foraminal narrowing, not significantly changed since the prior study. 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 Anterior spinal fusion C3-C7 with anterior plate and screw fixation and interbody grafts from C3 to C5 .Posterior spinal fusion C4-T2 along with decompressive laminectomies. Hardware appears intact.Stable lateral positioning of the right T2 pedicle screw which could be confirmed with cross-sectional imaging if indicated.Stable alignment.Multilevel facet hypertrophy, likely most pronounced on the left at C4-C5. [facility]-[id number] Interface, Radiology Results 07/31/2020 7:31 AM CST EXAMINATION: XR CERVICAL SPINE 2 OR 3 VWCLINICAL HISTORY: M48.03 Spinal stenosis cervicothoracic regionCOMPARISON: Cervical radiographs 05/13/20 20IMPRESSION:Stable exam compared with 05/13/2020.Anterior spinal fusion C3-C7 with anterior plate and screw fixation and interbody grafts from C3 to C5.Posterior spinal fusion C4-T2 along with decompressive laminectomies. Hardware appears intact.Stable lateral positioning of the right T2 pedicle screw which could be confirmed with cross-sectional imaging if indicated.Stable alignment.Multilevel facet hypertrophy, likely most pronounced on the left at C4-C5.[facility]-[id number] HospitalXR Thoracic Spine 3 [id number] 18:16:00 EXAMINATION: XR THORACIC SPINE 3 VW CLINICAL HISTORY: N72 Inflammatory disease of cervix uteri, CERVICATNERACIS STENOSIS COMPARISON: Cervical spine x-rays from earlier today. FINDINGS: There is posterior fusion from C4 down to T2 with posterior element screws connected by vertical rods. The thoracic arch is convex towards the right. There are several ventral and lateral osteophytes. There is increased thoracic kyphosis. There are degenerative changes without significant canal stenosis in the thoracic spine. Overlying structures obscure details of the upper thoracic and lower cervical vertebral bodies on the lateral view. There are degenerative changes and postoperative changes in the visualized po rtion of the cervical spine. IMPRESSION: Degenerative changes. [facility]- [id number] Interface, Radiology Results - 05/13/2020 12:19 PM CSTFormatting of this note might be different from theoriginal.EXAMINATION: XR THORACIC SPINE 3 VWCLINICAL HISTORY: N72 Inflammatory disease of cervix uteri, CERVICATNERACIS STENOSISCOMPARISON: Cervical spine x-rays from earlier today.FINDINGS:There is posterior fusion from C4 down to T2 with posterior element screws connected by vertical rods. The thoracic arch is convex towards the right. There are several ventral and lateral osteophytes. There is increased thoracic kyphosis. There are degenerative changes without significant canal stenosis in the thoracic spine. Overlying structures obscure details of the upper thoracic and lower cervical vertebral bodies on the lateral view.There are degenerative changes and postoperative changes in the visualized portion of the cervical spine.IMPRESSION:Degenerative changes.[facility]-[id number] Hospital [] PROTEIN, TOTAL AND PROTEIN [id number] 11:40:00 Test Item Value Reference Range Interpretation Comments PROTEIN, TOTAL (test 6.8 g/dl 6.1-8.1 N code = PROTEIN, TOTAL) ALBUMIN (test code = 4.3 g/dl 3.8-4.8 N ALBUMIN) PRIDM-7-MOHKKATFT 0.3 g/dl 0.2-0.3 N (test code = XUDPX-4-PKSSYDMQI) PHKHY-2-WAOXWUWVX 0.9 g/dl 0.5-0.9 N (test code = CQVME-0-QYYOUGMYB) BETA 1 GLOBULIN (test 0.4 g/dl 0.4-0.6 N code = BETA 1 GLOBULIN) BETA 2 GLOBULIN (test 0.3 g/dl 0.2-0.5 N code = BETA 2 GLOBULIN) GAMMA GLOBULINS (test 0.5 g/dl 0.8-1.7 code = GAMMA GLOBULINS) INTERPRETATION (test See Comment Consist ent with code = hypogammaglobul inemia INTERPRETATION) . Serum free light chains or urine immunofixation should be considered i f plasma cell dyscrasias are a possible clinic al diagnosis. [facility][QL] CMP [id number] 11:40:00 Test Item Value Reference Range Interpretation Comments GLUCOSE; Above 181 mg/dl 65-99 Fasting refer ence High Threshold interval For someone (test code = without known 1547-9) diabetes, a glucosevalue >1 25 mg/dL indicates that they may havedi abetes and this should be confirmed with afollow-up test . UREA NITROGEN 20 mg/dl 7-25 N (BUN) (test code = UREA NITROGEN (BUN)) CREATININE (test 1.05 mg/dl 0.70-1.25 N For patient s >49 years code = of age, the ref erence CREATININE) limitfor Creati nine is approximately 1 3% higher for peopleidentifie d as -Radha n. eGFR NON-AFR. 73 {ML/MIN/1.7} > OR = 60 N DOMINICAN (test code = eGFR NON-AFR. DOMINICAN) eGFR 84 {ML/MIN/1.7} > OR = 60 N DOMINICAN (test code = eGFR ) BUN/CREATININE NOT APPLICABLE 6-22 RATIO (test code = BUN/CREATININE RATIO) SODIUM (test code 141 mmol/L 135-146 N = SODIUM) POTASSIUM (test 4.7 mmol/L 3.5-5.3 N code = POTASSIUM) CHLORIDE (test 102 mmol/L 98-110 N code = CHLORIDE) CARBON DIOXIDE 30 mmol/L 20-32 N (test code = CARBON DIOXIDE) CALCIUM (test 9.0 mg/dl 8.6-10.3 N code = CALCIUM) PROTEIN, TOTAL 6.5 g/dl 6.1-8.1 N (test code = PROTEIN, TOTAL) ALBUMIN (test 4.4 g/dl 3.6-5.1 N code = ALBUMIN) GLOBULIN (test 2.1 {G/DL CALC} 1.9-3.7 N code = GLOBULIN) ALBUMIN/GLOBULIN 2.1 {CALC} 1.0-2.5 N RATIO (test code = ALBUMIN/GLOBULIN RATIO) BILIRUBIN, TOTAL; 0.7 mg/dl 0.2-1.2 N Normal (test code = 78177-5) ALKALINE 62 u/l 35-144 N PHOSPHATASE (test code = ALKALINE PHOSPHATASE) AST; Normal (test 28 u/l 10-35 N code = 1916-6) ALT; Normal (test 12 u/l 9-46 N code = 1742-6) [facility][] URINALYSIS, [id number] 11:40:00 Test Item Value Reference Range Interpretation Comments COLOR; Normal (test code = DARK YELLOW YELLOW N 5778-6) APPEARANCE (test code = CLEAR CLEAR N APPEARANCE) SPECIFIC GRAVITY; Normal (test 1.031 1.001-1.035 N code = 2965-2) PH; Normal (test code = 2756-5) 5.5 5.0-8.0 N GLUCOSE; Normal (test code = NEGATIVE NEGATIVE N 1547-9) BILIRUBIN; Normal (test code = NEGATIVE NEGATIVE N 82058-2) KETONES; Abnormal (test code = TRACE NEGATIVE A 40490-8) OCCULT BLOOD; Normal (test code = NEGATIVE NEGATIVE N 51463-0) PROTEIN; Abnormal (test code = 2+ NEGATIVE A 73335-7) NITRITE; Normal (test code = NEGATIVE NEGATIVE N 52745-1) LEUKOCYTE ESTERASE (test code = NEGATIVE NEGATIVE N LEUKOCYTE ESTERASE) WBC; Normal (test code = 6690-2) 0-5 < OR = 5 N RBC; Normal (test code = 789-8) 0-2 < OR = 2 N SQUAMOUS EPITHELIAL CELLS; Normal NONE SEEN < OR = 5 N (test code = 38706-1) BACTERIA; Normal (test code = NONE SEEN NONE SEEN N 630-4) CALCIUM OXALATE CRYSTALS; MANY NONE OR FEW A Abnormal (test code = 73077-0) HYALINE CAST; Abnormal (test code 4-5 NONE SEEN A = 33540-5) [facility][] CBC (INCLUDES DIFF/PLT)2020-05-05 11:40:00 Test Item Value Reference Range Interpretation Comments WHITE BLOOD CELL COUNT 7.6 {Thousand/u} 3.8-10.8 N (test code = WHITE BLOOD CELL COUNT) RED BLOOD CELL COUNT (test 4.26 {Million/uL} 4.20-5.80 N code = RED BLOOD CELL COUNT) HEMOGLOBIN; Below Low 13.1 g/dl 13.2-17.1 Threshold (test code = 62908-4) HEMATOCRIT; Normal (test 40.7 % 38.5-50.0 N code = 4544-3) MCV; Normal (test code = 95.5 fL 80.0-100.0 N 787-2) MCHC; Normal (test code = 32.2 g/dl 32.0-36.0 N 26888-3) RDW; Normal (test code = 14.4 % 11.0-15.0 N 788-0) PLATELET COUNT; Normal 215 {Thousand/u} 140-400 N (test code = 777-3) MPV; Normal (test code = 10.2 fL 7.5-12.5 N 76682-1) ABSOLUTE NEUTROPHILS (test 5054 {cells/uL} 0680-9461 N code = ABSOLUTE NEUTROPHILS) ABSOLUTE LYMPHOCYTES (test 1345 {cells/uL} 850-3900 N code = ABSOLUTE LYMPHOCYTES) ABSOLUTE MONOCYTES (test 1064 {cells/uL} 200-950 code = ABSOLUTE MONOCYTES) ABSOLUTE EOSINOPHILS (test 61 {cells/uL} 15-500 N code = ABSOLUTE EOSINOPHILS) ABSOLUTE BASOPHILS (test 76 {cells/uL} 0-200 N code = ABSOLUTE BASOPHILS) NEUTROPHILS (test code = 66.5 % N NEUTROPHILS) LYMPHOCYTES (test code = 17.7 % N LYMPHOCYTES) MONOCYTES; Normal (test 14.0 % N code = 10901-7) EOSINOPHILS; Normal (test 0.8 % N code = 00495-0) BASOPHILS; Normal (test 1.0 % N code = 53326-9) [facility][QL] IMMUNOFIXATION, [id number] 11:40:00 Test Item Value Reference Range Interpretation Comments INTERPRETATION (test See Comment Normal pattern. No code = INTERPRETATION) monoc lonal proteins detected. [facility] Leuko-Red [id number] 23:54:00 Test Item Value Reference Range Interpretation Comments CROSSMATCH (test code = 2264) COMPATIBLE Unit ABO (test code = B Neg 3317889) UNIT NUMBER (test code = [id number] 934-0) Status (test code = 3284095) TX_TIMEINCHART Blood Bank Product (test code RED BLOOD CELLS = 2263) PRODUCT CODE (test code = H2757W55 933-2) [facility] [id number] 11:34:00 Test Item Value Reference Range Interpretation Comments POC-GLUCOSE METER 137 mg/dL 70-110 H : TESTED A T [address] (BEAKER) (test code [address], = 1538) [place] [address]: Negative Retoucher/Techni tessy ID = [id number] for Phuong Randolph POCT-GLUCOSE [id number] 07:50:00 Test Item Value Reference Range Interpretation Comments POC-GLUCOSE METER 73 mg/dL 70-110 : TESTED A T [address] (BEAKER) (test code = [address], [address]) [place] [address]: Negative Retoucher/Techni tessy ID = [id number] for Phuong Randolph BASIC METABOLIC [id number] 06:33:00 Test Item Value Reference Range Interpretation Comments SODIUM (BEAKER) 140 meq/L 135-148 (test code = 381) POTASSIUM (BEAKER) 4.9 meq/L 3.6-5.5 Specimen slightly (test code = 379) hemolyzed CHLORIDE (BEAKER) 107 meq/L 98-106 H (test code = 382) CO2 (BEAKER) (test 24 meq/L 20-29 code = 355) BLOOD UREA NITROGEN 19 mg/dL 10-26 (BEAKER) (test code = 354) CREATININE (BEAKER) 0.77 mg/dL 0.50-1.20 Specimen slightly (test code = 358) hemolyzed GLUCOSE RANDOM 88 mg/dL 70-110 (BEAKER) (test code = 652) CALCIUM (BEAKER) 7.8 mg/dL 8.5-10.5 L (test code = 697) EGFR (BEAKER) (test 100 mL/min/1.73 ESTIM ATED GFR IS code = 1092) sq m NOT ACCURATE CREATININE CLEARANCE IN PREDICTING GLOMERULAR FILTRATION RATE . ESTIMATED GFR I S NOT APPLICABLE FOR DIALYSIS PATIEN TS. Negative Retoucher ID - [id number] W/PLT COUNT & AUTO [id number] 06:04:00 Test Item Value Reference Range Interpretation Comments WHITE BLOOD CELL COUNT (BEAKER) 4.2 K/ L 4.0-10.0 (test code = 775) RED BLOOD CELL COUNT (BEAKER) 3.02 M/ L 4.20-5.80 L (test code = 761) HEMOGLOBIN (BEAKER) (test code = 8.9 GM/DL 13.0-16.8 L 410) HEMATOCRIT (BEAKER) (test code = 28.5 % 36.0-50.0 L 411) MEAN CORPUSCULAR VOLUME (BEAKER) 94.4 fL 82.0-99.0 (test code = 753) MEAN CORPUSCULAR HEMOGLOBIN 29.5 pg 27.0-33.0 (BEAKER) (test code = 751) MEAN CORPUSCULAR HEMOGLOBIN CONC 31.2 GM/DL 32.0-36.0 L (BEAKER) (test code = 752) RED CELL DISTRIBUTION WIDTH 15.0 % 12.0-15.0 (BEAKER) (test code = 412) PLATELET COUNT (BEAKER) (test 194 K/CU MM 150-430 code = 756) MEAN PLATELET VOLUME (BEAKER) 9.7 fL 6.0-11.5 (test code = 754) NUCLEATED RED BLOOD CELLS 0 /100 WBC 0-0 (BEAKER) (test code = 413) NEUTROPHILS RELATIVE PERCENT 54 % (BEAKER) (test code = 429) LYMPHOCYTES RELATIVE PERCENT 28 % (BEAKER) (test code = 430) MONOCYTES RELATIVE PERCENT 13 % (BEAKER) (test code = 431) EOSINOPHILS RELATIVE PERCENT 3 % (BEAKER) (test code = 432) BASOPHILS RELATIVE PERCENT 1 % (BEAKER) (test code = 437) NEUTROPHILS ABSOLUTE COUNT 2.24 K/ L 1.80-8.00 (BEAKER) (test code = 670) LYMPHOCYTES ABSOLUTE COUNT 1.17 K/ L 1.48-4.50 L (BEAKER) (test code = 414) MONOCYTES ABSOLUTE COUNT (BEAKER) 0.55 K/ L 0.00-1.30 (test code = 415) EOSINOPHILS ABSOLUTE COUNT 0.13 K/ L 0.00-0.50 (BEAKER) (test code = 416) BASOPHILS ABSOLUTE COUNT (BEAKER) 0.05 K/ L 0.00-0.20 (test code = 417) IMMATURE GRANULOCYTES-RELATIVE 1 % 0-0 H PERCENT (BEAKER) (test code = 2801) POCT-GLUCOSE [id number] 22:15:00 Test Item Value Reference Range Interpretation Comments POC-GLUCOSE METER 119 mg/dL 70-110 H : TESTED A T [address] (BEAKER) (test code [facility], = 1538) [place] [id number]: Negative Retoucher/Techni tessy ID = [id number] for Antonella May Hemoglobin and [id number] 21:31:00 Test Item Value Reference Range Interpretation Comments Hemoglobin (test code = 9.9 See_Comment L [Au tomated message] 786-4) The system [employer] generated this result transmitted ref erence range: 13.0 - 1 6.8 GM/DL. The refe rence range was not u sed to interpret this result as normal/abnor mal. Hematocrit (test code = 32.0 % 36-50 L 4544-3) Lab Interpretation (test Abnormal code = 93903-2) [facility]akeHEMOGLOBIN AND [id number] 21:31:00 Test Item Value Reference Range Interpretation Comments HEMOGLOBIN (BEAKER) (test code = 9.9 GM/DL 13.0-16.8 L 410) HEMATOCRIT (BEAKER) (test code = 32.0 % 36.0-50.0 L 411) POCT-GLUCOSE [id number] 17:41:00 Test Item Value Reference Range Interpretation Comments POC-GLUCOSE METER 123 mg/dL 70-110 H : Notified RN/MD: TESTED (BEAKER) (test code AT [address] = 1538) [place] [address]: Negative Retoucher/Techni tessy ID = [id number] for Thak er, [place] POCT-GLUCOSE [id number] 11:39:00 Test Item Value Reference Range Interpretation Comments POC-GLUCOSE METER 137 mg/dL 70-110 H : TESTED A T [address] (BEAKER) (test code [address] [facility], = 1538) [place] [id number]: Negative Retoucher/Techni tessy ID = [id number] for Thak er, [place] POCT-GLUCOSE [id number] 07:57:00 Test Item Value Reference Range Interpretation Comments POC-GLUCOSE METER 80 mg/dL 70-110 : Notified RN/MD: TESTED (BEAKER) (test code = AT [address]) [place] [id number]: Negative Retoucher/Techni tessy ID = [id number] for Thak er, [place] BASIC METABOLIC [id number] 06:52:00 Test Item Value Reference Range Interpretation Comments SODIUM (BEAKER) 138 meq/L 135-148 (test code = 381) POTASSIUM (BEAKER) 4.4 meq/L 3.6-5.5 (test code = 379) CHLORIDE (BEAKER) 106 meq/L 98-106 (test code = 382) CO2 (BEAKER) (test 25 meq/L 20-29 code = 355) BLOOD UREA NITROGEN 20 mg/dL 10-26 (BEAKER) (test code = 354) CREATININE (BEAKER) 0.74 mg/dL 0.50-1.20 (test code = 358) GLUCOSE RANDOM 91 mg/dL 70-110 (BEAKER) (test code = 652) CALCIUM (BEAKER) 7.9 mg/dL 8.5-10.5 L (test code = 697) EGFR (BEAKER) (test 105 mL/min/1.73 ESTIM ATED GFR IS code = 1092) sq m NOT ACCURATE CREATININE CLEARANCE IN PREDICTING GLOMERULAR FILTRATION RATE . ESTIMATED GFR I S NOT APPLICABLE FOR DIALYSIS PATIEN TS. Negative Retoucher ID - [id number] W/PLT COUNT & AUTO [id number] 06:31:00 Test Item Value Reference Range Interpretation Comments WHITE BLOOD CELL COUNT (BEAKER) 5.1 K/ L 4.0-10.0 (test code = 775) RED BLOOD CELL COUNT (BEAKER) 2.75 M/ L 4.20-5.80 L (test code = 761) HEMOGLOBIN (BEAKER) (test code = 8.1 GM/DL 13.0-16.8 L 410) HEMATOCRIT (BEAKER) (test code = 26.6 % 36.0-50.0 L 411) MEAN CORPUSCULAR VOLUME (BEAKER) 96.7 fL 82.0-99.0 (test code = 753) MEAN CORPUSCULAR HEMOGLOBIN 29.5 pg 27.0-33.0 (BEAKER) (test code = 751) MEAN CORPUSCULAR HEMOGLOBIN CONC 30.5 GM/DL 32.0-36.0 L (BEAKER) (test code = 752) RED CELL DISTRIBUTION WIDTH 14.6 % 12.0-15.0 (BEAKER) (test code = 412) PLATELET COUNT (BEAKER) (test 192 K/CU MM 150-430 code = 756) MEAN PLATELET VOLUME (BEAKER) 9.7 fL 6.0-11.5 (test code = 754) NUCLEATED RED BLOOD CELLS 0 /100 WBC 0-0 (BEAKER) (test code = 413) NEUTROPHILS RELATIVE PERCENT 63 % (BEAKER) (test code = 429) LYMPHOCYTES RELATIVE PERCENT 23 % (BEAKER) (test code = 430) MONOCYTES RELATIVE PERCENT 11 % (BEAKER) (test code = 431) EOSINOPHILS RELATIVE PERCENT 2 % (BEAKER) (test code = 432) BASOPHILS RELATIVE PERCENT 1 % (BEAKER) (test code = 437) NEUTROPHILS ABSOLUTE COUNT 3.20 K/ L 1.80-8.00 (BEAKER) (test code = 670) LYMPHOCYTES ABSOLUTE COUNT 1.15 K/ L 1.48-4.50 L (BEAKER) (test code = 414) MONOCYTES ABSOLUTE COUNT (BEAKER) 0.57 K/ L 0.00-1.30 (test code = 415) EOSINOPHILS ABSOLUTE COUNT 0.10 K/ L 0.00-0.50 (BEAKER) (test code = 416) BASOPHILS ABSOLUTE COUNT (BEAKER) 0.03 K/ L 0.00-0.20 (test code = 417) IMMATURE GRANULOCYTES-RELATIVE 1 % 0-0 H PERCENT (BEAKER) (test code = 2801) POCT-GLUCOSE [id number] 21:39:00 Test Item Value Reference Range Interpretation Comments POC-GLUCOSE METER 115 mg/dL 70-110 H : TESTED A T [facility] [address] (BEAKER) (test code [facility], = 1538) [place] [address]: Negative Retoucher/Techni tessy ID = [id number] for Antonella May POCT-GLUCOSE [id number] 18:33:00 Test Item Value Reference Range Interpretation Comments POC-GLUCOSE METER 134 mg/dL 70-110 H : TESTED A T [facility] (BEAKER) ([facility], = 1538) [place] [id number]: Negative Retoucher/Techni tessy ID = [id number] for Peggy Arzate POCT-GLUCOSE [id number] 13:34:00 Test Item Value Reference Range Interpretation Comments POC-GLUCOSE METER 115 mg/dL 70-110 H : TESTED A T [facility] [address] (BEAKER) (test code [address], = 1538) [facility] [address]: Negative Retoucher/Techni tessy ID = [id number] for Peggy Arzate POCT-GLUCOSE [id number] 09:59:00 Test Item Value Reference Range Interpretation Comments POC-GLUCOSE METER 92 mg/dL 70-110 : TESTED A T [facility] [address] (BEAKER) (test code = [address], 15[address]) [facility] [address]: Negative Retoucher/Techni tessy ID = [id number] for Peggy Arzate BASIC METABOLIC [id number] 06:51:00 Test Item Value Reference Range Interpretation Comments SODIUM (BEAKER) 142 meq/L 135-148 (test code = 381) POTASSIUM (BEAKER) 4.2 meq/L 3.6-5.5 (test code = 379) CHLORIDE (BEAKER) 108 meq/L 98-106 H (test code = 382) CO2 (BEAKER) (test 25 meq/L 20-29 code = 355) BLOOD UREA NITROGEN 19 mg/dL 10-26 (BEAKER) (test code = 354) CREATININE (BEAKER) 0.84 mg/dL 0.50-1.20 (test code = 358) GLUCOSE RANDOM 99 mg/dL 70-110 (BEAKER) (test code = 652) CALCIUM (BEAKER) 8.2 mg/dL 8.5-10.5 L (test code = 697) EGFR (BEAKER) (test 91 mL/min/1.73 ESTIMA RODGER GFR IS code = 1092) sq m NOT ACCURATE CREATININE CLEARANCE IN PREDICTING GLOMERULAR FILTRATION RATE . ESTIMATED GFR I S NOT APPLICABLE FOR DIALYSIS PATIEN TS. Negative Retoucher ID - [id number] W/PLT COUNT & AUTO [id number] 06:33:00 Test Item Value Reference Range Interpretation Comments WHITE BLOOD CELL COUNT (BEAKER) 8.1 K/ L 4.0-10.0 (test code = 775) RED BLOOD CELL COUNT (BEAKER) 3.10 M/ L 4.20-5.80 L (test code = 761) HEMOGLOBIN (BEAKER) (test code = 9.2 GM/DL 13.0-16.8 L 410) HEMATOCRIT (BEAKER) (test code = 29.9 % 36.0-50.0 L 411) MEAN CORPUSCULAR VOLUME (BEAKER) 96.5 fL 82.0-99.0 (test code = 753) MEAN CORPUSCULAR HEMOGLOBIN 29.7 pg 27.0-33.0 (BEAKER) (test code = 751) MEAN CORPUSCULAR HEMOGLOBIN CONC 30.8 GM/DL 32.0-36.0 L (BEAKER) (test code = 752) RED CELL DISTRIBUTION WIDTH 14.5 % 12.0-15.0 (BEAKER) (test code = 412) PLATELET COUNT (BEAKER) (test 207 K/CU MM 150-430 code = 756) MEAN PLATELET VOLUME (BEAKER) 10.2 fL 6.0-11.5 (test code = 754) NUCLEATED RED BLOOD CELLS 0 /100 WBC 0-0 (BEAKER) (test code = 413) NEUTROPHILS RELATIVE PERCENT 73 % (BEAKER) (test code = 429) LYMPHOCYTES RELATIVE PERCENT 15 % (BEAKER) (test code = 430) MONOCYTES RELATIVE PERCENT 11 % (BEAKER) (test code = 431) EOSINOPHILS RELATIVE PERCENT 1 % (BEAKER) (test code = 432) BASOPHILS RELATIVE PERCENT 0 % (BEAKER) (test code = 437) NEUTROPHILS ABSOLUTE COUNT 5.87 K/ L 1.80-8.00 (BEAKER) (test code = 670) LYMPHOCYTES ABSOLUTE COUNT 1.21 K/ L 1.48-4.50 L (BEAKER) (test code = 414) MONOCYTES ABSOLUTE COUNT (BEAKER) 0.90 K/ L 0.00-1.30 (test code = 415) EOSINOPHILS ABSOLUTE COUNT 0.05 K/ L 0.00-0.50 (BEAKER) (test code = 416) BASOPHILS ABSOLUTE COUNT (BEAKER) 0.02 K/ L 0.00-0.20 (test code = 417) IMMATURE GRANULOCYTES-RELATIVE 1 % 0-0 H PERCENT (BEAKER) (test code = 2801) POCT-GLUCOSE [id number] 17:28:00 Test Item Value Reference Range Interpretation Comments POC-GLUCOSE METER 148 mg/dL 70-110 H : [facility] (test code [facility] [address], = 1538) [facility] [address]: Negative Retoucher/Techni tessy ID = [id number] for Traci u, Larisa POCT-GLUCOSE [id number] 17:28:00 Test Item Value Reference Range Interpretation Comments POC-GLUCOSE METER 129 mg/dL 70-110 H : TESTED A T [facility] [address] (BEAKER) (test code [address], = 1538) [place] [address]: Negative Retoucher/Techni tessy ID = [id number] for Traci u, Larisa POCT-GLUCOSE [id number] 09:12:00 Test Item Value Reference Range Interpretation Comments POC-GLUCOSE METER 70 mg/dL 70-110 : TESTED A T [facility] [address] (BEAKER) (test code = [address], 15[address]) [place] [address]: Negative Retoucher/Techni tessy ID = [id number] for Traci u, Larisa POCT-GLUCOSE [id number] 21:04:00 Test Item Value Reference Range Interpretation Comments POC-GLUCOSE METER 89 mg/dL 70-110 : TESTED A T [facility] [address] (BEAKER) (test code = [address], 1538) [place] [address]: Negative Retoucher/Techni tessy ID = [id number] for Cherie montoya, Joselyn POCT-GLUCOSE [id number] 16:02:00 Test Item Value Reference Range Interpretation Comments POC-GLUCOSE METER 96 mg/dL 70-110 : TESTED A T [facility] [address] (BEAKER) (test code = [address], 1538) [place] [address]: Negative Retoucher/Techni tessy ID = [id number] for Phuong Randolph URINE [id number] 11:55:00 Test Item Value Reference Range Interpretation Comments CULTURE (BEAKER) (test code = 1095) No growth (MANUAL DIFFERENTIAL)2020-02-22 11:01:00 Test Item Value Reference Range Interpretation Comments NEUTROPHILS - REL (DIFF) (BEAKER) 76 % (test code = 1359) LYMPHOCYTES - REL (DIFF) (BEAKER) 15 % (test code = 1360) MONOCYTES - REL (DIFF) (BEAKER) 5 % (test code = 1361) BANDS - REL (DIFF) (BEAKER) (test 4 % 0-10 code = 1348) NEUTROPHILS - ABS (DIFF) (BEAKER) 5.93 K/ L 1.80-8.00 (test code = 1365) LYMPHOCYTES - ABS (DIFF) (BEAKER) 1.17 K/ L 1.48-4.50 L (test code = 1366) MONOCYTES - ABS (DIFF) (BEAKER) 0.39 K/ L 0.00-1.30 (test code = 1367) BANDS-ABS (DIFF) (BEAKER) (test 0.3 K/ L 0.0-0.8 code = 1349) TOTAL COUNTED (BEAKER) (test code = 100 1351) BANDS + SEGMENTED NEUTROPHILS 6.24 (BEAKER) (test code = 1352) WBC MORPHOLOGY (BEAKER) (test code Normal = 487) RBC MORPHOLOGY (BEAKER) (test code Normal = 762) LARGE PLT(BEAKER) (test code = Present 2156) CBC WITH PLATELET COUNT + MANUAL [id number] 11:01:00 Test Item Value Reference Range Interpretation Comments WHITE BLOOD CELL COUNT (BEAKER) 7.8 K/ L 4.0-10.0 (test code = 775) RED BLOOD CELL COUNT (BEAKER) 3.47 M/ L 4.20-5.80 L (test code = 761) HEMOGLOBIN (BEAKER) (test code = 10.3 GM/DL 13.0-16.8 L 410) HEMATOCRIT (BEAKER) (test code = 33.3 % 36.0-50.0 L 411) MEAN CORPUSCULAR VOLUME (BEAKER) 96.0 fL 82.0-99.0 (test code = 753) MEAN CORPUSCULAR HEMOGLOBIN 29.7 pg 27.0-33.0 (BEAKER) (test code = 751) MEAN CORPUSCULAR HEMOGLOBIN CONC 30.9 GM/DL 32.0-36.0 L (BEAKER) (test code = 752) RED CELL DISTRIBUTION WIDTH 14.3 % 12.0-15.0 (BEAKER) (test code = 412) PLATELET COUNT (BEAKER) (test 224 K/CU MM 150-430 code = 756) MEAN PLATELET VOLUME (BEAKER) 10.2 fL 6.0-11.5 (test code = 754) NUCLEATED RED BLOOD CELLS 0 /100 WBC 0-0 (BEAKER) (test code = 413) BASIC METABOLIC [id number] 10:40:00 Test Item Value Reference Range Interpretation Comments SODIUM (BEAKER) 135 meq/L 135-148 (test code = 381) POTASSIUM (BEAKER) 4.2 meq/L 3.6-5.5 (test code = 379) CHLORIDE (BEAKER) 100 meq/L 98-106 (test code = 382) CO2 (BEAKER) (test 28 meq/L 20-29 code = 355) BLOOD UREA NITROGEN 20 mg/dL 10-26 (BEAKER) (test code = 354) CREATININE (BEAKER) 1.17 mg/dL 0.50-1.20 (test code = 358) GLUCOSE RANDOM 139 mg/dL 70-110 H (BEAKER) (test code = 652) CALCIUM (BEAKER) 8.8 mg/dL 8.5-10.5 (test code = 697) EGFR (BEAKER) (test 62 mL/min/1.73 ESTIMA RODGER GFR IS code = 1092) sq m NOT ACCURATE CREATININE CLEARANCE IN PREDICTING GLOMERULAR FILTRATION RATE . ESTIMATED GFR I S NOT APPLICABLE FOR DIALYSIS PATIEN TS. Negative Retoucher ID - [id number] 08:04:00 Test Item Value Reference Range Interpretation Comments POC-GLUCOSE METER 95 mg/dL 70-110 : TESTED A T [facility] [address] (BEAKER) (test code = [address], 1538) [place] [address]: Negative Retoucher/Techni tessy ID = [id number] for Traci borja Phuong POCT-GLUCOSE [id number] 07:49:00 Test Item Value Reference Range Interpretation Comments POC-GLUCOSE METER 49 mg/dL 70-110 L : TESTED A T [facility] [address] (BEAKER) (test code = [address], 1538) [place] [address]: Negative Retoucher/Techni tessy ID = [id number] for Traci borja, Phuong POCT-GLUCOSE [id number] 21:38:00 Test Item Value Reference Range Interpretation Comments POC-GLUCOSE METER 141 mg/dL 70-110 H : TESTED A T [facility] [address] (BEAKER) (test code [address], = 1538) [place] [address]: Negative Retoucher/Techni tessy ID = [id number] for Antonella May POCT-GLUCOSE [id number] 17:16:00 Test Item Value Reference Range Interpretation Comments POC-GLUCOSE METER 195 mg/dL 70-110 H : TESTED A T [facility] [address] (BEAKER) (test code [address], = 1538) [facility] [address]: Negative Retoucher/Techni tessy ID = [id number] for Obik hong, Ifeyinwa POCT-GLUCOSE [id number] 12:39:00 Test Item Value Reference Range Interpretation Comments POC-GLUCOSE METER 209 mg/dL 70-110 H : TESTED A T [facility] [address] (BEAKER) (test code [address], = 1538) [facility] [address]: Negative Retoucher/Techni tessy ID = [id number] for Obik hong, Ifeyinwa RAD, SPINE, CERVICAL, 2 OR 3 [id number] 11:44:00NO FLEXION OR EXTENSION,Reason for exam:->cervical fusion follow upFINAL REPORT CLINICAL HISTORY: cervical fusion follow up TECHNIQUE: Frontal and lateral views of the cervical spine. COMPARISON: None IMPRESSION: There are bilateral posterior spinal rods and screws extending from C4 through T2. There is a dorsal surgical drain drain and overlying skin galina. There is also anterior cervical discectomy and plate and screw fusion of C3-C5 with interbody strut grafts. There is straightening of the cervical curvature with maintained alignment. The cervical vertebral body heights appear preserved. Signed: Keegan Nunez MDReport Verified Date/Time: 02/21/2020 11:44:41 Reading Location: [facility] Radiology Reading Room XR spine cervical 2 or 3 [id number] 11:44:00 Interface, External Ris In - 02/21/2020 11:46 AM CDTFINAL REPORT CLINICAL HISTORY: cervical fusion follow up TECHNIQUE: Frontal and lateral views of the cervical spine. COMPARISON: None IMPRESSION: There are bilateral posterior spinal rods and screws extending from C4 through T2. There is a dorsal surgical drain drain and overlying skin galina. There is also anterior cervical discectomy and plate and screw fusion of C3-C5 with interbody strut grafts. There is straightening ofthe cervical curvature with maintained alignment. The cervical vertebral body heights appear preserved. Signed: Keegan Nunez MDReport Verified Date/Time: 02/21/2020 11:44:41 [facility] [place] [facility] 2020-02-21 08:48:00 Test Item Value Reference Range Interpretation Comments POC-GLUCOSE METER 209 mg/dL 70-110 H : TESTED A T [facility] [address] (BEAKER) (test code [address], = 1538) [facility] [address]: Negative Retoucher/Techni tessy ID = [id number] for Isha hong Leimichael COMPREHENSIVE METABOLIC [id number] 05:02:00 Test Item Value Reference Range Interpretation Comments TOTAL PROTEIN 5.6 gm/dL 6.0-8.5 L (BEAKER) (test code = 770) ALBUMIN (BEAKER) 3.5 g/dL 3.5-5.0 (test code = 1145) ALKALINE PHOSPHATASE 45 U/L 30-115 (BEAKER) (test code = 346) BILIRUBIN TOTAL 0.5 mg/dL 0.1-1.2 (BEAKER) (test code = 377) SODIUM (BEAKER) (test 135 meq/L 135-148 code = 381) POTASSIUM (BEAKER) 4.4 meq/L 3.6-5.5 (test code = 379) CHLORIDE (BEAKER) 102 meq/L 98-106 (test code = 382) CO2 (BEAKER) (test 24 meq/L 20-29 code = 355) BLOOD UREA NITROGEN 17 mg/dL 10-26 (BEAKER) (test code = 354) CREATININE (BEAKER) 0.99 mg/dL 0.50-1.20 (test code = 358) GLUCOSE RANDOM 173 mg/dL 70-110 H (BEAKER) (test code = 652) CALCIUM (BEAKER) 7.9 mg/dL 8.5-10.5 L (test code = 697) AST (SGOT) (BEAKER) 110 U/L 5-40 H (test code = 353) ALT (SGPT) (BEAKER) 20 U/L 5-50 (test code = 347) EGFR (BEAKER) (test 75 mL/min/1.73 ESTIMA RODGER GFR IS code = 1092) sq m NOT ACCURATE CREATININE CLEARANCE IN PREDICTING GLOMERULAR FILTRATION RATE . ESTIMATED GFR I S NOT APPLICABLE FOR DIALYSIS PATIEN TS. Negative Retoucher ID - [id number] 05:01:00 Test Item Value Reference Range Interpretation Comments MAGNESIUM (BEAKER) (test code = 2.0 mg/dL 1.5-3.0 627) Negative Retoucher ID - [id number] W/PLT COUNT & AUTO [id number] 04:38:00 Test Item Value Reference Range Interpretation Comments WHITE BLOOD CELL COUNT (BEAKER) 9.2 K/ L 4.0-10.0 (test code = 775) RED BLOOD CELL COUNT (BEAKER) 3.59 M/ L 4.20-5.80 L (test code = 761) HEMOGLOBIN (BEAKER) (test code = 10.6 GM/DL 13.0-16.8 L 410) HEMATOCRIT (BEAKER) (test code = 33.7 % 36.0-50.0 L 411) MEAN CORPUSCULAR VOLUME (BEAKER) 93.9 fL 82.0-99.0 (test code = 753) MEAN CORPUSCULAR HEMOGLOBIN 29.5 pg 27.0-33.0 (BEAKER) (test code = 751) MEAN CORPUSCULAR HEMOGLOBIN CONC 31.5 GM/DL 32.0-36.0 L (BEAKER) (test code = 752) RED CELL DISTRIBUTION WIDTH 14.0 % 12.0-15.0 (BEAKER) (test code = 412) PLATELET COUNT (BEAKER) (test 218 K/CU MM 150-430 code = 756) MEAN PLATELET VOLUME (BEAKER) 10.2 fL 6.0-11.5 (test code = 754) NUCLEATED RED BLOOD CELLS 0 /100 WBC 0-0 (BEAKER) (test code = 413) NEUTROPHILS RELATIVE PERCENT 83 % (BEAKER) (test code = 429) LYMPHOCYTES RELATIVE PERCENT 8 % (BEAKER) (test code = 430) MONOCYTES RELATIVE PERCENT 9 % (BEAKER) (test code = 431) EOSINOPHILS RELATIVE PERCENT 0 % (BEAKER) (test code = 432) BASOPHILS RELATIVE PERCENT 0 % (BEAKER) (test code = 437) NEUTROPHILS ABSOLUTE COUNT 7.61 K/ L 1.80-8.00 (BEAKER) (test code = 670) LYMPHOCYTES ABSOLUTE COUNT 0.71 K/ L 1.48-4.50 L (BEAKER) (test code = 414) MONOCYTES ABSOLUTE COUNT (BEAKER) 0.80 K/ L 0.00-1.30 (test code = 415) EOSINOPHILS ABSOLUTE COUNT 0.00 K/ L 0.00-0.50 (BEAKER) (test code = 416) BASOPHILS ABSOLUTE COUNT (BEAKER) 0.01 K/ L 0.00-0.20 (test code = 417) IMMATURE GRANULOCYTES-RELATIVE 0 % 0-0 PERCENT (BEAKER) (test code = 2801) POCT-GLUCOSE [id number] 14:16:00 Test Item Value Reference Range Interpretation Comments POC-GLUCOSE METER 131 mg/dL 70-110 H : TESTED A T [facility] [address] (BEAKER) (test code [address], = 1538) [facility] [address]: Negative Retoucher/Techni tessy ID = [id number] for [facility], line BLOOD GAS, [id number] 13:31:00 Test Item Value Reference Range Interpretation Comments PH ARTERIAL (BEAKER) (test code = 7.38 7.35-7.45 383) PCO2 ARTERIAL (BEAKER) (test code 37 mmHg 35-45 = 384) PO2 ARTERIAL (BEAKER) (test code 207 mmHg 80-90 H = 385) O2 SATURATION ARTERIAL (BEAKER) 99.4 % 96.0-97.0 H (test code = 386) HCO3 ARTERIAL (BEAKER) (test code 21 mmol/L 21-29 = 388) BASE EXCESS ARTERIAL (BEAKER) -3.2 mmol/L -2.0-3.0 L (test code = 387) PATIENT TEMPERATURE (BEAKER) 37.7 C (test code = 1818) FIO2 (BEAKER) (test code = 1819) 45.0 % FL, FLUORO, NON-SPECIFIC, UP TO 1 [id number] 12:30:00Reason for exam:- >spine fusionFluoroscopic unit utilized for a procedure performed in the OR. No interpretation was requested. Refer to the operative report for findings. Refer to PACS for patient radiation dose information.jesus [id number] 08:21:00 Test Item Value Reference Range Interpretation Comments ABO Grouping (test code B TUBE METHOD = 2588) Rh Factor (test code = NEG TUBE METHOD 02/20/20 @ 2589) 0821 [id number] 68 [facility] [id number] 08:12:00 Test Item Value Reference Range Interpretation Comments POC-GLUCOSE METER 94 mg/dL 70-110 : TESTED A T [facility] [address] (BEAKER) (test code = [address], 1538) [facility] [address]: Negative Retoucher/Techni tessy ID = [id number] for Kael lairdz Jerry SARS-COV2/RT-PCR ([facility])2020-02-15 11:52:00 Test Item Value Reference Range Interpretation Comments SARS-COV2/RT-PCR (test code = See reflex [id number]) SARS-COV-2 PERFORMING LAB (test code CPL = [id number]) BASIC METABOLIC [id number] 11:11:00 Test Item Value Reference Range Interpretation Comments SODIUM (BEAKER) (test 142 meq/L 135-148 code = 381) POTASSIUM (BEAKER) 4.5 meq/L 3.6-5.5 (test code = 379) CHLORIDE (BEAKER) 103 meq/L 98-106 (test code = 382) CO2 (BEAKER) (test 27 meq/L 20-29 code = 355) BLOOD UREA NITROGEN 31 mg/dL 10-26 H (BEAKER) (test code = 354) CREATININE (BEAKER) 1.17 mg/dL 0.50-1.20 (test code = 358) GLUCOSE RANDOM 109 mg/dL 70-110 (BEAKER) (test code = 652) CALCIUM (BEAKER) 9.5 mg/dL 8.5-10.5 (test code = 697) EGFR (BEAKER) (test INSUFFIC IENT CLINICAL code = 1092) DATA TO CALCULA TE ESTIMATED GFR. Negative Retoucher ID - [id number] W/PLT COUNT & AUTO [id number] 10:59:00 Test Item Value Reference Range Interpretation Comments WHITE BLOOD CELL COUNT (BEAKER) 5.2 K/ L 4.0-10.0 (test code = 775) RED BLOOD CELL COUNT (BEAKER) 3.90 M/ L 4.20-5.80 L (test code = 761) HEMOGLOBIN (BEAKER) (test code = 11.5 GM/DL 13.0-16.8 L 410) HEMATOCRIT (BEAKER) (test code = 37.6 % 36.0-50.0 411) MEAN CORPUSCULAR VOLUME (BEAKER) 96.4 fL 82.0-99.0 (test code = 753) MEAN CORPUSCULAR HEMOGLOBIN 29.5 pg 27.0-33.0 (BEAKER) (test code = 751) MEAN CORPUSCULAR HEMOGLOBIN CONC 30.6 GM/DL 32.0-36.0 L (BEAKER) (test code = 752) RED CELL DISTRIBUTION WIDTH 14.3 % 12.0-15.0 (BEAKER) (test code = 412) PLATELET COUNT (BEAKER) (test 233 K/CU MM 150-430 code = 756) MEAN PLATELET VOLUME (BEAKER) 10.4 fL 6.0-11.5 (test code = 754) NUCLEATED RED BLOOD CELLS 0 /100 WBC 0-0 (BEAKER) (test code = 413) NEUTROPHILS RELATIVE PERCENT 55 % (BEAKER) (test code = 429) LYMPHOCYTES RELATIVE PERCENT 28 % (BEAKER) (test code = 430) MONOCYTES RELATIVE PERCENT 16 % (BEAKER) (test code = 431) EOSINOPHILS RELATIVE PERCENT 1 % (BEAKER) (test code = 432) BASOPHILS RELATIVE PERCENT 1 % (BEAKER) (test code = 437) NEUTROPHILS ABSOLUTE COUNT 2.86 K/ L 1.80-8.00 (BEAKER) (test code = 670) LYMPHOCYTES ABSOLUTE COUNT 1.46 K/ L 1.48-4.50 L (BEAKER) (test code = 414) MONOCYTES ABSOLUTE COUNT (BEAKER) 0.82 K/ L 0.00-1.30 (test code = 415) EOSINOPHILS ABSOLUTE COUNT 0.03 K/ L 0.00-0.50 (BEAKER) (test code = 416) BASOPHILS ABSOLUTE COUNT (BEAKER) 0.05 K/ L 0.00-0.20 (test code = 417) IMMATURE GRANULOCYTES-RELATIVE 0 % 0-0 PERCENT (BEAKER) (test code = 2801) [QL] CBC (INCLUDES DIFF/PLT)2020-01-23 09:03:00 Test Item Value Reference Range Interpretation Comments WBC (test code = 6690-2) 4.7 {x10E3/uL} 3.4-10.8 RBC; Below Low Threshold 3.83 {x10E6/uL} 4.14-5.80 (test code = 789-8) Hemoglobin; Below Low 11.7 g/dL 13.0-17.7 Threshold (test code = 718-7) Hematocrit; Below Low 36.6 % 37.5-51.0 Threshold (test code = 4544-3) MCV (test code = 787-2) 96 fL 79-97 MCH (test code = 785-6) 30.5 pg 26.6-33.0 MCHC (test code = 786-4) 32.0 g/dL 31.5-35.7 RDW (test code = 788-0) 13.4 % 11.6-15.4 Platelets (test code = 777-3) 218 {x10E3/uL} 150-450 Neutrophils (test code = 49 % Not Estab. 770-8) Lymphs (test code = 736-9) 31 % Not Estab. Monocytes (test code = 16 % Not Estab. 5905-5) Eos (test code = 713-8) 1 % Not Estab. Basos (test code = 706-2) 2 % Not Estab. Immature Cells (test code = See Comment Immature Cells) Neutrophils (Absolute) (test 2.4 {x10E3/uL} 1.4-7.0 code = 751-8) Lymphs (Absolute) (test code 1.5 {x10E3/uL} 0.7-3.1 = 731-0) Monocytes (Absolute) (test 0.7 {x10E3/uL} 0.1-0.9 code = 742-7) Eos (Absolute) (test code = 0.0 {x10E3/uL} 0.0-0.4 711-2) Baso (Absolute) (test code = 0.1 {x10E3/uL} 0.0-0.2 704-7) Immature Granulocytes (test 1 % Not Estab. code = 03774-0) Immature Grans (Abs) (test 0.0 {x10E3/uL} 0.0-0.1 code = 26332-4) NRBC (test code = 24122-8) See Comment Hematology Comments: (test See Comment code = 21995-7) [facility][QL] COMPREHENSIVE METABOLIC PANEL W/O eGFR 2020-01-23 09:03:00 Test Item Value Reference Range Interpretation Comments Glucose; Above High Threshold 102 mg/dL 65-99 (test code = 2345-7) BUN (test code = 3094-0) 14 mg/dL 8-27 Creatinine (test code = 2160-0) 0.95 mg/dL 0.76-1.27 eGFR If NonAfricn Am (test code 82 mL/min/1.7 >59 = 91345-5) eGFR If Africn Am (test code = 95 mL/min/1.7 >59 52464-7) BUN/Creatinine Ratio (test code 04-26 = 3097-3) Sodium, Serum (test code = 143 mmol/L 165-041 5170-2) Potassium (test code = 2823-3) 4.2 mmol/L 3.5-5.2 Chloride (test code = 2075-0) 102 mmol/L 96-106 Carbon Dioxide, Total (test 26 mmol/L 20-29 code = 8-9) Calcium (test code = 08691-6) 9.2 mg/dL 8.6-10.2 Protein, Total; Below Low 5.9 g/dL 6.0-8.5 Threshold (test code = 2885-2) Albumin (test code = 1751-7) 4.1 g/dL 3.8-4.8 Globalulin, Total (test code = 1.8 g/dL 1.5-4.5 79070-7) A/G Ratio; Above High Threshold 2.3 1.2-2.2 (test code = 1759-0) Bilirubin, Total (test code = 0.3 mg/dL 0.0-1.2 1974-2) Alkaline Phosphatase (test code 54 {IU/L} 39-117 = 6768-6) AST (test code = 1920-8) 20 {IU/L} 0-40 ALT (test code = 1742-6) 9 {IU/L} 0-44 [facility][] COMPLEMENT COMPONENT [id number] 09:03:00 Test Item Value Reference Range Interpretation Comments Complement C4, Serum (test code = 23 mg/dL 14-44 4498-2) [facility][QL] COMPLEMENT COMPONENT [id number] 09:03:00 Test Item Value Reference Range Interpretation Comments Complement C3, Serum (test code = 156 mg/dL 82-167 4485-9) [facility][QL] URINALYSIS, [id number] 09:03:00 Test Item Value Reference Range Interpretation Comments Specific [place] 1.012 1.005-1.030 (test code = 2965-2) pH (test code = 7.5 5.0-7.5 5803-2) Urine-Color (test Yellow Yellow code = 5778-6) Appearance (test code Clear Clear = 5767-9) WBC Esterase (test Negative Negative code = 5799-2) Protein (test code = Negative Negative/Trace 86422-5) Glucose; Abnormal 3+ Negative A (test code = 2349-9) Ketones (test code = Negative Negative 2514-8) Occult Blood (test Negative Negative code = 5794-3) Bilirubin (test code Negative Negative = 5770-3) Urobilinogen,Semi-Qn 0.2 mg/dL 0.2-1.0 (test code = 66862-1) Nitrite, Urine (test Negative Negative code = 5802-4) Microscopic See below: Microscopic was Examination (test indicated and was code = 39928-2) performed. WBC (test code = None seen 0-5 6690-2) RBC (test code = 0-2 0-2 789-8) Epithelial Cells (non None seen 0-10 renal) (test code = 25475-4) Epithelial Cells See Comment (renal) (test code = 84435-4) Casts (test code = See Comment 72757-0) Cast Type (test code See Comment = 04526-1) Crystals (test code = See Comment 60183-6) Crystal Type (test See Comment code = 5782-8) Mucus Threads (test See Comment code = 43786-4) Bacteria (test code = None seen None seen/Few 630-4) Yeast (test code = See Comment 77169-7) Trichomonas (test See Comment code = 77225-2) Comment (test code = See Comment Comment) [facility][L] Protein Total Urine [id number] 09:03:00 Test Item Value Reference Range Interpretation Comments Protein,Total,Urine <4.0 Not Estab. Verifi ed by repeat (test code = 2888-6) analysi s [facility][] CREATININE, RANDOM [id number] 09:03:00 Test Item Value Reference Range Interpretation Comments Creatinine, Urine (test code = 14.6 mg/dL Not Estab. 2161-8) [facility]] CBC (INCLUDES DIFF/PLT)2019-05-21 11:08:01 Test Item Value Reference Range Interpretation Comments WBC (test code = 6690-2) 5.5 {K/CMM} 3.7-10.4 RBC; Below Low Threshold (test 4.42 {M/CMM} 4.70-6.10 code = 789-8) Hgb; Below Low Threshold (test 13.7 g/dl 14.0-18.0 code = 718-7) Hct; Below Low Threshold (test 41.8 % 42.0-54.0 code = 11928-9) MCV; Above High Threshold (test 94.5 fL 80.0-94.0 code = 787-2) MCH (test code = 785-6) 30.9 pg 27.0-31.0 MCHC (test code = 786-4) 32.7 g/dl 32.0-36.0 RDW; Above High Threshold (test 14.9 % 11.5-14.5 code = 788-0) Platelet (test code = 46396-8) 270 {K/CMM} 133-450 Mean Platelet Volume (test code 8.3 fL 7.4-10.4 = 94598-0) [facility]] [id number] 11:08:01 Test Item Value Reference Range Interpretation Comments Segmented Neutrophils (test code 58.8 % 45.0-75.0 = 07388-0) Monocytes; Above High Threshold 16.9 % 2.0-12.0 (test code = 67307-8) Lymphocytes (test code = 96214-9) 21.7 % 20.0-40.0 Eosinophils (test code = 57459-8) 1.4 % 0.0-4.0 Basophils; Above High Threshold 1.2 % 0.0-1.0 (test code = 706-2) Segs-Bands # (test code = 3.2 {K/CMM} 1.5-8.1 01744-1) Lymphocytes # (test code = 1.2 {K/CMM} 1.0-5.5 10393-9) Monocytes #; Above High Threshold 0.9 {K/CMM} 0.0-0.8 (test code = 30559-2) Eosinophils # (test code = 0.1 {K/CMM} 0.0-0.5 77317-6) Basophils # (test code = 76391-7) 0.1 {K/CMM} 0.0-0.2 [facility]] COMPLEMENT COMPONENT [id number] 11:08:01 Test Item Value Reference Range Interpretation Comments C3 Complement (test code = 4485-9) 181 mg/dl 88-201 [facility]] COMPLEMENT COMPONENT [id number] 11:08:01 Test Item Value Reference Range Interpretation Comments C4 Complement (test code = 4498-2) 31 mg/dl 16-47 [facility]] CMP [id number] 11:08:01 Test Item Value Reference Range Interpretation Comments Sodium Level 141 {mEq/l} 135-145 (test code = 2951-2) Potassium Level 4.3 {mEq/l} 3.5-5.1 (test code = 2823-3) Chloride Level 108 {mEq/l} 95-109 (test code = 5-0) Carbon Dioxide 25 {mEq/l} 24-32 (test code = 2027-9) AGAP (test code = 12.3 {mEq/l} 10.0-20.0 33487-0) Glucose Lvl; 108 mg/dl 70-99 Adult reference range Above High values reflect the Threshold (test clinical ernestine delinesof the code = 2345-7) [place] [employer]. Creatinine Lvl 1.10 mg/dl 0.50-1.40 (test code = 2160-0) Blood Urea 22 mg/dl 7-22 Nitrogen (test code = 3094-0) BUN/Creatinine 20 6-25 Ratio (test code = 3097-3) Total Protein 6.7 g/dl 6.4-8.4 (test code = 2885-2) Albumin Lvl (test 3.8 g/dl 3.5-5.0 code = 1751-7) Globulin (test 2.9 g/dl 2.7-4.2 code = 30376-3) A/G Ratio (test 1.3 0.7-1.6 code = 1759-0) Calcium Level 8.8 mg/dl 8.5-10.5 Total (test code = 25757-8) ALT (test code = 23 u/l 0-65 1743-4) AST (test code = 30 u/l 0-37 57277-7) Bili Total (test 0.5 mg/dl 0.2-1.3 code = 1975-2) Alk Phos (test 116 u/l 39-136 The pediatric reference code = 1783-0) ranges for is test represent a CLSI-basedtrans ference of the CALIPER erik abase of pediatric refer ence intervals to [facility] [place] analyzer (Clinical Biochemistry 46 (2013): 2857-4581). [facility] has not internally validated these reference ranges and therefore they should be used only in th e context of a thoroughcl inical assessment. eGFR (test code = 69 The eGFR i s calculated 45876-7) {ML/MIN/1.7} using the CKD-E PI formula. In [...] be multiplied by t he estimated BMI. [facility]] URINALYSIS, [id number] 11:08:01 Test Item Value Reference Range Interpretation Comments UA Turbidity; Abnormal (test code = Slight Clear A 69673-3) UA Spec Grav (test code = 5810-7) 1.025 <=1.030 UA pH (test code = 5803-2) 6.0 5.0-8.0 UA Protein; Abnormal (test code = 30 mg/dl Negative A 33767-6) UA Glucose (test code = 09135-8) Negative Negative UA Ketones (test code = 00277-7) Negative Negative UA Bili (test code = 5770-3) Negative Negative UA Blood (test code = 5794-3) Negative Negative UA Nitrite (test code = 5802-4) Negative Negative UA Leuk Est (test code = 5799-2) Negative Negative UA WBC (test code = 10031-8) 3 {/HPF} 0-5 UA Mucus (test code = 8247-9) Few None Seen Urine Calcium Oxalate Crystal (test Few None Seen code = 5774-5) UA Sq Epi (test code = 07272-8) None Seen UA Color (test code = 5778-6) Yellow UROBILINOGEN (test code = 05741-8) <=1.0 0.1-1.0 [facility]] CBC (INCLUDES DIFF/PLT)2019-01-22 10:40:01 Test Item Value Reference Range Interpretation Comments WBC; Below Low Threshold (test 3.4 {K/CMM} 3.7-10.4 code = 6690-2) RBC; Below Low Threshold (test 4.41 {M/CMM} 4.70-6.10 code = 789-8) Hgb; Below Low Threshold (test 13.1 g/dl 14.0-18.0 code = 718-7) Hct; Below Low Threshold (test 40.0 % 42.0-54.0 code = 61551-7) MCV (test code = 787-2) 90.8 fL 80.0-94.0 MCH (test code = 785-6) 29.8 pg 27.0-31.0 MCHC (test code = 786-4) 32.8 g/dl 32.0-36.0 RDW; Above High Threshold (test 14.6 % 11.5-14.5 code = 788-0) Platelet (test code = 12789-7) 181 {K/CMM} 133-450 Mean Platelet Volume (test code 8.9 fL 7.4-10.4 = 35426-0) [facility]] [id number] 10:40:01 Test Item Value Reference Range Interpretation Comments Segmented Neutrophils (test code 49.3 % 45.0-75.0 = 80296-9) Monocytes; Above High Threshold 18.3 % 2.0-12.0 (test code = 13971-1) Lymphocytes (test code = 81225-5) 27.4 % 20.0-40.0 Eosinophils (test code = 41197-5) 2.6 % 0.0-4.0 Basophils; Above High Threshold 2.4 % 0.0-1.0 (test code = 706-2) Segs-Bands # (test code = 1.7 {K/CMM} 1.5-8.1 04227-7) Lymphocytes #; Below Low 0.9 {K/CMM} 1.0-5.5 Threshold (test code = 57235-6) Monocytes # (test code = 29834-2) 0.6 {K/CMM} 0.0-0.8 Eosinophils # (test code = 0.1 {K/CMM} 0.0-0.5 91686-3) Basophils # (test code = 78060-3) 0.1 {K/CMM} 0.0-0.2 [facility]] CMP [id number] 10:40:01 Test Item Value Reference Range Interpretation Comments Sodium Level 142 {mEq/l} 135-145 (test code = 2951-2) Potassium Level 5.1 {mEq/l} 3.5-5.1 (test code = 2823-3) Chloride Level 107 {mEq/l} 95-109 (test code = 2075-0) Carbon Dioxide; 33 {mEq/l} 24-32 Above High Threshold (test code = 8-9) AGAP; Below Low 7.1 {mEq/l} 10.0-20.0 Threshold (test code = 40543-2) Glucose Lvl; 153 mg/dl 70-99 Adult reference range Above High values reflect the Threshold (test clinical ernestine delinesof the code = 2345-7) [place] [employer]. Creatinine Lvl 1.10 mg/dl [...] g/dl 2.7-4.2 Low Threshold (test code = 39826-9) A/G Ratio (test 1.4 0.7-1.6 code = 1759-0) Calcium Level 9.3 mg/dl 8.5-10.5 Total (test code = 93064-2) ALT (test code = 25 u/l 0-65 1743-4) AST (test code = 28 u/l 0-37 71825-7) Bili Total (test 0.6 mg/dl 0.2-1.3 code = 1974-2) Alk Phos (test 64 u/l 39-136 code = 1783-0) eGFR (test code = 69 The eGFR i s calculated 08196-0) {ML/MIN/1.7} using the CKD-E PI formula. In [...] be multiplied by t he estimated BMI. [facility]] C-REACTIVE [id number] 10:40:01 Test Item Value Reference Range Interpretation Comments CRP (test code = CRP) <2.9 <=2.9 [facility]] SED RATE BY MODIFIED [id number] 10:40:01 Test Item Value Reference Range Interpretation Comments Sedimentation Rate (test code = 4 {mm/hr} 0-15 93289-9) [facility][H] Protein [id number] 10:40:01 Test Item Value Reference Range Interpretation [...] Glob (test 0.67 g/dl 0.45-1.00 code = 91439-1) Beta Glob (test 0.71 g/dl 0.50-1.15 code [...] without signifi cant abnormalities.I nterpret ationperformed at [facility].Electr onic Signature Osvaldo Lake MD 17:19 PM [facility][H] Immunofixation [id number] 10:40:01 Test Item Value Reference Interpretation Comments Range Immunofixation SEE NOTES Diffusely imm unoreactive Electrophoresis bands are no rodger in the IgG, Pattern (test code = IgA, Ig M, kappa and Immunofixation lambdalanes. No monoclonal Electrophoresis bands are id entified. Pattern) [facility] Immunofix[facility] SEE NOTES Serum immunof ixation Electrophoresis electrophore sis reveals a Interpretation (test polyclo nal pattern code = ofimmunoglobuli ns. No Immunofixation monoclonal pr oteins are Electrophoresis identified. Interpretation) Interpretati onperformed at [facility].Electr onic Signature Osvaldo Lake MD 17:37 PM [facility]] SED RATE BY MODIFIED [id number] 10:54:01 Test Item Value Reference Range Interpretation Comments Sedimentation Rate (test code = 3 {mm/hr} 0-15 59603-7) [facility]] CBC (INCLUDES DIFF/PLT)2018-09-18 10:54:01 Test Item Value Reference Range Interpretation Comments WBC (test code = 6690-2) 4.9 {K/CMM} 3.7-10.4 RBC (test code = 789-8) 5.17 {M/CMM} 4.70-6.10 Hgb (test code = 718-7) 14.3 g/dl 14.0-18.0 Hct (test code = 83835-8) 43.9 % 42.0-54.0 MCV (test code = 787-2) 84.9 fL 80.0-94.0 MCH (test code = 785-6) 27.7 pg 27.0-31.0 MCHC (test code = 786-4) 32.6 g/dl 32.0-36.0 RDW; Above High Threshold (test 16.7 % 11.5-14.5 code = 788-0) Platelet (test code = 64835-7) 194 {K/CMM} 133-450 Mean Platelet Volume (test code 9.1 fL 7.4-10.4 = 51840-8) [facility]] [id number] 10:54:01 Test Item Value Reference Range Interpretation Comments Segmented Neutrophils (test code 52.8 % 45.0-75.0 = 57398-7) Monocytes; Above High Threshold 17.3 % 2.0-12.0 (test code = 82938-2) Lymphocytes (test code = 64251-6) 25.6 % 20.0-40.0 Eosinophils (test code = 26858-6) 2.8 % 0.0-4.0 Basophils; Above High Threshold 1.5 % 0.0-1.0 (test code = 706-2) Segs-Bands # (test code = 2.6 {K/CMM} 1.5-8.1 16160-4) Lymphocytes # (test code = 1.2 {K/CMM} 1.0-5.5 52833-6) Monocytes # (test code = 86537-6) 0.8 {K/CMM} 0.0-0.8 Eosinophils # (test code = 0.1 {K/CMM} 0.0-0.5 27900-0) Basophils # (test code = 38184-0) 0.1 {K/CMM} 0.0-0.2 [facility]] CMP [id number] 10:54:01 Test Item Value Reference Range Interpretation Comments Sodium Level 143 {mEq/l} 135-145 (test code = 2951-2) Potassium Level 4.6 {mEq/l} 3.5-5.1 (test code = 2823-3) Chloride Level 107 {mEq/l} 95-109 (test code = 5-0) Carbon Dioxide 29 {mEq/l} 24-32 (test code = 2027-9) AGAP (test code = 11.6 {mEq/l} 10.0-20.0 30763-6) Glucose Lvl; 123 mg/dl 70-99 Adult reference range Above High values reflect the Threshold (test clinical ernestine delinesof the code = 2345-7) [place] [employer]. Creatinine Lvl 0.90 mg/dl 0.50-1.40 (test code = 2160-0) Blood Urea 22 mg/dl 7-22 Nitrogen (test code = 3094-0) BUN/Creatinine 24 6-25 Ratio (test code = 3097-3) Total Protein 6.4 g/dl 6.4-8.4 (test code = 2885-2) Albumin Lvl (test 3.9 g/dl 3.5-5.0 code = 1751-7) Globulin; Below 2.5 g/dl 2.7-4.2 Low Threshold (test code = 67509-0) A/G Ratio (test 1.6 0.7-1.6 code = 1759-0) Calcium Level 8.7 mg/dl 8.5-10.5 Total (test code = 20517-2) ALT (test code = 24 u/l 0-65 1743-4) AST (test code = 33 u/l 0-37 68275-9) Alk Phos (test 97 u/l 39-136 code = 1783-0) Bili Total (test 0.8 mg/dl 0.2-1.3 code = 1974-) eGFR (test code = 89 The eGFR i s calculated 41047-5) {ML/MIN/1.7} using the CKD-E PI formula. In [...] be multiplied by t he estimated BMI. [facility]] C-REACTIVE [id number] 10:54:01 Test Item Value Reference Range Interpretation Comments CRP (test code = CRP) <2.9 <=2.9 [facility]] SED RATE BY MODIFIED [id number] 13:44:01 Test Item Value Reference Range Interpretation Comments Sedimentation Rate; Above High 31 {mm/hr} 0-15 Threshold (test code = 31489-4) [facility]] CMP [id number] 13:44:01 Test Item Value Reference Range Interpretation Comments Sodium Level 141 {mEq/l} 135-145 (test code = 2951-2) Potassium Level 4.7 {mEq/l} 3.5-5.1 (test code = 2823-3) Chloride Level 105 {mEq/l} 95-109 (test code = 2075-0) Carbon Dioxide; 34 {mEq/l} 24-32 Above High Threshold (test code = 2027-) AGAP; Below Low 6.7 {mEq/l} 10.0-20.0 Threshold (test code = 54016-7) Glucose Lvl (test 91 mg/dl 70-99 Adult refe rence range code = 2345-7) values reflec t the clinical guidel inesof the [place] [employer]abet es Association. Creatinine Lvl 0.90 mg/dl 0.50-1.40 (test code = 2160-0) Blood Urea 13 mg/dl 7-22 Nitrogen (test code = 3094-0) BUN/Creatinine 14 6-25 Ratio (test code = 3097-3) Total Protein; 6.1 g/dl 6.4-8.4 Below Low Threshold (test code = 2885-2) Albumin Lvl; 3.4 g/dl 3.5-5.0 Below Low Threshold (test code = 1751-7) Globulin (test 2.7 g/dl 2.7-4.2 code = 12591-7) A/G Ratio (test 1.3 0.7-1.6 code = 1759-0) Calcium Level 8.7 mg/dl 8.5-10.5 Total (test code = 51408-8) ALT (test code = 16 u/l 0-65 1743-4) AST (test code = 21 u/l 0-37 24805-8) Alk Phos; Above 179 u/l 39-136 High Threshold (test code = 1783-0) Bili Total (test 0.7 mg/dl 0.2-1.3 code = 1974-08) eGFR (test code = 89 The eGFR i s calculated 99372-4) {ML/MIN/1.7} using the CKD-E PI formula. In [...] be multiplied by t he estimated BMI. [facility]] C-REACTIVE [id number] 13:44:01 Test Item Value Reference Range Interpretation Comments CRP (test code = CRP) 7.0 mg/L <=2.9 [facility]] CBC (INCLUDES DIFF/PLT)2018-05-22 13:44:01 Test Item Value Reference Range Interpretation Comments WBC (test code = 6690-2) 4.5 {K/CMM} 3.7-10.4 RBC (test code = 789-8) 4.82 {M/CMM} 4.70-6.10 Hgb; Below Low Threshold (test 13.6 g/dl 14.0-18.0 code = 718-7) Hct; Below Low Threshold (test 41.6 % 42.0-54.0 code = 65112-5) MCV (test code = 787-2) 86.3 fL 80.0-94.0 MCH (test code = 785-6) 28.1 pg 27.0-31.0 MCHC (test code = 786-4) 32.6 g/dl 32.0-36.0 RDW; Above High Threshold (test 16.4 % 11.5-14.5 code = 788-0) Platelet (test code = 01119-4) 217 {K/CMM} 133-450 Mean Platelet Volume (test code 8.4 fL 7.4-10.4 = 88204-8) [facility]] [id number] 13:44:01 Test Item Value Reference Range Interpretation Comments Segmented Neutrophils (test code 46.0 % 45.0-75.0 = 17275-1) Monocytes; Above High Threshold 18.0 % 2.0-12.0 (test code = 97940-3) Lymphocytes (test code = 24643-7) 31.2 % 20.0-40.0 Eosinophils (test code = 25229-2) 3.4 % 0.0-4.0 Basophils; Above High Threshold 1.4 % 0.0-1.0 (test code = 706-2) Segs-Bands # (test code = 2.1 {K/CMM} 1.5-8.1 72677-4) Lymphocytes # (test code = 1.4 {K/CMM} 1.0-5.5 72343-4) Monocytes # (test code = 28493-0) 0.8 {K/CMM} 0.0-0.8 Eosinophils # (test code = 0.2 {K/CMM} 0.0-0.5 88049-2) Basophils # (test code = 41462-2) 0.1 {K/CMM} 0.0-0.2 [facility]] CBC (INCLUDES DIFF/PLT)2018-02-13 14:44:01 Test Item Value Reference Range Interpretation Comments WBC (test code = 6690-2) 6.2 {K/CMM} 3.7-10.4 RBC (test code = 789-8) 5.64 {M/CMM} 4.70-6.10 Hgb (test code = 718-7) 16.2 g/dl 14.0-18.0 Hct (test code = 59875-3) 48.9 % 42.0-54.0 MCV (test code = 787-2) 86.6 fL 80.0-94.0 MCH (test code = 785-6) 28.7 pg 27.0-31.0 MCHC (test code = 786-4) 33.1 g/dl 32.0-36.0 RDW; Above High Threshold (test 15.3 % 11.5-14.5 code = 788-0) Platelet (test code = 60368-0) 205 {K/CMM} 133-450 Mean Platelet Volume (test code 9.3 fL 7.4-10.4 = 73568-3) [facility]] [id number] 14:44:01 Test Item Value Reference Range Interpretation Comments Segmented Neutrophils (test code 67.2 % 45.0-75.0 = 35891-9) Monocytes; Above High Threshold 12.2 % 2.0-12.0 (test code = 86402-6) Lymphocytes; Below Low Threshold 18.2 % 20.0-40.0 (test code = 67572-7) Eosinophils (test code = 45325-7) 1.2 % 0.0-4.0 Basophils; Above High Threshold 1.2 % 0.0-1.0 (test code = 706-2) Segs-Bands # (test code = 4.2 {K/CMM} 1.5-8.1 82058-7) Lymphocytes # (test code = 1.1 {K/CMM} 1.0-5.5 92100-0) Monocytes # (test code = 91332-2) 0.8 {K/CMM} 0.0-0.8 Eosinophils # (test code = 0.1 {K/CMM} 0.0-0.5 66518-4) Basophils # (test code = 79745-7) 0.1 {K/CMM} 0.0-0.2 [facility]] CMP [id number] 14:44:01 Test Item Value Reference Range Interpretation Comments Sodium Level 140 {mEq/l} 135-145 (test code = 2951-2) Potassium Level 4.7 {mEq/l} 3.5-5.1 (test code = 2823-3) Chloride Level 100 {mEq/l} 95-109 (test code = 2075-0) Carbon Dioxide; 34 {mEq/l} 24-32 Above High Threshold (test code = 2027-9) AGAP (test code = 10.7 {mEq/l} 10.0-20.0 30073-7) Glucose Lvl; 128 mg/dl 70-99 Adult reference range Above High values reflect the Threshold (test clinical ernestine delinesof the code = 2345-7) [place] [employer]. Creatinine Lvl 1.00 mg/dl 0.50-1.40 (test code = 2160-0) Blood Urea 19 mg/dl 7-22 Nitrogen (test code = 3094-0) BUN/Creatinine 19 6-25 Ratio (test code = 3097-3) Total Protein 7.1 g/dl 6.4-8.4 (test code = 2885-2) Albumin Lvl (test 4.3 g/dl 3.5-5.0 code = 1751-7) Globulin (test 2.8 g/dl 2.7-4.2 code = 01588-7) A/G Ratio (test 1.5 0.7-1.6 code = 1759-0) Calcium Level 9.7 mg/dl 8.5-10.5 Total (test code = 86776-0) ALT (test code = 26 u/l 0-65 1743-4) AST (test code = 31 u/l 0-37 92670-0) Bili Total (test 1.2 mg/dl 0.2-1.3 code = 1974-2) Alk Phos (test 94 u/l 39-136 code = 1783-0) eGFR (test code = 78 The eGFR i s calculated 78186-2) {ML/MIN/1.7} using the CKD-E PI formula. In [...] be multiplied by t he estimated BMI. [facility]] C-REACTIVE [id number] 14:44:01 Test Item Value Reference Range Interpretation Comments CRP (test code = CRP) <2.9 <=2.9 [facility]] SED RATE BY MODIFIED [id number] 14:44:01 Test Item Value Reference Range Interpretation Comments Sedimentation Rate (test code = 1 {mm/hr} 0-15 47228-4) [facility]] CBC (INCLUDES DIFF/PLT)2017-10-10 14:43:01 Test Item Value Reference Range Interpretation Comments WBC (test code = 6690-2) 4.9 {K/CMM} 3.7-10.4 RBC (test code = 789-8) 5.55 {M/CMM} 4.70-6.10 Hgb (test code = 718-7) 16.1 g/dl 14.0-18.0 Hct (test code = 98680-0) 48.5 % 42.0-54.0 MCV (test code = 787-2) 87.4 fL 80.0-94.0 MCH (test code = 785-6) 29.0 pg 27.0-31.0 MCHC (test code = 786-4) 33.2 g/dl 32.0-36.0 RDW; Above High Threshold (test 15.5 % 11.5-14.5 code = 788-0) Platelet (test code = 11753-5) 190 {K/CMM} 133-450 Mean Platelet Volume (test code 9.2 fL 7.4-10.4 = 77432-9) [facility]] [id number] 14:43:01 Test Item Value Reference Range Interpretation Comments Segmented Neutrophils (test code 63.1 % 45.0-75.0 = 10557-4) Monocytes; Above High Threshold 12.2 % 2.0-12.0 (test code = 49089-4) Lymphocytes (test code = 73033-2) 22.9 % 20.0-40.0 Eosinophils (test code = 13885-3) 1.1 % 0.0-4.0 Basophils (test code = 706-2) 0.7 % 0.0-1.0 Segs-Bands # (test code = 3.1 {K/CMM} 1.5-8.1 09673-9) Lymphocytes # (test code = 1.1 {K/CMM} 1.0-5.5 94756-6) Monocytes # (test code = 49074-8) 0.6 {K/CMM} 0.0-0.8 Eosinophils # (test code = 0.1 {K/CMM} 0.0-0.5 94320-5) [facility]] CMP [id number] 14:43:01 Test Item Value Reference Range Interpretation Comments Sodium Level 140 {mEq/l} 135-145 (test code = 2951-2) Potassium Level 4.3 {mEq/l} 3.5-5.1 (test code = 2823-3) Chloride Level 105 {mEq/l} 95-109 (test code = 5-0) Carbon Dioxide 25 {mEq/l} 24-32 (test code = 2027-9) AGAP (test code = 14.3 {mEq/l} 10.0-20.0 40273-1) Glucose Lvl; 105 mg/dl 70-99 Adult reference range Above High values reflect the Threshold (test clinical ernestine delinesof the code = 2345-7) [employer]. Creatinine Lvl 1.00 mg/dl 0.50-1.40 (test code = 2160-0) Blood Urea 17 mg/dl 7-22 Nitrogen (test code = 3094-0) BUN/Creatinine 17 6-25 Ratio (test code = 3097-3) Total Protein 7.0 g/dl 6.4-8.4 (test code = 2885-2) Albumin Lvl (test 4.3 g/dl 3.5-5.0 code = 1751-7) Globulin (test 2.7 g/dl 2.7-4.2 code = 26160-9) A/G Ratio (test 1.6 0.7-1.6 code = 1759-0) Calcium Level 9.4 mg/dl 8.5-10.5 Total (test code = 62310-1) ALT (test code = 21 u/l 0-65 1743-4) AST (test code = 30 u/l 0-37 68157-3) Bili Total (test 1.3 mg/dl 0.2-1.3 code = 1975-2) Alk Phos (test 71 u/l 39-136 code = 1783-0) eGFR (test code = 78 The eGFR i s calculated 17194-8) {ML/MIN/1.7} using the CKD-E PI formula. In [...] be multiplied by t he estimated BMI. [facility]] URINALYSIS, [id number] 14:43:01 Test Item Value Reference Range Interpretation Comments UA Turbidity; Abnormal (test code = Slight Clear A 67131-1) UA Spec Grav (test code = 5810-7) 1.019 <=1.030 UA pH (test code = 5803-2) 8.0 5.0-8.0 UA Protein (test code = 88123-3) Negative Negative UA Glucose (test code = 87306-9) Negative Negative UA Ketones (test code = 10143-8) Negative Negative UA Bili (test code = 5770-3) Negative Negative UA Blood (test code = 5794-3) Negative Negative UA Nitrite (test code = 5802-4) Negative Negative UA Leuk Est (test code = 5799-2) Negative Negative UA WBC (test code = 98013-1) <1 0-5 UA Mucus (test code = 8247-9) Few None Seen UA Sq Epi (test code = 36589-1) None Seen UA Color (test code = 5778-6) Yellow UROBILINOGEN (test code = 06151-7) <=1.0 0.1-1.0 [facility]] C-REACTIVE [id number] 14:43:01 Test Item Value Reference Range Interpretation Comments CRP (test code = CRP) <2.9 <=2.9 [facility][H] Immunofixation [id number] 14:43:01 Test Item Value Reference Interpretation Comments Range Immunofixation See Electrophoresis interpreta Pattern (test code = tion. Immunofixation Electrophoresis Pattern) Immunofixation SEE NOTES Serum immunof ixation Electrophoresis electrophore sis reveals a Interpretation (test polyclo nal pattern code = ofimmunoglobuli ns. No Immunofixation monoclonal pr oteins are Electrophoresis identified. Interpretation) [facility]performed at [facility].Electr onic Signature Antonio Dobbs MD 10/12/17 7:5 8 AM [facility][H] Protein [id number] 14:43:01 Test Item Value Reference Interpretation Comments [...] Globulin 0.79 g/dl 0.45-1.00 (test code = 76642-1) Beta Globulin (test 0.78 g/dl 0.50-1.15 code [...] proteins are id entified. Interpretation performed at [facility].Electr onic Signature Antonio Dobbs MD 10/12/17 4:3 2 PM [facility]] CBC (INCLUDES DIFF/PLT)2017-06-13 15:05:01 Test Item Value Reference Range Interpretation Comments WBC (test code = WBC) 4.6 {K/CMM} 3.7-10.4 RBC (test code = RBC) 5.45 {M/CMM} 4.70-6.10 Hgb (test code = 72933-6) 15.6 g/dl 14.0-18.0 Hct (test code = 4544-3) 48.2 % 42.0-54.0 MCV (test code = MCV) 88.4 fL 80.0-94.0 MCH (test code = MCH) 28.5 pg 27.0-31.0 MCHC (test code = MCHC) 32.3 g/dl 32.0-36.0 RDW (test code = RDW) 13.9 % 11.5-14.5 Platelet (test code = 777-3) 222 {K/CMM} 133-450 Mean Platelet Volume (test code 8.6 fL 7.4-10.4 = Mean Platelet Volume) [facility]] [id number] 15:05:01 Test Item Value Reference Range Interpretation Comments Segmented Neutrophils (test code 65.3 % 45.0-75.0 = 49459-1) Monocytes # (test code = 69725-4) 0.6 {K/CMM} 0.0-0.8 Lymphocytes (test code = 19.5 % 20.0-40.0 Lymphocytes) Eosinophils (test code = 36070-8) 0.9 % 0.0-4.0 Basophils (test code = 46158-8) 0.9 % 0.0-1.0 Segs-Bands # (test code = 3.0 {K/CMM} 1.5-8.1 17194-9) Lymphocytes #; Below Low 0.9 {K/CMM} 1.0-5.5 Threshold (test code = 63031-9) [facility]] CMP [id number] 15:05:01 Test Item Value Reference Range Interpretation [...] t the Lvl) clinical guidel inesof the [place] [employer] es [employer]. Creatinine Lvl 1.00 mg/dl 0.50-1.40 (test code = Creatinine Lvl) Blood Urea 15 mg/dl 7-22 Nitrogen (test code = Blood Urea Nitrogen) BUN/Creatinine 15 6-25 Ratio (test code = BUN/Creatinine Ratio) Total Protein 7.3 g/dl 6.4-8.4 (test code = 20415-7) Albumin Lvl (test 3.8 g/dl 3.5-5.0 code = 1751-7) Globulin (test 3.5 g/dl 2.7-4.2 code = Globulin) A/G Ratio (test 1.1 0.7-1.6 code = A/G Ratio) Calcium Level 9.3 mg/dl 8.5-10.5 Total (test code = Calcium Level Total) ALT (test code = 24 u/l 0-65 1742-6) AST (test code = 36 u/l 0-37 1916-6) Bili Total (test 0.9 mg/dl 0.2-1.3 code = 85924-5) Alk Phos (test 77 u/l 39-136 code [...] multiplied by t he estimated BMI. [facility]] C-REACTIVE [id number] 15:05:01 Test Item Value Reference Range Interpretation Comments CRP (test code = CRP) 4.9 mg/L <=2.9 [facility]
--- NOTE | 2021-06-14 19:07 | RAD REPORT ---
EXAM DESCRIPTION: RAD - Chest Single View - 06/14/2021 6:53 pm CLINICAL HISTORY: COVID;Congestion;SOB COMPARISON: July 2019 TECHNIQUE: AP portable chest image was obtained 06/14/2021 6:53 pm . FINDINGS: Lung volumes are slightly reduced from comparison. No focal mass or consolidation. No defi nitive ground-glass or alveolar type infiltrates typical for COVID pneumonia. Interstitial markings a re increased over the comparison. Heart size and vasculature are fractionally increased. Trachea is m idline. No measurable pleural effusion and no pneumothorax. No acute bony abnormality seen. No acute aortic findings suspected. IMPRESSION: Heart, vasculature and lung markings are all fractionally increased over the comparison. A minimal amount of volume overload or failure would be possible. A mild interstitial infiltrate is also possible. No findings specific for a COVID 19 pneumonia
[2021-06-14] MEDS ORDERED: ASPIRIN 81 MG CHEWABLE TABLET ONE (22:50)
[2021-06-14] MEDS ORDERED: NA CHLORIDE 0.9% 250 ML ONE (22:50)
[2021-06-14] MEDS ORDERED: NA CHLORIDE 0.9% 50 ML ONE (22:51)
[2021-06-14] MEDS ORDERED: CASIRIVIMAB/IMDEVIMAB 10 ML VIAL ONE (22:51)
[2021-06-14 23:29] LABS: Absolute Lymphocytes (CBC) 1.3 K/uL (0.7-4.9); Basophils % 1.4 % (0-1.3); Hematocrit 48.8 % (39.6-49.0); Lymphocytes % 35.9 % (15.3-44.8); MPV 8.2 fL (7.6-11.3)
[2021-06-14 23:40] LABS: ALT/SGPT 28 U/L (12-78); AST/SGOT 49 U/L (15-37); Albumin 3.4 g/dL (3.4-5.0); Alkaline Phosphatase 76 U/L (45-117); BUN Blood Urea Nitrogen 11 mg/dL (7-18); Bicarbonate 27 mmol/L (21-32); Bilirubin Direct 0.2 mg/dL (0-0.2); Bilirubin Total 0.7 mg/dL (0.2-1.0); C-Reactive Protein 5.87 mg/L (<3.00); Ferritin 202.9 ng/mL (26-388); Glucose Level 120 mg/dL (74-106); NT PRO-BNP 66 pg/mL (<125); Potassium 3.7 mmol/L (3.5-5.1); Protein, Total 7.1 g/dL (6.4-8.2); Sodium Level 140 mmol/L (136-145); Troponin (Emerg Dept Use Only) < 0.02 ng/mL (0.0-0.045)
[2021-06-15 00:09] LABS: Blood Morphology Comment NOT SEEN (NOT SEEN); Platelet Estimate ADEQ
[2021-06-15] MEDS ORDERED: BENZONATATE 100 MG CAP PO ONE (01:24)
[2021-06-15] MEDS ORDERED: ALBUTEROL INHALER 60 PUFF/8 GM IH ONE (01:24)
[2021-06-15] MEDS ORDERED: dexAMETHasone 4 MG/ML VIAL ONE (01:24)
--- NOTE | 2021-06-15 01:31 | ER ---
Nurse's Notes [facility] Name: Brad Caceres Age: 70 yrs Sex: Male : 1950 Arrival Date: 06/14/2021 Time: 18:03 Bed 12 Private MD: Diagnosis: SARS-associated coronavirus as the cause of diseases classified elsewhere Presentation: 06/14 18:24 Chief complaint: Patient states: tested positive for COVID today, symptoms started X 1 iw week, c/o headache, head congestion, SOB 100% on RA, is worried it's in his lungs , no fever. Coronavirus screen: Client reports previous positive COVID test result. Ebola Screen: Patient negative for fever greater than or equal to 101.5 degrees Fahrenheit, and additional compatible Ebola Virus Disease symptoms Patient denies exposure to infectious person. Patient denies travel to an Ebola-affected area in the 21 days before illness onset. No symptoms or risks identified at this time. Onset of symptoms was June 07, 2021. 18:24 Method Of Arrival: Ambulatory iw 18:24 Acuity: FROY 3 iw Historical: - Allergies: 18:26 No Known Allergies; iw - PMHx: 18:26 Lupus erythematosus; Hypertensive disorder; Diverticulitis; Barrets disease; iw - PSHx: 18:26 cervical fusion; lumbar fusion; Cholecystectomy; Appendectomy; hernia; carpal tunnel; iw - Immunization history:: Adult Immunizations unknown. - Social history:: Smoking status: unknown. Screenin:30 Abuse screen: Denies threats or abuse. Nutritional screening: No deficits noted. bb Tuberculosis screening: No symptoms or risk factors identified. Fall Risk None identified. Assessment: 21:30 General: Appears in no apparent distress. Behavior is calm, cooperative. Pain: Denies bb pain. Neuro: Level of Consciousness is awake, alert, obeys commands, Oriented to person, place, time, situation. Cardiovascular: Heart tones S1 S2 present Capillary refill < 3 seconds Patient's skin is warm and dry. Rhythm is sinus rhythm. Respiratory: Airway is patent Respiratory effort is even, unlabored, Breath sounds are clear bilaterally. GI: No signs and/or symptoms were reported involving the gastrointestinal system. Derm: Skin is pink, warm \T\ dry. Musculoskeletal: Circulation, motion, and sensation intact. 23:00 Reassessment: Patient is alert, oriented x 3, equal unlabored respirations, skin bb warm/dry/pink. IV site intact. 06/15 02:04 Reassessment: Patient is alert, oriented x 3, equal unlabored respirations, skin bb warm/dry/pink. pt verbalized understanding of and agrees to plan of care discharge instructions given pt ambulated with steady gait to exit. Vital Signs: 06/14 18:27 BP 161 / 106; Pulse 80; Resp 20 S; Temp 98.7(O); Pulse Ox 100% on R/A; Weight 117.93 iw kg; Height 5 ft. 9 in. (175.26 cm); 06/15 02:03 BP 159 / 92; Pulse 77; Resp 20 S; Temp 98.9(TE); Pulse Ox 99% on R/A; bb 06/14 18:27 Body Mass Index 38.39 (117.93 kg, 175.26 cm) iw ED Course: 06/14 18:03 Patient arrived in ED. as 18:25 Triage completed. iw 18:28 Arm band placed on. iw 18:53 CXR XRAY In Process Unspecified. EDMS 21:27 Adonis Calderon PA is PHCP. cp 21:28 Adonis Ramirez MD is Attending Physician. cp 21:30 Patient has correct armband on for positive identification. bb 22:26 Amara Landon, RN is Primary Nurse. bb 23:21 Inserted saline lock: 22 gauge in left antecubital area, using aseptic technique. Blood ds4 collected. Missed attempt(s): 20 gauge in right antecubital area. Bleeding controlled, band aid applied, catheter tip intact. 06/15 02:06 No provider procedures requiring assistance completed. IV discontinued, intact, bb bleeding controlled, No redness/swelling at site. Pressure dressing applied. Administered Medications: 06/14 22:52 Drug: Aspirin Chewable Tablet 324 mg Route: PO; bb 06/15 00:36 Follow up: Response: No adverse reaction bb 06/14 23:32 Drug: Casirivimab-Imdevimab Dose Pack 120 mg/mL-120 mg/mL (EUA) 1 application Route: bb IV; Rate: calculated rate; Site: left antecubital; 06/15 01:36 Follow up: IV Status: Completed infusion; IV Intake: 270ml bb 01:36 Drug: Dexamethasone 6 mg Route: IVP; Site: left antecubital; bb 02:03 Follow up: Response: No adverse reaction bb 01:36 Drug: Albuterol HFA Inhaler 2 puffs Route: Inhalation; bb 02:03 Follow up: Response: No adverse reaction bb 01:36 Drug: Tessalon Perle (benzonatate) 200 mg Route: PO; bb 02:03 Follow up: Response: No adverse reaction bb Intake: 01:36 IV: 270ml; Total: 270ml. bb Outcome: 01:30 Discharge ordered by . cp 02:06 Discharged to home ambulatory. bb 02:06 Condition: stable 02:06 Discharge instructions given to patient, Instructed on discharge instructions, follow up and referral plans. medication usage, Demonstrated understanding of instructions, follow-up care, medications, Prescriptions given X 3. 02:06 Patient left the ED. bb Signatures: Dispatcher [employer] EDMaricarmen Walls Brenda, RN RN bb Williams, Irene, RN RN iw Swanson, Donovan ds4 Adonis Calderon PA PA cp
--- NOTE | 2021-06-15 01:31 | EDPHYS ---
Physician Documentation [facility] Name: Brad Caceres Age: 70 yrs Sex: Male : 1950 Arrival Date: 06/14/2021 Time: 18:03 Bed 12 Private MD: ED Physician Adonis Rmairez HPI: 06/14 22:00 This 70 yrs old Male presents to ER via Ambulatory with complaints of Breathing cp Difficulty - covid+. 22:00 The patient has shortness of breath with light activity. cp 22:00 The patient or guardian reports cough, that is constant. Onset: The symptoms/episode cp began/occurred 1 week(s) ago. 22:00 Associated signs and symptoms: Pertinent negatives: chest pain, diarrhea, fever, cp vomiting. Severity of symptoms: in the emergency department the symptoms are unchanged despite home interventions. Patient reports he tested positive for COVID-19 today. Patient reports receiving 2 dose vaccination for COVID-19 in the past. Historical: - Allergies: 18:26 No Known Allergies; iw - PMHx: 18:26 Lupus erythematosus; Hypertensive disorder; Diverticulitis; Barrets disease; iw - PSHx: 18:26 cervical fusion; lumbar fusion; Cholecystectomy; Appendectomy; hernia; carpal tunnel; iw - Immunization history:: Adult Immunizations unknown. - Social history:: Smoking status: unknown. ROS: 22:05 Constitutional: Negative for body aches, chills, fever, poor PO intake. cp 22:05 Eyes: Negative for injury, pain, redness, and discharge. cp 22:05 ENT: Negative for ear pain, sore throat, difficulty swallowing, difficulty handling secretions. 22:05 Cardiovascular: Negative for chest pain, edema, palpitations. 22:05 Respiratory: Positive for cough, with no reported sputum, shortness of breath, on exertion. Negative for wheezing. 22:05 Abdomen/GI: Negative for abdominal pain, nausea, vomiting, and diarrhea. 22:05 : Negative for urinary symptoms. 22:05 Neuro: Negative for altered mental status, headache, syncope, weakness. 22:05 All other systems are negative. Exam: 22:10 Constitutional: The patient appears in no acute distress, alert, awake, cp non-diaphoretic, non-toxic, well developed, well nourished. 22:10 Head/Face: Normocephalic, atraumatic. cp 22:10 Eyes: Periorbital structures: appear normal, Conjunctiva: normal, no exudate, no injection, Sclera: no appreciated abnormality, Lids and lashes: appear normal, bilaterally. 22:10 ENT: External ear(s): are unremarkable, Nose: is normal, Mouth: Lips: moist, Oral mucosa: moist, Posterior pharynx: Airway: no evidence of obstruction, patent. 22:10 Neck: ROM/movement: is normal, is supple, without pain, no range of motions limitations, no meningismus. 22:10 Chest/axilla: Inspection: normal. 22:10 Cardiovascular: Rate: normal, Rhythm: regular. 22:10 Respiratory: the patient does not display signs of respiratory distress, Respirations: normal, no use of accessory muscles, no retractions, labored breathing, is not present, Breath sounds: bronchial sounds, that are mild, are heard diffusely, stridor, is not appreciated, + upper airway congestion. wheezing: is not appreciated. 22:10 Abdomen/GI: Exam negative for discomfort, distension, guarding, Inspection: abdomen appears normal. 22:10 Back: pain, is absent, ROM is normal. 22:10 Neuro: Orientation: to person, place \T\ time. Mentation: is normal, Motor: moves all fours, strength is normal, Sensation: is normal. Vital Signs: 18:27 BP 161 / 106; Pulse 80; Resp 20 S; Temp 98.7(O); Pulse Ox 100% on R/A; Weight 117.93 iw kg; Height 5 ft. 9 in. (175.26 cm); 06/15 02:03 BP 159 / 92; Pulse 77; Resp 20 S; Temp 98.9(TE); Pulse Ox 99% on R/A; bb 06/14 18:27 Body Mass Index 38.39 (117.93 kg, 175.26 cm) iw MDM: 06/14 21:29 Patient medically screened. león 22:00 Differential diagnosis: bronchitis, flu, URI, pneumonia, respiratory failure. cp 06/15 01:30 Data reviewed: vital signs, nurses notes, lab test result(s), radiologic studies, plain cp films. 01:30 Data interpreted: shelter monitor: rhythm is normal sinus rhythm, Interpretation: cp normal rate, normal rhythm, Pulse oximetry: on room air is 99 %. Interpretation: normal. Test interpretation: by ED physician or midlevel provider: plain radiologic studies. Counseling: I had a detailed discussion with the patient and/or guardian regarding: the historical points, exam findings, and any diagnostic results supporting the discharge/admit diagnosis, lab results, radiology results, the need for outpatient follow up, a family practitioner, to return to the emergency department if symptoms worsen or persist or if there are any questions or concerns that arise at home. ED course: VSS. Patient appears non-toxic and no signs of respiratory distress. Will discharge to home for continued monitoring. 06/14 21:55 Order name: Basic Metabolic Panel cp 06/14 21:55 Order name: CBC with Diff; Complete Time: 15:43 cp 06/14 23:58 Interpretation: Normal except: WBC 3.70; PLT 138; RDW 15.3; MN% 19.3; BASO% 1.4; NEUT A cp 1.5. 06/14 21:55 Order name: LFT's; Complete Time: 23:57 cp 06/14 23:58 Interpretation: Normal except: AST 49; GLOB 3.7; A/G 0.9. cp 06/14 21:55 Order name: Magnesium; Complete Time: 23:57 cp 06/14 21:55 Order name: NT PRO-BNP; Complete Time: 23:57 cp 06/14 21:55 Order name: PT-INR; Complete Time: 23:57 cp 06/14 18:26 Order name: CXR XRAY; Complete Time: 21:28 iw 06/14 21:55 Order name: Troponin (emerg Dept Use Only); Complete Time: 23:57 cp 06/14 21:55 Order name: CRP; Complete Time: 23:57 cp 06/14 23:58 Interpretation: Abnormal: C-REACTIVE PROT 5.87. cp 06/14 21:55 Order name: Ferritin; Complete Time: 23:57 cp 06/14 23:59 Interpretation: Reviewed. cp 06/14 21:55 Order name: Basic Metabolic Panel; Complete Time: 23:57 EDMS 06/14 23:58 Interpretation: Normal except: GLUC 120; GFR 69. cp 06/14 23:47 Order name: Manual Differential; Complete Time: 15:43 EDMS 06/14 21:55 Order name: EKG; Complete Time: 21:55 cp 06/14 21:55 Order name: Cardiac monitoring; Complete Time: 23:52 cp 06/14 21:55 Order name: EKG - Nurse/Tech; Complete Time: 23:53 cp 06/14 21:55 Order name: IV Saline Lock; Complete Time: 23:20 cp 06/14 21:55 Order name: Labs collected and sent; Complete Time: 23:20 cp 06/14 21:55 Order name: O2 Per Protocol; Complete Time: 23:35 cp 06/14 21:55 Order name: O2 Sat Monitoring; Complete Time: 23:35 cp Administered Medications: 06/14 22:52 Drug: Aspirin Chewable Tablet 324 mg Route: PO; bb 06/15 00:36 Follow up: Response: No adverse reaction 06/14 23:32 Drug: Casirivimab-Imdevimab Dose Pack 120 mg/mL-120 mg/mL (EUA) 1 application Route: bb IV; Rate: calculated rate; Site: left antecubital; 06/15 01:36 Follow up: IV Status: Completed infusion; IV Intake: 270ml bb 01:36 Drug: Dexamethasone 6 mg Route: IVP; Site: left antecubital; bb 02:03 Follow up: Response: No adverse reaction bb 01:36 Drug: Albuterol HFA Inhaler 2 puffs Route: Inhalation; bb 02:03 Follow up: Response: No adverse reaction bb 01:36 Drug: Tessalon Perle (benzonatate) 200 mg Route: PO; bb 02:03 Follow up: Response: No adverse reaction bb Disposition Summary: 06/15/21 01:30 Discharge Ordered Location: Home cp Problem: new cp Symptoms: have improved cp Condition: Stable cp Diagnosis - SARS-associated coronavirus as the cause of diseases classified elsewhere cp Followup: cp - With: Private Physician - When: 2 - 3 days - Reason: Recheck today's complaints Discharge Instructions: - Discharge Summary Sheet cp - Aspirin and Your Heart cp - COVID-19 cp - Things to Know about the COVID-19 Pandemic - [facility] [place] 2[place] cp - 10 Things You Can Do to Manage Your COVID-19 Symptoms at Home - [facility] [place] 2] cp - COVID-19: Quarantine vs. Isolation - [facility] [place] 2] cp - Prevent the Spread of COVID-19 if You Are Sick - [facility] [place] 2] cp Forms: - Medication Reconciliation Form cp - Thank You Letter cp - Antibiotic Education cp - Prescription Opioid Use cp Prescriptions: - dexamethasone 2 mg Oral tablet - take 1 tablet by ORAL route 3 times per day for 5 days; 15 tablet; Refills: 0, cp Product Selection Permitted - Tessalon Perles 100 mg Oral Capsule - take 2 capsule by ORAL route every 8 hours As needed; 30 capsule; Refills: 0, cp Product Selection Permitted - Zithromax Z-Ashwin 250 mg Oral Tablet - take 1 tablet by ORAL route as directed for 5 days Day 1 - take two (2) tablets cp one time. Day 2, 3, 4 , 5 take one (1) tablet once daily.; 6 tablet; Refills: 0, Product Selection Permitted Addendum: 06/16/2021 12:55 Co-signature as Attending Physician, Adonis Ramirez MD I agree with the assessment and c candelario plan of care. Signatures: Dispatcher [employer] Adonis Zheng MD MD cha Ballard, Brenda, RN RN bb Williams, Irene, RN RN iw Page, Corey, PA PA cp
[2021-06-15 02:13] VITALS: BP 159/92; TEMP 98.9; O2SAT 99
== END 2021-06-15 02:06 | disposition home or self-care (01) ==
LOC: ER 18:02
DX: U07.1 COVID-19 (principal); I10 Essential (primary) hypertension
CPT/HCPCS: 96365; 93005; 85025; 80048; 36415; 83735; 85610; 80076; 84484; 82728; 83880; 86140; 71045; 96375; 99285; 96366; J1100; J7050; M0243

== ENCOUNTER 2023-03-24 07:43 | Day surgery (SDC) | payer OTHER ==
[2023-03-24] MEDS ORDERED: NA CHLORIDE 0.9% 500 ML ONE (08:26)
[2023-03-24 08:37] VITALS: TEMP 97.6
[2023-03-24] MEDS ORDERED: HEPA 1000U/500MLS 2,000 UNIT/1,000 ML BAG IV ONE (09:19)
[2023-03-24] MEDS ORDERED: HEPARIN 5000 UNIT/ML 1 ML VIAL ONE (09:22)
[2023-03-24] MEDS ORDERED: VERAPAMIL HCL 10 MG/4 ML VIAL IV ONE (09:22)
[2023-03-24] MEDS ORDERED: FENTANYL CITR 100 MCG/2 ML ONE (09:22)
[2023-03-24] MEDS ORDERED: MIDAZOLAM HCL 2 MG/2 ML INJ ONE (09:22)
[2023-03-24] MEDS ORDERED: TICAGRELOR 90 MG TABLET PO ONE (09:23)
[2023-03-24] MEDS ORDERED: CLOPIDOGREL 75 MG TABLET ONE (09:23)
[2023-03-24] MEDS ORDERED: ATROPINE SULF 1 MG/10 ML SYR IV ONE (09:23)
[2023-03-24] MEDS ORDERED: HEPARIN 10,000 UNIT/10 ML VIAL IV ONE (09:23)
[2023-03-24] MEDS ORDERED: ASPIRIN 325 MG TAB ONE (09:23)
--- NOTE | 2023-03-24 11:36 | OP ---
Date of Procedure: 03/24/2023 Surgeon: TIMO ALATORRE Procedure Performed: 1.Selective coronary angiogram. 2.Left heart catheterization. Indication: Chest pain with abnormal stress test suggestive of unstable angina. Access: Right radial artery 6-Serbian closed with TR band. Complications: None. Bleeding: Less than 20 mL. Anesthesia: Sedation is 0. The patient's blood pressure was low, so did not get any sedation. Description Of Procedure: After risks, benefits, and alternatives were explained, the patient agreed to the procedure and signed informed consent. The patient was brought into the cardiac catheterizat ion laboratory, prepped and draped in usual sterile fashion. Then, I accessed right radial artery us ing pediatric micropuncture kit and placed a 6-Serbian slender sheath and took 5-Serbian Trevor 4.0 cath eter into the aortic root, engaged left main and took standard views in the right coronary artery and took standard views. Then, I had to use a 6-Serbian JL3.5 guide catheter to engage the left main and get better pictures and the catheter also was pushed over the wire into the LV, measured LVEDP, pull back did not record any gradient and then removed the catheter and sheath, placed TR band with good h emostasis. Findings: 1.Left main; very large and normal. 2.LAD; large vessel and normal. 3.Left circumflex is very large vessel, codominant and normal. 4.RCA, codominant, large, and normal. 5.Normal LVEDP at 9 mmHg. Conclusion: 1.Normal coronary arteries. 2.Normal LVEDP and this is falsely positive stress test and his chest pain is noncardiac. Recommendations: Search for other causes of chest pain. SR/MODL Voice ID: [id number] Report ID: [id number]
[2023-03-24 12:34] VITALS: BP 117/68; O2SAT 96
== END 2023-03-24 12:34 | disposition home or self-care (01) ==
LOC: CCL 07:43
PROVIDERS: ATTEND Internal Medicine
PROC: 4A023N7 Measurement of Cardiac Sampling and Pressure, Left Heart, Percutaneous Approach (ICD-10-PCS; principal; 2023-03-24)
PROC: B2111ZZ Fluoroscopy of Multiple Coronary Arteries using Low Osmolar Contrast (ICD-10-PCS; 2023-03-24)
DX: R94.39 Abnormal result of other cardiovascular function study (principal); R07.89 Other chest pain; I10 Essential (primary) hypertension; E78.5 Hyperlipidemia, unspecified; E11.9 Type 2 diabetes mellitus without complications; R06.02 Shortness of breath; R42 Dizziness and giddiness; R60.9 Edema, unspecified; Z87.891 Personal history of nicotine dependence; Z79.85 Long-term (current) use of injectable non-insulin antidiabetic drugs; Z79.899 Other long term (current) drug therapy; Z91.09 Other allergy status, other than to drugs and biological substances; Z79.84 Long term (current) use of oral hypoglycemic drugs
CPT/HCPCS: 93005; 85025; 80048; 36415; 85610; 82947; 85730; 71046; 93458 ×2; 76937 ×2; C1893 ×2; Q9966 ×2; J1644 ×2; J2001; J2250; J3010; J7040 ×2; J0461